=== PATIENT | male | born 1975 | race Caucasian/White ===

== ENCOUNTER 2020-10-07 18:37 | Inpatient (IN) | payer OTHER, SELFPAY ==
[2020-10-07 18:43] VITALS: BP 162/83; PULSE 131; RESP 18; TEMP 36.7; O2SAT 98; BMI 23.1
[2020-10-07 18:58] VITALS: BP 176/103; PULSE 100; RESP 16; TEMP 36.8; O2SAT 99
--- NOTE | 2020-10-07 19:19 | ED.GENADULT ---
HPI - General Adult General Chief complaint: ETOH/Substance Use Stated complaint: DIFF SWALLOWING Time Seen by Provider: 10/07/20 19:06 Source: patient Mode of arrival: ambulatory Limitations: no limitations History of Present Illness HPI narrative: patient comes to emergency room complaining of nausea and vomiting. Patient states that he started vomiting today, for the last couple of days he has been shaky, feeling weak. Patient admits that he takes alcohol daily, now drinks half pt of vodka on a daily basis, last drink was 3 hours prior to arrival. Patient has been drinking since age 15. patient states that he does not have any abdominal pain. complaint: vomiting Related Data Allergies Allergy/AdvReac Type Severity Reaction Status Date / Time Penicillins [PENICILLINS] Allergy Unknown RASH Unverified 07/21/20 15:16 Review of Systems Review of Systems: Constitutional : No Weight loss, No Fever, No Chills, No Night Sweats, No Fatigue, No Malaise ENT/Mouth : No Hearing loss, No Ear Pain, No Nasal Congestion, No Sinus Pain, No Hoarseness, No sore throat, No Rhinorrhea, No Swallowing Difficulty Eyes: No Eye Pain, No Swelling, No Redness, No Foreign Body, No Discharge, No Vision Changes Cardiovascular : No Chest Pain, No SOB, No Dyspnea on Exertion, No Orthopnea, No Edema, No Palpitations Respiratory : No Cough, No Sputum, No Wheezing, No Smoke Exposure, No Dyspnea Gastrointestinal : complaining of nausea and vomiting, No Diarrhea, No Constipation, occasional abdominal Pain but not at this time, No Hematochezia, No Melena Genitourinary : no irregular bleeding, No Dysuria, No Urinary Frequency, No Hematuria, No Urinary Incontinence, No Urgency, No Flank Pain, No Urinary Flow Changes, No Hesitancy Musculoskeletal : No joint pain, No Myalgias, No Joint Swelling Skin : No Skin Lesions, No rash Neuro : complaining of feeling weak and shaky, No Loss of Consciousness, No Dizziness, No Headache Psych : No Anxiety/Panic, No Depression, No SI/HI/AH/VH, No Social Issues, Heme/Lymph: No Bruising, No Bleeding,No Lymphadenopathy Endocrine : No Polyuria, No Polydipsia, No Temperature Intolerance PMFSH Past Medical History Medical History ETOH abuse HTN (hypertension) Social History Social History Alcohol intake: current Alcohol intake frequency: 3 or more drinks per day Alcohol type: hard liquor Smoked in Last 30 Days: No Use of substances other than those prescribed or required for medical reasons: No Advance Directives: No Advance Directives Information Provided: Yes Physical Exam Vital Signs: Vital Signs: Last Vital Signs Temp 98.3 F 10/07/20 18:58 Pulse 100 10/07/20 18:58 Resp 16 10/07/20 18:58 BP 176/103 H 10/07/20 18:58 Pulse Ox 99 10/07/20 18:58 Body Mass Index 23.1 Appearance: Alert. Oriented X3. No acute distress. anxious Eyes: Pupils equal, round and reactive to light. ENT: Pharynx normal. Neck: Normal inspection. Neck supple. No lymph nodes noted. No crepitus CVS: Normal heart rate and rhythm. Pulses normal. Normal S1 and S2 Respiratory: No respiratory distress. Breath sounds normal. No Wheezing. No rales Abdomen: Soft and nontender. No rigidity. No distention. good BS x4 Skin: Skin warm and dry. Normal skin color. Normal skin turgor. Extremities: No lower extremity edema. No lower extremity edema. No Lacerations. No Rash Neuro: Oriented X 3. No motor deficit. No sensory deficit. Moving all extermities. No slurred speech. Course Course Course Narrative: while patient was in his room, he had a seizure-like activity, patient remained awake the whole time, no postictal period, patient had severe shaking arms and legs. Patient states this has never happened to him before. I discussed the labs with the patient, patient's hemoglobin is 7.9. After reviewing the labs, patient states that he has notice occasionally black stools intermittently. patient's occult blood test was positive. Patient denies any chest pain, no shortness of breath, no dizziness. patient's EKG shows nonspecific ST segment changes in V3 through V5, troponin pending, patient asymptomatic Overall at this time, patient feels better, still somewhat shaky . I discussed the patient with our hospitalist, patient being admitted. Medical Decision Making Lab Data Result diagrams: 10/07/20 19:35 10/07/20 19:35 Labs: Lab Results 10/07/20 10/07/20 10/07/20 Range/Units 19:35 19:35 19:35 WBC 2.3 L (4.8-10.8) X10*3/uL RBC 3.22 L (4.60-5.80) X10*6/uL Hgb 7.9 L (14.0-18.0) g/dl Hct 25.4 L (42-52) % MCV 78.9 L (80-98) fL MCH 24.5 L (27.0-33.0) pg MCHC 31.1 (31.0-36.0) g/dl RDW 16.3 H (11.0-16.0) % Plt Count 83 L (160-400) X10*3/uL MPV 9.8 (9.4-12.4) fL Immature Gran % (Auto) 0.4 (0.0-0.4) % Neut % (Auto) 69.1 (45-73) % Lymph % (Auto) 8.2 L (20-40) % [place] % (Auto) 20.6 H (2-11) % Eos % (Auto) 0.4 (0-4) % Baso % (Auto) 1.3 (0-2) % Lymph # (Auto) 0.2 L (1.2-4.9) X10*3/uL [place] # (Auto) 0.5 (0.1-1.2) X10*3/uL Eos # (Auto) 0.0 (0.0-0.4) X10*3/uL Baso # (Auto) 0.0 (0.0-0.2) X10*3/uL Abs Immat Gran (auto) 0.01 (0.00-0.03) X10*3/uL Absolute Neuts (auto) 1.6 L (2.0-8.3) X10*3/uL Absolute Nucleated RBC 0.000 (0.0-0.012) X10*3/uL Nucleated RBC % (auto) 0.0 (0.0-0.2) /100WBC Smear Tech's Comments VERIFIED Sodium 136 (135-145) mmol/L Potassium 3.4 (3.3-5.1) mmol/l Chloride 96 (96-108) mmol/L Carbon Dioxide 23 (22-29) mmol/L Anion Gap 20 (12-20) BUN 10 (9-16) mg/dL Creatinine 0.78 (0.5-1.4) mg/dL Estim Creat Clear Calc 135.2 Estimated GFR > 60 Random Glucose 96 (60-115) mg/dL Calcium 9.0 (8.4-10.2) mg/dL Total Bilirubin 1.2 H (0.0-1.0) mg/dL Direct Bilirubin 0.6 H (0.0-0.5) mg/dL AST 151 H (5-37) U/L ALT 94 H (0-40) U/L Alkaline Phosphatase 66 (39-117) U/L Total Protein 7.5 (6.5-8.0) g/dL Albumin 4.8 (3.5-5.0) g/dL Lipase 28 (8-78) U/L Stool Occult Blood (NEG) Ethyl Alcohol 23 mg/dL COVID-19 (CRUZ) (Negative) COVID-19 Clin Com 10/07/20 10/07/20 Range/Units 21:02 21:02 WBC (4.8-10.8) X10*3/uL RBC (4.60-5.80) X10*6/uL Hgb (14.0-18.0) g/dl Hct (42-52) % MCV (80-98) fL MCH (27.0-33.0) pg MCHC (31.0-36.0) g/dl RDW (11.0-16.0) % Plt Count (160-400) X10*3/uL MPV (9.4-12.4) fL Immature Gran % (Auto) (0.0-0.4) % Neut % (Auto) (45-73) % Lymph % (Auto) (20-40) % [place] % (Auto) (2-11) % Eos % (Auto) (0-4) % Baso % (Auto) (0-2) % Lymph # (Auto) (1.2-4.9) X10*3/uL [place] # (Auto) (0.1-1.2) X10*3/uL Eos # (Auto) (0.0-0.4) X10*3/uL Baso # (Auto) (0.0-0.2) X10*3/uL Abs Immat Gran (auto) (0.00-0.03) X10*3/uL Absolute Neuts (auto) (2.0-8.3) X10*3/uL Absolute Nucleated RBC (0.0-0.012) X10*3/uL Nucleated RBC % (auto) (0.0-0.2) /100WBC Smear Tech's Comments Sodium (135-145) mmol/L Potassium (3.3-5.1) mmol/l Chloride (96-108) mmol/L Carbon Dioxide (22-29) mmol/L Anion Gap (12-20) BUN (9-16) mg/dL Creatinine (0.5-1.4) mg/dL Estim Creat Clear Calc Estimated GFR Random Glucose (60-115) mg/dL Calcium (8.4-10.2) mg/dL Total Bilirubin (0.0-1.0) mg/dL Direct Bilirubin (0.0-0.5) mg/dL AST (5-37) U/L ALT (0-40) U/L Alkaline Phosphatase (39-117) U/L Total Protein (6.5-8.0) g/dL Albumin (3.5-5.0) g/dL Lipase (8-78) U/L Stool Occult Blood POS (NEG) Ethyl Alcohol mg/dL COVID-19 (CRUZ) Negative (Negative) COVID-19 Clin Com See Note ECG Data Attestation: I personally reviewed and interpreted this ECG as follows: ( normal sinus rhythm, heart rate 100, ST segment depressions V3 through V6, nonspecific, no previous EKGs for comparison, QTC 464) Discharge Plan Discharge Clinical Impression: Seizure-like activity, Alcohol abuse Anemia Qualifiers: Anemia type: unspecified type Qualified Code(s): D64.9 - Anemia, unspecified GI bleed Qualifiers: GI bleed type/associated pathology: melena Qualified Code(s): K92.1 - Melena Patient Disposition: Admitted As Inpatient
[2020-10-07] MEDS: LORazepam 2 MG/ML VIAL IM (19:25)
--- NOTE | 2020-10-07 19:30 | PC.NURSE ---
RN CALLED TO STRETCHER SIDE BY PCT, PT APPEARS TO BE HAVING PARTIAL SEIZURE. VERY DIAPHORETIC, SHAKING, BUT ALWAYS AWAKE AND ALERT. MD @ BEDSIDE ORDERED 2MG IM ATIVAN. SEIZURE ACTIVITY LASTING APPROX 90 SEC-2MIN W/1 EPISODE OF N/V FOLLOWING THE EVENT. SEIZURE PRECAUTIONS HAVE BEEN PUT IN PLACE.
[2020-10-07 19:48] LABS: Basophils Percent Auto 1.3 % (0-2); Eosinophils Percent Auto 0.4 % (0-4); Hematocrit 25.4 % (42-52); Hemoglobin 7.9 g/dl (14.0-18.0); Imm Gran Abs Auto 0.01 X10*3/uL (0.00-0.03); Imm Gran Pct Auto 0.4 % (0.0-0.4); Lymphocytes Absolute Auto 0.2 X10*3/uL (1.2-4.9); Lymphocytes Percent Auto 8.2 % (20-40); MANUAL DIFF FLAG SCAN; Mean Corpuscular HGB Conc 31.1 g/dl (31.0-36.0); Mean Corpuscular Hemoglobin 24.5 pg (27.0-33.0); Mean Corpuscular Volume 78.9 fL (80-98); Mean Platelet Volume 9.8 fL (9.4-12.4); Monocytes Absolute Auto 0.5 X10*3/uL (0.1-1.2); Monocytes Percent Auto 20.6 % (2-11); Neutrophils Absolute Auto 1.6 X10*3/uL (2.0-8.3); Neutrophils Percent Auto 69.1 % (45-73); Red Blood Count 3.22 X10*6/uL (4.60-5.80); Red Cell Distribution Width 16.3 % (11.0-16.0); SCAN SMEAR FLAG 1
[2020-10-07] MEDS: ondansetron HCL 4 MG/2 ML VIAL IVPUSH (19:49)
[2020-10-07 20:02] LABS: White Blood Count 2.3 X10*3/uL (4.8-10.8)
[2020-10-07 20:03] LABS: Platelet Count 83 X10*3/uL (160-400); SLIDE REVIEW VERIFIED
[2020-10-07 20:08] LABS: Ethanol 23 mg/dL
[2020-10-07 20:13] LABS: Alanine Aminotransferase 94 U/L (0-40); Albumin Level 4.8 g/dL (3.5-5.0); Alkaline Phosphatase 66 U/L (39-117); Anion Gap 20 (12-20); Aspartate Amino Transferase 151 U/L (5-37); Bilirubin Direct 0.6 mg/dL (0.0-0.5); Bilirubin Total 1.2 mg/dL (0.0-1.0); Blood Urea Nitrogen 10 mg/dL (9-16); Carbon Dioxide 23 mmol/L (22-29); Chloride 96 mmol/L (96-108); Creatinine Clr Calc Pharmacy 135.2; Estimated Glomerular Filt Rate > 60; Glucose Random 96 mg/dL (60-115); Lipase 28 U/L (8-78); Potassium 3.4 mmol/l (3.3-5.1); Sodium 136 mmol/L (135-145); Total Protein 7.5 g/dL (6.5-8.0)
--- NOTE | 2020-10-07 20:53 | ECG_ITS ---
Test Reason : SUBSTANCE ABUSE Blood Pressure : / mmHG Vent. Rate : 100 BPM Atrial Rate : 100 BPM P-R Int : 130 ms QRS Dur : 084 ms QT Int : 360 ms P-R-T Axes : 036 -08 021 degrees QTc Int : 464 ms Normal sinus rhythm Nonspecific ST abnormality Abnormal ECG No previous ECGs available Referred By: Kenya Purdy Electronically Signed By:DELFINA VILLASEÑOR MD
[2020-10-07] MEDS: LORazepam 2 MG/ML VIAL 1 MG IVPUSH (21:17)
[2020-10-07 21:27] LABS: OBS Int Ctl Valid YES; OBS1 POS (NEG)
[2020-10-07 21:29] LABS: COVID-19 Test Negative (Negative)
[2020-10-07 23:04] LABS: Troponin-I High Sensitivity 9.2 ng/L (<3.5-35.0)
[2020-10-07 23:31] VITALS: BP 148/76; PULSE 103; RESP 18; TEMP 36.6; O2SAT 97
--- NOTE | 2020-10-07 23:34 | PM.IMHP ---
History of Present Illness Date of Service: 10/07/20 Chief Complaint: Alcohol withdrawal 45 y/o male with PMHX of Alcohol abuse, Peripheral neuropathy and GERD who presented from home due to alcohol intoxication. Per history provided by the patient, for the past 2-3 has not been feeling well, like malaise associated with poor appetite, nausea/vomiting. Patient reports that for the past 3-5 years has been drinking excessively, mainly vodka 1 quartz everyday. Last alcoholic drink was today in the am. Patient denies any chest pain, SOB, diarrhea, constipation, abdominal pain, unsteadiness or fever. On presentation to the ED patient was noted to have a BP of 160/80 mmHg, HR of 131 (which improved after 2 doses of ativan per ED. While in the ED patient was noted to have an episodes of suspected seizure where patient started moving her arms like tremulousness but without loss of consciousness. Patient does not recall the events. On blood work patient is noted to be pancytopenic, WBC of 2.3, Hgb of 7.9 and plt of 83, Guaiac postiive. Elevated LFT's noted which improved from before. Decision for admission given. Patient seen and examined at the bedside, laying down in bed in no acute distress, mildly anxious. Tremors is evident in bilateral UE. Denies any hallucinations or delusions at present. PMHX: Peripheral neuropathy, GERD PSX: None Toxic habits: Alcohol abuse, smoking or IVDA Review of Systems Constitutional: Constitutional: Reports as per [facility] Medical History ETOH abuse HTN (hypertension) Social History Alcohol intake: current Alcohol intake frequency: 3 or more drinks per day Alcohol type: hard liquor Smoked in Last 30 Days: No Use of substances other than those prescribed or required for medical reasons: No Advance Directives: No Advance Directives Information Provided: Yes Meds Allergies Allergy/AdvReac Type Severity Reaction Status Date / Time Penicillins [PENICILLINS] Allergy Unknown RASH Verified 10/07/20 22:23 Home Medications Medication Instructions Recorded Confirmed Type gabapentin 1 cap PO TID 10/07/20 10/07/20 History omeprazole [Prilosec] 40 mg PO DAILY 10/07/20 10/07/20 History Physical Exam Vital Signs and Narrative: Vital Signs: Last Vital Signs Temp 98.3 F 10/07/20 18:58 Pulse 100 10/07/20 18:58 Resp 16 10/07/20 18:58 BP 176/103 H 10/07/20 18:58 Pulse Ox 99 10/07/20 18:58 Body Mass Index 23.1 Const: General: cooperative, comfortable, no acute distress and other (mildly anxious ) Orientation/consciousness: oriented to person, oriented to place and oriented to time HENMT: Head: Yes normal to inspection Eyes: General: appearance normal, both eyes and all related structures Neck: Yes normal visual inspection Chest: Chest palpation & inspection: normal inspection of the chest Resp: Effort & Inspection: normal respiratory effort Auscultation: clear to auscultation bilaterally Cardio: Jugular venous distension: no JVD Rate: regular rate Rhythm: regular rhythm Heart sounds: S1 normal heart sound present and S2 normal heart sound present GI: Inspection: Yes normal to inspection Skin: General skin exam: no rashes or lesions noted Neuro: General: oriented to person, oriented to place and oriented to time Cognition (Neuro): normal cognition Results Labs CBC and Chem 7: 10/07/20 19:35 10/07/20 19:35 Labs: Laboratory Results - last 24 hr 10/07/20 10/07/20 10/07/20 19:35 19:35 19:35 MCV 78.9 L MCH 24.5 L MCHC 31.1 RDW 16.3 H Plt Count 83 L MPV 9.8 Immature Gran % (Auto) 0.4 Neut % (Auto) 69.1 Lymph % (Auto) 8.2 L [place] % (Auto) 20.6 H Eos % (Auto) 0.4 Baso % (Auto) 1.3 Lymph # (Auto) 0.2 L [place] # (Auto) 0.5 Eos # (Auto) 0.0 Baso # (Auto) 0.0 Abs Immat Gran (auto) 0.01 Absolute Neuts (auto) 1.6 L Absolute Nucleated RBC 0.000 Nucleated RBC % (auto) 0.0 Smear Tech's Comments VERIFIED Anion Gap 20 Estim Creat Clear Calc 135.2 Estimated GFR > 60 Random Glucose 96 Calcium 9.0 Total Bilirubin 1.2 H Direct Bilirubin 0.6 H AST 151 H ALT 94 H Alkaline Phosphatase 66 Troponin I High Sens Total Protein 7.5 Albumin 4.8 Lipase 28 Stool Occult Blood Ethyl Alcohol 23 COVID-19 (CRUZ) COVID-19 Clin Com 10/07/20 10/07/20 10/07/20 19:35 21:02 21:02 MCV MCH MCHC RDW Plt Count MPV Immature Gran % (Auto) Neut % (Auto) Lymph % (Auto) [place] % (Auto) Eos % (Auto) Baso % (Auto) Lymph # (Auto) [place] # (Auto) Eos # (Auto) Baso # (Auto) Abs Immat Gran (auto) Absolute Neuts (auto) Absolute Nucleated RBC Nucleated RBC % (auto) Smear Tech's Comments Anion Gap Estim Creat Clear Calc Estimated GFR Random Glucose Calcium Total Bilirubin Direct Bilirubin AST ALT Alkaline Phosphatase Troponin I High Sens 9.2 Total Protein Albumin Lipase Stool Occult Blood POS Ethyl Alcohol COVID-19 (CRUZ) Negative COVID-19 Clin Com See Note Assessment and Plan (1) Alcohol withdrawal: Status: Acute Start with phenobarbital per protocol monitor closely in IMC Fall precautions Start with thiamine and folate as ordered Monitor electrolytes closely Detox for evaluation in the am (2) Seizure-like activity: Status: Acute EEG in the am Neurology evaluation in the am (3) Anemia: Qualifiers: Anemia type: unspecified type Qualified Code(s): D64.9 - Anemia, unspecified Status: Acute Hgb of 7.9. Guaic positive Follow up Repeat CBC at 3 am and Iron studies GI eval in the am (4) GERD (gastroesophageal reflux disease): Status: Acute continue with PPI home dose (5) Peripheral neuropathy: Status: Acute continue with gabapentin home dose
[2020-10-08] VITALS (10 sets, daily range): BP systolic 130–171; BP diastolic 76–97; PULSE 79–96; RESP 18–20; TEMP 36.3–37.3; O2SAT 96–100
[2020-10-08] MEDS: Thiamine HCL 100 MG TABLET PO ×2 (00:44→20:55)
[2020-10-08] MEDS: Folic Acid 1 MG TABLET PO ×2 (00:44→20:55)
[2020-10-08] MEDS: PHENobarbitaL sodium 130 MG/ML VIAL 261 MG IM (00:44)
--- NOTE | 2020-10-08 02:57 | PC.NURSE ---
HOSPITALIST AWARE 0000 CBC NOT DONE, STATES OK, PT TO HAVE 0300 DRAW. IMC NURSE AWARE
[2020-10-08] MEDS: PHENobarbitaL sodium 65 MG/ML VIAL 196 MG IM ×2 (03:39→06:50)
[2020-10-08 03:50] LABS: Hematocrit 23.2 % (42-52); Hemoglobin 7.3 g/dl (14.0-18.0); Immature Retic Fraction 26.9 % (2.3-13.4); Mean Corpuscular HGB Conc 31.5 g/dl (31.0-36.0); Mean Corpuscular Volume 79.5 fL (80-98); Mean Platelet Volume 9.5 fL (9.4-12.4); Red Blood Count 2.92 X10*6/uL (4.60-5.80); Red Cell Distribution Width 16.2 % (11.0-16.0); Retic HGB Equivalent 29.4 pg (30.0-35.0); Reticulocytes Absolute 0.058 X10*6/uL (0.026-0.095)
[2020-10-08 03:54] LABS: Platelet Count 75 X10*3/uL (160-400); White Blood Count 2.1 X10*3/uL (4.8-10.8)
[2020-10-08 04:18] LABS: Iron 46 mcg/dL (45-160); Percent Iron Saturation 10 % (15-50); Total Iron Binding Capacity 467 mcg/dL (228-428); Unsaturated Iron Binding 421 ug/dL
[2020-10-08 04:38] LABS: Ferritin 39 ng/mL (20-250)
[2020-10-08 07:06] LABS: Basophils Percent Auto 1.1 % (0-2); Eosinophils Percent Auto 1.1 % (0-4); Hematocrit 23.9 % (42-52); Hemoglobin 7.5 g/dl (14.0-18.0); Imm Gran Abs Auto 0.01 X10*3/uL (0.00-0.03); Imm Gran Pct Auto 0.5 % (0.0-0.4); Lymphocytes Absolute Auto 0.2 X10*3/uL (1.2-4.9); Lymphocytes Percent Auto 8.9 % (20-40); MANUAL DIFF FLAG SCAN; Mean Corpuscular HGB Conc 31.4 g/dl (31.0-36.0); Mean Corpuscular Hemoglobin 24.7 pg (27.0-33.0); Mean Corpuscular Volume 78.6 fL (80-98); Monocytes Absolute Auto 0.5 X10*3/uL (0.1-1.2); Monocytes Percent Auto 24.7 % (2-11); Neutrophils Absolute Auto 1.2 X10*3/uL (2.0-8.3); Neutrophils Percent Auto 63.7 % (45-73); Red Blood Count 3.04 X10*6/uL (4.60-5.80); Red Cell Distribution Width 16.4 % (11.0-16.0); SCAN SMEAR FLAG 1
[2020-10-08 07:21] LABS: Platelet Count 82 X10*3/uL (160-400); White Blood Count 1.9 X10*3/uL (4.8-10.8)
[2020-10-08 07:26] LABS: Anion Gap 14 (12-20); Blood Urea Nitrogen 10 mg/dL (9-16); Calcium 8.7 mg/dL (8.4-10.2); Carbon Dioxide 27 mmol/L (22-29); Chloride 98 mmol/L (96-108); Creatinine Clr Calc Pharmacy 142.5; Estimated Glomerular Filt Rate > 60; Glucose Random 85 mg/dL (60-115); Potassium 3.3 mmol/l (3.3-5.1); Sodium 136 mmol/L (135-145)
[2020-10-08 07:55] LABS: SLIDE REVIEW VERIFIED
--- NOTE | 2020-10-08 08:49 | P.CNGI_ITS ---
History of Present Illness Data of Consult Service Date: 10/08/20 Requesting physician: Orlin Chapman Primary Care Provider: Capo Mario MD HPI Reason for consult: Nausea, vomiting, anemia, suspected GI Bleed 45 YM with known hx of ETOH abuse, GERD and peripheral neuropathy seen at [facility] ED yesterday with nausea and vomiting: patient comes to emergency room complaining of nausea and vomiting. Patient states that he started vomiting today, for the last couple of days he has been shaky, feeling weak. Patient admits that he takes alcohol daily, now drinks half pt of vodka on a daily basis, last drink was 3 hours prior to arrival. Patient has been drinking since age 15. patient states that he does not have any abdominal pain. MD complaint: vomiting Labs showed anemia and elevated LFTs. Iron studies are suggestive of iron deficiency anemia. While in the ED, pt had a seizure like activity with severe shaking of arms and legs. He admitted to having intermittent black stools and occult blood test was positive. Patient denied any chest pain, no shortness of breath, no dizziness. EKG showed nonspecific ST segment changes in V3 through V5, troponin was normal, patient asymptomatic Pt was admitted and started on phenobarbital and CIWA protocol. He denies having additional seizure episodes. Patient complains of intermittent nausea and vomiting for the past year. Has nausea when he wakes up with bilious vomiting and denies hematemesis. Notes passage of black stools off and on for the past 6 months. Has heartburn and takes Prilosec 20 mg every morning. Last alcoholic drink was yesterday morning. Pt complains of decreased appetite with weight loss from 220 lbs to 160 lbs over the past few yrs. He denies recent change in bowel habits, constipation, diarrhea, or rectal bleeding. Patient denies major cardiac or pulmonary problems, and admits to intermittent loud snoring. Denies problems with anesthesia in the past. Denies being on chronic anticoagulation. Pt denies smoking or hx of IVDA. He has been drinking since age 15 yrs - initially a few beers and day and increased to a quart of Vodka daily. he quitted for 30 days a few yrs ago and then resumed drinking. 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 Dad was an alcoholic and due to cirrhosis. Patient denies known family history of colon polyps, colon cancer or other GI m alignancies. PAST GI HISTORY BY REVIEW OF MEDICAL RECORDS: 05/2009 EGD was performed by Dr. Demarco for evaluation of GERD and showed a hiatal hernia, Slight irregularity at GE junction consistent with acid reflux and multiple gastric polyps. biopsies obtained from GE junction showed chronic inflammation and no Montoya's. Biopsies obtained from gastric polyps showed fundic gland polyps. Review of Systems Constitutional: Constitutional: Denies fever(s), Denies headache(s), Reports poor appetite and Reports weight loss Eyes: Eyes: Denies eye discharge and Reports irritation (excessive watering) ENT: Reports Normal hearing present, Denies dysphagia, Denies dizziness and Denies headache(s) Cardiovascular: Cardiovascular: Denies chest pain, Denies leg edema and Denies dyspnea on exertion Respiratory: Respiratory: Denies cough and Denies dyspnea on exertion Gastrointestinal: Gastrointestinal: Denies abdominal pain, Reports melena, Denies change in bowel habits, Denies dysphagia, Reports heartburn, Reports [place] and Reports vomiting Genitourinary: Genitourinary: Denies dysuria Musculoskeletal: Musculoskeletal: Denies back pain and Denies arthralgias Integumentary/Breasts: Skin/Breast: Denies pruritus, Denies rash and Denies jaundice Neurologic: Reports Normal hearing present, Denies Abnormal speech present, Denies dizziness, Denies headache(s) and Denies seizure-like activity Psychiatric: Psychiatric: Denies anxiety, Denies depression and Denies panic attacks Endocrine: Endocrine: Denies cold intolerance, Denies flushing and Denies heat intolerance PMFSH Past Medical History Medical History ETOH abuse HTN (hypertension) Social History Social History Household Members: Family Housing: House Do you presently have visiting nurse or other home services: No Alcohol intake: current Alcohol intake frequency: 3 or more drinks per day Alcohol type: hard liquor Smoking Status: Former smoker Smoked in Last 30 Days: No Use of substances other than those prescribed or required for medical reasons: No Currently Displaying Signs/Symptoms of Drug Intoxication Withdrawal: No Have you been hit, kicked, punched, or otherwise hurt by someone within the past year? If so, by whom?: No Do you feel safe in your current relationship?: Yes Is there a partner from a previous relationship who is making you feel unsafe now?: No Are you made to feel afraid or neglected: No Advance Directives: No Advance Directives Information Provided: Yes Do you have thoughts of harming others: None Do you have a plan to hurt others: No Plan Recently lost weight without trying: Unsure Meds Allergies Allergy/AdvReac Type Severity Reaction Status Date / Time Penicillins [PENICILLINS] Allergy Unknown RASH Verified 10/07/20 22:23 Home Medications Medication Instructions Recorded Confirmed Type gabapentin 1 cap PO TID 10/07/20 10/07/20 History omeprazole [Prilosec] 40 mg PO DAILY 10/07/20 10/07/20 History Physical Exam Vital Signs: Vital Signs: Last Vital Signs Temp 98.7 F 10/08/20 07:46 Pulse 85 10/08/20 07:46 Resp 20 10/08/20 07:46 BP 171/97 H 10/08/20 07:46 Pulse Ox 97 10/08/20 07:46 Body Mass Index 23.1 Const: General: no acute distress Nutritional Appearance: obese Orientation/consciousness: patient oriented x3 Limitations: no limitations HENMT: Head: Yes normal to inspection Ears: hearing grossly normal bilaterally Mouth: Normal oral and palatal mucosa present Eyes: Sclerae: sclerae normal Pupils: Equal, round and reactive pupils present Neck: Neck: Yes normal visual inspection Chest: Chest palpation & inspection: normal inspection of the chest Resp: Effort & Inspection: normal respiratory effort Auscultation: clear to auscultation bilaterally Cardio: Palpation: normal PMI Rate: regular rate Rhythm: regular rhythm Heart sounds: S1 normal heart sound present, S2 normal heart sound present and no murmurs GI: Palpation (GI): Soft to palpation, nontender and No hepatosplenomegaly present Auscultation: normal bowel sounds Rectal Exam - Male: Yes deferred Skin: General skin exam: no rashes or lesions noted Neuro: General: patient oriented x3, gait normal and moves all extremities Cranial nerves: Yes Equal, round and reactive pupils present and Yes Normal hearing present Speech: No Abnormal speech present Psych: Appearance: grossly normal Mental Status: mental status grossly normal Results Labs CBC & Chem 7: 10/08/20 05:42 10/08/20 05:42 Labs: Short CBC 10/07/20 10/08/20 10/08/20 Range/Units 19:35 03:39 05:42 WBC 2.3 L 2.1 L 1.9 L (4.8-10.8) X10*3/uL Hgb 7.9 L 7.3 L 7.5 L (14.0-18.0) g/dl Hct 25.4 L 23.2 L 23.9 L (42-52) % Plt Count 83 L 75 L 82 L (160-400) X10*3/uL 10/08/20 Range/Units 06:58 WBC Cancelled (4.8-10.8) X10*3/uL Hgb Cancelled (14.0-18.0) g/dl Hct Cancelled (42-52) % Plt Count Cancelled (160-400) X10*3/uL BMP 10/07/20 10/08/20 19:35 05:42 Sodium 136 136 Potassium 3.4 3.3 Chloride 96 98 Carbon Dioxide 23 27 BUN 10 10 Creatinine 0.78 0.74 Calcium 9.0 8.7 Liver Function 10/07/20 Range/Units 19:35 Total Bilirubin 1.2 H (0.0-1.0) mg/dL Direct Bilirubin 0.6 H (0.0-0.5) mg/dL AST 151 H (5-37) U/L ALT 94 H (0-40) U/L Alkaline Phosphatase 66 (39-117) U/L Albumin 4.8 (3.5-5.0) g/dL Assessment and Plan (1) GERD (gastroesophageal reflux disease): Status: Acute (2) GI bleed: Qualifiers: GI bleed type/associated pathology: melena Qualified Code(s): K92.1 - Melena Status: Acute (3) Anemia: Qualifiers: Anemia type: unspecified type Qualified Code(s): D64.9 - Anemia, unspecified Problem details: due to Iron deficiency from slow GI blood loss Status: Acute (4) Alcohol abuse: Problem details: since age 15, drinks a quart of vodka daily Status: Acute (5) Elevated LFTs: Status: Acute 45 YM with known hx of ETOH abuse, GERD and peripheral neuropathy admitted with decreased appetite, intermittent nausea, vomiting and black stools for the past several months. His symptoms are likely related to ETOH related gastritis. Other possibilities include erosive esophagitis and PUD. Labs show chronic anemia and iron studies are cw iron def anemia. Pt has decreased appetite and admits to weight loss from 220 to 160 lbs over the past several yrs - likely due to poor nutritional intake due to alcohol abuse. Elevated LFTs likely due to alcoholic hepatitis RECOMMENDATIONS: 1. Follow H & H daily and check Vitamin D and B 12 levels - order placed for tomorrow am. 2. PPI 3. EGD on 10/09/20 - scheduled at 10.00 am. Procedure and potential complications including bleeding, perforation, drug reaction and aspiration were reviewed with the patient. 4. Check hepatitis serologies - added to am labs 5. Pt was advised to quit drinking. He is interested in obtaining information about outpatient Rehab.
[2020-10-08] MEDS: Omeprazole 40 MG CAPSULE.DR PO (08:50)
[2020-10-08] MEDS: Gabapentin 300 MG CAPSULE PO ×3 (08:50→20:55)
[2020-10-08 09:03] LABS: Alanine Aminotransferase 80 U/L (0-40); Albumin Level 4.4 g/dL (3.5-5.0); Alkaline Phosphatase 57 U/L (39-117); Aspartate Amino Transferase 128 U/L (5-37); Bilirubin Direct 0.6 mg/dL (0.0-0.5); Bilirubin Total 1.3 mg/dL (0.0-1.0); Magnesium 1.7 mg/dL (1.6-2.6); Total Protein 6.9 g/dL (6.5-8.0)
[2020-10-08 09:15] LABS: Lactate Dehydrogenase 317 U/L (118-273)
--- NOTE | 2020-10-08 12:15 | P.PNIM_ITS ---
Subjective Subjective Date of Service: 10/08/20 Interval History: Patient seen and examined at bedside patient was little shaky and reported weakness Constitutional Constitutional: Reports as per HPI Physical Exam Vital Signs: Vital Signs: Last Vital Signs Temp 99.2 F 10/08/20 11:12 Pulse 91 10/08/20 11:12 Resp 20 10/08/20 11:12 BP 163/96 H 10/08/20 11:12 Pulse Ox 98 10/08/20 11:12 Body Mass Index 23.1 Const: General: cooperative, comfortable, no acute distress and other (mildly anxious ) Orientation/consciousness: oriented to person, oriented to place and oriented to time HENMT: Head: Yes normal to inspection Eyes: General: appearance normal, both eyes and all related structures Neck: Neck: Yes normal visual inspection Chest: Chest palpation & inspection: normal inspection of the chest Resp: Effort & Inspection: normal respiratory effort Auscultation: clear to auscultation bilaterally Cardio: Jugular venous distension: no JVD Rate: regular rate Rhythm: regular rhythm Heart sounds: S1 normal heart sound present and S2 normal heart sound present GI: Inspection: Yes normal to inspection Skin: General skin exam: no rashes or lesions noted Neuro: General: oriented to person, oriented to place and oriented to time Cognition (Neuro): normal cognition Objective Data Current Medications Generic Name Dose Route Start Last Admin Trade Name Brysonq PRN Reason Stop Dose Admin Folic Acid 1 mg 10/07/20 23:45 10/08/20 00:44 Folic Acid 1 Mg Tablet PO 1 mg Q24H LYDIA Administration Gabapentin 300 mg 10/08/20 09:00 10/08/20 08:50 Gabapentin 300 Mg Capsule PO 300 mg TID LYDIA Administration Medication 1 each 10/08/20 01:00 No Benzodiazepines MISCELLANE DAILY LYDIA Omeprazole 40 mg 10/08/20 09:00 10/08/20 08:50 Omeprazole 40 Mg Capsule.Dr PO 40 mg DAILY LYDIA Administration Phenobarbital 60 mg 10/08/20 21:00 Phenobarbital 30 Mg Tablet PO 10/10/20 09:01 BID LYDIA Protocol Phenobarbital 30 mg 10/10/20 21:00 Phenobarbital 30 Mg Tablet PO 10/12/20 09:01 BID LYDIA Protocol Phenobarbital 30 mg 10/13/20 09:00 Phenobarbital 30 Mg Tablet PO 10/14/20 09:01 DAILY [facility] Protocol Thiamine HCl 100 mg 10/07/20 23:45 10/08/20 00:44 Thiamine Hcl 100 Mg Tablet PO 100 mg Q24H [facility] Administration Labs CBC & Chem 7: 10/08/20 05:42 10/08/20 05:42 Assessment and Plan (1) Alcohol withdrawal: Status: Acute (2) Seizure-like activity: Status: Acute (3) Anemia: Problem details: due to Iron deficiency from slow GI blood loss Status: Acute (4) GERD (gastroesophageal reflux disease): Status: Acute (5) Peripheral neuropathy: Status: Acute Assessment and Plan: Alcohol withdrawal seizure monitor on telemetry continue phenobarbital and CIWA protocol seizure and fall precaution continue thiamine and folic acid Microcytic anemia rule out GI bleed hemoglobin 7.5 today stool for occult was positive will transfuse 1 unit of PRBC seen by GI plan for EGD tomorrow monitor H&H transfuse below 8 continue PPI peripherally neuropathy likely secondary to alcohol abuse continue gabapentin elevated LFTs likely secondary to alcohol abuse monitor LFTs DVT prophylaxis with Venodyne given anemia requiring transfusion
[2020-10-08] MEDS: Potassium Chloride ER 20 MEQ TAB.ER.PRT PO (13:20)
--- NOTE | 2020-10-08 14:12 | P.CNNE_ITS ---
History of Present Illness Data of Consult Service Date: 10/08/20 Primary Care Provider: Capo Mario MD HPI Reason for consult: Seizure-like episode. Peripheral neuropathy This is a 45-year-old man with a history of chronic alcohol abuse who has been drinking heavily a qt of vodka every day and was admitted after he had eaten look good on the morning of admission and vomited. When he came in he had abnormal liver function tests and anemia. And while in the emergency room he had a seizure-like episode where his whole body was trembling for a few seconds but he did not lose consciousness and insists that she was aware of everything that was going on at that time including the for medical staff that were in attendance. He has never had a seizure. 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 He was prescribed gabapentin for symptomatic relief but never took it. Review of Systems Constitutional: Constitutional: Denies headache(s) Eyes: Eyes: Reports no additional eye complaints ENT: Reports Normal hearing present, Denies dizziness and Denies headache(s) Cardiovascular: Cardiovascular: Reports no additional cardiovascular complaints Respiratory: Respiratory: Reports no additional respiratory complaints Gastrointestinal: Gastrointestinal: Reports no additional gastrointestinal complaints Genitourinary: Genitourinary: Reports no additional male genitourinary complaints Musculoskeletal: Musculoskeletal: Reports no additional musculoskeletal compl aints Integumentary/Breasts: Skin/Breast: Reports system reviewed and no additional complaints, except as docu Neurologic: Reports Normal hearing present, Denies Abnormal speech present, Denies dizziness, Denies headache(s) and Denies seizure-like activity Psychiatric: Psychiatric: Reports as per HPI Endocrine: Endocrine: Reports no additional endocrine complaints Hematologic/Lymphatic: Hematologic/Lymphatic: Reports no additional hem atologic/lymphatic complaints Allergic/Immunologic: Allergic/Immunologic: Reports no additional allergic/immunologic complaints [facility] Past Medical History Medical History ETOH abuse HTN (hypertension) Social History Social History Household Members: Family Housing: House Do you presently have visiting nurse or other home services: No Alcohol intake: current Alcohol intake frequency: 3 or more drinks per day Alcohol type: hard liquor Smoking Status: Former smoker Smoked in Last 30 Days: No Use of substances other than those prescribed or required for medical reasons: No Currently Displaying Signs/Symptoms of Drug Intoxication Withdrawal: No Have you been hit, kicked, punched, or otherwise hurt by someone within the past year? If so, by whom?: No Do you feel safe in your current relationship?: Yes Is there a partner from a previous relationship who is making you feel unsafe now?: No Are you made to feel afraid or neglected: No Advance Directives: No Advance Directives Information Provided: Yes Do you have thoughts of harming others: None Do you have a plan to hurt others: No Plan Recently lost weight without trying: Unsure Meds Allergies Allergy/AdvReac Type Severity Reaction Status Date / Time Penicillins [PENICILLINS] Allergy Unknown RASH Verified 10/07/20 22:23 Home Medications Medication Instructions Recorded Confirmed Type gabapentin 1 cap PO TID 10/07/20 10/07/20 History omeprazole [Prilosec] 40 mg PO DAILY 10/07/20 10/07/20 History Physical Exam Vital Signs: Vital Signs: Last Vital Signs Temp 99.2 F 10/08/20 11:12 Pulse 91 10/08/20 11:12 Resp 20 10/08/20 11:12 BP 163/96 H 10/08/20 11:12 Pulse Ox 98 10/08/20 11:12 Body Mass Index 23.1 Const: General: cooperative, comfortable, no acute distress, well developed, alert and awake Nutritional Appearance: well nourished Orientation/consciousness: oriented to person, oriented to place and oriented to time Limitations: no limitations HENMT: Head: Yes normal to inspection, Yes normocephalic and Yes atraumatic Ears: hearing grossly normal bilaterally General nose exam: Normal external nose present Face and sinus: Yes normal facial exam Mouth: Normal oral and palatal mucosa present Eyes: General: appearance normal, both eyes and all related structures Visual Peña: normal visual peña by confrontation Alignment and Position: alignment normal Periorbital: periorbital findings normal Eyelids: Yes eyelids normal Conjunctivae: conjunctivae normal Sclerae: sclerae normal Corneas: corneas normal Pupils: Equal, round and reactive pupils present and Pupil accommodation reflex normal EOM: EOMs intact bilaterally Direct Ophthalmoscopy: normal light reflex Neck: Neck: Yes normal visual inspection, Yes full ROM and Yes no meningeal signs Thyroid: Thyroid normal Carotids: normal carotid upstroke and bounding pulses Chest: Chest palpation & inspection: normal inspection of the chest Resp: Effort & Inspection: normal respiratory effort Auscultation: clear to auscultation bilaterally Cardio: Rate: regular rate Rhythm: regular rhythm Heart sounds: S1 normal heart sound present and S2 normal heart sound present Peripheral pulses: Peripheral pulses 2+ throughout GI: Inspection: Yes normal to inspection Percussion: Yes normal to percuss ion Auscultation: normal bowel sounds Rectal Exam - Male: Yes deferred Back/Spine/Pelvis: Cervical Spine: normal cervical lordosis and cervical ROM normal Thoracic/Lumbar Spine: thoracic and lumbar spine normal to inspection Skin: General skin exam: no rashes or lesions noted Neuro: General: oriented to person, oriented to place, oriented to time, gait normal, tone normal, moves all extremities, Normal light touch and pain sensat ion, no meningeal signs, no focal motor deficits, CN's II-XI intact bilaterally, normal sensation to monofilament and deep tendon reflexes 2+ bilaterally Cranial nerves: Yes Equal, round and reactive pupils present and Yes Normal hearing present Cognition (Neuro): normal cognition Speech: No Abnormal speech present Gait exam (Neuro): Normal gait present Motor exam (neuro): 5/5 motor strength present throughout, Pronator motor function not present, no tremor noted, no asterixis, Motor fasciculations not present, Normal motor muscle tone present throughout and Motor abnormalities not present Sensory Exam: Bilaterally intact graphesthesia Deep tendon reflexes (DTR's): Right triceps reflex intensity grade: 2+, Left triceps reflex intensity grade: 2+, Rt Biceps (C5, C6): 2+, Left biceps reflex intensity grade: 2+, Right brac hioradialis reflex intensity grade: 2+, Left brachioradialis reflex intensity grade: 2+, Right patellar reflex intensity grade: 2+, Left patellar reflex intensity grade: 2+, Right ankle reflex intensity grade: 2+ and Left ankle reflex intensity grade: 2+ Plantar Reflex Responses: downgoing: right, left and bilateral Coordination: eyffml-sx-tzzo test normal, siai-vr-gmml test normal, tandem gait normal and Romberg test negative Pupils: Normal pupillary reactivity/response: bilateral Extrem: General: Yes normal to inspection, Yes normal exam except as noted and Yes no pedal edema Psych: Appearance: grossly normal Mental Status: mental status grossly normal Speech and movement: Normal speech and movement present and Clear speech present Affect: normal affect Attitude: cooperative Thought process: Normal thought process present Results Labs CBC & Chem 7: 10/08/20 05:42 10/08/20 05:42 Labs: Short CBC 10/07/20 10/08/20 10/08/20 Range/Units 19:35 03:39 05:42 WBC 2.3 L 2.1 L 1.9 L (4.8-10.8) X10*3/uL Hgb 7.9 L 7.3 L 7.5 L (14.0-18.0) g/dl Hct 25.4 L 23.2 L 23.9 L (42-52) % Plt Count 83 L 75 L 82 L (160-400) X10*3/uL 10/08/20 Range/Units 06:58 WBC Cancelled (4.8-10.8) X10*3/uL Hgb Cancelled (14.0-18.0) g/dl Hct Cancelled (42-52) % Plt Count Cancelled (160-400) X10*3/uL BMP 10/07/20 10/08/20 19:35 05:42 Sodium 136 136 Potassium 3.4 3.3 Chloride 96 98 Carbon Dioxide 23 27 BUN 10 10 Creatinine 0.78 0.74 Calcium 9.0 8.7 Liver Function 10/07/20 10/08/20 Range/Units 19:35 03:39 Total Bilirubin 1.2 H 1.3 H (0.0-1.0) mg/dL Direct Bilirubin 0.6 H 0.6 H (0.0-0.5) mg/dL AST 151 H 128 H (5-37) U/L ALT 94 H 80 H (0-40) U/L Alkaline Phosphatase 66 57 (39-117) U/L Albumin 4.8 4.4 (3.5-5.0) g/dL Assessment and Plan (1) Alcohol withdrawal: Problem details: Watch for alcohol withdrawal Status: Acute Phenobarbital protocol for alcohol withdrawal (2) Seizure-like activity: Problem details: Atypical episode probably not a full-blown seizure Status: Acute EEG, which can be done as an outpatient if he is discharged before Saturday (3) Peripheral neuropathy: Problem details: Stop alcohol abuse. Status: Acute Her vitamin-B complex. Stop alcohol use. Gabapentin 300 mg p.o. t.i.d. for symptomatic relief. Outpatient nerve conduction study of the lower extremities (4) Alcohol abuse: Problem details: since age 15, drinks a quart of vodka daily Status: Acute Alcohol rehab program
--- NOTE | 2020-10-08 16:20 | MHC.CM.PN ---
PT REPORTS HE LIVES AT HOME WITH HIS AND TWO CHILDREN AND IS INDEPENDENT WITH CARE. PT HAS NO DME AND NO SERVICES. PT IS INTERESTED IN COMPLETING A HCP. CM WILL MEET WITH HIM TOMORROW TO DO SO. CURRENT DC PLAN IS HOME WITH NO SERVICES. PT WILL ARRANGE TRANSPORT
[2020-10-08] MEDS: PHENobarbitaL 30 MG TABLET 60 MG PO (20:55)
[2020-10-09] VITALS (8 sets, daily range): BP systolic 106–170; BP diastolic 60–101; PULSE 77–100; RESP 14–20; TEMP 35.8–37.3; O2SAT 97–100
[2020-10-09 06:55] LABS: Basophils Absolute Auto 0.1 X10*3/uL (0.0-0.2); Basophils Percent Auto 1.9 % (0-2); Eosinophils Absolute Auto 0.1 X10*3/uL (0.0-0.4); Eosinophils Percent Auto 3.7 % (0-4); Hematocrit 28.7 % (42-52); Imm Gran Abs Auto 0.03 X10*3/uL (0.00-0.03); Imm Gran Pct Auto 1.1 % (0.0-0.4); Lymphocytes Absolute Auto 0.2 X10*3/uL (1.2-4.9); Lymphocytes Percent Auto 8.9 % (20-40); MANUAL DIFF FLAG SCAN; Mean Corpuscular HGB Conc 31.4 g/dl (31.0-36.0); Mean Corpuscular Hemoglobin 25.1 pg (27.0-33.0); Mean Corpuscular Volume 80.2 fL (80-98); Mean Platelet Volume 10.2 fL (9.4-12.4); Monocytes Absolute Auto 0.5 X10*3/uL (0.1-1.2); Monocytes Percent Auto 17.8 % (2-11); Neutrophils Absolute Auto 1.8 X10*3/uL (2.0-8.3); Neutrophils Percent Auto 66.6 % (45-73); Platelet Count 104 X10*3/uL (160-400); Red Blood Count 3.58 X10*6/uL (4.60-5.80); Red Cell Distribution Width 16.3 % (11.0-16.0); SCAN SMEAR FLAG 1; White Blood Count 2.7 X10*3/uL (4.8-10.8)
[2020-10-09 07:01] LABS: INTERNATIONAL NORM RATIO 1.2 (0.9-1.1); Prothrombin Time 14.1 SEC (10.8-13.0)
[2020-10-09 07:04] LABS: Anion Gap 16 (12-20); Blood Urea Nitrogen 12 mg/dL (9-16); Calcium 9.4 mg/dL (8.4-10.2); Carbon Dioxide 27 mmol/L (22-29); Chloride 96 mmol/L (96-108); Creatinine Clr Calc Pharmacy 131.8; Estimated Glomerular Filt Rate > 60; Glucose Random 84 mg/dL (60-115); Potassium 3.3 mmol/l (3.3-5.1); Sodium 136 mmol/L (135-145)
[2020-10-09 07:40] LABS: SLIDE REVIEW VERIFIED
--- NOTE | 2020-10-09 09:58 | P.OP_ITS ---
Operative Note Operative Note Date of Service: 10/09/20 Narrative: Pre-op diagnosis: GI Bleeding, nausea and vomiting, weight loss Post-op diagnosis: other (GERD, Gastritis, Gastric polyps) Procedure: FLEXIBLE TRANSORAL UPPER GASTROINTESTINAL ENDOSCOPY Consent: Indications for the procedure and potential complications of bleeding, perforation, reaction to medications and missed diagnosis were discussed with the patient and informed consent was obtained. Instrument: Olympus GIF H 190 mid size upper endoscope Monitoring: Vital signs and clinical assessment, continuous EKG monitoring, Pulse oximetry, Carbon Dioxide monitoring and blood pressure monitoring were done throughout the procedure. Procedure: The patient was placed in the left lateral decubitis position and pre-procedure medications were administered and a bite block was placed. The endoscope was inserted into the mouth and advanced under direct vision to the third part of duodenum. A careful inspection was made as the upper endoscope was withdrawn including a retroflexed examination of the proximal stomach; Findings and interventions are described below. Findings: Larynx: Normal Esophagus: GE junction at 40 cms. 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 Stomach: Moderate diffuse gastric erythema with submucosal hemorrhages due to retching. Biopsies were obtained. Multiple 3-6 mm benign apperaing polyps in the fundus - biopsied. Grade 2 flap valve on retroflexed examination of the cardia. 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 STOMACH: Moderate diffuse gastric erythema with submucosal hemorrhages due to retching. Biopsies were obtained. Multiple 3-6 mm benign apperaing polyps in the fundus - biopsied. Grade 2 flap valve on retroflexed examination of the cardia. No clear source found for anemia and black stools - likely lower GI source. Plan: Await pathology results. Pt needs further evaluation with a colonoscopy - I will give colyte prep today and schedule for 10/10/20 afternoon. Above findings were reviewed with the patient and GERD and Gastritis handouts were given to the patient. Pt's , Jane, was called at [phone] and EGD results were reviewed with her at patient's request. Surgeon: Eron Le MD Anesthesia: MAC (Dr Maynard) [employer] Driver: Denilson Carrero Estimated blood loss (mL): 0 Pathology: other (A. Gastric antrum, B. Gastric polyp, C. Distal esophagus) Condition: stable Disposition: floor
--- NOTE | 2020-10-09 09:58 | MHC.SHP ---
Pre-Procedural Eval Section A The patient is an INPATIENT: Yes Changes since office visit: Yes New Medical Problems, Yes Changes in Medication and Yes Patient answered all questions; No Cold of Flu in the past 2 weeks The History & Physical has been completed within 30 days and I have reviewed it.: Yes Section B Chief Complaint: ALCOHOL WITHDRAWALS Allergies: Allergies Allergy/AdvReac Type Severity Reaction Status Date / Time Penicillins [PENICILLINS] Allergy Unknown RASH Verified 10/07/20 22:23 Plan Patient has been examined and remains a candidate for the planned procedure
--- NOTE | 2020-10-09 10:00 | HO.ANESPROP2 ---
[facility] Past Medical History Medical History (Updated 10/09/20 @ 10:04 by Ubaldo Maynard) ETOH abuse HTN (hypertension) Seizure-like activity Social History Social History Household Members: Family Housing: House Do you presently have visiting nurse or other home services: No Alcohol intake: current Alcohol intake frequency: 3 or more drinks per day Alcohol type: hard liquor Smoking Status: Former smoker Smoked in Last 30 Days: No Use of substances other than those prescribed or required for medical reasons: No Currently Displaying Signs/Symptoms of Drug Intoxication Withdrawal: No Have you been hit, kicked, punched, or otherwise hurt by someone within the past year? If so, by whom?: No Do you feel safe in your current relationship?: Yes Is there a partner from a previous relationship who is making you feel unsafe now?: No Are you made to feel afraid or neglected: No Advance Directives: No Advance Directives Information Provided: Yes Do you have thoughts of harming others: None Do you have a plan to hurt others: No Plan Recently lost weight without trying: Unsure service: No Current occupational status: employed Meds Allergies Allergy/AdvReac Type Severity Reaction Status Date / Time Penicillins [PENICILLINS] Allergy Unknown RASH Verified 10/07/20 22:23 Home Medications Medication Instructions Recorded Confirmed Type gabapentin 1 cap PO TID 10/07/20 10/07/20 History omeprazole [Prilosec] 40 mg PO DAILY 10/07/20 10/07/20 History Exam Exam Date and Time: October 09, 2020 1000 Height,Weight and Vital Signs: Height 6 ft 2 in Weight 81.647 kg Last Vital Signs Temp 99.2 F 10/09/20 07:50 Pulse 88 10/09/20 07:50 Resp 20 10/09/20 07:50 BP 154/99 H 10/09/20 07:50 Pulse Ox 98 10/09/20 07:50 Pertinent Lab Results Pertinent Lab Results: Laboratory Tests 10/07/20 10/07/20 10/07/20 19:35 19:35 19:35 WBC 2.3 L RBC 3.22 L Hgb 7.9 L Hct 25.4 L MCV 78.9 L MCH 24.5 L MCHC 31.1 RDW 16.3 H Plt Count 83 L MPV 9.8 Immature Gran % (Auto) 0.4 Neut % (Auto) 69.1 Lymph % (Auto) 8.2 L [place] % (Auto) 20.6 H Eos % (Auto) 0.4 Baso % (Auto) 1.3 Lymph # (Auto) 0.2 L [place] # (Auto) 0.5 Eos # (Auto) 0.0 Baso # (Auto) 0.0 Abs Immat Gran (auto) 0.01 Absolute Neuts (auto) 1.6 L Absolute Nucleated RBC 0.000 Nucleated RBC % (auto) 0.0 Smear Tech's Comments VERIFIED Absolute Retic Percent Retic Immature Retic Fraction Retic Hgb Equivalent PT INR Sodium 136 Potassium 3.4 Chloride 96 Carbon Dioxide 23 Anion Gap 20 BUN 10 Creatinine 0.78 Estim Creat Clear Calc 135.2 Estimated GFR > 60 Random Glucose 96 Calcium 9.0 Magnesium Iron TIBC % Saturation Unsat Iron Binding Ferritin Total Bilirubin 1.2 H Direct Bilirubin 0.6 H AST 151 H ALT 94 H Alkaline Phosphatase 66 Lactate Dehydrogenase Troponin I High Sens Total Protein 7.5 Albumin 4.8 Lipase 28 Stool Occult Blood Ethyl Alcohol 23 COVID-19 (CRUZ) COVID-Cyota Com Blood Type Antibody Screen Crossmatch 10/07/20 10/07/20 10/07/20 19:35 21:02 21:02 WBC RBC Hgb Hct MCV MCH MCHC RDW Plt Count MPV Immature Gran % (Auto) Neut % (Auto) Lymph % (Auto) [place] % (Auto) Eos % (Auto) Baso % (Auto) Lymph # (Auto) [place] # (Auto) Eos # (Auto) Baso # (Auto) Abs Immat Gran (auto) Absolute Neuts (auto) Absolute Nucleated RBC Nucleated RBC % (auto) Smear Tech's Comments Absolute Retic Percent Retic Immature Retic Fraction Retic Hgb Equivalent PT INR Sodium Potassium Chloride Carbon Dioxide Anion Gap BUN Creatinine Estim Creat Clear Calc Estimated GFR Random Glucose Calcium Magnesium Iron TIBC % Saturation Unsat Iron Binding Ferritin Total Bilirubin Direct Bilirubin AST ALT Alkaline Phosphatase Lactate Dehydrogenase Troponin I High Sens 9.2 Total Protein Albumin Lipase Stool Occult Blood POS Ethyl Alcohol COVID-19 (CRUZ) Negative COVID-Vinny See Note Blood Type Antibody Screen Crossmatch 10/08/20 10/08/20 10/08/20 03:39 03:39 05:42 WBC 2.1 L 1.9 L RBC 2.92 L 3.04 L Hgb 7.3 L 7.5 L Hct 23.2 L 23.9 L MCV 79.5 L 78.6 L MCH 25.0 L 24.7 L MCHC 31.5 31.4 RDW 16.2 H 16.4 H Plt Count 75 L 82 L MPV 9.5 10.0 Immature Gran % (Auto) 0.5 H Neut % (Auto) 63.7 Lymph % (Auto) 8.9 L [place] % (Auto) 24.7 H Eos % (Auto) 1.1 Baso % (Auto) 1.1 Lymph # (Auto) 0.2 L [place] # (Auto) 0.5 Eos # (Auto) 0.0 Baso # (Auto) 0.0 Abs Immat Gran (auto) 0.01 Absolute Neuts (auto) 1.2 L Absolute Nucleated RBC 0.000 0.000 Nucleated RBC % (auto) 0.0 0.0 Smear Tech's Comments VERIFIED Absolute Retic 0.058 Percent Retic 2.0 H Immature Retic Fraction 26.9 H Retic Hgb Equivalent 29.4 L PT INR Sodium Potassium Chloride Carbon Dioxide Anion Gap BUN Creatinine Estim Creat Clear Calc Estimated GFR Random Glucose Calcium Magnesium 1.7 Iron 46 TIBC 467 H % Saturation 10 L Unsat Iron Binding 421 Ferritin 39 Total Bilirubin 1.3 H Direct Bilirubin 0.6 H AST 128 H ALT 80 H Alkaline Phosphatase 57 Lactate Dehydrogenase Troponin I High Sens Total Protein 6.9 Albumin 4.4 Lipase Stool Occult Blood Ethyl Alcohol COVID-19 (CRUZ) COVID-19 Clin Com Blood Type Antibody Screen Crossmatch 10/08/20 10/08/20 10/08/20 05:42 06:58 08:29 WBC Cancelled RBC Cancelled Hgb Cancelled Hct Cancelled MCV Cancelled MCH Cancelled MCHC Cancelled RDW Cancelled Plt Count Cancelled MPV Cancelled Immature Gran % (Auto) Cancelled Neut % (Auto) Cancelled Lymph % (Auto) Cancelled [place] % (Auto) Cancelled Eos % (Auto) Cancelled Baso % (Auto) Cancelled Lymph # (Auto) Cancelled [place] # (Auto) Cancelled Eos # (Auto) Cancelled Baso # (Auto) Cancelled Abs Immat Gran (auto) Cancelled Absolute Neuts (auto) Cancelled Absolute Nucleated RBC Cancelled Nucleated RBC % (auto) Cancelled Smear Tech's Comments Absolute Retic Percent Retic Immature Retic Fraction Retic Hgb Equivalent PT INR Sodium 136 Potassium 3.3 Chloride 98 Carbon Dioxide 27 Anion Gap 14 BUN 10 Creatinine 0.74 Estim Creat Clear Calc 142.5 Estimated GFR > 60 Random Glucose 85 Calcium 8.7 Magnesium Iron TIBC % Saturation Unsat Iron Binding Ferritin Total Bilirubin Direct Bilirubin AST ALT Alkaline Phosphatase Lactate Dehydrogenase 317 H Troponin I High Sens Total Protein Albumin Lipase Stool Occult Blood Ethyl Alcohol COVID-19 (CRUZ) COVID-19 [employer] [employer] Com Blood Type Antibody Screen Crossmatch 10/08/20 10/09/20 10/09/20 12:54 05:46 05:46 WBC 2.7 L RBC 3.58 L Hgb 9.0 L Hct 28.7 L D MCV 80.2 MCH 25.1 L MCHC 31.4 RDW 16.3 H Plt Count 104 L D MPV 10.2 Immature Gran % (Auto) 1.1 H Neut % (Auto) 66.6 Lymph % (Auto) 8.9 L [place] % (Auto) 17.8 H Eos % (Auto) 3.7 Baso % (Auto) 1.9 Lymph # (Auto) 0.2 L [place] # (Auto) 0.5 Eos # (Auto) 0.1 Baso # (Auto) 0.1 Abs Immat Gran (auto) 0.03 Absolute Neuts (auto) 1.8 L Absolute Nucleated RBC 0.000 Nucleated RBC % (auto) 0.0 Smear Tech's Comments VERIFIED Absolute Retic Percent Retic Immature Retic Fraction Retic Hgb Equivalent PT INR Sodium 136 Potassium 3.3 Chloride 96 Carbon Dioxide 27 Anion Gap 16 BUN 12 Creatinine 0.80 Estim Creat Clear Calc 131.8 Estimated GFR > 60 Random Glucose 84 Calcium 9.4 D Magnesium Iron TIBC % Saturation Unsat Iron Binding Ferritin Total Bilirubin Direct Bilirubin AST ALT Alkaline Phosphatase Lactate Dehydrogenase Troponin I High Sens Total Protein Albumin Lipase Stool Occult Blood Ethyl Alcohol COVID-19 (CRUZ) COVID-19 [facility] [employer] Com Blood Type O Positive Antibody Screen NEGATIVE Crossmatch See Detail 10/09/20 05:46 WBC RBC Hgb Hct MCV MCH MCHC RDW Plt Count MPV Immature Gran % (Auto) Neut % (Auto) Lymph % (Auto) [place] % (Auto) Eos % (Auto) Baso % (Auto) Lymph # (Auto) [place] # (Auto) Eos # (Auto) Baso # (Auto) Abs Immat Gran (auto) Absolute Neuts (auto) Absolute Nucleated RBC Nucleated RBC % (auto) Smear Tech's Comments Absolute Retic Percent Retic Immature Retic Fraction Retic Hgb Equivalent PT 14.1 H INR 1.2 H Sodium Potassium Chloride Carbon Dioxide Anion Gap BUN Creatinine Estim Creat Clear Calc Estimated GFR Random Glucose Calcium Magnesium Iron TIBC % Saturation Unsat Iron Binding Ferritin Total Bilirubin Direct Bilirubin AST ALT Alkaline Phosphatase Lactate Dehydrogenase Troponin I High Sens Total Protein Albumin Lipase Stool Occult Blood Ethyl Alcohol COVID-19 (CRUZ) COVID-19 Clin Com Blood Type Antibody Screen Crossmatch Airway Mallampati Class: II TM Dist: >3cm Neck ROM: Full Loose/Missing/Broken Teeth: No Heart: RRR Lungs: CTA Assessment and Plan Final Anesthetic Review NPO: Yes ASA Class: III Final Preanesthetic Review: No Changes in Pt Med Stat and Consent Obtained/Reviewed Patient Risk: Intermediate Procedure Risk: Low Anesthetic Plan Anesthetic Plan: MAC: Disposition: Standard PACU
--- NOTE | 2020-10-09 10:51 | PC.NURSE ---
pt awake alert denies pain pwd nad ls clear nad 0/10 sr
--- NOTE | 2020-10-09 11:02 | PC.NURSE ---
dr rothman at bedside pt awake alert nad aware of results pwd
[2020-10-09] MEDS: Omeprazole 40 MG CAPSULE.DR PO (11:25)
[2020-10-09] MEDS: PHENobarbitaL 30 MG TABLET 60 MG PO ×2 (11:26→20:47)
[2020-10-09] MEDS: Multivitamin TABLET 1 TAB PO (11:26)
--- NOTE | 2020-10-09 12:40 | MHC.CARE ---
CARE Team met with Pt secondary to consult placed for etoh . Pt reports lifelong alcohol use with a increase recently. Pt reports working for himself and is interested in outpatient treatment. Pt and CARE Team discussed [facility]. Pt is interested in speaking with a Business Support Liaison and possible [facility] referral. CARE Team to coordinate with [facility]utter tomorrow 10/10/20
--- NOTE | 2020-10-09 13:25 | P.PNIM_ITS ---
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 STOMACH: Moderate diffuse gastric erythema with submucosal hemorrhages due to retching. Biopsies were obtained. Multiple 3-6 mm benign apperaing polyps in the fundus - biopsied. Grade 2 flap valve on retroflexed examination of the cardia. No clear source found for anemia and black stools - likely lower GI source. Pt will undergo C-scope tomorrow. He is committed to quitting EtOH. Shakiness has improved. No abd pain, nausea, or vomiting. Physical Exam Vital Signs: Vital Signs: Last Vital Signs Temp 97.1 F 10/09/20 11:44 Pulse 80 10/09/20 11:44 Resp 18 10/09/20 11:44 BP 159/89 H 10/09/20 11:44 Pulse Ox 98 10/09/20 11:44 Body Mass Index 23.1 Gen: in no acute distress HEENT: sclera anicteric, pale mucosa, moist mucus membranes Neck: supple Lungs: clear to auscultation bilaterally Heart: regular rate and rhythm, no murmurs Abd: soft, non-tender, non-distended, no HSM Ext: no edema Skin: warm/well-perfused Neuro: alert and oriented x3, no focal findings Psych: appropriate affect Objective Data Current Medications Generic Name Dose Route Start Last Admin Trade Name Freq PRN Reason Stop Dose Admin Albuterol Sulfate 2.5 mg 10/09/20 10:06 Albuterol Sulfate (0.083%) 2.5 Mg/3 Ml Vial.Neb INHALE ONCE PRN Wheezing Fentanyl 25 mcg 10/09/20 10:06 Fentanyl Citrate/Pf 100 Mcg/2 Ml Vial IVPUSH Q5M PRN Pain, Moderate (Pain Scale 4-6 Folic Acid 1 mg 10/07/20 23:45 10/08/20 20:55 Folic Acid 1 Mg Tablet PO 1 mg Q24H LYDIA Administration Gabapentin 300 mg 10/08/20 09:00 10/09/20 08:49 Gabapentin 300 Mg Capsule PO Not Given TID LYDIA Lactated Ringer's 1,000 mls @ 20 mls/hr 10/09/20 10:15 10/09/20 11:20 Lr IVCONT Not Given .Q24H LYDIA Medication 1 each 10/08/20 01:00 No Benzodiazepines MISCELLANE DAILY [facility] Multivitamins/Vitamin C 1 tab 10/09/20 09:00 10/09/20 11:26 Multivitamin Tablet PO 1 tab DAILY LYDIA Administration Omeprazole 40 mg 10/08/20 09:00 10/09/20 11:25 Omeprazole 40 Mg Capsule.Dr PO 40 mg DAILY LYDIA Administration Ondansetron HCl 4 mg 10/09/20 10:06 Ondansetron Hcl 4 Mg/2 Ml Vial IVPUSH ONCE PRN Nausea and Vomiting Phenobarbital 60 mg 10/08/20 21:00 10/09/20 11:26 Phenobarbital 30 Mg Tablet PO 10/10/20 09:01 60 mg BID LYDIA Administration Protocol Phenobarbital 30 mg 10/10/20 21:00 Phenobarbital 30 Mg Tablet PO 10/12/20 09:01 BID LYDIA Protocol Phenobarbital 30 mg 10/13/20 09:00 Phenobarbital 30 Mg Tablet PO 10/14/20 09:01 DAILY [facility] Protocol Polyethylene Glycol/Electrolytes 4,000 ml 10/09/20 15:00 Peg 3350/Na Sulf,Bicarb,Cl/Kcl 4,000 Ml Soln.Recon PO 10/09/20 15:01 ONCE@1500 ONE Thiamine HCl 100 mg 10/07/20 23:45 10/08/20 20:55 Thiamine Hcl 100 Mg Tablet PO 100 mg Q24H LYDIA Administration Labs CBC & Chem 7: 10/09/20 05:46 10/09/20 05:46 Labs: Laboratory Results - last 24 hr 10/08/20 10/09/20 10/09/20 12:54 05:46 05:46 WBC 2.7 L RBC 3.58 L Hgb 9.0 L Hct 28.7 L D MCV 80.2 MCH 25.1 L MCHC 31.4 RDW 16.3 H Plt Count 104 L D MPV 10.2 Immature Gran % (Auto) 1.1 H Neut % (Auto) 66.6 Lymph % (Auto) 8.9 L [place] % (Auto) 17.8 H Eos % (Auto) 3.7 Baso % (Auto) 1.9 Lymph # (Auto) 0.2 L [place] # (Auto) 0.5 Eos # (Auto) 0.1 Baso # (Auto) 0.1 Abs Immat Gran (auto) 0.03 Absolute Neuts (auto) 1.8 L Absolute Nucleated RBC 0.000 Nucleated RBC % (auto) 0.0 Smear Tech's Comments VERIFIED PT INR Sodium 136 Potassium 3.3 Chloride 96 Carbon Dioxide 27 Anion Gap 16 BUN 12 Creatinine 0.80 Estim Creat Clear Calc 131.8 Estimated GFR > 60 Random Glucose 84 Calcium 9.4 D Blood Type O Positive Antibody Screen NEGATIVE Crossmatch See Detail 10/09/20 05:46 WBC RBC Hgb Hct MCV MCH MCHC RDW Plt Count MPV Immature Gran % (Auto) Neut % (Auto) Lymph % (Auto) [place] % (Auto) Eos % (Auto) Baso % (Auto) Lymph # (Auto) [place] # (Auto) Eos # (Auto) Baso # (Auto) Abs Immat Gran (auto) Absolute Neuts (auto) Absolute Nucleated RBC Nucleated RBC % (auto) Smear Tech's Comments PT 14.1 H INR 1.2 H Sodium Potassium Chloride Carbon Dioxide Anion Gap BUN Creatinine Estim Creat Clear Calc Estimated GFR Random Glucose Calcium Blood Type Antibody Screen Crossmatch Assessment and Plan (1) Alcohol withdrawal: Problem details: Watch for alcohol withdrawal Status: Acute (2) Seizure-like activity: Problem details: Atypical episode probably not a full-blown seizure Status: Acute (3) Anemia: Problem details: due to Iron deficiency from slow GI blood loss Status: Acute (4) GERD (gastroesophageal reflux disease): Status: Acute (5) Peripheral neuropathy: Problem details: Stop alcohol abuse. Status: Acute Assessment and Plan: hospital d#3 45yo M admitted for EtOH withdrawal and pancytopenia with positive fecal occult blood test # GI bleed with acute blood loss anemia + iron deficiency - EGD as per GI above; C-scope tomorrow; will need outpt GI f/u - 1 unit pRBCs transfused with appropriate Hb response - start PO Fe upon discharge # pancytopenia - likely due to EtOH-related myelosuppression # EtOH withdrawal - continue phenobarbital, B vitamins - Neuro consulted, unlikely to have had a seizure - CARE team consult for sobriety resources # peripheral neuropathy - likely due to EtOH, will order outpt NCS, started on gabapentin # transaminasemia - likely mild EtOH hepatitis, recheck LFTs + INR, HBV/HCV/HIV pending # VTE ppx - SCDs
[2020-10-09] MEDS: Gabapentin 300 MG CAPSULE PO ×2 (14:09→20:47)
[2020-10-09] MEDS: PEG 3350/Na Sulf,Bicarb,Cl/KCL 4,000 ML SOLN.RECON 4000 ML PO (16:41)
[2020-10-10] VITALS (11 sets, daily range): BP systolic 90–177; BP diastolic 43–99; PULSE 67–108; RESP 14–20; TEMP 36.2–37.8; O2SAT 95–100
--- NOTE | 2020-10-10 | EEG_ITS ---
The waking background activity consists of low voltage fast frequencies seen diffusely, intermixed with low voltage posterior 10 hertz alpha frequency. Photic stimulation is without activation. Hyperventilation was omitted. No focal, lateralizing, or paroxysmal discharges seen. IMPRESSION: This waking EEG is within normal limits. MD ALMAS Fam/NETO / [id number]
[2020-10-10] MEDS: Thiamine HCL 100 MG TABLET PO ×2 (00:06→23:30)
[2020-10-10] MEDS: Folic Acid 1 MG TABLET PO ×2 (00:06→23:31)
[2020-10-10 06:01] LABS: Basophils Percent Auto 1.5 % (0-2); Eosinophils Absolute Auto 0.1 X10*3/uL (0.0-0.4); Eosinophils Percent Auto 3.3 % (0-4); Hematocrit 27.9 % (42-52); Hemoglobin 8.5 g/dl (14.0-18.0); Imm Gran Abs Auto 0.02 X10*3/uL (0.00-0.03); Imm Gran Pct Auto 0.7 % (0.0-0.4); Lymphocytes Absolute Auto 0.2 X10*3/uL (1.2-4.9); Lymphocytes Percent Auto 7.7 % (20-40); MANUAL DIFF FLAG SCAN; Mean Corpuscular HGB Conc 30.5 g/dl (31.0-36.0); Mean Corpuscular Hemoglobin 24.7 pg (27.0-33.0); Mean Corpuscular Volume 81.1 fL (80-98); Mean Platelet Volume 9.9 fL (9.4-12.4); Monocytes Absolute Auto 0.5 X10*3/uL (0.1-1.2); Monocytes Percent Auto 17.6 % (2-11); Neutrophils Absolute Auto 1.9 X10*3/uL (2.0-8.3); Neutrophils Percent Auto 69.2 % (45-73); Platelet Count 115 X10*3/uL (160-400); Red Blood Count 3.44 X10*6/uL (4.60-5.80); Red Cell Distribution Width 16.5 % (11.0-16.0); SCAN SMEAR FLAG 1; White Blood Count 2.7 X10*3/uL (4.8-10.8)
[2020-10-10 06:06] LABS: INTERNATIONAL NORM RATIO 1.2 (0.9-1.1); Prothrombin Time 14.4 SEC (10.8-13.0)
[2020-10-10 06:39] LABS: Alanine Aminotransferase 96 U/L (0-40); Albumin Level 4.3 g/dL (3.5-5.0); Alkaline Phosphatase 55 U/L (39-117); Anion Gap 16 (12-20); Aspartate Amino Transferase 167 U/L (5-37); Bilirubin Total 1.3 mg/dL (0.0-1.0); Blood Urea Nitrogen 13 mg/dL (9-16); Carbon Dioxide 26 mmol/L (22-29); Chloride 97 mmol/L (96-108); Creatinine Clr Calc Pharmacy 140.6; Estimated Glomerular Filt Rate > 60; Glucose Random 90 mg/dL (60-115); Magnesium 1.8 mg/dL (1.6-2.6); Potassium 3.3 mmol/l (3.3-5.1); SLIDE REVIEW VERIFIED; Sodium 136 mmol/L (135-145); Total Protein 6.9 g/dL (6.5-8.0)
[2020-10-10 08:06] LABS: HBsAGNum1 0.56 S/CO (0.00-0.99); Hepatitis B Surface Antigen Negative (Negative); ~Hepatitis B Surface Antibody NONREACTIVE (Nonreactive)
[2020-10-10 08:06] LABS: HIV AB/AG Nonreactive (Nonreactive); HIV Num 1 0.12 S/CO (0.00-0.99)
[2020-10-10] MEDS: Multivitamin TABLET 1 TAB PO (08:10)
[2020-10-10] MEDS: Omeprazole 40 MG CAPSULE.DR PO (08:10)
[2020-10-10] MEDS: Gabapentin 300 MG CAPSULE PO ×3 (08:10→20:42)
[2020-10-10] MEDS: PHENobarbitaL 30 MG TABLET 60 MG PO (08:10)
[2020-10-10 08:26] LABS: HBc Num1 0.04 S/CO (0.00-0.79); Hepatitis B Core Antibody Nonreactive (Nonreactive); ~HepC Num1 0.24 S/CO (0.00-0.79); ~Hepatitis C Antibody Nonreactive (Nonreactive)
[2020-10-10 09:58] LABS: Folate 14.6 ng/mL (> or = 4.0); Vitamin B12 498 pg/mL (200-900)
--- NOTE | 2020-10-10 11:00 | MHC.CARE ---
Recovery Support note: Patient is a 45 year old Turkish speaking male who presented to [facility] ED due to nausea and vomiting and was medically admitted. Patient reports he was attempting to detox himself from alcohol. Patient reports daily alcohol consumption since a young age however he is interested in entering recovery. Patient reports he wants to completely abstain from alcohol use. Discussed early recovery with patient, including supports and relapse prevention. Patient provided with information and education on IOP, AA support groups and [facility]. Discussed with patient medications that can be used for alcohol use disorder and provided patient with information on the [facility]. Patient expressed interest in meeting with a math coach. This senior mortgage underwriter introduced patient to Kenny, Nursing Tech who discussed recovery coaching, [facility] and recovery with patient. Discussed case with patient's RN, Kayleen.
--- NOTE | 2020-10-10 12:16 | MHC.CM.PN ---
Patient is OB positive and getting EGD done today, NPO. Patient will need to be seen by care team prior to discharge. Plan is discharge home no services. Patient to set up own transport. CM will continue to follow patient for discharge needs.
--- NOTE | 2020-10-10 12:37 | HO.POSTANES ---
Post Anesthesia Evaluation Post Anesthesia Evaluation Vital Signs: Vital Signs Temp Pulse Resp BP Pulse Ox 10/10/20 12:26 97.3 F 80 18 170/94 H 99 10/10/20 11:49 98.6 F 98 20 137/79 100 10/10/20 10:06 95 10/10/20 07:56 100.1 F 85 20 154/89 H 99 10/10/20 03:05 97.4 F 76 16 141/83 H 99 Anesthesia: Monitored Mental Status: Awake Pain Control: Satisfactory Nausea/Vomiting: None Hydration: Adequate Anesthesia-Related Issues: No Anes. Related Issues
--- NOTE | 2020-10-10 12:49 | P.CONAN_ITS ---
HPI - Anesthesia Eval Consult details Narrative: 45yo male patient here for colonoscopy FOR[facility], [facility] Past Medical History Medical History (Updated 10/10/20 @ 13:07 by Lourdes Marin) Alcohol withdrawal Anemia Elevated LFTs ETOH abuse GERD (gastroesophageal reflux disease) GI bleed HTN (hypertension) Peripheral neuropathy Seizure-like activity Family History Family history of problems with anesthesia: No Surgical History History of Problems with Anesthesia: No Social History Social History Household Members: Family Housing: House Do you presently have visiting nurse or other home services: No Alcohol intake: current Alcohol intake frequency: 3 or more drinks per day Alcohol type: hard liquor Smoking Status: Former smoker Smoked in Last 30 Days: No Use of substances other than those prescribed or required for medical reasons: No Currently Displaying Signs/Symptoms of Drug Intoxication Withdrawal: No Have you been hit, kicked, punched, or otherwise hurt by someone within the past year? If so, by whom?: No Do you feel safe in your current relationship?: Yes Is there a partner from a previous relationship who is making you feel unsafe now?: No Are you made to feel afraid or neglected: No Advance Directives: No Advance Directives Information Provided: Yes Do you have thoughts of harming others: None Do you have a plan to hurt others: No Plan Recently lost weight without trying: Unsure service: No Current occupational status: employed Meds Allergies Allergy/AdvReac Type Severity Reaction Status Date / Time Penicillins [PENICILLINS] Allergy Unknown RASH Verified 10/07/20 22:23 Home Medications Medication Instructions Recorded Confirmed Type gabapentin 1 cap PO TID 10/07/20 10/07/20 History omeprazole [Prilosec] 40 mg PO DAILY 10/07/20 10/07/20 History Exam Exam Date and Time: October 10, 2020 1249 Height,Weight and Vital Signs: Height 6 ft 2 in Weight 81.647 kg Last Vital Signs Temp 97.3 F 10/10/20 12:26 Pulse 80 10/10/20 12:26 Resp 18 10/10/20 12:26 BP 170/94 H 10/10/20 12:26 Pulse Ox 99 10/10/20 12:26 Pertinent Lab Results Pertinent Lab Results: Laboratory Tests 10/07/20 10/07/20 10/07/20 19:35 19:35 19:35 WBC 2.3 L RBC 3.22 L Hgb 7.9 L Hct 25.4 L MCV 78.9 L MCH 24.5 L MCHC 31.1 RDW 16.3 H Plt Count 83 L MPV 9.8 Immature Gran % (Auto) 0.4 Neut % (Auto) 69.1 Lymph % (Auto) 8.2 L Braxton % (Auto) 20.6 H Eos % (Auto) 0.4 Baso % (Auto) 1.3 Lymph # (Auto) 0.2 L Braxton # (Auto) 0.5 Eos # (Auto) 0.0 Baso # (Auto) 0.0 Abs Immat Gran (auto) 0.01 Absolute Neuts (auto) 1.6 L Absolute Nucleated RBC 0.000 Nucleated RBC % (auto) 0.0 Smear Tech's Comments VERIFIED Smear Path Review SEE NOTE Absolute Retic Percent Retic Immature Retic Fraction Retic Hgb Equivalent PT INR Sodium 136 Potassium 3.4 Chloride 96 Carbon Dioxide 23 Anion Gap 20 BUN 10 Creatinine 0.78 Estim Creat Clear Calc 135.2 Estimated GFR > 60 Random Glucose 96 Calcium 9.0 Magnesium Iron TIBC % Saturation Unsat Iron Binding Ferritin Total Bilirubin 1.2 H Direct Bilirubin 0.6 H AST 151 H ALT 94 H Alkaline Phosphatase 66 Lactate Dehydrogenase Troponin I High Sens Total Protein 7.5 Albumin 4.8 Lipase 28 Vitamin B12 Folate Stool Occult Blood Ethyl Alcohol 23 COVID-19 (CRUZ) COVID-19 Clin Com Hep Bs Antigen Hep Bs Antibody Hep B Core Total Ab Hepatitis C Ab (EIA) HIV 1&2 Ab/P24 Ag 4thGn Blood Type Antibody Screen Crossmatch 10/07/20 10/07/20 10/07/20 19:35 21:02 21:02 WBC RBC Hgb Hct MCV MCH MCHC RDW Plt Count MPV Immature Gran % (Auto) Neut % (Auto) Lymph % (Auto) Braxton % (Auto) Eos % (Auto) Baso % (Auto) Lymph # (Auto) Braxton # (Auto) Eos # (Auto) Baso # (Auto) Abs Immat Gran (auto) Absolute Neuts (auto) Absolute Nucleated RBC Nucleated RBC % (auto) Smear Tech's Comments Smear Path Review Absolute Retic Percent Retic Immature Retic Fraction Retic Hgb Equivalent PT INR Sodium Potassium Chloride Carbon Dioxide Anion Gap BUN Creatinine Estim Creat Clear Calc Estimated GFR Random Glucose Calcium Magnesium Iron TIBC % Saturation Unsat Iron Binding Ferritin Total Bilirubin Direct Bilirubin AST ALT Alkaline Phosphatase Lactate Dehydrogenase Troponin I High Sens 9.2 Total Protein Albumin Lipase Vitamin B12 Folate Stool Occult Blood POS Ethyl Alcohol COVID-19 (CRUZ) Negative COVID-19 Clin Com See Note Hep Bs Antigen Hep Bs Antibody Hep B Core Total Ab Hepatitis C Ab (EIA) HIV 1&2 Ab/P24 Ag 4thGn Blood Type Antibody Screen Crossmatch 10/08/20 10/08/20 10/08/20 03:39 03:39 05:42 WBC 2.1 L 1.9 L RBC 2.92 L 3.04 L Hgb 7.3 L 7.5 L Hct 23.2 L 23.9 L MCV 79.5 L 78.6 L MCH 25.0 L 24.7 L MCHC 31.5 31.4 RDW 16.2 H 16.4 H Plt Count 75 L 82 L MPV 9.5 10.0 Immature Gran % (Auto) 0.5 H Neut % (Auto) 63.7 Lymph % (Auto) 8.9 L Braxton % (Auto) 24.7 H Eos % (Auto) 1.1 Baso % (Auto) 1.1 Lymph # (Auto) 0.2 L Braxton # (Auto) 0.5 Eos # (Auto) 0.0 Baso # (Auto) 0.0 Abs Immat Gran (auto) 0.01 Absolute Neuts (auto) 1.2 L Absolute Nucleated RBC 0.000 0.000 Nucleated RBC % (auto) 0.0 0.0 Smear Tech's Comments VERIFIED Smear Path Review Cancelled Absolute Retic 0.058 Percent Retic 2.0 H Immature Retic Fraction 26.9 H Retic Hgb Equivalent 29.4 L PT INR Sodium Potassium Chloride Carbon Dioxide Anion Gap BUN Creatinine Estim Creat Clear Calc Estimated GFR Random Glucose Calcium Magnesium 1.7 Iron 46 TIBC 467 H % Saturation 10 L Unsat Iron Binding 421 Ferritin 39 Total Bilirubin 1.3 H Direct Bilirubin 0.6 H AST 128 H ALT 80 H Alkaline Phosphatase 57 Lactate Dehydrogenase Troponin I High Sens Total Protein 6.9 Albumin 4.4 Lipase Vitamin B12 Folate Stool Occult Blood Ethyl Alcohol COVID-19 (CRUZ) COVID-19 Clin Com Hep Bs Antigen Hep Bs Antibody Hep B Core Total Ab Hepatitis C Ab (EIA) HIV 1&2 Ab/P24 Ag 4thGn Blood Type Antibody Screen Crossmatch 10/08/20 10/08/20 10/08/20 05:42 06:58 08:29 WBC Cancelled RBC Cancelled Hgb Cancelled Hct Cancelled MCV Cancelled MCH Cancelled MCHC Cancelled RDW Cancelled Plt Count Cancelled MPV Cancelled Immature Gran % (Auto) Cancelled Neut % (Auto) Cancelled Lymph % (Auto) Cancelled Braxton % (Auto) Cancelled Eos % (Auto) Cancelled Baso % (Auto) Cancelled Lymph # (Auto) Cancelled Braxton # (Auto) Cancelled Eos # (Auto) Cancelled Baso # (Auto) Cancelled Abs Immat Gran (auto) Cancelled Absolute Neuts (auto) Cancelled Absolute Nucleated RBC Cancelled Nucleated RBC % (auto) Cancelled Smear Tech's Comments Smear Path Review Absolute Retic Percent Retic Immature Retic Fraction Retic Hgb Equivalent PT INR Sodium 136 Potassium 3.3 Chloride 98 Carbon Dioxide 27 Anion Gap 14 BUN 10 Creatinine 0.74 Estim Creat Clear Calc 142.5 Estimated GFR > 60 Random Glucose 85 Calcium 8.7 Magnesium Iron TIBC % Saturation Unsat Iron Binding Ferritin Total Bilirubin Direct Bilirubin AST ALT Alkaline Phosphatase Lactate Dehydrogenase 317 H Troponin I High Sens Total Protein Albumin Lipase Vitamin B12 Folate Stool Occult Blood Ethyl Alcohol COVID-19 (CRUZ) COVID-19 Clin Com Hep Bs Antigen Hep Bs Antibody Hep B Core Total Ab Hepatitis C Ab (EIA) HIV 1&2 Ab/P24 Ag 4thGn Blood Type Antibody Screen Crossmatch 10/08/20 10/09/20 10/09/20 12:54 05:46 05:46 WBC 2.7 L RBC 3.58 L Hgb 9.0 L Hct 28.7 L D MCV 80.2 MCH 25.1 L MCHC 31.4 RDW 16.3 H Plt Count 104 L D MPV 10.2 Immature Gran % (Auto) 1.1 H Neut % (Auto) 66.6 Lymph % (Auto) 8.9 L Braxton % (Auto) 17.8 H Eos % (Auto) 3.7 Baso % (Auto) 1.9 Lymph # (Auto) 0.2 L Braxton # (Auto) 0.5 Eos # (Auto) 0.1 Baso # (Auto) 0.1 Abs Immat Gran (auto) 0.03 Absolute Neuts (auto) 1.8 L Absolute Nucleated RBC 0.000 Nucleated RBC % (auto) 0.0 Smear Tech's Comments VERIFIED Smear Path Review Absolute Retic Percent Retic Immature Retic Fraction Retic Hgb Equivalent PT INR Sodium 136 Potassium 3.3 Chloride 96 Carbon Dioxide 27 Anion Gap 16 BUN 12 Creatinine 0.80 Estim Creat Clear Calc 131.8 Estimated GFR > 60 Random Glucose 84 Calcium 9.4 D Magnesium Iron TIBC % Saturation Unsat Iron Binding Ferritin Total Bilirubin Direct Bilirubin AST ALT Alkaline Phosphatase Lactate Dehydrogenase Troponin I High Sens Total Protein Albumin Lipase Vitamin B12 Folate Stool Occult Blood Ethyl Alcohol COVID-19 (CRUZ) COVID-19 Clin Com Hep Bs Antigen Hep Bs Antibody Hep B Core Total Ab Hepatitis C Ab (EIA) HIV 1&2 Ab/P24 Ag 4thGn Blood Type O Positive Antibody Screen NEGATIVE Crossmatch See Detail 10/09/20 10/09/20 10/09/20 05:46 05:46 05:46 WBC RBC Hgb Hct MCV MCH MCHC RDW Plt Count MPV Immature Gran % (Auto) Neut % (Auto) Lymph % (Auto) Braxton % (Auto) Eos % (Auto) Baso % (Auto) Lymph # (Auto) Braxton # (Auto) Eos # (Auto) Baso # (Auto) Abs Immat Gran (auto) Absolute Neuts (auto) Absolute Nucleated RBC Nucleated RBC % (auto) Smear Tech's Comments Smear Path Review Absolute Retic Percent Retic Immature Retic Fraction Retic Hgb Equivalent PT 14.1 H INR 1.2 H Sodium Potassium Chloride Carbon Dioxide Anion Gap BUN Creatinine Estim Creat Clear Calc Estimated GFR Random Glucose Calcium Magnesium Iron TIBC % Saturation Unsat Iron Binding Ferritin Total Bilirubin Direct Bilirubin AST ALT Alkaline Phosphatase Lactate Dehydrogenase Troponin I High Sens Total Protein Albumin Lipase Vitamin B12 498 Folate 14.6 Stool Occult Blood Ethyl Alcohol COVID-19 (CRUZ) COVID-19 Clin Com Hep Bs Antigen Negative Hep Bs Antibody NONREACTIVE Hep B Core Total Ab Nonreactive Hepatitis C Ab (EIA) Nonreactive HIV 1&2 Ab/P24 Ag 4thGn Blood Type Antibody Screen Crossmatch 10/10/20 10/10/20 10/10/20 05:28 05:28 05:28 WBC 2.7 L RBC 3.44 L Hgb 8.5 L Hct 27.9 L MCV 81.1 MCH 24.7 L MCHC 30.5 L RDW 16.5 H Plt Count 115 L MPV 9.9 Immature Gran % (Auto) 0.7 H Neut % (Auto) 69.2 Lymph % (Auto) 7.7 L Braxton % (Auto) 17.6 H Eos % (Auto) 3.3 Baso % (Auto) 1.5 Lymph # (Auto) 0.2 L Braxton # (Auto) 0.5 Eos # (Auto) 0.1 Baso # (Auto) 0.0 Abs Immat Gran (auto) 0.02 Absolute Neuts (auto) 1.9 L Absolute Nucleated RBC 0.000 Nucleated RBC % (auto) 0.0 Smear Tech's Comments VERIFIED Smear Path Review Absolute Retic Percent Retic Immature Retic Fraction Retic Hgb Equivalent PT 14.4 H INR 1.2 H Sodium 136 Potassium 3.3 Chloride 97 Carbon Dioxide 26 Anion Gap 16 BUN 13 Creatinine 0.75 Estim Creat Clear Calc 140.6 Estimated GFR > 60 Random Glucose 90 Calcium 9.0 Magnesium 1.8 Iron TIBC % Saturation Unsat Iron Binding Ferritin Total Bilirubin 1.3 H Direct Bilirubin AST 167 H ALT 96 H Alkaline Phosphatase 55 Lactate Dehydrogenase Troponin I High Sens Total Protein 6.9 Albumin 4.3 Lipase Vitamin B12 Folate Stool Occult Blood Ethyl Alcohol COVID-19 (CRUZ) COVID-19 Clin Com Hep Bs Antigen Hep Bs Antibody Hep B Core Total Ab Hepatitis C Ab (EIA) HIV 1&2 Ab/P24 Ag 4thGn Blood Type Antibody Screen Crossmatch 10/10/20 05:29 WBC RBC Hgb Hct MCV MCH MCHC RDW Plt Count MPV Immature Gran % (Auto) Neut % (Auto) Lymph % (Auto) Braxton % (Auto) Eos % (Auto) Baso % (Auto) Lymph # (Auto) Braxton # (Auto) Eos # (Auto) Baso # (Auto) Abs Immat Gran (auto) Absolute Neuts (auto) Absolute Nucleated RBC Nucleated RBC % (auto) Smear Tech's Comments Smear Path Review Absolute Retic Percent Retic Immature Retic Fraction Retic Hgb Equivalent PT INR Sodium Potassium Chloride Carbon Dioxide Anion Gap BUN Creatinine Estim Creat Clear Calc Estimated GFR Random Glucose Calcium Magnesium Iron TIBC % Saturation Unsat Iron Binding Ferritin Total Bilirubin Direct Bilirubin AST ALT Alkaline Phosphatase Lactate Dehydrogenase Troponin I High Sens Total Protein Albumin Lipase Vitamin B12 Folate Stool Occult Blood Ethyl Alcohol COVID-19 (CRUZ) COVID-19 Clin Com Hep Bs Antigen Hep Bs Antibody Hep B Core Total Ab Hepatitis C Ab (EIA) HIV 1&2 Ab/P24 Ag 4thGn Nonreactive Blood Type Antibody Screen Crossmatch Airway Mallampati Class: III TM Dist: >3cm Neck ROM: Full Heart: RRR Lungs: CTAB Assessment and Plan Assessment Anesthesia Assessment: Anesthesia Plan Discussed and Chart Reviewed Final Anesthetic Review NPO: Yes ASA Class: III Final Preanesthetic Review: No Changes in Pt Med Stat, Meds/Allgs Chart Reviewed, Consent Obtained/Reviewed and Anes Risks/Benef Reviewed Patient Risk: Intermediate Procedure Risk: Low Anesthetic Plan Anesthetic Plan: MAC: Disposition: Standard PACU
--- NOTE | 2020-10-10 13:16 | MHC.SHP ---
Pre-Procedural Eval Section A The patient is an INPATIENT: Yes Changes since office visit: Yes New Medical Problems and Yes Patient answered all questions; No Cold of Flu in the past 2 weeks The History & Physical has been completed within 30 days and I have reviewed it.: Yes Section B Chief Complaint: ALCOHOL WITHDRAWALS Allergies: Allergies Allergy/AdvReac Type Severity Reaction Status Date / Time Penicillins [PENICILLINS] Allergy Unknown RASH Verified 10/07/20 22:23 Plan Patient has been examined and remains a candidate for the planned procedure
--- NOTE | 2020-10-10 13:16 | W.PM.OPN ---
Operative Note Operative Note Date of Service: 10/10/20 Narrative: Pre-op diagnosis: iron def anemia, intermittent black stools Post-op diagnosis: other (Diverticulosis, internal hemorrhoids) Procedure: COLONOSCOPY TILL CECUM Consent: Indications for the procedure and potential complications of bleeding, perforation, reaction to medications and missed diagnosis were discussed with the patient and informed consent was obtained. Instrument: Olympus PCF H 190 L variable stiffness pediatric colonoscope Monitoring: Vital signs and clinical assessment, intermittent blood pressure monitoring, continuous EKG monitoring, Pulse oximetry and Carbon Dioxide monitoring were done throughout the procedure. Colon withdrawl time was 20 minutes. Procedure: The patient was placed in the left lateral decubitis position and pre-procedure medications were administered. After a digital rectal examination of the ano-rectum, the video colonoscope was inserted into the rectum and advanced through the colon to the cecum. The colonoscope was slowly withdrawn in a retrograde panoramic fashion and the colon mucosa was carefully examined including a retroflexed view of the rectum. Findings and interventions are described below. Procedure Difficulty: Without difficulty Findings: Terminal Ileum: Distal 10 cms was examined and appeared normal Cecum: Normal Ascending Colon: Normal Transverse Colon: Normal Descending Colon: Moderate diverticulosis Sigmoid Colon: Moderate diverticulosis Rectum: Normal Ano-rectum: Moderate internal hemorrhoids Colon preparation: Good Impression and Post Procedure Diagnosis: Colonoscopy Findings: No polyps were detected Moderate diverticulosis seen in the left colon Moderate hemorrhoids on retroflexed exam. Plan: Patient to schedule a FU appointment in the GI Clinic with Eron Le M.D. after discharge. Repeat Colonoscopy in 10 years. Above findings were reviewed with the patient and diverticulosis handout was given in the discharge area Surgeon: Eron Le MD Anesthesia: MAC Estimated blood loss (mL): 0 Pathology: none sent Condition: stable Disposition: PACU
--- NOTE | 2020-10-10 16:09 | HO.PM.IMPN ---
Subjective Subjective Date of Service: 10/10/20 Interval History: Feels well. Not tremulous. No abd pain, hematochezia, or melena. Physical Exam Vital Signs: Vital Signs: Last Vital Signs Temp 97.2 F 10/10/20 15:58 Pulse 90 10/10/20 15:58 Resp 20 10/10/20 15:58 BP 177/99 H 10/10/20 15:58 Pulse Ox 100 10/10/20 15:58 Body Mass Index 23.1 Gen: in no acute distress HEENT: sclera anicteric, pale mucosa, moist mucus membranes Neck: supple Lungs: clear to auscultation bilaterally Heart: regular rate and rhythm, no murmurs Abd: soft, non-tender, non-distended, no HSM Ext: no edema Skin: warm/well-perfused Neuro: alert and oriented x3, no focal findings Psych: appropriate affect Objective Data Current Medications Generic Name Dose Route Start Last Admin Trade Name Freq PRN Reason Stop Dose Admin Albuterol Sulfate 2.5 mg 10/09/20 10:06 Albuterol Sulfate (0.083%) 2.5 Mg/3 Ml Vial.Neb INHALE ONCE PRN Wheezing Fentanyl 25 mcg 10/09/20 10:06 Fentanyl Citrate/Pf 100 Mcg/2 Ml Vial IVPUSH Q5M PRN Pain, Moderate (Pain Scale 4-6 Folic Acid 1 mg 10/07/20 23:45 10/10/20 00:06 Folic Acid 1 Mg Tablet PO 1 mg Q24H LYDIA Administration Gabapentin 300 mg 10/08/20 09:00 10/10/20 14:52 Gabapentin 300 Mg Capsule PO 300 mg TID LYDIA Administration Lactated Ringer's 1,000 mls @ 20 mls/hr 10/09/20 10:15 10/10/20 11:51 Lr IVCONT Not Given .Q24H LYDIA Lactated Ringer's 1,000 mls @ 100 mls/hr 10/10/20 12:45 10/10/20 14:40 Lr IVCONT Not Given .Q10H LYDIA Medication 1 each 10/08/20 01:00 No Benzodiazepines MISCELLANE DAILY LYDIA Multivitamins/Vitamin C 1 tab 10/09/20 09:00 10/10/20 08:10 Multivitamin Tablet PO 1 tab DAILY LYDIA Administration Omeprazole 40 mg 10/08/20 09:00 10/10/20 08:10 Omeprazole 40 Mg Capsule.Dr PO 40 mg DAILY LYDIA Administration Ondansetron HCl 4 mg 10/09/20 10:06 Ondansetron Hcl 4 Mg/2 Ml Vial IVPUSH ONCE PRN Nausea and Vomiting Ondansetron HCl 4 mg 10/10/20 12:42 Ondansetron Hcl 4 Mg/2 Ml Vial IVPUSH ONCE PRN Nausea and Vomiting Phenobarbital 30 mg 10/10/20 21:00 Phenobarbital 30 Mg Tablet PO 10/12/20 09:01 BID LYDIA Protocol Phenobarbital 30 mg 10/13/20 09:00 Phenobarbital 30 Mg Tablet PO 10/14/20 09:01 DAILY COUNTS INCLUDE 234 BEDS AT THE [facility] Protocol Thiamine HCl 100 mg 10/07/20 23:45 10/10/20 00:06 Thiamine Hcl 100 Mg Tablet PO 100 mg Q24H LYDIA Administration Labs CBC & Chem 7: 10/10/20 05:28 10/10/20 05:28 Labs: Laboratory Results - last 24 hr 10/07/20 10/08/20 10/09/20 19:35 03:39 05:46 WBC RBC Hgb Hct MCV MCH MCHC RDW Plt Count MPV Immature Gran % (Auto) Neut % (Auto) Lymph % (Auto) Banks % (Auto) Eos % (Auto) Baso % (Auto) Lymph # (Auto) Banks # (Auto) Eos # (Auto) Baso # (Auto) Abs Immat Gran (auto) Absolute Neuts (auto) Absolute Nucleated RBC Nucleated RBC % (auto) Smear Tech's Comments Smear Path Review SEE NOTE Cancelled PT INR Sodium Potassium Chloride Carbon Dioxide Anion Gap BUN Creatinine Estim Creat Clear Calc Estimated GFR Random Glucose Calcium Magnesium Total Bilirubin AST ALT Alkaline Phosphatase Total Protein Albumin Vitamin B12 498 Folate 14.6 Hep Bs Antigen Hep Bs Antibody Hep B Core Total Ab Hepatitis C Ab (EIA) HIV 1&2 Ab/P24 Ag 4thGn 10/09/20 10/10/20 10/10/20 05:46 05:28 05:28 WBC 2.7 L RBC 3.44 L Hgb 8.5 L Hct 27.9 L MCV 81.1 MCH 24.7 L MCHC 30.5 L RDW 16.5 H Plt Count 115 L MPV 9.9 Immature Gran % (Auto) 0.7 H Neut % (Auto) 69.2 Lymph % (Auto) 7.7 L Banks % (Auto) 17.6 H Eos % (Auto) 3.3 Baso % (Auto) 1.5 Lymph # (Auto) 0.2 L Banks # (Auto) 0.5 Eos # (Auto) 0.1 Baso # (Auto) 0.0 Abs Immat Gran (auto) 0.02 Absolute Neuts (auto) 1.9 L Absolute Nucleated RBC 0.000 Nucleated RBC % (auto) 0.0 Smear Tech's Comments VERIFIED Smear Path Review PT INR Sodium 136 Potassium 3.3 Chloride 97 Carbon Dioxide 26 Anion Gap 16 BUN 13 Creatinine 0.75 Estim Creat Clear Calc 140.6 Estimated GFR > 60 Random Glucose 90 Calcium 9.0 Magnesium 1.8 Total Bilirubin 1.3 H AST 167 H ALT 96 H Alkaline Phosphatase 55 Total Protein 6.9 Albumin 4.3 Vitamin B12 Folate Hep Bs Antigen Negative Hep Bs Antibody NONREACTIVE Hep B Core Total Ab Nonreactive Hepatitis C Ab (EIA) Nonreactive HIV 1&2 Ab/P24 Ag 4thGn 10/10/20 10/10/20 05:28 05:29 WBC RBC Hgb Hct MCV MCH MCHC RDW Plt Count MPV Immature Gran % (Auto) Neut % (Auto) Lymph % (Auto) Banks % (Auto) Eos % (Auto) Baso % (Auto) Lymph # (Auto) Banks # (Auto) Eos # (Auto) Baso # (Auto) Abs Immat Gran (auto) Absolute Neuts (auto) Absolute Nucleated RBC Nucleated RBC % (auto) Smear Tech's Comments Smear Path Review PT 14.4 H INR 1.2 H Sodium Potassium Chloride Carbon Dioxide Anion Gap BUN Creatinine Estim Creat Clear Calc Estimated GFR Random Glucose Calcium Magnesium Total Bilirubin AST ALT Alkaline Phosphatase Total Protein Albumin Vitamin B12 Folate Hep Bs Antigen Hep Bs Antibody Hep B Core Total Ab Hepatitis C Ab (EIA) HIV 1&2 Ab/P24 Ag 4thGn Nonreactive Assessment and Plan (1) Alcohol withdrawal: Problem details: Watch for alcohol withdrawal Status: Acute (2) Seizure-like activity: Problem details: Atypical episode probably not a full-blown seizure on 10/07/2020 ? Related to ETOH withdrawal (per patient) Status: Acute (3) Anemia: Problem details: due to Iron deficiency from slow GI blood loss Status: Acute (4) GERD (gastroesophageal reflux disease): Status: Acute (5) Peripheral neuropathy: Problem details: Stop alcohol abuse. Status: Acute Assessment and Plan: hospital d#4 45yo M admitted for EtOH withdrawal and pancytopenia with positive fecal occult blood test # GI bleed with acute blood loss anemia + iron deficiency - EGD 10/09/20: ESOPHAGUS: Multiple 1-2 cms tongues of suspected Montoya's - biopsies were obtained. STOMACH: Moderate diffuse gastric erythema with submucosal hemorrhages due to retching. Biopsies were obtained. Multiple 3-6 mm benign apperaing polyps in the fundus - biopsied. Grade 2 flap valve on retroflexed examination of the cardia. - C scope 10/10/20: No polyps were detected Moderate diverticulosis seen in the left colon Moderate hemorrhoids on retroflexed exam. - 1 unit pRBCs transfused with appropriate Hb response - start PO Fe suppl # pancytopenia - likely due to EtOH-related myelosuppression. HBV/HCV/HIV negative. B12 normal. # EtOH withdrawal - continue phenobarbital, B vitamins - Neuro consulted, unlikely to have had a seizure but EEG pending - CARE team consult for sobriety resources # peripheral neuropathy - likely due to EtOH, will order outpt NCS, started on gabapentin # transaminasemia - likely mild EtOH hepatitis # VTE ppx - SCDs # dispo - possibly home tomorrow
[2020-10-10] MEDS: PHENobarbitaL 30 MG TABLET PO (20:43)
[2020-10-11 03:47] VITALS: BP 119/67; PULSE 75; RESP 18; TEMP 37; O2SAT 96
[2020-10-11 06:48] LABS: Basophils Percent Auto 1.4 % (0-2); Eosinophils Absolute Auto 0.1 X10*3/uL (0.0-0.4); Eosinophils Percent Auto 4.3 % (0-4); Hematocrit 26.2 % (42-52); Hemoglobin 8.2 g/dl (14.0-18.0); Imm Gran Abs Auto 0.01 X10*3/uL (0.00-0.03); Imm Gran Pct Auto 0.4 % (0.0-0.4); Lymphocytes Absolute Auto 0.3 X10*3/uL (1.2-4.9); MANUAL DIFF FLAG SCAN; Mean Corpuscular HGB Conc 31.3 g/dl (31.0-36.0); Mean Corpuscular Hemoglobin 25.2 pg (27.0-33.0); Mean Corpuscular Volume 80.6 fL (80-98); Mean Platelet Volume 9.6 fL (9.4-12.4); Monocytes Absolute Auto 0.8 X10*3/uL (0.1-1.2); Monocytes Percent Auto 29.3 % (2-11); Neutrophils Absolute Auto 1.5 X10*3/uL (2.0-8.3); Neutrophils Percent Auto 54.6 % (45-73); Platelet Count 135 X10*3/uL (160-400); Red Blood Count 3.25 X10*6/uL (4.60-5.80); Red Cell Distribution Width 16.7 % (11.0-16.0); SCAN SMEAR FLAG 1; White Blood Count 2.8 X10*3/uL (4.8-10.8)
[2020-10-11 08:00] VITALS: BP 136/82; PULSE 89; RESP 20; TEMP 36.7; O2SAT 94
--- NOTE | 2020-10-11 08:16 | HO.POSTANES ---
Post Anesthesia Evaluation Post Anesthesia Evaluation Vital Signs: Vital Signs Temp Pulse Resp BP Pulse Ox 10/11/20 08:00 98.1 F 89 20 136/82 94 10/11/20 03:47 98.6 F 75 18 119/67 96 10/10/20 23:29 98.6 F 108 H 18 130/80 100 Anesthesia: Monitored Mental Status: Awake Pain Control: Satisfactory Nausea/Vomiting: None Hydration: Adequate Anesthesia-Related Issues: No Anes. Related Issues
[2020-10-11 09:35] LABS: SLIDE REVIEW VERIFIED
[2020-10-11 10:00] VITALS: O2SAT 96
[2020-10-11] MEDS: Ferrous Sulfate 324 MG TABLET.DR PO (10:00)
[2020-10-11] MEDS: PHENobarbitaL 30 MG TABLET PO (10:00)
[2020-10-11] MEDS: Gabapentin 300 MG CAPSULE PO (10:00)
[2020-10-11] MEDS: Omeprazole 40 MG CAPSULE.DR PO (10:00)
[2020-10-11] MEDS: Multivitamin TABLET 1 TAB PO (10:00)
[2020-10-11 12:00] VITALS: BP 142/89; PULSE 93; RESP 20; TEMP 36.9; O2SAT 99
--- NOTE | 2020-10-11 14:19 | MHC.CM.PN ---
Patient is being discharged home today no services. Patient will arrange own transportation.
--- NOTE | 2020-10-11 14:23 | PM.DS ---
DS: Providers Provider Date of admission: 10/07/20 23:31 Primary care physician: Capo Mario MD Consults: 10/07/20 23:31 Consult to Gastroenterology Routine Consulting Provider: [facility] Reason for consultation: GI bleed Has provider been notified: No 10/07/20 23:41 Consult to Neurology Routine Consulting Provider: [facility] Reason for consultation: seizures Has provider been notified: No 10/09/20 08:27 Consult to Care Team Routine Comment: Reason for consultation: etoh DS: Diagnosis Discharge Diagnosis (1) Alcohol withdrawal: Status: Acute Problem details: Watch for alcohol withdrawal (2) Seizure-like activity: Status: Acute Problem details: Atypical episode probably not a full-blown seizure on 10/07/2020 ? Related to ETOH withdrawal (per patient) (3) Anemia: Status: Acute Problem details: due to Iron deficiency from slow GI blood loss (4) GERD (gastroesophageal reflux disease): Status: Acute (5) Peripheral neuropathy: Status: Acute Problem details: Stop alcohol abuse. (6) GI bleed: Status: Acute (7) Pancytopenia: Status: Acute (8) Elevated LFTs: Status: Acute (9) Alcoholic gastritis: Status: Acute DS: Medications Discharge Medications Home Medications: Home Medications Medication Instructions Recorded Confirmed gabapentin 1 cap PO TID 10/07/20 10/07/20 omeprazole 40 mg PO DAILY 10/07/20 10/07/20 Previous Rx's Medication Instructions Recorded ferrous sulfate 324 mg PO DAILY #30 tab 10/11/20 folic acid 1 mg PO Q24H #30 tab 10/11/20 thiamine mononitrate (vit B1) 100 mg PO Q24H #30 tab 10/11/20 DS: Summary Hospital Course Hospital Course: From the admission history and physical by hospitalist Orlin Coy, 10/06/20: 45 y/o male with PMHX of Alcohol abuse, Peripheral neuropathy and GERD who presented from home due to alcohol intoxication. Per history provided by the patient, for the past 2-3 has not been feeling well, like malaise associated with poor appetite, nausea/vomiting. Patient reports that for the past 3-5 years has been drinking excessively, mainly vodka 1 quartz everyday. Last alcoholic drink was today in the am. Patient denies any chest pain, SOB, diarrhea, constipation, abdominal pain, unsteadiness or fever. On presentation to the ED patient was noted to have a BP of 160/80 mmHg, HR of 131 (which improved after 2 doses of ativan per ED. While in the ED patient was noted to have an episodes of suspected seizure where patient started moving her arms like tremulousness but without loss of consciousness. Patient does not recall the events. On blood work patient is noted to be pancytopenic, WBC of 2.3, Hgb of 7.9 and plt of 83, Guaiac postiive. Elevated LFT's noted which improved from before. Decision for admission given. Patient seen and examined at the bedside, laying down in bed in no acute distress, mildly anxious. Tremors is evident in bilateral UE. Denies any hallucinations or delusions at present. Mr García was admitted to the [facility]. Fecal occult blood test was positive. He was transfused 1 unit of packed red blood cells for Hb <8. Gastroenterology was consulted. 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 STOMACH: Moderate diffuse gastric erythema with submucosal hemorrhages due to retching. Biopsies were obtained. Multiple 3-6 mm benign apperaing polyps in the fundus - biopsied. Grade 2 flap valve on retroflexed examination of the cardia. colonoscopy, 10/10/20: No polyps were detected Moderate diverticulosis seen in the left colon Moderate hemorrhoids on retroflexed exam. He did not have any evidence of jose bleeding. There was no portal hypertensive gastropathy and no evidence of esophageal varices. He was started on iron repletion. Ultimately the bleeding was attributed to alcoholic gastritis. Pancytopenia improved with abstinence from alcohol and thus was attributed to alcohol-related myelosuppression; HBV, HCV, and HIV serology were negative and vitamin B12 level was normal. He was treated for alcohol withdrawal with phenobarbital taper. Neurology was consulted regarding his seizure-like episode; EEG was normal and ultimately the episode was not thought to be a true epileptic seizure. He met with the substance abuse team and was referred to a pipe recovery specialist. Peripheral neuropathy was attributed to alcoholism and he was treated with gabapentin. Mild transaminase elevation was attributed to alcoholic hepatitis. He was discharged home with instructions to repeat labs [CBCd, PT/INR, and CMP] in 1 week; outpatient NCS was ordered. He will follow up with his primary care doctor in 1 week. He will follow up with the senior naval parachutist in 2 weeks to discuss results of the biopsies from the EGD. Time Spent with Patient Time attestation: Total time spent providing and/or coordinating discharge services: 40 Physical Exam Vital Signs: Vital Signs: Last Vital Signs Temp 98.4 F 10/11/20 12:00 Pulse 93 10/11/20 12:00 Resp 20 10/11/20 12:00 BP 142/89 H 10/11/20 12:00 Pulse Ox 99 10/11/20 12:00 Body Mass Index 23.1 Gen: in no acute distress HEENT: sclera anicteric, moist mucus membranes Neck: supple Lungs: clear to auscultation bilaterally Heart: regular rate and rhythm, no murmurs Abd: soft, non-tender, non-distended Ext: no edema Skin: warm/well-perfused Neuro: alert and oriented x3, no focal findings Psych: appropriate affect DS: Data Data Completed and Pending Pending studies at discharge: Pending at discharge 10/09/20 10:35 Surgical [PTH] Routine Labs on day of discharge: Laboratory Last Values WBC 2.8 X10*3/uL (4.8-10.8) L 10/11/20 05:40 RBC 3.25 X10*6/uL (4.60-5.80) L 10/11/20 05:40 Hgb 8.2 g/dl (14.0-18.0) L 10/11/20 05:40 Hct 26.2 % (42-52) L 10/11/20 05:40 MCV 80.6 fL (80-98) 10/11/20 05:40 MCH 25.2 pg (27.0-33.0) L 10/11/20 05:40 MCHC 31.3 g/dl (31.0-36.0) 10/11/20 05:40 RDW 16.7 % (11.0-16.0) H 10/11/20 05:40 Plt Count 135 X10*3/uL (160-400) L 10/11/20 05:40 MPV 9.6 fL (9.4-12.4) 10/11/20 05:40 Immature Gran % (Auto) 0.4 % (0.0-0.4) 10/11/20 05:40 Neut % (Auto) 54.6 % (45-73) 10/11/20 05:40 Lymph % (Auto) 10.0 % (20-40) L 10/11/20 05:40 [place] % (Auto) 29.3 % (2-11) H 10/11/20 05:40 Eos % (Auto) 4.3 % (0-4) H 10/11/20 05:40 Baso % (Auto) 1.4 % (0-2) 10/11/20 05:40 Lymph # (Auto) 0.3 X10*3/uL (1.2-4.9) L 10/11/20 05:40 [place] # (Auto) 0.8 X10*3/uL (0.1-1.2) 10/11/20 05:40 Eos # (Auto) 0.1 X10*3/uL (0.0-0.4) 10/11/20 05:40 Baso # (Auto) 0.0 X10*3/uL (0.0-0.2) 10/11/20 05:40 Abs Immat Gran (auto) 0.01 X10*3/uL (0.00-0.03) 10/11/20 05:40 Absolute Neuts (auto) 1.5 X10*3/uL (2.0-8.3) L 10/11/20 05:40 Absolute Nucleated RBC 0.000 X10*3/uL (0.0-0.012) 10/11/20 05:40 Nucleated RBC % (auto) 0.0 /100WBC (0.0-0.2) 10/11/20 05:40 Smear Tech's Comments VERIFIED 10/11/20 05:40 Smear Path Review Cancelled 10/08/20 03:39 Absolute Retic 0.058 X10*6/uL (0.026-0.095) 10/08/20 03:39 Percent Retic 2.0 % (0.5-1.8) H 10/08/20 03:39 Immature Retic Fraction 26.9 % (2.3-13.4) H 10/08/20 03:39 Retic Hgb Equivalent 29.4 pg (30.0-35.0) L 10/08/20 03:39 PT 14.4 SEC (10.8-13.0) H 10/10/20 05:28 INR 1.2 (0.9-1.1) H 10/10/20 05:28 Sodium 136 mmol/L (135-145) 10/10/20 05:28 Potassium 3.3 mmol/l (3.3-5.1) 10/10/20 05:28 Chloride 97 mmol/L (96-108) 10/10/20 05:28 Carbon Dioxide 26 mmol/L (22-29) 10/10/20 05:28 Anion Gap 16 (12-20) 10/10/20 05:28 BUN 13 mg/dL (9-16) 10/10/20 05:28 Creatinine 0.75 mg/dL (0.5-1.4) 10/10/20 05:28 Estim Creat Clear Calc 140.6 10/10/20 05:28 Estimated GFR > 60 10/10/20 05:28 Random Glucose 90 mg/dL (60-115) 10/10/20 05:28 Calcium 9.0 mg/dL (8.4-10.2) 10/10/20 05:28 Magnesium 1.8 mg/dL (1.6-2.6) 10/10/20 05:28 Iron 46 mcg/dL (45-160) 10/08/20 03:39 TIBC 467 mcg/dL (228-428) H 10/08/20 03:39 % Saturation 10 % (15-50) L 10/08/20 03:39 Unsat Iron Binding 421 ug/dL 10/08/20 03:39 Ferritin 39 ng/mL (20-250) 10/08/20 03:39 Total Bilirubin 1.3 mg/dL (0.0-1.0) H 10/10/20 05:28 Direct Bilirubin 0.6 mg/dL (0.0-0.5) H 10/08/20 03:39 AST 167 U/L (5-37) H 10/10/20 05:28 ALT 96 U/L (0-40) H 10/10/20 05:28 Alkaline Phosphatase 55 U/L (39-117) 10/10/20 05:28 Lactate Dehydrogenase 317 U/L (118-273) H 10/08/20 08:29 Troponin I High Sens 9.2 ng/L (<3.5-35.0) 10/07/20 19:35 Total Protein 6.9 g/dL (6.5-8.0) 10/10/20 05:28 Albumin 4.3 g/dL (3.5-5.0) 10/10/20 05:28 Lipase 28 U/L (8-78) 10/07/20 19:35 Vitamin B12 498 pg/mL (200-900) 10/09/20 05:46 Folate 14.6 ng/mL (> or = 4.0) 10/09/20 05:46 Stool Occult Blood POS (NEG) 10/07/20 21:02 Ethyl Alcohol 23 mg/dL 10/07/20 19:35 COVID-19 (CRUZ) Negative (Negative) 10/07/20 21:02 COVID-19 Clin Com See Note 10/07/20 21:02 Hep Bs Antigen Negative (Negative) 10/09/20 05:46 Hep Bs Antibody NONREACTIVE (Nonreactive) 10/09/20 05:46 Hep B Core Total Ab Nonreactive (Nonreactive) 10/09/20 05:46 Hepatitis C Ab (EIA) Nonreactive (Nonreactive) 10/09/20 05:46 HIV 1&2 Ab/P24 Ag 4thGn Nonreactive (Nonreactive) 10/10/20 05:29 Blood Type O Positive 10/08/20 12:54 Antibody Screen NEGATIVE 10/08/20 12:54 Crossmatch See Detail 10/08/20 12:54 EEG (10/10/20) IMPRESSION: This waking EEG is within normal limits. Discharge Plan Discharge Anticipated Discharge Date/Time: 10/11/20 14:14 Patient Disposition: Home, Self-Care Referrals: Capo Mario MD [Primary Care Provider] - Discharge Medications: New ferrous sulfate 324 mg (65 mg iron) Tablet,Delayed Release (Dr/Ec) 324 mg PO DAILY Qty: 30 RF: 0 folic acid 1 mg Tablet 1 mg PO Q24H Qty: 30 RF: 0 thiamine mononitrate (vit B1) 100 mg Tablet 100 mg PO Q24H Qty: 30 RF: 0 Continued omeprazole 40 mg Capsule,Delayed Release(Dr/Ec) 40 mg PO DAILY RF: 0 gabapentin 300 mg capsule 1 cap PO TID RF: 0 Discharge Orders: Discharge Order (Routine); Ordered 10/11/20 Ordered By: Manju Tamayo Diet: advance to usual diet Activity on Discharge: no alcohol Patient Instructions: Abuse of Alcohol (DC), Alcohol Withdrawal (DC), Alcohol Use Disorder (DC) Stand Alone Forms: Community Support Other Ambulatory Orders: Complete Blood Count Auto Diff (Routine) Timeframe: 1 Week Facility: [facility] - Location: Laboratory Ordered By: Manju Tamayo Comprehensive Met. Panel (Routine) Timeframe: 1 Week Facility: [facility] - Location: Laboratory Ordered By: Manju Tamayo NE nerve conduction velocity (Routine) Timeframe: 1 Month Facility: [facility] - Location: Neuro Diagnostics Ordered By: Manju Tamayo Prothrombin Time INR (Routine) Timeframe: 1 Week Facility: [facility] - Location: Laboratory Ordered By: Manju Tamayo Visit Report Forms: Patient Portal Discharge page Care Plan Goals: avoidance of alcohol Health Concerns: alcohol withdrawal, pancytopenia, GI bleed Plan of Treatment: avoid alcohol sober living recheck labs in 1 week: CBCd, CMP, PT/INR start iron, 324 mg of ferrous sulfate daily outpatient nerve conduction study; to schedule, call Cardiology Services at follow up with Dr Le (Gastroenterology) in 2 weeks for results of biopsies from EGD: [phone] [place] [address] [address] [place] [address]
[2020-10-12 07:58] LABS: Hepatitis A Antibody IgM 0.21 Index (0-0.79); ~Hepatitis A Antibody IgM Nonreactive (Nonreactive)
== END 2020-10-11 16:10 | disposition home or self-care (01) | DRG 241 ==
LOC: HO.ED 22:18 → HO.IMC 10-08 02:00
PROVIDERS: Internal Medicine; Internal Medicine Gastroenterology; Admitting Provider Internal Medicine; Emergency Provider Emergency Medicine; PCP Internal Medicine; Visit Provider Family Medicine
PROC: 0DB78ZX Excision of Stomach, Pylorus, Via Natural or Artificial Opening Endoscopic, Diagnostic (ICD-10-PCS; principal; 2020-10-09 10:00)
PROC: 0DJD8ZZ Inspection of Lower Intestinal Tract, Via Natural or Artificial Opening Endoscopic (ICD-10-PCS; CPT 45378; principal; 2020-10-10 13:50)
DX: K29.21 Alcoholic gastritis with bleeding (principal); D61.818 Other pancytopenia; R56.9 Unspecified convulsions; F10.239 Alcohol dependence with withdrawal, unspecified; G62.1 Alcoholic polyneuropathy; K21.9 Gastro-esophageal reflux disease without esophagitis; Z20.828 Contact with and (suspected) exposure to other viral communicable diseases; Z79.899 Other long term (current) drug therapy
CPT/HCPCS: 36415; 80048; 80053; 80076; 80320; 82272; 82607; 82728; 82746; 83540; 83615; 83690; 83735; 84484; 85025; 85027; 85045; 85060; 85610; 86704; 86706; 86709; 86803; 86850; 86900; 86901; 86920; 86923; 87340; 87389; 87635; 88305; 88342; 93005; 95816; 96365; 96372; 96375; 99223; 99285; J2060; J2250; J2405; J2560; J3010; J3411; P9016

== ENCOUNTER 2020-11-08 15:31 | Outpatient (REF) | payer OTHER, SELFPAY ==
[2020-11-08 16:35] LABS: Basophils Absolute Auto 0.1 X10*3/uL (0.0-0.2); Eosinophils Absolute Auto 0.3 X10*3/uL (0.0-0.4); Eosinophils Percent Auto 4.2 % (0-4); Hematocrit 32.9 % (42-52); Hemoglobin 10.2 g/dl (14.0-18.0); Imm Gran Abs Auto 0.03 X10*3/uL (0.00-0.03); Imm Gran Pct Auto 0.5 % (0.0-0.4); Lymphocytes Absolute Auto 0.6 X10*3/uL (1.2-4.9); Lymphocytes Percent Auto 10.3 % (20-40); Mean Corpuscular Hemoglobin 25.1 pg (27.0-33.0); Mean Corpuscular Volume 80.8 fL (80-98); Mean Platelet Volume 9.4 fL (9.4-12.4); Monocytes Absolute Auto 0.7 X10*3/uL (0.1-1.2); Monocytes Percent Auto 12.3 % (2-11); Neutrophils Absolute Auto 4.2 X10*3/uL (2.0-8.3); Neutrophils Percent Auto 71.7 % (45-73); Platelet Count 279 X10*3/uL (160-400); Red Blood Count 4.07 X10*6/uL (4.60-5.80); Red Cell Distribution Width 16.1 % (11.0-16.0); SCAN SMEAR FLAG 1; White Blood Count 5.9 X10*3/uL (4.8-10.8)
[2020-11-08 16:38] LABS: MANUAL DIFF FLAG NO
[2020-11-08 16:51] LABS: INTERNATIONAL NORM RATIO 1.2 (0.9-1.1); Prothrombin Time 13.7 SEC (10.8-13.0)
[2020-11-08 16:53] LABS: Partial Thromboplastin Time 36.4 SEC (24.1-38.0)
[2020-11-08 16:55] LABS: Iron 26 mcg/dL (45-160); Percent Iron Saturation 5 % (15-50); Total Iron Binding Capacity 480 mcg/dL (228-428); Unsaturated Iron Binding 454 ug/dL
[2020-11-08 16:58] LABS: Alanine Aminotransferase 25 U/L (0-40); Albumin Level 4.5 g/dL (3.5-5.0); Alkaline Phosphatase 78 U/L (39-117); Anion Gap 13 (12-20); Aspartate Amino Transferase 25 U/L (5-37); Bilirubin Total 0.2 mg/dL (0.0-1.0); Blood Urea Nitrogen 17 mg/dL (9-16); Calcium 9.7 mg/dL (8.4-10.2); Carbon Dioxide 27 mmol/L (22-29); Chloride 102 mmol/L (96-108); Estimated Glomerular Filt Rate > 60; Glucose Random 79 mg/dL (60-115); Potassium 4.6 mmol/l (3.3-5.1); Sodium 137 mmol/L (135-145); Total Protein 7.5 g/dL (6.5-8.0)
[2020-11-08 17:18] LABS: Vitamin B12 617 pg/mL (200-900)
== END 2020-11-08 15:32 | disposition home or self-care (01) ==
LOC: HO.LAB 15:31
PROVIDERS: Absent Provider Family Medicine; PCP Internal Medicine; Visit Provider Internal Medicine
DX: D64.9 Anemia, unspecified (principal); K29.70 Gastritis, unspecified, without bleeding; K21.9 Gastro-esophageal reflux disease without esophagitis; K92.2 Gastrointestinal hemorrhage, unspecified
CPT/HCPCS: 36415; 80053; 82607; 83540; 85025; 85610; 85730

== ENCOUNTER 2020-12-10 18:15 | Emergency (ER) | payer OTHER, SELFPAY ==
[2020-12-10 18:26] VITALS: BP 183/97; PULSE 110; RESP 18; TEMP 37.1; O2SAT 96; BMI 26.3
--- NOTE | 2020-12-10 20:07 | MHC.RECOVSUP ---
ETOH o Current location: 20 o Identified substance use concern: - Withdrawal - Seeking ATS (detox) - Support ? Intervention: o Community resources provided o Harm reduction discussion ? Plan: o Referral to [facility] o Follow up tomorrow o Patient to follow up with [facility] after discharge ? Additional information: pt came in in the hopes of doing detox here at the ED but was told that is not possible. I spoke with him and asked if he wanted to go to detox and he stated that because of his job, he won't be able to do so. He has not been in MAT before, pt also stated that he does not have a hx of mental health and is interested in vivitrol. I was able to speak to him about CCC and provided him with information on what is vivitrol and the benefits of receiving vivitrol. pt would benefit from a call back
--- NOTE | 2020-12-10 20:19 | ED_ITS ---
HPI - General Adult General Chief complaint: General Medical Stated complaint: Withdraw Time Seen by Provider: 12/10/20 20:49 Source: patient Mode of arrival: ambulatory Limitations: no limitations History of Present Illness HPI narrative: Patient presents to ED or alcohol bleed/withdrawal. Patient states after being admitted for alcohol withdrawal October for follow-up he went cold turkey and then started drinking heavily the past 10 days. Patient states feeling anxious, heart racing, and having tremors of extremities. Patient is afraid last drink was earlier in the evening and might be going to another withdrawal. Patient would like some help with his alcoholism. Patient states he had nausea and vomiting yesterday. Related Data Home Medications Medication Instructions Recorded Confirmed gabapentin 1 cap PO TID 10/07/20 10/07/20 omeprazole 40 mg PO DAILY 10/07/20 10/07/20 Previous Rx's Medication Instructions Recorded ferrous sulfate 324 mg PO DAILY #30 tab 10/11/20 folic acid 1 mg PO Q24H #30 tab 10/11/20 thiamine mononitrate (vit B1) 100 mg PO Q24H #30 tab 10/11/20 chlordiazepoxide HCl 25 mg PO Q12H #15 cap 12/11/20 Allergies Allergy/AdvReac Type Severity Reaction Status Date / Time Penicillins [PENICILLINS] Allergy Unknown RASH Verified 10/07/20 22:23 Review of Systems Review of Systems: Yes all other systems are reviewed and are negative Constitutional: Constitutional: Reports as per HPI and Reports no additional constitutional complaints Eyes: Eyes: Reports as per HPI and Reports no additional eye complaints ENT: Reports system reviewed and no additional complaints, except as documented and Reports as per HPI Cardiovascular: Cardiovascular: Reports as per HPI and Reports no additional cardiovascular complaints Respiratory: Respiratory: Reports as per HPI and Reports no additional respiratory complaints Gastrointestinal: Gastrointestinal: Reports as per HPI and Reports no additional gastrointestinal complaints Genitourinary: Genitourinary: Reports no additional male genitourinary complaints and Reports as per HPI Musculoskeletal: Musculoskeletal: Reports no additional musculoskeletal complaints and Reports as per HPI Neurologic: Reports system reviewed and no additional complaints, except as documented and Reports as per HPI Comments: Tremors. Feeling anxious. Psychiatric: Psychiatric: Reports no additional psychiatric complaints and Reports as per HPI Comments: Anxious PMF Past Medical History Medical History (Updated 12/11/20 @ 00:09 by RAMON Hightower) Alcohol withdrawal Alcoholic gastritis Anemia Elevated LFTs ETOH abuse GERD (gastroesophageal reflux disease) GI bleed HTN (hypertension) Peripheral neuropathy Social History Social History Household Members: Family Housing: House Alcohol intake: current Alcohol intake frequency: 3 or more drinks per day Alcohol type: hard liquor Smoking Status: Never smoker Use of substances other than those prescribed or required for medical reasons: No Advance Directives: No service: No Current occupational status: employed Physical Exam Vital Signs: Vital Signs: Last Vital Signs Temp 98.8 F 12/10/20 18:26 Pulse 81 12/10/20 22:00 Resp 17 12/10/20 22:00 BP 135/81 12/10/20 22:00 Pulse Ox 95 12/10/20 22:00 Body Mass Index 26.3 Const: Other: Patient seen anxious General: cooperative, healthy appearing, comfortable, no acute distress, well developed, alert and awake Orien tation/consciousness: patient oriented x3 HENMT: Head: Yes normal to inspection, Yes No palpable skull fracture present, Yes normocephalic, Yes atraumatic and No abrasion Eyes: General: appearance normal, both eyes and all related structures Neck: Neck: Yes normal visual inspection, Yes full ROM, Yes no lymphadenopathy, Yes no meningeal signs, Yes trachea midline, Yes supple and No tender Chest: Chest palpation & inspection: normal inspection of the chest and normal palpation of entire chest wall Resp: Effort & Inspection: normal respiratory effort and able to speak in complete sentences Auscultation: clear to auscultation bilaterally Cardio: Jugular venous distension: no JVD Heart sounds: S1 normal heart sound present and S2 normal heart sound present GI: Inspection: Yes normal to inspection and No abdominal wall ecchymosis Palpation (GI): Soft to palpation, not firm, nontender, no guarding and not rigid : General: No CVA tenderness and Yes no CVA tenderness Back/Spine/Pelvis: Back: no CVA tenderness and No CVA tenderness Skin: General skin exam: no rashes or lesions noted Neuro: Other: Positive for mild tremor General: patient oriented x3, gait normal, no meningeal signs and CN's II-XI intact bilaterally Cranial nerves: Yes CN's II-XII intact bilaterally Extrem: General: Yes normal to inspection and Yes full ROM Psych: Appearance: grossly normal, well kempt and not disheveled Course Course Course Narrative: Will do EKG due to tachycardia and to make sure patient is not in atrial fibrillation due to holiday alcohol withdrawal heart. Patient had basic labs and troponin. Patient given fluids, Pepcid, Zofran, Ativan. Patient admits not drinking his usual amount of alcohol. Reevaluation(s) Reevaluation #1: Patient vital signs improved after receiving Pepcid, Ativan, and fluids. Patient feels better. Patient to be discharged with Librium. Labs reviewed with Dr. Morgan and will he was made aware of patient's pancytopenia. Patient was admitted in October and evaluated for pancytopenia and the cause by hospitalist was believed to be alcohol abuse. Patient was negative for HIV and hepatitis. Dr. Morgan agrees patient can be discharged. Medical Decision Making MDM Narrative Medical decision making narrative: Alcohol withdrawal Lab Data Result diagrams: 12/10/20 20:55 12/10/20 20:55 Labs: Lab Results 12/10/20 12/10/20 12/10/20 Range/Units 20:55 20:55 20:55 WBC 2.2 L (4.8-10.8) X10*3/uL RBC 4.16 L (4.60-5.80) X10*6/uL Hgb 10.1 L (14.0-18.0) g/dl Hct 32.0 L (42-52) % MCV 76.9 L (80-98) fL MCH 24.3 L (27.0-33.0) pg MCHC 31.6 (31.0-36.0) g/dl RDW 16.8 H (11.0-16.0) % Plt Count 145 L D (160-400) X10*3/uL MPV 8.2 L (9.4-12.4) fL Immature Gran % (Auto) 0.5 H (0.0-0.4) % Neut % (Auto) 65.4 (45-73) % Lymph % (Auto) 16.6 L (20-40) % [place] % (Auto) 15.2 H (2-11) % Eos % (Auto) 1.4 (0-4) % Baso % (Auto) 0.9 (0-2) % Lymph # (Auto) 0.4 L (1.2-4.9) X10*3/uL [place] # (Auto) 0.3 (0.1-1.2) X10*3/uL Eos # (Auto) 0.0 (0.0-0.4) X10*3/uL Baso # (Auto) 0.0 (0.0-0.2) X10*3/uL Abs Immat Gran (auto) 0.01 (0.00-0.03) X10*3/uL Absolute Neuts (auto) 1.4 L (2.0-8.3) X10*3/uL Absolute Nucleated RBC 0.000 (0.0-0.012) X10*3/uL Nucleated RBC % (auto) 0.0 (0.0-0.2) /100WBC Smear Tech's Comments VERIFIED PT (10.8-13.0) SEC INR (0.9-1.1) APTT (24.1-38.0) SEC Sodium 139 (135-145) mmol/L Potassium 3.6 (3.3-5.1) mmol/L Chloride 99 (96-108) mmol/L Carbon Dioxide 26 (22-29) mmol/L Anion Gap 18 (12-20) BUN 8 L D (9-16) mg/dL Creatinine 0.82 (0.5-1.4) mg/dL Estim Creat Clear Calc 129.4 Estimated GFR > 60 Random Glucose 77 (60-115) mg/dL Calcium 9.5 (8.4-10.2) mg/dL Magnesium 1.8 (1.6-2.6) mg/dL Total Bilirubin 0.7 (0.0-1.0) mg/dL Direct Bilirubin 0.3 (0.0-0.5) mg/dL AST 44 H D (5-37) U/L ALT 28 (0-40) U/L Alkaline Phosphatase 72 (39-117) U/L Troponin I High Sens (<3.5-35.0) ng/L Total Protein 7.4 (6.5-8.0) g/dL Albumin 4.5 (3.5-5.0) g/dL Lipase 20 (8-78) U/L Ethyl Alcohol 57 mg/dL 12/10/20 12/10/20 Range/Units 20:55 20:55 WBC (4.8-10.8) X10*3/uL RBC (4.60-5.80) X10*6/uL Hgb (14.0-18.0) g/dl Hct (42-52) % MCV (80-98) fL MCH (27.0-33.0) pg MCHC (31.0-36.0) g/dl RDW (11.0-16.0) % Plt Count (160-400) X10*3/uL MPV (9.4-12.4) fL Immature Gran % (Auto) (0.0-0.4) % Neut % (Auto) (45-73) % Lymph % (Auto) (20-40) % [place] % (Auto) (2-11) % Eos % (Auto) (0-4) % Baso % (Auto) (0-2) % Lymph # (Auto) (1.2-4.9) X10*3/uL [place] # (Auto) (0.1-1.2) X10*3/uL Eos # (Auto) (0.0-0.4) X10*3/uL Baso # (Auto) (0.0-0.2) X10*3/uL Abs Immat Gran (auto) (0.00-0.03) X10*3/uL Absolute Neuts (auto) (2.0-8.3) X10*3/uL Absolute Nucleated RBC (0.0-0.012) X10*3/uL Nucleated RBC % (auto) (0.0-0.2) /100WBC Smear Tech's Comments PT 13.9 H (10.8-13.0) SEC INR 1.2 H (0.9-1.1) APTT 34.5 (24.1-38.0) SEC Sodium (135-145) mmol/L Potassium (3.3-5.1) mmol/L Chloride (96-108) mmol/L Carbon Dioxide (22-29) mmol/L Anion Gap (12-20) BUN (9-16) mg/dL Creatinine (0.5-1.4) mg/dL Estim Creat Clear Calc Estimated GFR Random Glucose (60-115) mg/dL Calcium (8.4-10.2) mg/dL Magnesium (1.6-2.6) mg/dL Total Bilirubin (0.0-1.0) mg/dL Direct Bilirubin (0.0-0.5) mg/dL AST (5-37) U/L ALT (0-40) U/L Alkaline Phosphatase (39-117) U/L Troponin I High Sens 4.5 D (<3.5-35.0) ng/L Total Protein (6.5-8.0) g/dL Albumin (3.5-5.0) g/dL Lipase (8-78) U/L Ethyl Alcohol mg/dL ECG Data Interpretation: Normal sinus rhythm. Normal EKG. Ventricular rate 71. NM interval 138. QRS 90. QTC 432. Negative STEMI Discharge Plan Discharge Clinical Impression: Alcohol withdrawal Patient Disposition: Home, Self-Care Instructions: Alcohol Withdrawal (ED) Additional Instructions: Return to the ED for any headache, dizziness, chest pain, shortness of breath, abdominal pain, nausea, vomiting, dizziness, diaphoresis, any other concerning symptoms. Please follow-up with detox referral programs given to you by manager disaster recovery Prescriptions: New chlordiazepoxide HCl 25 mg capsule 25 mg PO Q12H Qty: 15 RF: 0 No Action omeprazole 40 mg Capsule,Delayed Release(Dr/Ec) 40 mg PO DAILY RF: 0 gabapentin 300 mg capsule 1 cap PO TID RF: 0 ferrous sulfate 324 mg (65 mg iron) Tablet,Delayed Release (Dr/Ec) 324 mg PO DAILY Qty: 30 RF: 0 folic acid 1 mg Tablet 1 mg PO Q24H Qty: 30 RF: 0 thiamine mononitrate (vit B1) 100 mg Tablet 100 mg PO Q24H Qty: 30 RF: 0 Print Language: Tunisian
--- NOTE | 2020-12-10 20:27 | ECG_ITS ---
Test Reason : WITHDRAWAL Blood Pressure : / mmHG Vent. Rate : 071 BPM Atrial Rate : 071 BPM P-R Int : 138 ms QRS Dur : 090 ms QT Int : 398 ms P-R-T Axes : 016 -07 012 degrees QTc Int : 432 ms Normal sinus rhythm Normal ECG When compared with ECG of 07-OCT-2020 21:58, ST no longer depressed in Anterior leads Referred By: Reynaldo Aguirre Electronically Signed By:PIPER STOVER
[2020-12-10] MEDS: LORazepam 2 MG/ML VIAL IVPUSH (21:03)
[2020-12-10] MEDS: 0.9 % Sodium Chloride 1,000 ML 999 ML IV (21:03)
[2020-12-10] MEDS: ondansetron HCL 4 MG/2 ML VIAL IVPUSH (21:04)
[2020-12-10] MEDS: Famotidine/PF 20 MG/2 ML VIAL IVPUSH (21:04)
[2020-12-10 21:05] LABS: Basophils Percent Auto 0.9 % (0-2); Eosinophils Percent Auto 1.4 % (0-4); Hemoglobin 10.1 g/dl (14.0-18.0); Imm Gran Abs Auto 0.01 X10*3/uL (0.00-0.03); Imm Gran Pct Auto 0.5 % (0.0-0.4); Lymphocytes Absolute Auto 0.4 X10*3/uL (1.2-4.9); Lymphocytes Percent Auto 16.6 % (20-40); MANUAL DIFF FLAG SCAN; Mean Corpuscular HGB Conc 31.6 g/dl (31.0-36.0); Mean Corpuscular Hemoglobin 24.3 pg (27.0-33.0); Mean Corpuscular Volume 76.9 fL (80-98); Mean Platelet Volume 8.2 fL (9.4-12.4); Monocytes Absolute Auto 0.3 X10*3/uL (0.1-1.2); Monocytes Percent Auto 15.2 % (2-11); Neutrophils Absolute Auto 1.4 X10*3/uL (2.0-8.3); Neutrophils Percent Auto 65.4 % (45-73); Platelet Count 145 X10*3/uL (160-400); Red Blood Count 4.16 X10*6/uL (4.60-5.80); Red Cell Distribution Width 16.8 % (11.0-16.0); SCAN SMEAR FLAG 1
[2020-12-10 21:06] LABS: White Blood Count 2.2 X10*3/uL (4.8-10.8)
[2020-12-10 21:10] VITALS: BP 154/87; PULSE 77; RESP 16; O2SAT 99
--- NOTE | 2020-12-10 21:11 | PC.NURSE ---
pt has a iv 20g placed with no difficutly to pt right ac. then pt was given ivf. labs drawn and sent.
--- NOTE | 2020-12-10 21:12 | PC.NURSE ---
pt medicated to prevent withdrawls from vodka quart a day. pt is calm cooperative, slight tremors to fingers visable.
[2020-12-10 21:14] LABS: INTERNATIONAL NORM RATIO 1.2 (0.9-1.1); Prothrombin Time 13.9 SEC (10.8-13.0)
[2020-12-10 21:16] LABS: Partial Thromboplastin Time 34.5 SEC (24.1-38.0)
[2020-12-10 21:24] LABS: SLIDE REVIEW VERIFIED
[2020-12-10 21:29] LABS: Alanine Aminotransferase 28 U/L (0-40); Albumin Level 4.5 g/dL (3.5-5.0); Alkaline Phosphatase 72 U/L (39-117); Anion Gap 18 (12-20); Aspartate Amino Transferase 44 U/L (5-37); Bilirubin Direct 0.3 mg/dL (0.0-0.5); Bilirubin Total 0.7 mg/dL (0.0-1.0); Blood Urea Nitrogen 8 mg/dL (9-16); Calcium 9.5 mg/dL (8.4-10.2); Carbon Dioxide 26 mmol/L (22-29); Chloride 99 mmol/L (96-108); Creatinine Clr Calc Pharmacy 129.4; Estimated Glomerular Filt Rate > 60; Glucose Random 77 mg/dL (60-115); Lipase 20 U/L (8-78); Magnesium 1.8 mg/dL (1.6-2.6); Potassium 3.6 mmol/L (3.3-5.1); Sodium 139 mmol/L (135-145); Total Protein 7.4 g/dL (6.5-8.0)
[2020-12-10 21:35] LABS: Ethanol 57 mg/dL; Troponin-I High Sensitivity 4.5 ng/L (<3.5-35.0)
[2020-12-10 22:00] VITALS: BP 135/81; PULSE 81; RESP 17; O2SAT 95
--- NOTE | 2020-12-10 22:48 | PC.NURSE ---
pt resting comfortably no tremors aox3 skin pink warma nd dry.
[2020-12-11 01:24] VITALS: BP 119/76; PULSE 85; RESP 18; O2SAT 100
== END 2020-12-11 01:30 | disposition home or self-care (01) ==
PROVIDERS: Physician Assistant; Emergency Provider Emergency Medicine
DX: F10.239 Alcohol dependence with withdrawal, unspecified (principal); R11.2 Nausea with vomiting, unspecified; Y90.2 Blood alcohol level of 40-59 mg/100 ml; Z79.899 Other long term (current) drug therapy
CPT/HCPCS: 36415; 80053; 80076; 80320; 82248; 83690; 83735; 84484; 85025; 85610; 85730; 93005; 96361; 96374; 96375; 99284; J2060; J2405

== ENCOUNTER 2020-12-21 09:37 | Outpatient (REF) | payer OTHER, SELFPAY | END 2020-12-21 09:38 | disposition home or self-care (01) | LOC: HO.NEURO 09:37 | PROVIDERS: PCP Internal Medicine; Visit Provider Family Medicine | DX: G62.9 Polyneuropathy, unspecified (principal) | CPT/HCPCS: 95885; 95912 ==

== ENCOUNTER 2021-02-24 07:03 | Emergency (ER) | payer OTHER, SELFPAY ==
[2021-02-24 07:23] VITALS: BP 196/107; PULSE 102; RESP 18; TEMP 36.7; O2SAT 100; BMI 28.5
--- NOTE | 2021-02-24 07:34 | ED_ITS ---
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 comes in with c/o anxiety and tremors with n/v after last drink yesterday - he tried 0.5mg ativan without relief this AM complaint: alcohol withdrawal Last drink: Hours (ago) (this AM) Amount of alcohol consumed: regularly 1 pint a day Chronic alcohol use: Yes Previous visits for alcohol intoxication: Yes Recent trauma: No Associated symptoms: nausea, vomiting and tremors Treatments prior to arrival: benzodiazepines (0.5mg ativan) Related Data Home Medications Medication Instructions Recorded Confirmed gabapentin 1 cap PO TID 10/07/20 10/07/20 omeprazole 40 mg PO DAILY 10/07/20 10/07/20 Previous Rx's Medication Instructions Recorded ferrous sulfate 324 mg PO DAILY #30 tab 10/11/20 folic acid 1 mg PO Q24H #30 tab 10/11/20 thiamine mononitrate (vit B1) 100 mg PO Q24H #30 tab 10/11/20 chlordiazepoxide HCl 25 mg PO Q12H #15 cap 12/11/20 magnesium oxide 400 mg PO DAILY #30 tab 02/24/21 thiamine HCl (vitamin B1) 100 mg PO DAILY #30 tab 02/24/21 Allergies Allergy/AdvReac Type Severity Reaction Status Date / Time Penicillins [PENICILLINS] Allergy Unknown RASH Verified 10/07/20 22:23 Review of Systems Review of Systems: Constitutional : No Weight loss, No Fever, No Chills ENT/Mouth : No sore throat, No Rhinorrhea Eyes: No Swelling, No Redness Cardiovascular : No Chest Pain, No SOB, NoEdema Respiratory : No Cough, No Sputum, No Wheezing Gastrointestinal : Positive Nausea, Positive Vomiting, no Diarrhea, no abdominal Pain, No Hematochezia, No Melena Genitourinary : No Dysuria, No Urinary Frequency, No Hematuria, No Urgency Musculoskeletal : No joint pain, No Myalgias, No Joint Swelling Skin : No Skin Lesions, No rash Neuro : no Weakness, No Numbness, No Dizziness, No Headache Psych : pos Anxiety/Panic, No Depression Heme/Lymph: No Bruising, No Lymphadenopathy Endocrine : No Polyuria, No Polydipsia All other systems reviewed and are negative. [facility] Past Medical History Attestation statement: The following information was validated with the patient. Medical History Alcohol withdrawal Alcoholic gastritis Anemia Elevated LFTs ETOH abuse GERD (gastroesophageal reflux disease) GI bleed HTN (hypertension) Peripheral neuropathy Social History Social History Household Members: Family Housing: House Alcohol intake: current Alcohol intake frequency: 3 or more drinks per day [place] cohol type: hard liquor Smoking Status: Never smoker Advance Directives: Yes Advance Directives Information Provided: Yes Advance Directives on File: No service: No Current occupational status: employed Physical Exam Vital Signs: Vital Signs: Last Vital Signs Temp 98.0 F 02/24/21 07:23 Pulse 97 02/24/21 10:12 Resp 18 02/24/21 07:23 BP 145/100 H 02/24/21 10:12 Pulse Ox 100 02/24/21 07:23 Body Mass Index 28.5 Appearance: Alert. Oriented X3. No acute distress. very midly anxious Eyes: Pupils equal, round and reactive to light. ENT: Pharynx normal. Neck: Normal inspection. Neck supple. CVS: Normal heart rate and rhythm. Pulses normal. Respiratory: No respiratory distress. Breath sounds normal. Abdomen: Soft and nontender. Skin: Skin warm and dry. Normal skin color. Normal skin turgor. Extremities: No lower extremity edema. No calf ttp Neuro: Oriented X 3. No motor deficit. No sensory deficit. slight tremor Psych: + anxiety, no SI/HI Course Course Course Narrative: will dose with IM ativan feels better but will be more aggressive with withdrawal symptoms stable for DC to clinic MDM - Alcohol MDM Narrative Medical decision making narrative: 45 yo male with hx of ETOH here with anxiety, n/v withdrawal complaints he is not terrible at t his time will start with high dose PO librium and zofran then reassess - if he fails may need IV ativan, dispo per results and improvement will offer recovery coaches if he wants to speak to them Lab Data Result diagrams: 02/24/21 10:10 Discharge Plan Discharge Clinical Impression: Alcohol abuse Patient Disposition: Home, Self-Care Instructions: Abuse of Alcohol (ED) Additional Instructions: return to ED for any worsening symptoms or concerns Prescriptions: New magnesium oxide 400 mg (241.3 mg magnesium) tablet 400 mg PO DAILY Qty: 30 RF: 0 thiamine HCl (vitamin B1) 100 mg tablet 100 mg PO DAILY Qty: 30 RF: 0 No Action omeprazole 40 mg Capsule,Delayed Release(Dr/Ec) 40 mg PO DAILY RF: 0 gabapentin 300 mg capsule 1 cap PO TID RF: 0 ferrous sulfate 324 mg (65 mg iron) Tablet,Delayed Release (Dr/Ec) 324 mg PO DAILY Qty: 30 RF: 0 folic acid 1 mg Tablet 1 mg PO Q24H Qty: 30 RF: 0 thiamine mononitrate (vit B1) 100 mg Tablet 100 mg PO Q24H Qty: 30 RF: 0 chlordiazepoxide HCl 25 mg capsule 25 mg PO Q12H Qty: 15 RF: 0
[2021-02-24] MEDS: Magnesium Oxide 400 MG TABLET PO (08:07)
[2021-02-24] MEDS: chlordiazePOXIDE HCl 25 MG CAPSULE 75 MG PO (08:07)
[2021-02-24] MEDS: LORazepam 2 MG/ML VIAL IM (09:02)
--- NOTE | 2021-02-24 09:17 | MHC.RECOVSUP ---
Recovery Support note: Patient is a 45 year old Indonesian speaking male who presented to [facility] ED due to concerns of alcohol withdrawal. Patient reports he has had withdrawal seizures in the past and that he wants to prevent that. Patient reports about 1 pint of vodka daily and last drink being yesterday night. 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 This medical underwriter discussed outpatient treatment options with patient including medications for alcohol use disorder, outpatient therapy, IOP and AA. Patient accepted information on these resources. Patient was also provided with a list of detoxes and information on which ones accept his insurance. This medical underwriter also provided patient with this medical underwriter's contact information in the event that he has any questions down the road surrounding the resources provided. Patient reports he is interested in getting on medication to reduce cravings. Discussed the [facility] with patient and provided him with information and the walk in hours. Patient reports he would be interested in going today after discharge, stating that if he pushes it off he is unlikely to go. This medical underwriter spoke with Leslie HUTCHINSON at the [facility] who reports that they have openings throughout the day however they do not have a provider. This medical underwriter explained to patient that he would be able to go to the clinic for an intake and to get additional information on MAT however he would not get a prescription today. Patient acknowledged and reported he is still interested in going to the clinic. If patient is discharged, this medical underwriter will walk patient to clinic for intake. Leslie HUTCHINSON requested LFT for patient so that the [facility] will have that information if patient ends up returning for a prescription. Discussed case with patient's ED provider and RN.
[2021-02-24 10:12] VITALS: BP 145/100; PULSE 97
[2021-02-24 10:48] LABS: Alanine Aminotransferase 182 U/L (0-40); Albumin Level 4.7 g/dL (3.5-5.0); Alkaline Phosphatase 91 U/L (39-117); Anion Gap 17 (12-20); Aspartate Amino Transferase 255 U/L (5-37); Bilirubin Direct 0.5 mg/dL (0.0-0.5); Bilirubin Total 1.3 mg/dL (0.0-1.0); Blood Urea Nitrogen 13 mg/dL (9-16); Carbon Dioxide 27 mmol/L (22-29); Chloride 100 mmol/L (96-108); Creatinine Clr Calc Pharmacy 136.6; Estimated Glomerular Filt Rate > 60; Glucose Random 109 mg/dL (60-115); Potassium 4.1 mmol/L (3.3-5.1); Sodium 140 mmol/L (135-145); Total Protein 7.7 g/dL (6.5-8.0)
== END 2021-02-24 11:05 | disposition home or self-care (01) ==
PROVIDERS: Emergency Provider Emergency Medicine; PCP Internal Medicine
DX: F10.130 Alcohol abuse with withdrawal, uncomplicated (principal); Y90.9 Presence of alcohol in blood, level not specified; F41.9 Anxiety disorder, unspecified; R11.2 Nausea with vomiting, unspecified; I10 Essential (primary) hypertension; K21.9 Gastro-esophageal reflux disease without esophagitis
CPT/HCPCS: 36415; 80048; 80076; 96372; 99283; 99284; J2060

== ENCOUNTER → 2021-02-28 13:02 | Outpatient (BNVA) | payer OTHER, SELFPAY | PROVIDERS: Visit Provider Internal Medicine ==

== ENCOUNTER 2021-03-06 13:09 | Outpatient (REF) | payer OTHER, SELFPAY ==
[2021-03-06 15:01] LABS: Alanine Aminotransferase 76 U/L (0-40); Albumin Level 4.4 g/dL (3.5-5.0); Alkaline Phosphatase 84 U/L (39-117); Aspartate Amino Transferase 45 U/L (5-37); Bilirubin Direct 0.2 mg/dL (0.0-0.5); Bilirubin Total 0.4 mg/dL (0.0-1.0); Total Protein 7.3 g/dL (6.5-8.0)
[2021-03-07 04:45] LABS: ~Hepatitis B Surface Antibody NONREACTIVE (Nonreactive)
[2021-03-07 04:49] LABS: HBsAGNum1 0.16 S/CO (0.00-0.99); HIV AB/AG Nonreactive (Nonreactive); HIV Num 1 0.04 S/CO (0.00-0.99); Hepatitis B Surface Antigen Negative (Negative); ~HepC Num1 0.22 S/CO (0.00-0.79); ~Hepatitis C Antibody Nonreactive (Nonreactive)
[2021-03-08 08:02] LABS: Hepatitis A Antibody IgG Nonreactive (Nonreactive)
== END 2021-03-06 13:10 | disposition home or self-care (01) ==
LOC: HO.LAB 13:09
PROVIDERS: PCP Internal Medicine; Visit Provider Internal Medicine
DX: F10.239 Alcohol dependence with withdrawal, unspecified (principal); Z11.59 Encounter for screening for other viral diseases; Z11.4 Encounter for screening for human immunodeficiency virus [HIV]
CPT/HCPCS: 36415; 80076; 86706; 86708; 86803; 87340; 87389

== ENCOUNTER → 2021-03-07 15:00 | Outpatient (BNVA) | payer OTHER, SELFPAY | PROVIDERS: Visit Provider Internal Medicine | DX: F10.239 Alcohol dependence with withdrawal, unspecified (principal); Z51.81 Encounter for therapeutic drug level monitoring; Z79.899 Other long term (current) drug therapy | CPT/HCPCS: 80305 ==

== ENCOUNTER → 2021-03-31 10:46 | Outpatient (BNVA) | payer OTHER, SELFPAY | PROVIDERS: Visit Provider Internal Medicine | DX: Z72.89 Other problems related to lifestyle (principal) | CPT/HCPCS: 80305; 96372; J2315 ==

== ENCOUNTER 2021-05-02 10:44 | Emergency (ER) | payer OTHER, SELFPAY ==
[2021-05-02 11:12] VITALS: BP 159/100; PULSE 107; RESP 18; TEMP 36.7; O2SAT 94; BMI 29.0
[2021-05-02 13:34] LABS: MANUAL DIFF FLAG NO
[2021-05-02 13:38] LABS: Basophils Percent Auto 1.4 % (0-2); Eosinophils Percent Auto 1.4 % (0-4); Hematocrit 41.4 % (42-52); Hemoglobin 14.2 g/dl (14.0-18.0); Imm Gran Abs Auto 0.01 X10*3/uL (0.00-0.03); Imm Gran Pct Auto 0.4 % (0.0-0.4); Lymphocytes Absolute Auto 0.4 X10*3/uL (1.2-4.9); Lymphocytes Percent Auto 14.4 % (20-40); Mean Corpuscular HGB Conc 34.3 g/dl (31.0-36.0); Mean Corpuscular Hemoglobin 31.8 pg (27.0-33.0); Mean Corpuscular Volume 92.8 fL (80-98); Mean Platelet Volume 8.4 fL (9.4-12.4); Monocytes Absolute Auto 0.3 X10*3/uL (0.1-1.2); Monocytes Percent Auto 10.9 % (2-11); Neutrophils Percent Auto 71.5 % (45-73); Platelet Count 142 X10*3/uL (160-400); Red Blood Count 4.46 X10*6/uL (4.60-5.80); White Blood Count 2.9 X10*3/uL (4.8-10.8)
[2021-05-02 14:01] LABS: Ethanol 237 mg/dL
[2021-05-02 14:03] LABS: Anion Gap 16 (12-20); Blood Urea Nitrogen 9 mg/dL (9-16); Calcium 9.6 mg/dL (8.4-10.2); Carbon Dioxide 30 mmol/L (22-29); Chloride 103 mmol/L (96-108); Creatinine Clr Calc Pharmacy 131.9; Estimated Glomerular Filt Rate > 60; Glucose Random 93 mg/dL (60-115); Potassium 4.1 mmol/L (3.3-5.1); Sodium 145 mmol/L (135-145)
[2021-05-02 15:47] VITALS: BP 154/93; PULSE 94; RESP 16; O2SAT 96
--- NOTE | 2021-05-02 16:09 | ED.GENADULT ---
HPI - General Adult General Chief complaint: General Medical Stated complaint: throwing up blood Time Seen by Provider: 05/02/21 15:57 Source: patient Mode of arrival: ambulatory Limitations: no limitations History of Present Illness HPI narrative: patient presents to ED for 1 episode of vomiting specs of bright red blood around 06:00 this morning. Pain denies any trauma. Patient admits to drinking at that time. Patient states since incident he has not vomiting or vomited any blood. Patient also denies any abdominal pain. Patient does not want detox. Related Data Home Medications Medication Instructions Recorded Confirmed gabapentin 1 cap PO TID 10/07/20 04/01/21 omeprazole 40 mg PO DAILY 10/07/20 04/01/21 lorazepam 1 mg tablet 1 mg PO BEDTIME PRN 02/28/21 04/01/21 Previous Rx's Medication Instructions Recorded ferrous sulfate 324 mg PO DAILY #30 tab 10/11/20 folic acid 1 mg PO Q24H #30 tab 10/11/20 thiamine mononitrate (vit B1) 100 mg PO Q24H #30 tab 10/11/20 chlordiazepoxide HCl 25 mg PO Q12H #15 cap 12/11/20 magnesium oxide 400 mg PO DAILY #30 tab 02/24/21 thiamine HCl (vitamin B1) 100 mg PO DAILY #30 tab 02/24/21 naltrexone microspheres 380 mg 380 mg IM Q4W 30 Days #1 ea 03/10/21 intramuscular suspension,extended release naltrexone 50 mg tablet 50 mg PO DAILY 14 Days #14 tab 03/29/21 famotidine [Pepcid] 20 mg PO BID #40 tab 05/02/21 Allergies Allergy/AdvReac Type Severity Reaction Status Date / Time Penicillins [PENICILLINS] Allergy Intermediate RASH Verified 05/02/21 11:11 Review of Systems Review of Systems: Yes all other systems are reviewed and are negative Constitutional: Constitutional: Reports as per HPI and Reports no additional constitutional complaints Eyes: Eyes: Reports as per HPI and Reports no additional eye complaints ENT: Reports system reviewed and no additional complaints, except as documented and Reports as per HPI Cardiovascular: Cardiovascular: Reports as per HPI and Reports no additional cardiovascular complaints Respiratory: Respiratory: Reports as per HPI and Reports no additional respiratory complaints Gastrointestinal: Gastrointestinal: Reports as per HPI, Reports no additional gastrointestinal complaints, Reports abdominal pain (resolved) and Reports hematemesis (bright red one episode. Resolved) Genitourinary: Genitourinary: Reports no additional male genitourinary complaints and Reports as per HPI Musculoskeletal: Musculoskeletal: Reports no additional musculoskeletal complaints and Reports as per HPI Neurologic: Reports system reviewed and no additional complaints, except as documented and Reports as per HPI Psychiatric: Psychiatric: Reports no additional psychiatric complaints and Reports as per HPI [facility] Past Medical History Medical History Alcohol use disorder Alcohol withdrawal Alcoholic gastritis Anemia Elevated LFTs ETOH abuse GERD (gastroesophageal reflux disease) GI bleed HTN (hypertension) Peripheral neuropathy Social History Social History Household Members: Family Housing: House Do you presently have visiting nurse or other home services: No Alcohol intake: current Alcohol intake frequency: 3 or more drinks per day Alcohol type: hard liquor Use of substances other than those prescribed or required for medical reasons: No Advance Directives: No Advance Directives Information Provided: Yes service: No Current occupational status: employed Physical Exam Vital Signs: Vital Signs: Last Vital Signs Temp 98.1 F 05/02/21 17:54 Pulse 88 05/02/21 17:54 Resp 16 05/02/21 17:54 BP 147/88 H 05/02/21 17:54 Pulse Ox 97 05/02/21 17:54 Body Mass Index 29.0 Const: General: cooperative, healthy appearing, comfortable, no acute distress, well developed, alert, awake and Physically active Orientation/consciousness: patient oriented x3 HENMT: Other: oral cavity negative for any blood. Head: Yes normal to inspection, Yes No palpable skull fracture present, Yes normocephalic and Yes atraumatic Eyes: General: appearance normal, both eyes and all related structures Neck: Neck: Yes normal visual inspection, Yes full ROM, Yes no lymphadenopathy, Yes no meningeal signs, Yes trachea midline, Yes supple and No tender Chest: Chest palpation & inspection: normal inspection of the chest and normal palpation of entire chest wall Resp: Effort & Inspection: normal respiratory effort and able to speak in complete sentences Cardio: Jugular venous distension: no JVD Heart sounds: S1 normal heart sound present and S2 normal heart sound present GI: Inspection: Yes normal to inspection Palpation (GI): Soft to palpation, not firm, nontender, no guarding and not rigid : Other: rectal exam: negative for any jose bleeding or black stool. Stool is brown. Negative for hemorrhoids General: No CVA tenderness and Yes no CVA tenderness Back/Spine/Pelvis: Back: no CVA tenderness, No CVA tenderness and No back tenderness Skin: General skin exam: no rashes or lesions noted and elasticity normal Neuro: General: patient oriented x3, gait normal, no meningeal signs and CN's II-XI intact bilaterally Cranial nerves: Yes CN's II-XII intact bilaterally Extrem: General: Yes normal to inspection and Yes full ROM Psych: Appearance: grossly normal, well kempt and not disheveled Course Course Course Narrative: Patient presently isn't symptomatic. Labs already drawn. Will give PPI and GI cocktail. Alcohol gastritis. Not suspected for heave. Pending rectal occult stool. Reevaluation(s) Reevaluation #1: patient's stool guaiac is negative. Patient is hemodynamically stable. Patient presently is asymptomatic. Once again detox was offered, but patient refused. Patient was given Ativan to prevent severe withdrawal. Patient drinks every day and having mild tremors. Alcohol level only 237. Patient is safe to be discharged. Not suspecting any bore heave or Carolyn-Demarco tear. Not suspecting GI bleed. Time: 17:35 Medical Decision Making [facility] Narrative Medical decision making narrative: alcoholic gastritis Lab Data Result diagrams: 05/02/21 13:30 05/02/21 13:30 Labs: Lab Results 05/02/21 05/02/21 05/02/21 Range/Units 13:30 13:30 13:30 WBC 2.9 L (4.8-10.8) X10*3/uL RBC 4.46 L (4.60-5.80) X10*6/uL Hgb 14.2 D (14.0-18.0) g/dl Hct 41.4 L D (42-52) % MCV 92.8 (80-98) fL MCH 31.8 (27.0-33.0) pg MCHC 34.3 (31.0-36.0) g/dl RDW 14.0 (11.0-16.0) % Plt Count 142 L (160-400) X10*3/uL MPV 8.4 L (9.4-12.4) fL Immature Gran % (Auto) 0.4 (0.0-0.4) % Neut % (Auto) 71.5 (45-73) % Lymph % (Auto) 14.4 L (20-40) % Charlotte % (Auto) 10.9 (2-11) % Eos % (Auto) 1.4 (0-4) % Baso % (Auto) 1.4 (0-2) % Lymph # (Auto) 0.4 L (1.2-4.9) X10*3/uL Charlotte # (Auto) 0.3 (0.1-1.2) X10*3/uL Eos # (Auto) 0.0 (0.0-0.4) X10*3/uL Baso # (Auto) 0.0 (0.0-0.2) X10*3/uL Abs Immat Gran (auto) 0.01 (0.00-0.03) X10*3/uL Absolute Neuts (auto) 2.0 (2.0-8.3) X10*3/uL Absolute Nucleated RBC 0.000 (0.0-0.012) X10*3/uL Nucleated RBC % (auto) 0.0 (0.0-0.2) /100WBC Sodium 145 (135-145) mmol/L Potassium 4.1 (3.3-5.1) mmol/L Chloride 103 (96-108) mmol/L Carbon Dioxide 30 H (22-29) mmol/L Anion Gap 16 (12-20) BUN 9 (9-16) mg/dL Creatinine 0.86 (0.5-1.4) mg/dL Estim Creat Clear Calc 131.9 Estimated GFR > 60 Random Glucose 93 (60-115) mg/dL Calcium 9.6 (8.4-10.2) mg/dL Total Bilirubin 0.7 (0.0-1.0) mg/dL Direct Bilirubin 0.4 (0.0-0.5) mg/dL AST 71 H (5-37) U/L ALT 64 H (0-40) U/L Alkaline Phosphatase 85 (39-117) U/L Total Protein 7.7 (6.5-8.0) g/dL Albumin 4.7 (3.5-5.0) g/dL Lipase 22 (8-78) U/L Urine Color Urine Appearance Urine pH (5.0-8.0) Ur Specific Slaughters (1.005-1.025) Urine Protein (NEG-TRACE) MG/DL Urine Glucose (UA) (NEG) MG/DL Urine Ketones (NEG) MG/DL Urine Blood (NEG) Urine Nitrite (NEG) Ur Leukocyte Esterase (NEG) Urine RBC (0) /HPF Urine WBC (0-4) /HPF Ur Squamous Epith Cells /LPF Urine Bacteria /LPF Urine Mucus /LPF Stool Occult Blood (NEGATIVE) Ethyl Alcohol 237 mg/dL 05/02/21 05/02/21 Range/Units 16:14 16:14 WBC (4.8-10.8) X10*3/uL RBC (4.60-5.80) X10*6/uL Hgb (14.0-18.0) g/dl Hct (42-52) % MCV (80-98) fL MCH (27.0-33.0) pg MCHC (31.0-36.0) g/dl RDW (11.0-16.0) % Plt Count (160-400) X10*3/uL MPV (9.4-12.4) fL Immature Gran % (Auto) (0.0-0.4) % Neut % (Auto) (45-73) % Lymph % (Auto) (20-40) % Charlotte % (Auto) (2-11) % Eos % (Auto) (0-4) % Baso % (Auto) (0-2) % Lymph # (Auto) (1.2-4.9) X10*3/uL Charlotte # (Auto) (0.1-1.2) X10*3/uL Eos # (Auto) (0.0-0.4) X10*3/uL Baso # (Auto) (0.0-0.2) X10*3/uL Abs Immat Gran (auto) (0.00-0.03) X10*3/uL Absolute Neuts (auto) (2.0-8.3) X10*3/uL Absolute Nucleated RBC (0.0-0.012) X10*3/uL Nucleated RBC % (auto) (0.0-0.2) /100WBC Sodium (135-145) mmol/L Potassium (3.3-5.1) mmol/L Chloride (96-108) mmol/L Carbon Dioxide (22-29) mmol/L Anion Gap (12-20) BUN (9-16) mg/dL Creatinine (0.5-1.4) mg/dL Estim Creat Clear Calc Estimated GFR Random Glucose (60-115) mg/dL Calcium (8.4-10.2) mg/dL Total Bilirubin (0.0-1.0) mg/dL Direct Bilirubin (0.0-0.5) mg/dL AST (5-37) U/L ALT (0-40) U/L Alkaline Phosphatase (39-117) U/L Total Protein (6.5-8.0) g/dL Albumin (3.5-5.0) g/dL Lipase (8-78) U/L Urine Color DARK YELLOW Urine Appearance CLEAR Urine pH 6.5 (5.0-8.0) Ur Specific Slaughters 1.025 (1.005-1.025) Urine Protein TRACE (NEG-TRACE) MG/DL Urine Glucose (UA) NEG (NEG) MG/DL Urine Ketones NEG (NEG) MG/DL Urine Blood NEG (NEG) Urine Nitrite NEG (NEG) Ur Leukocyte Esterase NEG (NEG) Urine RBC 0 (0) /HPF Urine WBC 0 (0-4) /HPF Ur Squamous Epith Cells NONE /LPF Urine Bacteria NONE /LPF Urine Mucus 3+ /LPF Stool Occult Blood NEGATIVE (NEGATIVE) Ethyl Alcohol mg/dL Discharge Plan Discharge Clinical Impression: Alcoholic gastritis Patient Disposition: Home, Self-Care Instructions: Gastritis (ED) Additional Instructions: return to the ED for severe abdominal pain, nausea, vomiting, rectal bleeding, vomiting blood, coughing up blood, fever, chills, or any other concerning symptoms. Please follow-up with the PCP for detox if you change of mind. Prescriptions: New famotidine [Pepcid] 20 mg tablet 20 mg PO BID Qty: 40 RF: 0 No Action naltrexone 50 mg tablet 50 mg PO DAILY 14 Days Qty: 14 RF: 0 omeprazole 40 mg Capsule,Delayed Release(Dr/Ec) 40 mg PO DAILY RF: 0 gabapentin 300 mg capsule 1 cap PO TID RF: 0 ferrous sulfate 324 mg (65 mg iron) Tablet,Delayed Release (Dr/Ec) 324 mg PO DAILY Qty: 30 RF: 0 folic acid 1 mg Tablet 1 mg PO Q24H Qty: 30 RF: 0 thiamine mononitrate (vit B1) 100 mg Tablet 100 mg PO Q24H Qty: 30 RF: 0 chlordiazepoxide HCl 25 mg capsule 25 mg PO Q12H Qty: 15 RF: 0 magnesium oxide 400 mg (241.3 mg magnesium) tablet 400 mg PO DAILY Qty: 30 RF: 0 thiamine HCl (vitamin B1) 100 mg tablet 100 mg PO DAILY Qty: 30 RF: 0 lorazepam 1 mg tablet 1 mg PO BEDTIME PRNRF: 0 Vivitrol 380 mg suspension,extended rel recon 380 mg IM Q4W 30 Days Qty: 1 RF: 5 Referrals: Capo Mario MD [Primary Care Provider] - 2 days ( Alcoholic gastritis.) Thad Demarco [Physician] - 2 days ( Alcoholic gastritis) Interventions: ED Discharge Assessment Last Done: 05/02/21 17:55 Discharge Date/Time: 05/02/21 17:56 Print Language: Fijian
[2021-05-02 16:24] LABS: Glucose Urine UA NEG (NEG); Leukocyte Esterase Urine NEG (NEG); Nitrite Urine NEG (NEG); PH 6.5 (5.0-8.0); Specific Gravity - Urine 1.025 (1.005-1.025); Urine Blood NEG (NEG); Urine Ketones NEG (NEG); Urine Protein TRACE MG/DL (NEG-TRACE)
[2021-05-02 16:29] LABS: Alanine Aminotransferase 64 U/L (0-40); Albumin Level 4.7 g/dL (3.5-5.0); Alkaline Phosphatase 85 U/L (39-117); Aspartate Amino Transferase 71 U/L (5-37); Bilirubin Direct 0.4 mg/dL (0.0-0.5); Bilirubin Total 0.7 mg/dL (0.0-1.0); Lipase 22 U/L (8-78); Total Protein 7.7 g/dL (6.5-8.0)
[2021-05-02 16:30] LABS: OBS Int Ctl Valid YES; OBS1 NEGATIVE (NEGATIVE)
[2021-05-02 16:31] LABS: Appearance Urine CLEAR; Color Urine DARK YELLOW
[2021-05-02 16:38] LABS: Mucus Urine 3+ /LPF; RBC Urine 0 /HPF (0); WBC Urine 0 /HPF (0-4)
[2021-05-02] MEDS: PHENobarb/Hyoscy/Atropine/Scop 10 ML ELIXIR PO (17:01)
[2021-05-02] MEDS: Famotidine/PF 20 MG/2 ML VIAL IVPUSH (17:01)
[2021-05-02] MEDS: Magnesium Hydrox/Alum Hydrox 30 ML ORAL.SUSP PO (17:01)
[2021-05-02] MEDS: Lidocaine HCl Viscous 2 % 15 ML SOLUTION MUCOUS MEM (17:01)
[2021-05-02] MEDS: LORazepam 1 MG TABLET 2 MG PO (17:47)
[2021-05-02 17:54] VITALS: BP 147/88; PULSE 88; RESP 16; TEMP 36.7; O2SAT 97
== END 2021-05-02 17:56 | disposition home or self-care (01) ==
PROVIDERS: Physician Assistant; Emergency Provider Emergency Medicine; PCP Internal Medicine
DX: K29.20 Alcoholic gastritis without bleeding (principal); D64.9 Anemia, unspecified; I10 Essential (primary) hypertension; Z79.899 Other long term (current) drug therapy
CPT/HCPCS: 36415; 80048; 80076; 81001; 82077; 82272; 83690; 85025; 96374; 99284

== ENCOUNTER 2021-05-10 22:08 | Inpatient (IN) | payer OTHER, SELFPAY ==
[2021-05-10 22:18] VITALS: BP 145/107; PULSE 120; RESP 17; TEMP 36.6; O2SAT 97; BMI 28.2
[2021-05-10 22:52] LABS: Basophils Percent Auto 1.4 % (0-2); Eosinophils Absolute Auto 0.1 X10*3/uL (0.0-0.4); Eosinophils Percent Auto 1.8 % (0-4); Hematocrit 42.2 % (42-52); Hemoglobin 14.8 g/dl (14.0-18.0); Imm Gran Abs Auto 0.02 X10*3/uL (0.00-0.03); Imm Gran Pct Auto 0.7 % (0.0-0.4); Lymphocytes Absolute Auto 0.5 X10*3/uL (1.2-4.9); Lymphocytes Percent Auto 17.7 % (20-40); MANUAL DIFF FLAG SCAN; Mean Corpuscular HGB Conc 35.1 g/dl (31.0-36.0); Mean Corpuscular Hemoglobin 32.2 pg (27.0-33.0); Mean Corpuscular Volume 91.7 fL (80-98); Mean Platelet Volume 8.8 fL (9.4-12.4); Monocytes Absolute Auto 0.6 X10*3/uL (0.1-1.2); Monocytes Percent Auto 20.6 % (2-11); Neutrophils Absolute Auto 1.6 X10*3/uL (2.0-8.3); Neutrophils Percent Auto 57.8 % (45-73); Platelet Count 125 X10*3/uL (160-400); Red Cell Distribution Width 14.3 % (11.0-16.0); SCAN SMEAR FLAG 1; White Blood Count 2.8 X10*3/uL (4.8-10.8)
[2021-05-10 22:59] LABS: COVID-19 Test Negative (Negative)
[2021-05-10 23:05] LABS: Amphetamine Screen Urine Not Detected (Not Detect); Barbiturates, Urine Not Detected (Not Detect); Benzodiazepines Screen Urine Not Detected (Not Detect); Cannabinoid Screen Urine POSITIVE (Not Detect); Cocaine Screen Urine Not Detected (Not Detect); Opiate Screen Urine Not Detected (Not Detect); Phencyclidine Screen Urine Not Detected (Not Detect)
--- NOTE | 2021-05-10 23:11 | ED.PSYCH ---
HPI - Psych General Chief Complaint: Psychiatric Symptoms Stated Complaint: SI Time Seen by Provider: 05/10/21 22:33 Source: patient and EMS Mode of arrival: EMS Limitations: no limitations History of Present Illness HPI Narrative: 45 y/o male with history of alcohol abuse, history of alcohol withdrawal in the past, hx GI bleed, hx pancytopenia, hx alcoholic gastritis who presents to the ED via EMS with reports of alcohol intoxication and making suicidal statements to his this evening. He has a longstanding history of alcohol abuse and continues to use alcohol despite being on vivitrol. He and his got into a verbal argument this evening regarding his heavy alcohol use when he yelled comments about committing suicide. She was scared and called 911. Patient arrives intoxicated. MD complaint: suicidal ideation, feels depressed and alcohol abuse Onset (ago): unknown Duration: constant History of same: Yes Relieving factors: none Exacerbating factors: alcohol Context: recent alcohol abuse Associated psychiatric symptoms: depression and suicidal ideation Associated symptoms: denies other symptoms Treatments prior to arrival: none If self harm: admits thoughts of self harm Related Data Home Medications Medication Instructions Recorded Confirmed omeprazole 40 mg PO DAILY 10/07/20 05/10/21 Previous Rx's Medication Instructions Recorded famotidine [Pepcid] 20 mg PO BID #40 tab 05/02/21 Allergies Allergy/AdvReac Type Severity Reaction Status Date / Time Penicillins [PENICILLINS] Allergy Intermediate RASH Verified 05/02/21 11:11 Review of Systems Review of Systems: Yes Unobtainable due to mental condition and Unobtainable due to mental status PMFSH Past Medical History Attestation statement: The following information was validated with the patient. Medical History Alcohol use disorder Alcohol withdrawal Alcoholic gastritis Anemia Elevated LFTs ETOH abuse GERD (gastroesophageal reflux disease) GI bleed HTN (hypertension) Peripheral neuropathy Social History Social History Household Members: Family Housing: House Do you presently have visiting nurse or other home services: No Alcohol intake: current Alcohol intake frequency: 3 or more drinks per day Alcohol type: hard liquor Advance Directives: No Advance Directives Information Provided: No service: No Current occupational status: employed Physical Exam Vital Signs: Vital Signs: Last Vital Signs Temp 98 F 05/10/21 22:18 Pulse 120 H 05/10/21 22:18 Resp 17 05/10/21 22:18 BP 145/107 H 05/10/21 22:18 Pulse Ox 97 05/10/21 22:18 Body Mass Index 28.2 Appearance: Alert. Appears intoxicated. Smells of alcohol Eyes: Pupils equal, round and reactive to light. ENT: Pharynx normal. Neck: Normal inspection. Neck supple. CVS: Normal heart rate and rhythm. Pulses normal. Respiratory: No respiratory distress. Breath sounds normal. Abdomen: Soft and nontender. +BS x4 Skin: Skin warm and dry. Normal skin color. Normal skin turgor. No rashes. Extremities: No lower extremity edema. Neuro/psych: oriented, nonfocal, slightly slurred speech and smells of alcohol. not reliable historian Course Course Course Narrative: 45 y/o male presenting via EMS intoxicated after he made SI statements to his earlier this evening. He has been here several times for alcohol related complaints but not suicidal statements. No known history of attempts in the past. will get ETOH level, Utox and basic lab workup. Will need to be re-evaluated once he is sober. Reevaluation(s) Reevaluation #1: Patient's ETOH level 387. Other lab workup is at his baseline. Will have N evaluate him once he is clinically sober. Physician observation started at 12:40pm. Patient placed in physician observation because patient is awaiting N evaluation for the possible need of inpatient psych admission. At the time observation was started patient's vital signs were stable. Patient is alert and oriented. Neuro exam is non-focal. CV: RRR and lungs are clear. Will continue to monitor. [facility] - Psych Lab Data Result diagrams: 05/10/21 22:46 05/10/21 22:46 Labs: Lab Results 05/10/21 05/10/21 05/10/21 Range/Units 22:30 22:31 22:31 WBC (4.8-10.8) X10*3/uL RBC (4.60-5.80) X10*6/uL Hgb (14.0-18.0) g/dl Hct (42-52) % MCV (80-98) fL MCH (27.0-33.0) pg MCHC (31.0-36.0) g/dl RDW (11.0-16.0) % Plt Count (160-400) X10*3/uL MPV (9.4-12.4) fL Immature Gran % (Auto) (0.0-0.4) % Neut % (Auto) (45-73) % Lymph % (Auto) (20-40) % [place] % (Auto) (2-11) % Eos % (Auto) (0-4) % Baso % (Auto) (0-2) % Lymph # (Auto) (1.2-4.9) X10*3/uL [place] # (Auto) (0.1-1.2) X10*3/uL Eos # (Auto) (0.0-0.4) X10*3/uL Baso # (Auto) (0.0-0.2) X10*3/uL Abs Immat Gran (auto) (0.00-0.03) X10*3/uL Absolute Neuts (auto) (2.0-8.3) X10*3/uL Absolute Nucleated RBC (0.0-0.012) X10*3/uL Nucleated RBC % (auto) (0.0-0.2) /100WBC Smear Tech's Comments Sodium (135-145) mmol/L Potassium (3.3-5.1) mmol/L Chloride (96-108) mmol/L Carbon Dioxide (22-29) mmol/L Anion Gap (12-20) BUN (9-16) mg/dL Creatinine (0.5-1.4) mg/dL Estim Creat Clear Calc Estimated GFR Random Glucose (60-115) mg/dL Calcium (8.4-10.2) mg/dL Magnesium (1.6-2.6) mg/dL Total Bilirubin (0.0-1.0) mg/dL Direct Bilirubin (0.0-0.5) mg/dL AST (5-37) U/L ALT (0-40) U/L Alkaline Phosphatase (39-117) U/L Total Protein (6.5-8.0) g/dL Albumin (3.5-5.0) g/dL Urine Color YELLOW Urine Appearance CLEAR Urine pH 6.5 (5.0-8.0) Ur Specific [place] 1.010 (1.005-1.025) Urine Protein TRACE (NEG-TRACE) MG/DL Urine Glucose (UA) NEG (NEG) MG/DL Urine Ketones NEG (NEG) MG/DL Urine Blood NEG (NEG) Urine Nitrite NEG (NEG) Ur Leukocyte Esterase NEG (NEG) Urine RBC 0 (0) /HPF Urine WBC 0 (0-4) /HPF Ur Squamous Epith Cells NONE /LPF Urine Bacteria NONE /LPF Urine Opiates Screen Not Detected (Not Detect) Ur Barbiturates Screen Not Detected (Not Detect) Ur Phencyclidine Scrn Not Detected (Not Detect) Ur Amphetamines Screen Not Detected (Not Detect) U Benzodiazepines Scrn Not Detected (Not Detect) Urine Cocaine Screen Not Detected (Not Detect) U Marijuana (THC) Screen POSITIVE H (Not Detect) Ethyl Alcohol mg/dL COVID-19 (CRUZ) Negative (Negative) COVID-19 Clin Com See Note 05/10/21 05/10/21 05/10/21 Range/Units 22:46 22:46 22:46 WBC 2.8 L (4.8-10.8) X10*3/uL RBC 4.60 (4.60-5.80) X10*6/uL Hgb 14.8 (14.0-18.0) g/dl Hct 42.2 (42-52) % MCV 91.7 (80-98) fL MCH 32.2 (27.0-33.0) pg MCHC 35.1 (31.0-36.0) g/dl RDW 14.3 (11.0-16.0) % Plt Count 125 L (160-400) X10*3/uL MPV 8.8 L (9.4-12.4) fL Immature Gran % (Auto) 0.7 H (0.0-0.4) % Neut % (Auto) 57.8 (45-73) % Lymph % (Auto) 17.7 L (20-40) % [place] % (Auto) 20.6 H (2-11) % Eos % (Auto) 1.8 (0-4) % Baso % (Auto) 1.4 (0-2) % Lymph # (Auto) 0.5 L (1.2-4.9) X10*3/uL [place] # (Auto) 0.6 (0.1-1.2) X10*3/uL Eos # (Auto) 0.1 (0.0-0.4) X10*3/uL Baso # (Auto) 0.0 (0.0-0.2) X10*3/uL Abs Immat Gran (auto) 0.02 (0.00-0.03) X10*3/uL Absolute Neuts (auto) 1.6 L (2.0-8.3) X10*3/uL Absolute Nucleated RBC 0.000 (0.0-0.012) X10*3/uL Nucleated RBC % (auto) 0.0 (0.0-0.2) /100WBC Smear Tech's Comments VERIFIED Sodium 143 (135-145) mmol/L Potassium 3.5 (3.3-5.1) mmol/L Chloride 101 (96-108) mmol/L Carbon Dioxide 28 (22-29) mmol/L Anion Gap 18 (12-20) BUN 9 (9-16) mg/dL Creatinine 0.94 (0.5-1.4) mg/dL Estim Creat Clear Calc 122.6 Estimated GFR > 60 Random Glucose 129 H D (60-115) mg/dL Calcium 9.8 (8.4-10.2) mg/dL Magnesium 2.2 (1.6-2.6) mg/dL Total Bilirubin 1.0 (0.0-1.0) mg/dL Direct Bilirubin 0.4 (0.0-0.5) mg/dL AST 89 H (5-37) U/L ALT 85 H (0-40) U/L Alkaline Phosphatase 100 (39-117) U/L Total Protein 7.9 (6.5-8.0) g/dL Albumin 4.8 (3.5-5.0) g/dL Urine Color Urine Appearance Urine pH (5.0-8.0) Ur Specific [place] (1.005-1.025) Urine Protein (NEG-TRACE) MG/DL Urine Glucose (UA) (NEG) MG/DL Urine Ketones (NEG) MG/DL Urine Blood (NEG) Urine Nitrite (NEG) Ur Leukocyte Esterase (NEG) Urine RBC (0) /HPF Urine WBC (0-4) /HPF Ur Squamous Epith Cells /LPF Urine Bacteria /LPF Urine Opiates Screen (Not Detect) Ur Barbiturates Screen (Not Detect) Ur Phencyclidine Scrn (Not Detect) Ur Amphetamines Screen (Not Detect) U Benzodiazepines Scrn (Not Detect) Urine Cocaine Screen (Not Detect) U Marijuana (THC) Screen (Not Detect) Ethyl Alcohol 381 H* mg/dL COVID-19 (CRUZ) (Negative) COVID-19 Clin Com Discharge Plan Discharge Clinical Impression: Alcohol intoxication Qualifiers: Complication of substance-induced condition: uncomplicated Qualified Code(s): F10.920 - Alcohol use, unspecified with intoxication, uncomplicated Prescriptions: No Action omeprazole 40 mg Capsule,Delayed Release(Dr/Ec) 40 mg PO DAILY RF: 0 famotidine [Pepcid] 20 mg tablet 20 mg PO BID Qty: 40 RF: 0
[2021-05-10 23:12] LABS: SLIDE REVIEW VERIFIED
[2021-05-10 23:13] LABS: Ethanol 381 mg/dL
[2021-05-10 23:17] LABS: Alanine Aminotransferase 85 U/L (0-40); Albumin Level 4.8 g/dL (3.5-5.0); Alkaline Phosphatase 100 U/L (39-117); Anion Gap 18 (12-20); Aspartate Amino Transferase 89 U/L (5-37); Bilirubin Direct 0.4 mg/dL (0.0-0.5); Blood Urea Nitrogen 9 mg/dL (9-16); Calcium 9.8 mg/dL (8.4-10.2); Carbon Dioxide 28 mmol/L (22-29); Chloride 101 mmol/L (96-108); Creatinine Clr Calc Pharmacy 122.6; Estimated Glomerular Filt Rate > 60; Glucose Random 129 mg/dL (60-115); Magnesium 2.2 mg/dL (1.6-2.6); Potassium 3.5 mmol/L (3.3-5.1); Sodium 143 mmol/L (135-145); Total Protein 7.9 g/dL (6.5-8.0)
[2021-05-11 00:13] LABS: Glucose Urine UA NEG (NEG); Leukocyte Esterase Urine NEG (NEG); Nitrite Urine NEG (NEG); PH 6.5 (5.0-8.0); Urine Blood NEG (NEG); Urine Ketones NEG (NEG); Urine Protein TRACE MG/DL (NEG-TRACE)
[2021-05-11 00:14] LABS: Appearance Urine CLEAR; Color Urine YELLOW; UACC CULT NO
[2021-05-11 00:34] LABS: WBC Urine 0 /HPF (0-4)
[2021-05-11 00:35] LABS: RBC Urine 0 /HPF (0)
[2021-05-11 03:52] VITALS: BP 166/98; PULSE 95; RESP 18; TEMP 36.8; O2SAT 99
[2021-05-11] MEDS: chlordiazePOXIDE HCl 25 MG CAPSULE 50 MG PO (03:55)
--- NOTE | 2021-05-11 03:58 | PC.NURSE ---
Patient just woke up, BP 166/98, HR 95, Patient has Hx withdrawal seizure, provider notified/ordered Librium 50 mg/administered as ordered, Patient advised to report if if symptomatic of withdrawal, [facility] referral completed via smart-sheet, [facility] overnight clinician called spoke with [facility] confirmed receipt of referral, patient will be seen in the morning, will continue to monitor.
--- NOTE | 2021-05-11 06:19 | PC.NURSE ---
Patient slept through the night, patient was up once and back to bed, no distress observed/reported, awaiting N assessment, will continue to monitor.
--- NOTE | 2021-05-11 07:01 | PC.NURSE ---
patient appears in no distress remains at rest at present with even unlabored breaths
[2021-05-11 07:57] VITALS: BP 151/91; PULSE 109; RESP 14; TEMP 37.1; O2SAT 97
[2021-05-11] MEDS: Omeprazole 40 MG CAPSULE.DR PO (08:46)
[2021-05-11] MEDS: LORazepam 0.5 MG TABLET 1 MG PO (08:46)
[2021-05-11 12:41] VITALS: BP 163/92; PULSE 78; RESP 16; TEMP 36.9; O2SAT 95
--- NOTE | 2021-05-11 13:19 | ECG_ITS ---
Test Reason : MED CLEARANCE Blood Pressure : / mmHG Vent. Rate : 096 BPM Atrial Rate : 096 BPM P-R Int : 142 ms QRS Dur : 080 ms QT Int : 340 ms P-R-T Axes : 055 -11 025 degrees QTc Int : 429 ms Normal sinus rhythm Normal EKG When compared with ECG of 10-DEC-2020 21:26, No significant change was found Referred By: Liana Serna Electronically Signed By:PIPER STOVER
[2021-05-11] MEDS: LORazepam 1 MG TABLET 2 MG PO (14:09)
[2021-05-11 14:10] VITALS: BP 163/92; PULSE 78
[2021-05-11] MEDS: cloNIDine HCL 0.1 MG TABLET PO (14:10)
[2021-05-11] MEDS: LORazepam 1 MG TABLET PO ×2 (21:37→23:48)
[2021-05-11] MEDS: Famotidine 20 MG TABLET PO (21:38)
[2021-05-11] MEDS: Gabapentin 300 MG CAPSULE PO (21:41)
[2021-05-11 21:48] VITALS: BP 164/98; PULSE 79; RESP 18; TEMP 36.2; O2SAT 98
--- NOTE | 2021-05-11 22:29 | PC.NURSE ---
Thad is a 45 year old father of 2 admitted to [facility] [place] [facility] [place] presenting there last night under the influence of alcohol ( BAL 386) and reporting suicidality. Thad is alert, oriented to day and time. His reports varied during admission assessment but he consistently displayed poor insight into his substance use and current situation. He stated, I just got drunk last night and said something to my one time that I don't remember even saying and I ended up here. Patient reports drinking consistently since his teens with few months interspersed of sobriety. I quit for the Winter then I started up again in the Spring because I love drinking. Patient reports he has been drinking a quart of vodka daily since March of 2021 after 2 months of not drinking. He denies any depression, any triggers or any reason for drinking other than I'm just one of those guys who loves to drink Recent stressors include the possibility of 's infidelity. He also reports growing up with a father who drank heavily and a mother with manic depression but having had a perfect childhood. He denies trauma history of any kind. Appetite is normal but he reports vomiting at times unrelieved by omeprazole. He denies problems falling or staying asleep, I don't fall asleep. I pass out. Patient speech is marked by stuttering but is normal rate. He denies perceptual disturbances of any kind. He denies mood alteration, denies suicidal ideation, plan or intent to harm self or others. He denies physical complaint. CIWA at 2130 was 12 and ativan was given prn per order.
[2021-05-11 23:55] VITALS: BP 160/92; PULSE 89; RESP 18; TEMP 36.1; O2SAT 97
[2021-05-12] MEDS: LORazepam 1 MG TABLET PO ×3 (03:58→14:22)
[2021-05-12 04:00] VITALS: BP 142/90; PULSE 85; RESP 18; TEMP 36.6; O2SAT 98
[2021-05-12] MEDS: Omeprazole 40 MG CAPSULE.DR PO (06:10)
[2021-05-12 08:00] VITALS: BP 175/96; PULSE 85; RESP 18; TEMP 36.4; O2SAT 98
[2021-05-12] MEDS: cloNIDine HCL 0.1 MG TABLET PO (08:36)
[2021-05-12] MEDS: Famotidine 20 MG TABLET PO ×2 (08:37→20:30)
[2021-05-12] MEDS: Folic Acid 1 MG TABLET PO (08:37)
[2021-05-12] MEDS: Gabapentin 300 MG CAPSULE PO ×3 (08:37→20:30)
[2021-05-12] MEDS: Thiamine HCL 100 MG TABLET PO (08:37)
--- NOTE | 2021-05-12 10:02 | HO.PSYADMNOT ---
HPI Chief Complaint: Alcohol Use D/O Severe W/Withdrawal SI Sources of Information: patient interviewed, chart reviewed and crisis/core team assessment reviewed HPI Subjective Notes: Conditional Voluntary Narrative: per crisis eval, pt texted his a suicidal communication and she called EMS to bring him to the hospital, which they did. pt reports that when he was intoxicated the other night he texted something to try to get his 's attention. he denies any actual suicidality and expresses numerous times his relationships with his two boys, ages 8 and 15, and solid protective factors. he has had some concern about his 's fidelity over the past several months, with her spending a lot of time with a mutual male friend, such that others in their friend group are talking about it. she doesn't come home after work until 7 pm, her 15 yo son is angry thinking she is having an affair, and the 8 yo pines for his mother in the evenings asking where she is. she has assured him she is not having an affair and talks about their being together for the next 20 years (they have been for 18). he reports she has a h/o having had an affair about 10 years ago, so he has always kept that in the back of his mind since. he feels there has just been a lot of stress on the relationship recently, they had a fight, and his jealousy got the better of him - he wanted to make her appreciate him by creating the image in her head of his being gone. he denies chronic SI over the past year and states that when he is not drinking his mood is good, his productivity is good, and his relationships are good. he feels that if he can stop drinking he would be fine. antabuse, naltrexone, and campral discussed. pt requests to restart naltrexone PO, which he has been on in the past. he would like to engage in individual therapy for alcohol use disorder after discharge. he agrees to stay for alcohol detox. reports he is feeling well having taken some ativan. denies ERNANDEZ, sweats, tremors, n/v/d, panic/anxiety. would like to discharge early next week, after detox. Past Psychiatric History: h/o untreated depression and substance use disorder. no psych hosps, detoxes, outpt Tx, suicide attempts, or self-harm history. Medical Evaluation Reviewed: Yes [facility] Medical History Alcohol use disorder Alcohol withdrawal Alcoholic gastritis Anemia Elevated LFTs ETOH abuse GERD (gastroesophageal reflux disease) GI bleed HTN (hypertension) Peripheral neuropathy Family History: mother - bipolar disorder father - alcohol use disorder sib - opioid use disorder Social History: born and raised in [place], [place]. parents and he split time with mom/step-father and father/step-mother. perceives he had a good childhood. oldest of 4 sibs, graduate of [employer] 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 Substance History: alcohol. had one dose of vivitrol from [facility] [place] [facility]. drinking since 15 yo. drinking a quart of vodka daily [employer]. h/o AA for six weeks. Trauma History: none reported Diagnostics Vital Signs (24Hr): Vital Signs - 24 hr 05/11/21 12:41 05/11/21 14:10 05/11/21 21:48 Temperature 98.5 F 97.2 F Pulse Rate 78 78 79 Respiratory Rate 16 18 Blood Pressure 163/92 H 163/92 H 164/98 H Pulse Oximetry 95 98 05/11/21 23:55 05/12/21 04:00 05/12/21 08:00 Temperature 97 F 98 F 97.6 F Pulse Rate 89 85 85 Respiratory Rate 18 18 18 Blood Pressure 160/92 H 142/90 H 175/96 H Pulse Oximetry 97 98 98 Body Mass Index 28.2 Labs Results: 05/10/21 22:46 05/10/21 22:46 Labs: Laboratory Results - last 48 hr 05/10/21 05/10/21 05/10/21 22:30 22:31 22:31 WBC RBC Hgb Hct MCV MCH MCHC RDW Plt Count MPV Immature Gran % (Auto) Neut % (Auto) Lymph % (Auto) [place] % (Auto) Eos % (Auto) Baso % (Auto) Lymph # (Auto) [place] # (Auto) Eos # (Auto) Baso # (Auto) Abs Immat Gran (auto) Absolute Neuts (auto) Absolute Nucleated RBC Nucleated RBC % (auto) Smear Tech's Comments Sodium Potassium Chloride Carbon Dioxide Anion Gap BUN Creatinine Estim Creat Clear Calc Estimated GFR Random Glucose Calcium Magnesium Total Bilirubin Direct Bilirubin AST ALT Alkaline Phosphatase Total Protein Albumin Urine Color YELLOW Urine Appearance CLEAR Urine pH 6.5 Ur Specific [place] 1.010 Urine Protein TRACE Urine Glucose (UA) NEG Urine Ketones NEG Urine Blood NEG Urine Nitrite NEG Ur Leukocyte Esterase NEG Urine RBC 0 Urine WBC 0 Ur Squamous Epith Cells NONE Urine Bacteria NONE Urine Opiates Screen Not Detected Ur Barbiturates Screen Not Detected Ur Phencyclidine Scrn Not Detected Ur Amphetamines Screen Not Detected U Benzodiazepines Scrn Not Detected Urine Cocaine Screen Not Detected U Marijuana (THC) Screen POSITIVE H Ethyl Alcohol COVID-19 (CRUZ) Negative COVID-19 Clin Com See Note 05/10/21 05/10/21 05/10/21 22:46 22:46 22:46 WBC 2.8 L RBC 4.60 Hgb 14.8 Hct 42.2 MCV 91.7 MCH 32.2 MCHC 35.1 RDW 14.3 Plt Count 125 L MPV 8.8 L Immature Gran % (Auto) 0.7 H Neut % (Auto) 57.8 Lymph % (Auto) 17.7 L [place] % (Auto) 20.6 H Eos % (Auto) 1.8 Baso % (Auto) 1.4 Lymph # (Auto) 0.5 L [place] # (Auto) 0.6 Eos # (Auto) 0.1 Baso # (Auto) 0.0 Abs Immat Gran (auto) 0.02 Absolute Neuts (auto) 1.6 L Absolute Nucleated RBC 0.000 Nucleated RBC % (auto) 0.0 Smear Tech's Comments VERIFIED Sodium 143 Potassium 3.5 Chloride 101 Carbon Dioxide 28 Anion Gap 18 BUN 9 Creatinine 0.94 Estim Creat Clear Calc 122.6 Estimated GFR > 60 Random Glucose 129 H D Calcium 9.8 Magnesium 2.2 Total Bilirubin 1.0 Direct Bilirubin 0.4 AST 89 H ALT 85 H Alkaline Phosphatase 100 Total Protein 7.9 Albumin 4.8 Urine Color Urine Appearance Urine pH Ur Specific [place] Urine Protein Urine Glucose (UA) Urine Ketones Urine Blood Urine Nitrite Ur Leukocyte Esterase Urine RBC Urine WBC Ur Squamous Epith Cells Urine Bacteria Urine Opiates Screen Ur Barbiturates Screen Ur Phencyclidine Scrn Ur Amphetamines Screen U Benzodiazepines Scrn Urine Cocaine Screen U Marijuana (THC) Screen Ethyl Alcohol 381 H* COVID-19 (CRUZ) COVID-19 Clin Com Meds/Allergies Meds Home Medications Acetaminophen (Acetaminophen 325 Mg Tablet) 650 mg PO Q6H PRN PRN Reason: Headache/Pain Mild Scale (1-3) Al Hydroxide/Mg Hydroxide (Magnesium Hydrox/Alum Hydrox 30 Ml Oral.Susp) 30 ml PO Q6H PRN PRN Reason: Heartburn/Nausea Clonidine HCl (Clonidine Hcl 0.1 Mg Tablet) 0.1 mg PO Q6H PRN; Protocol PRN Reason: anxiety Last Admin: 05/12/21 08:36 Dose: 0.1 mg Documented by: Famotidine (Famotidine 20 Mg Tablet) 20 mg PO BID [facility] Last Admin: 05/12/21 08:37 Dose: 20 mg Documented by: Folic Acid (Folic Acid 1 Mg Tablet) 1 mg PO DAILY [facility] Stop: 05/15/21 08:59 Last Admin: 05/12/21 08:37 Dose: 1 mg Documented by: Gabapentin (Gabapentin 300 Mg Capsule) 300 mg PO TID [facility] Stop: 05/13/21 23:59 Last Admin: 05/12/21 08:37 Dose: 300 mg Documented by: Gabapentin (Gabapentin 300 Mg Capsule) 300 mg PO BID [facility] Stop: 05/15/21 23:59 Gabapentin (Gabapentin 300 Mg Capsule) 300 mg PO DAILY [facility] Stop: 05/17/21 23:59 Hydroxyzine HCl (Hydroxyzine Hcl 25 Mg Tablet) 25 mg PO BEDTIME PRN PRN Reason: Anxiety Lorazepam (Lorazepam 1 Mg Tablet) 1 mg PO Q2H PRN PRN Reason: mild-moderate alcohol w/drawal Last Admin: 05/12/21 08:36 Dose: 1 mg Documented by: Lorazepam (Lorazepam 1 Mg Tablet) 2 mg PO Q2H PRN PRN Reason: severe Alcohol Withdrawal Magnesium Hydroxide (Milk Of Magnesia 30 Ml Oral.Susp) 30 ml PO DAILY PRN PRN Reason: Constipation Multivitamins (B-Complex With Vitamin C Tablet) 1 tab PO DAILY [facility] Last Admin: 05/12/21 08:37 Dose: 1 tab Documented by: Naltrexone HCl (Naltrexone Hcl 50 Mg Tablet) 50 mg PO DAILY [facility] Nicotine Polacrilex (Nicotine Polacrilex 2 Mg Gum) 4 mg BUCCAL Q2H PRN PRN Reason: Nicotine Cravings Omeprazole (Omeprazole 40 Mg Capsule.Dr) 40 mg PO DAILY@0630 [facility] Last Admin: 05/12/21 06:10 Dose: 40 mg Documented by: Thiamine HCl (Thiamine Hcl 100 Mg Tablet) 100 mg PO DAILY [facility] Stop: 05/15/21 08:59 Last Admin: 05/12/21 08:37 Dose: 100 mg Documented by: Trazodone HCl (Trazodone Hcl 50 Mg Tablet) 50 mg PO BEDTIME PRN PRN Reason: Insomnia Allergies Allergies Allergy/AdvReac Type Severity Reaction Status Date / Time Penicillins [PENICILLINS] Allergy Intermediate RASH Verified 05/02/21 11:11 Mental Status Exam Mental Status Exam Narrative: appropriately dressed and groomed, cooperative with interview, no PMA/PMR. speech nml in amount, rate, loudness, tone, latency. stutter. thoughts linear and logical without delusions or paranoia. affect constricted, normo-intense, non-labile. mood a little groggy. denies SI/HI/AVH. Assessment & Plan Assessment & Plan (1) Alcohol use disorder: Status: Acute Assessment and Plan: ativan per CIWA score/objective observation. start naltrexone per pt request. individual Tx after discharge. (2) Adjustment disorder with mixed emotional features: Status: Acute Code(s): F43.29 - Adjustment disorder with other symptoms Assessment and Plan: interested in referral for couples therapy which supported. Reason for continued inpatient stay Substantial Risk for: harm to self
[2021-05-12 12:00] VITALS: BP 142/94; PULSE 111; RESP 18; TEMP 36.5; O2SAT 98
[2021-05-12] MEDS: Naltrexone HCl 50 MG TABLET PO (13:35)
[2021-05-12 16:00] VITALS: BP 156/103; PULSE 98; RESP 18; TEMP 36.2; O2SAT 98
[2021-05-12 20:00] VITALS: BP 168/111; PULSE 93; RESP 18; TEMP 36.3; O2SAT 98
[2021-05-12] MEDS: hydrOXYzine HCL 25 MG TABLET PO (22:01)
[2021-05-13] MEDS: Omeprazole 40 MG CAPSULE.DR PO (06:42)
[2021-05-13 08:00] VITALS: BP 159/90; PULSE 103; RESP 18; TEMP 37.2; O2SAT 95
--- NOTE | 2021-05-13 08:42 | HO.PSYCHPN ---
Subjective Subjective Date of Service: 05/13/21 Reason For Visit: Alcohol Use D/O Severe W/Withdrawal SI Subjective Notes: Conditional Voluntary Interim History: H nd P noted. Pt in ETOH WD: Elevated VS/flushed face/mild tremors/sweats. Minimizing consequences of ETOH. Noted Decrease in WBC/platelets and elevated LFTs. Monitor LFTS given recent start of Naltrexone. Mood anxious. No SI Review of Systems Review of Systems Yes Unobtainable due to mental condition and Unobtainable due to mental status Mental Status Exam Mental Status Exam Narrative: appropriately dressed and groomed, cooperative with interview, no PMA/PMR. speech nml in amount, rate, loudness, tone, latency. stutter. thoughts linear and logical without delusions or paranoia. affect constricted, normo-intense, non-labile. mood a little groggy. denies SI/HI/AVH. Diagnostics Vital Signs (24Hr): Vital Signs - 24 hr 05/12/21 12:00 05/12/21 16:00 05/12/21 20:00 Temperature 97.7 F 97.2 F 97.3 F Pulse Rate 111 H 98 93 Respiratory Rate 18 18 18 Blood Pressure 142/94 H 156/103 H 168/111 H Pulse Oximetry 98 98 98 Body Mass Index 28.2 Labs Results: 05/10/21 22:46 05/10/21 22:46 Medications Medications Current Medications Generic Name Dose Route Start Last Admin Trade Name Freq PRN Reason Stop Dose Admin Acetaminophen 650 mg 05/11/21 13:55 Acetaminophen 325 Mg Tablet PO Q6H PRN Headache/Pain Mild Scale (1-3) Al Hydroxide/Mg Hydroxide 30 ml 05/11/21 13:55 Magnesium Hydrox/Alum Hydrox 30 Ml Oral.Susp PO Q6H PRN Heartburn/Nausea Clonidine HCl 0.1 mg 05/11/21 13:19 05/12/21 08:36 Clonidine Hcl 0.1 Mg Tablet PO 0.1 mg Q6H PRN Administration anxiety Protocol Famotidine 20 mg 05/11/21 21:00 05/12/21 20:30 Famotidine 20 Mg Tablet PO 20 mg BID LYDIA Administration Folic Acid 1 mg 05/12/21 09:00 05/12/21 08:37 Folic Acid 1 Mg Tablet PO 05/15/21 08:59 1 mg DAILY LYDIA Administration Gabapentin 300 mg 05/11/21 21:15 05/12/21 20:30 Gabapentin 300 Mg Capsule PO 05/13/21 23:59 300 mg TID LYDIA Administration Gabapentin 300 mg 05/14/21 09:00 Gabapentin 300 Mg Capsule PO 05/15/21 23:59 BID LYDIA Gabapentin 300 mg 05/16/21 09:00 Gabapentin 300 Mg Capsule PO 05/17/21 23:59 DAILY LYDIA Hydroxyzine HCl 25 mg 05/11/21 21:00 05/12/21 22:01 Hydroxyzine Hcl 25 Mg Tablet PO 25 mg BEDTIME PRN Administration Anxiety Lorazepam 1 mg 05/11/21 21:20 05/12/21 14:22 Lorazepam 1 Mg Tablet PO 1 mg Q2H PRN Administration mild-moderate alcohol w/drawal Lorazepam 2 mg 05/11/21 21:21 Lorazepam 1 Mg Tablet PO Q2H PRN severe Alcohol Withdrawal Magnesium Hydroxide 30 ml 05/11/21 13:55 Milk Of Magnesia 30 Ml Oral.Susp PO DAILY PRN Constipation Multivitamins 1 tab 05/12/21 09:00 05/12/21 08:37 B-Complex With Vitamin C Tablet PO 1 tab DAILY LYDIA Administration Naltrexone HCl 50 mg 05/13/21 09:00 Naltrexone Hcl 50 Mg Tablet PO DAILY LYDIA Nicotine Polacrilex 4 mg 05/11/21 13:55 Nicotine Polacrilex 2 Mg Gum BUCCAL Q2H PRN Nicotine Cravings Omeprazole 40 mg 05/12/21 06:30 05/13/21 06:42 Omeprazole 40 Mg Capsule.Dr PO 40 mg DAILY@0630 LYDIA Administration Thiamine HCl 100 mg 05/12/21 09:00 05/12/21 08:37 Thiamine Hcl 100 Mg Tablet PO 05/15/21 08:59 100 mg DAILY LYDIA Administration Trazodone HCl 50 mg 05/11/21 21:00 Trazodone Hcl 50 Mg Tablet PO BEDTIME PRN Insomnia Allergies Allergies Allergy/AdvReac Type Severity Reaction Status Date / Time Penicillins [PENICILLINS] Allergy Intermediate RASH Verified 05/02/21 11:11 Assessment & Plan Assessment & Plan (1) Alcohol use disorder: Status: Acute Assessment and Plan: Ct plan : Michael VEGA (2) Adjustment disorder with mixed emotional features: Status: Acute Code(s): F43.29 - Adjustment disorder with other symptoms Assessment and Plan: interested in referral for couples therapy which MD supported. Greater than 50% of the session was spent on counseling and/or coordination of care Reason for contiued inpatient stay Substantial Risk for: med/psych decompensation
[2021-05-13] MEDS: Naltrexone HCl 50 MG TABLET PO (09:22)
[2021-05-13] MEDS: Thiamine HCL 100 MG TABLET PO (09:22)
[2021-05-13] MEDS: Folic Acid 1 MG TABLET PO (09:22)
[2021-05-13] MEDS: Famotidine 20 MG TABLET PO ×2 (09:22→21:46)
[2021-05-13] MEDS: Gabapentin 300 MG CAPSULE PO ×3 (09:22→21:46)
[2021-05-13 11:22] VITALS: BP 153/105; PULSE 99
[2021-05-13] MEDS: LORazepam 1 MG TABLET PO (11:22)
[2021-05-13] MEDS: cloNIDine HCL 0.1 MG TABLET PO (11:22)
[2021-05-13 12:35] VITALS: BP 113/77; PULSE 81; RESP 16; TEMP 36.9; O2SAT 99
[2021-05-13 16:00] VITALS: BP 122/73; PULSE 69; RESP 18; TEMP 36.3; O2SAT 98
[2021-05-14] MEDS: Omeprazole 40 MG CAPSULE.DR PO (06:33)
--- NOTE | 2021-05-14 07:26 | HO.PSYCHPN ---
Subjective Subjective Date of Service: 05/14/21 Reason For Visit: Alcohol Use D/O Severe W/Withdrawal SI Interim History: 05/13:H nd P noted. Pt in ETOH WD: Elevated VS/flushed face/mild tremors/sweats. Minimizing consequences of ETOH. Noted Decrease in WBC/platelets and elevated LFTs. Monitor LFTS given recent start of Naltrexone. Mood anxious. No SI 05/14: Much improved. VS better but sweats +. Less flushed. Anxious to DC bc of business. Open to OP ETOH program Review of Systems Review of Systems Yes Unobtainable due to mental condition and Unobtainable due to mental status Mental Status Exam Mental Status Exam Narrative: appropriately dressed and groomed, cooperative with interview, no PMA/PMR. speech nml in amount, rate, loudness, tone, latency. stutter. thoughts linear and logical without delusions or paranoia. affect constricted, normo-intense, non-labile. mood a little groggy. denies SI/HI/AVH. Diagnostics Vital Signs (24Hr): Vital Signs - 24 hr 05/13/21 08:00 05/13/21 11:22 05/13/21 12:35 Temperature 99 F 98.4 F Pulse Rate 103 H 99 81 Respiratory Rate 18 16 Blood Pressure 159/90 H 153/105 H 113/77 Pulse Oximetry 95 99 05/13/21 16:00 Temperature 97.3 F Pulse Rate 69 Respiratory Rate 18 Blood Pressure 122/73 Pulse Oximetry 98 Body Mass Index 28.2 Labs Results: 05/10/21 22:46 05/10/21 22:46 Medications Medications Current Medications Generic Name Dose Route Start Last Admin Trade Name Freq PRN Reason Stop Dose Admin Acetaminophen 650 mg 05/11/21 13:55 Acetaminophen 325 Mg Tablet PO Q6H PRN Headache/Pain Mild Scale (1-3) Al Hydroxide/Mg Hydroxide 30 ml 05/11/21 13:55 Magnesium Hydrox/Alum Hydrox 30 Ml Oral.Susp PO Q6H PRN Heartburn/Nausea Clonidine HCl 0.1 mg 05/11/21 13:19 05/13/21 11:22 Clonidine Hcl 0.1 Mg Tablet PO 0.1 mg Q6H PRN Administration anxiety Protocol Famotidine 20 mg 05/11/21 21:00 05/13/21 21:46 Famotidine 20 Mg Tablet PO 20 mg BID LYDIA Administration Folic Acid 1 mg 05/12/21 09:00 05/13/21 09:22 Folic Acid 1 Mg Tablet PO 05/15/21 08:59 1 mg DAILY LYDIA Administration Gabapentin 300 mg 05/14/21 09:00 Gabapentin 300 Mg Capsule PO 05/15/21 23:59 BID LYDIA Gabapentin 300 mg 05/16/21 09:00 Gabapentin 300 Mg Capsule PO 05/17/21 23:59 DAILY LYDIA Hydroxyzine HCl 25 mg 05/11/21 21:00 05/12/21 22:01 Hydroxyzine Hcl 25 Mg Tablet PO 25 mg BEDTIME PRN Administration Anxiety Lorazepam 1 mg 05/11/21 21:20 05/13/21 11:22 Lorazepam 1 Mg Tablet PO 1 mg Q2H PRN Administration mild-moderate alcohol w/drawal Lorazepam 2 mg 05/11/21 21:21 Lorazepam 1 Mg Tablet PO Q2H PRN severe Alcohol Withdrawal Magnesium Hydroxide 30 ml 05/11/21 13:55 Milk Of Magnesia 30 Ml Oral.Susp PO DAILY PRN Constipation Multivitamins 1 tab 05/12/21 09:00 05/13/21 11:22 B-Complex With Vitamin C Tablet PO 1 tab DAILY LYDIA Administration Naltrexone HCl 50 mg 05/13/21 09:00 05/13/21 09:22 Naltrexone Hcl 50 Mg Tablet PO 50 mg DAILY LYDIA Administration Nicotine Polacrilex 4 mg 05/11/21 13:55 Nicotine Polacrilex 2 Mg Gum BUCCAL Q2H PRN Nicotine Cravings Omeprazole 40 mg 05/12/21 06:30 05/14/21 06:33 Omeprazole 40 Mg Capsule. PO 40 mg DAILY@0630 LYDIA Administration Thiamine HCl 100 mg 05/12/21 09:00 05/13/21 09:22 Thiamine Hcl 100 Mg Tablet PO 05/15/21 08:59 100 mg DAILY LYDIA Administration Trazodone HCl 50 mg 05/11/21 21:00 Trazodone Hcl 50 Mg Tablet PO BEDTIME PRN Insomnia Allergies Allergies Allergy/AdvReac Type Severity Reaction Status Date / Time Penicillins [PENICILLINS] Allergy Intermediate RASH Verified 05/02/21 11:11 Assessment & Plan Assessment & Plan (1) Alcohol use disorder: Status: Acute Assessment and Plan: Ct plan : Michael VEGA (2) Adjustment disorder with mixed emotional features: Status: Acute Code(s): F43.29 - Adjustment disorder with other symptoms Assessment and Plan: interested in referral for couples therapy which supported. Open to OP program. Greater than 50% of the session was spent on counseling and/or coordination of care Reason for contiued inpatient stay Substantial Risk for: harm to self
[2021-05-14] MEDS: Naltrexone HCl 50 MG TABLET PO (09:28)
[2021-05-14] MEDS: Folic Acid 1 MG TABLET PO (09:28)
[2021-05-14] MEDS: Famotidine 20 MG TABLET PO ×2 (09:28→20:51)
[2021-05-14] MEDS: Thiamine HCL 100 MG TABLET PO (09:28)
[2021-05-14] MEDS: Gabapentin 300 MG CAPSULE PO ×2 (09:29→20:51)
[2021-05-14 09:34] VITALS: BP 149/97; PULSE 98
[2021-05-14] MEDS: cloNIDine HCL 0.1 MG TABLET PO ×2 (09:34→16:42)
[2021-05-14 16:39] VITALS: BP 136/102; PULSE 84; RESP 18; TEMP 36.6; O2SAT 99
[2021-05-14 16:42] VITALS: BP 136/102; PULSE 84
[2021-05-14 18:34] VITALS: BP 141/94; PULSE 89; RESP 18; O2SAT 98
[2021-05-14 19:40] VITALS: BP 130/87; PULSE 90; RESP 18; TEMP 36.3; O2SAT 97
--- NOTE | 2021-05-15 00:21 | PC.NURSE ---
Thad is asleep at this time. No signs of sweating or distress, no signs of withdrawal visible. Nurse did not wake patient for full assessment at this time RR-16.
[2021-05-15] MEDS: Omeprazole 40 MG CAPSULE.DR PO (05:35)
[2021-05-15 08:00] VITALS: BP 153/103; PULSE 88; RESP 16; TEMP 36.7; O2SAT 99
[2021-05-15] MEDS: Famotidine 20 MG TABLET PO ×2 (08:58→21:42)
[2021-05-15] MEDS: Naltrexone HCl 50 MG TABLET PO (08:59)
[2021-05-15] MEDS: Gabapentin 300 MG CAPSULE PO (08:59)
--- NOTE | 2021-05-15 13:14 | P.PNPSI_ITS ---
Subjective Subjective Date of Service: 05/15/21 Reason For Visit: Alcohol Use D/O Severe W/Withdrawal SI Interim History: pt has required minimal benzos since admission. none yesterday, 1 mg of ativan on saturday. he denies ERNANDEZ, sweats, tremors, n/v/d in the past 24H. he feels well and would like discharge. on interview this morning he recites a list of things in his life he is looking forward to. he is interested in IOP/PHP care fo substance use disorder as well as AA and couple t herapy. he would like to defer any primary mental health treatment as he believes the drinking drives any mood disorder. discharge tomorrow morning at 1100 planned. per staff pt reports some anxiety but denies depression, SI, or HI. visible, pleasant, appropriate on the unit. Mental Status Exam Mental Status Exam Narrative: appropriately dressed and groomed, cooperative with interview, no PMA/PMR. speech nml in amount, rate, loudness, tone, latency. stutter. thoughts linear and logical without delusions or paranoia. affect constricted, normo-intense, non-labile. mood good. denies SI/HI/AVH. Diagnostics Vital Signs (24Hr): Vital Signs - 24 hr 05/14/21 16:39 05/14/21 16:42 05/14/21 18:34 Temperature 97.9 F Pulse Rate 84 84 89 Respiratory Rate 18 18 Blood Pressure 136/102 H 136/102 H 141/94 H Pulse Oximetry 99 98 05/14/21 19:40 05/15/21 08:00 Temperature 97.3 F 98.1 F Pulse Rate 90 88 Respiratory Rate 18 16 Blood Pressure 130/87 153/103 H Pulse Oximetry 97 99 Body Mass Index 28.2 Labs Results: 05/10/21 22:46 05/10/21 22:46 Medications Medications Current Medications Generic Name Dose Route Start Last Admin Trade Name Freq PRN Reason Stop Dose Admin Acetaminophen 650 mg 05/11/21 13:55 Acetaminophen 325 Mg Tablet PO Q6H PRN Headache/Pain Mild Scale (1-3) Al Hydroxide/Mg Hydroxide 30 ml 05/11/21 13:55 Magnesium Hydrox/Alum Hydrox 30 Ml Oral.Susp PO Q6H PRN Heartburn/Nausea Clonidine HCl 0.1 mg 05/11/21 13:19 05/14/21 16:42 Clonidine Hcl 0.1 Mg Tablet PO 0.1 mg Q6H PRN Administration anxiety Protocol Famotidine 20 mg 05/11/21 21:00 05/15/21 08:58 Famotidine 20 Mg Tablet PO 20 mg BID LYDIA Administration Hydroxyzine HCl 25 mg 05/11/21 21:00 05/12/21 22:01 Hydroxyzine Hcl 25 Mg Tablet PO 25 mg BEDTIME PRN Administration Anxiety Lorazepam 1 mg 05/11/21 21:20 05/13/21 11:22 Lorazepam 1 Mg Tablet PO 1 mg Q2H PRN Administration mild-moderate alcohol w/drawal Magnesium Hydroxide 30 ml 05/11/21 13:55 Milk Of Magnesia 30 Ml Oral.Susp PO DAILY PRN Constipation Multivitamins 1 tab 05/12/21 09:00 05/15/21 08:58 B-Complex With Vitamin C Tablet PO 1 tab DAILY LYDIA Administration Naltrexone HCl 50 mg 05/13/21 09:00 05/15/21 08:59 Naltrexone Hcl 50 Mg Tablet PO 50 mg DAILY LYDIA Administration Nicotine Polacrilex 4 mg 05/11/21 13:55 Nicotine Polacrilex 2 Mg Gum BUCCAL Q2H PRN Nicotine Cravings Omeprazole 40 mg 05/12/21 06:30 05/15/21 05:35 Omeprazole 40 Mg Capsule. PO 40 mg DAILY@0630 LYDIA Administration Trazodone HCl 50 mg 05/11/21 21:00 Trazodone Hcl 50 Mg Tablet PO BEDTIME PRN Insomnia Allergies Allergies Allergy/AdvReac Type Severity Reaction Status Date / Time Penicillins [PENICILLINS] Allergy Intermediate RASH Verified 05/02/21 11:11 Assessment & Plan Assessment & Plan (1) Alcohol use disorder: Status: Acute Assessment and Plan: detox complete. DC CIWA and ativan PRNs. naltrexone restarted. check LFTs now and in one month. (2) Adjustment disorder with mixed emotional features: Status: Acute Code(s): F43.29 - Adjustment disorder with other symptoms Assessment and Plan: interested in referral for couples therapy and IOP/PHP level care. Greater than 50% of the session was spent on counseling and/or coordination of c are Reason for contiued inpatient stay Substantial Risk for: harm to self
[2021-05-15 13:28] VITALS: BP 132/88; PULSE 100; RESP 18; TEMP 36.7; O2SAT 98
[2021-05-15 16:06] VITALS: BP 136/84; PULSE 96
[2021-05-15] MEDS: cloNIDine HCL 0.1 MG TABLET PO (16:06)
[2021-05-15] MEDS: hydrOXYzine HCL 25 MG TABLET PO (21:46)
[2021-05-15] MEDS: traZODone HCL 50 MG TABLET PO (21:46)
[2021-05-16] MEDS: traZODone HCL 50 MG TABLET PO (00:15)
[2021-05-16] MEDS: Omeprazole 40 MG CAPSULE.DR PO (06:50)
[2021-05-16] MEDS: Famotidine 20 MG TABLET PO (09:10)
[2021-05-16] MEDS: Naltrexone HCl 50 MG TABLET PO (09:10)
--- NOTE | 2021-05-16 09:19 | P.DS_ITS ---
DS: Providers Provider Date of Service: 05/16/21 Date of admission: 05/11/21 13:08 Primary care physician: Capo Mario MD DS: Diagnosis Discharge Diagnosis (1) Alcohol use disorder: Status: Acute (2) Adjustment disorder with mixed emotional features: Status: Acute DS: Medications Discharge Medications Home Medications: Home Medications Medication Instructions Recorded Confirmed omeprazole 40 mg PO DAILY 10/07/20 05/10/21 Previous Rx's Medication Instructions Recorded famotidine [Pepcid] 20 mg PO BID #40 tab 05/02/21 B-complex with vitamin C 1 tab PO DAILY 30 Days #30 tab 05/15/21 naltrexone 50 mg PO DAILY 30 Days #30 tab 05/15/21 Discharge Plan Discharge Patient Disposition: Home, Self-Care Discharge Diagnosis: Alcohol Use Disorder, Severe Referrals: Gladis Velasquez (therapy) [Other] - 05/18/21 1:00 pm (Telehealth Appointment) Praveena David (psychiatry) [Other] - 06/15/21 10:40 am (Telehealth Appointment) Praveena David (psychiatry) [Other] - 07/11/21 2:00 pm (Telehealth Appointment) Capo Mario MD [Primary Care Provider] - 1 Week Discharge Medications: New naltrexone 50 mg Tablet 50 mg PO DAILY 30 Days Qty: 30 RF: 0 B-complex with vitamin C Tablet 1 tab PO DAILY 30 Days Qty: 30 RF: 0 Continued omeprazole 40 mg Capsule,Delayed Release(Dr/Ec) 40 mg PO DAILY RF: 0 famotidine [Pepcid] 20 mg tablet 20 mg PO BID Qty: 40 RF: 0 Discharge Orders: Discharge Order (Routine); Ordered 05/16/21 Ordered By: Moe Vargas Diet: regular diet Activity on Discharge: As tolerated Stand Alone Forms: Patient Portal Discharge page, Community Support Care Plan Goals: remain abstinent from alcohol, address relationship concerns with via couples therapy, develop healthy coping strategies for overwhelming emotional states. Health Concerns: possibility of high blood pressure. please follow up with your PCP and have your blood pressure checked after one month of sobriety. also, have your prescriber check your liver function tests one month after starting naltrexone. Plan of Treatment: take medications as prescribed, attend appointments as scheduled. Assessment: safe for discharge: detoxed from alcohol and no longer having suicidal thoughts. Discharge Date/Time: 05/16/21 11:00 Mental Status Exam Mental Status Exam Narrative: appropriately dressed and groomed, cooperative with interview, no PMA/PMR. speech nml in amount, rate, loudness, tone, latency. stutter. thoughts linear and logical without delusions or paranoia. affect constricted, normo-intense, non-labile. mood good. denies SI/HI/AVH. Data Data Completed and Pending Completed studies during hospitalization [Text1]: 05/10/21 05/10/21 05/10/21 22:30 22:31 22:31 WBC RBC Hgb Hct MCV MCH MCHC RDW Plt Count MPV Immature Gran % (Auto) Neut % (Auto) Lymph % (Auto) [place] % (Auto) Eos % (Auto) Baso % (Auto) Lymph # (Auto) [place] # (Auto) Eos # (Auto) Baso # (Auto) Abs Immat Gran (auto) Absolute Neuts (auto) Absolute Nucleated RBC Nucleated RBC % (auto) Smear Tech's Comments Sodium Potassium Chloride Carbon Dioxide Anion Gap BUN Creatinine Estim Creat Clear Calc Estimated GFR Random Glucose Calcium Magnesium Total Bilirubin Direct Bilirubin AST ALT Alkaline Phosphatase Total Protein Albumin Urine Color YELLOW Urine Appearance CLEAR Urine pH 6.5 Ur Specific [place] 1.010 Urine Protein TRACE Urine Glucose (UA) NEG Urine Ketones NEG Urine Blood NEG Urine Nitrite NEG Ur Leukocyte Esterase NEG Urine RBC 0 Urine WBC 0 Ur Squamous Epith Cells NONE Urine Bacteria NONE Urine Opiates Screen Not Detected Ur Barbiturates Screen Not Detected Ur Phencyclidine Scrn Not Detected Ur Amphetamines Screen Not Detected U Benzodiazepines Scrn Not Detected Urine Cocaine Screen Not Detected U Marijuana (THC) Screen POSITIVE H Ethyl Alcohol COVID-19 (CRUZ) Negative COVID-19 Clin Com See Note 05/10/21 05/10/21 05/10/21 22:46 22:46 22:46 WBC 2.8 L RBC 4.60 Hgb 14.8 Hct 42.2 MCV 91.7 MCH 32.2 MCHC 35.1 RDW 14.3 Plt Count 125 L MPV 8.8 L Immature Gran % (Auto) 0.7 H Neut % (Auto) 57.8 Lymph % (Auto) 17.7 L [place] % (Auto) 20.6 H Eos % (Auto) 1.8 Baso % (Auto) 1.4 Lymph # (Auto) 0.5 L [place] # (Auto) 0.6 Eos # (Auto) 0.1 Baso # (Auto) 0.0 Abs Immat Gran (auto) 0.02 Absolute Neuts (auto) 1.6 L Absolute Nucleated RBC 0.000 Nucleated RBC % (auto) 0.0 Smear Tech's Comments VERIFIED Sodium 143 Potassium 3.5 Chloride 101 Carbon Dioxide 28 Anion Gap 18 BUN 9 Creatinine 0.94 Estim Creat Clear Calc 122.6 Estimated GFR > 60 Random Glucose 129 H D Calcium 9.8 Magnesium 2.2 Total Bilirubin 1.0 Direct Bilirubin 0.4 AST 89 H ALT 85 H Alkaline Phosphatase 100 Total Protein 7.9 Albumin 4.8 Urine Color Urine Appearance Urine pH Ur Specific [place] Urine Protein Urine Glucose (UA) Urine Ketones Urine Blood Urine Nitrite Ur Leukocyte Esterase Urine RBC Urine WBC Ur Squamous Epith Cells Urine Bacteria Urine Opiates Screen Ur Barbiturates Screen Ur Phencyclidine Scrn Ur Amphetamines Screen U Benzodiazepines Scrn Urine Cocaine Screen U Marijuana (THC) Screen Ethyl Alcohol 381 H* COVID-19 (CRUZ) COVID-19 Clin Com DS: Summary Hospital Course Hospital Course: alis Vargas MD 05/12 Admission Note: per alexandrea bolanos, pt texted his a suicidal communication and she called EMS to bring him to the hospital, which they did. pt reports that when he was intoxicated the other night he texted something to try to get his 's attention. he denies any actual suicidality and expresses numerous times his relationships with his two boys, ages 8 and 15, and solid protective factors. he has had some concern about his 's fidelity over the past several months, with her spending a lot of time with a mutual male friend, such that others in their friend group are talking about it. she doesn't come home after work until 7 pm, her 15 yo son is angry thinking she is having an affair, and the 8 yo pines for his mother in the evenings asking where she is. she has assured him she is not having an affair and talks about their being together for the next 20 years (they have been for 18). he reports she has a h/o having had an affair about 10 years ago, so he has always kept that in the back of his mind since. he feels there has just been a lot of stress on the relationship recently, they had a fight, and his jealousy got the better of him - he wanted to make her appreciate him by creating the image in her head of his being gone. he denies chronic SI over the past year and states that when he is not drinking his mood is good, his productivity is good, and his relationships are good. he feels that if he can stop drinking he would be fine. antabuse, naltrexone, and campral discussed. pt requests to restart naltrexone PO, which he has been on in the past. he would like to engage in individual therapy for alcohol use disorder after discharge. he agrees to stay for alcohol detox. reports he is feeling well having taken some ativan. denies ERNANDEZ, sweats, tremors, n/v/d, panic/anxiety. would like to discharge early next week, after detox. Past Psychiatric History: h/o untreated depression and substance use disorder. no psych hosps, detoxes, outpt Tx, suicide attempts, or self-harm history. Per Sergey KHAN 05/13 Progress Note: H nd P noted. Pt in ETOH WD: Elevated VS/flushed face/mild tremors/sweats. Minimizing consequences of ETOH. Noted Decrease in WBC/platelets and elevated LFTs. Monitor LFTS given recent start of Naltrexone. Mood anxious. No SI per Sergey 05/14 Progress Note: Much improved. VS better but sweats +. Less flushed. Anxious to DC bc of business. Open to OP ETOH program. per Sam KHAN 05/15 Progress Note: pt has required minimal benzos since admission. none yesterday, 1 mg of ativan on saturday. he denies ERNANDEZ, sweats, tremors, n/v/d in the past 24H. he feels well and would like discharge. on interview this morning he recites a list of things in his life he is looking forward to. he is interested in IOP/PHP care fo substance use disorder as well as AA and couple therapy. he would like to defer any primary mental health treatment as he believes the drinking drives any mood disorder. discharge tomorrow morning at 1100 planned. per staff pt reports some anxiety but denies depression, SI, or HI. visible, pleasant, appropriate on the unit. 05/16: remains feeling well and without withdrawal symptoms. denies ERNANDEZ, sweats, tremors, n/v/d, panic. states his mood is good and denies SI/HI/AVH. c/o some trouble sleeping last night which he attributes to the upcoming discharge. states his is coming to pick him up today. has decided to not engage in a PHP/IOP after all but will pursue AA and individual Tx. no other complaints or requests. detox completed. naltrexone restarted. check LFTs in one month. Time Spent with Patient Time attestation: Total time spent providing and/or coordinating discharge services:
== END 2021-05-16 11:00 | disposition home or self-care (01) | DRG 755 ==
LOC: HO.ED 05-11 13:20 → HO.PADLT16 05-11 13:24
PROVIDERS: Admitting Provider Psychiatry & Neurology Psychiatry; Emergency Provider Internal Medicine; PCP Internal Medicine; Visit Provider Psychiatry & Neurology Psychiatry
DX: F43.29 Adjustment disorder with other symptoms (principal); R45.851 Suicidal ideations; F10.229 Alcohol dependence with intoxication, unspecified; F10.239 Alcohol dependence with withdrawal, unspecified; Z20.822 Contact with and (suspected) exposure to COVID-19; Z79.899 Other long term (current) drug therapy
CPT/HCPCS: 36415; 80048; 80076; 80307; 81001; 82077; 83735; 85025; 87635; 93005; 99285

== ENCOUNTER 2021-06-30 13:03 | Inpatient (IN) | payer OTHER, SELFPAY ==
--- NOTE | ~2021-06-30 | XR_ITS ---
EXAMINATION: XR CHEST CLINICAL INFORMATION: Hematemesis COMPARISON: Chest x-ray February 13, 2016 TECHNIQUE: Frontal portable view of the chest was obtained. 6:13 PM FINDINGS: No significant abnormality is noted involving the heart, lungs, mediastinum, bony thorax or soft tissues. XR/XR chest 1V IMPRESSION: Unremarkable examination.
[2021-06-30 13:06] VITALS: BP 160/105; PULSE 106; RESP 18; TEMP 37; O2SAT 96; BMI 23.1
[2021-06-30 16:22] LABS: Basophils Percent Auto 1.8 % (0-2); Eosinophils Percent Auto 1.2 % (0-4); Hematocrit 38.8 % (42-52); Hemoglobin 13.6 g/dl (14.0-18.0); Imm Gran Abs Auto 0.03 X10*3/uL (0.00-0.03); Imm Gran Pct Auto 1.8 % (0.0-0.4); Lymphocytes Absolute Auto 0.2 X10*3/uL (1.2-4.9); Lymphocytes Percent Auto 14.5 % (20-40); MANUAL DIFF FLAG SCAN; Mean Corpuscular HGB Conc 35.1 g/dl (31.0-36.0); Mean Corpuscular Hemoglobin 33.1 pg (27.0-33.0); Mean Corpuscular Volume 94.4 fL (80-98); Mean Platelet Volume 9.2 fL (9.4-12.4); Monocytes Absolute Auto 0.3 X10*3/uL (0.1-1.2); Monocytes Percent Auto 16.9 % (2-11); Neutrophils Absolute Auto 1.1 X10*3/uL (2.0-8.3); Neutrophils Percent Auto 63.8 % (45-73); Red Blood Count 4.11 X10*6/uL (4.60-5.80); Red Cell Distribution Width 13.8 % (11.0-16.0); SCAN SMEAR FLAG 1
[2021-06-30 16:31] LABS: White Blood Count 1.7 X10*3/uL (4.8-10.8)
[2021-06-30 16:32] LABS: Platelet Count 81 X10*3/uL (160-400)
[2021-06-30 16:46] LABS: Ethanol 237 mg/dL
[2021-06-30 16:47] LABS: Alanine Aminotransferase 113 U/L (0-40); Albumin Level 4.5 g/dL (3.5-5.0); Alkaline Phosphatase 100 U/L (39-117); Anion Gap 18 (12-20); Aspartate Amino Transferase 192 U/L (5-37); Blood Urea Nitrogen 9 mg/dL (9-16); Carbon Dioxide 28 mmol/L (22-29); Chloride 100 mmol/L (96-108); Creatinine Clr Calc Pharmacy 128.6; Estimated Glomerular Filt Rate > 60; Glucose Random 164 mg/dL (60-115); Potassium 3.8 mmol/L (3.3-5.1); Sodium 142 mmol/L (135-145); Total Protein 7.3 g/dL (6.5-8.0)
[2021-06-30 16:54] LABS: SLIDE REVIEW VERIFIED
--- NOTE | 2021-06-30 16:57 | ED_ITS ---
HPI - Alcohol General Chief Complaint: ETOH/Substance Use <RAMON Sutherland Last Filed: 06/30/21 20:10> Stated Complaint: Vomiting blood <RAMON Sutherland Last Filed: 06/30/21 20:10> Time Seen by Provider: 06/30/21 16:56 <RAMON Sutherland Last Filed: 06/30/21 20:10> Source: patient <RAMON Sutherland Last Filed: 06/30/21 20:10> Mode of arrival: ambulatory <RAMON Sutherland Last Filed: 06/30/21 20:10> History of Present Illness HPI narrative: 45 y/o male with history of alcohol abuse, history of alcohol withdrawal in the past, hx GI bleed, hx pancytopenia, hx alcoholic gastritis who presents to the ED c/o 1 episode of bloody streaked emesis this morning & dark stools since yesterday. Patient admits he is a heavy EtOH drinker drinking about 1.5pt daily, last drink around 6:00 a.m. Admits he is interested in detox however not going to a detox location. Denies fever, chills, CP/SOB, abdominal pain, diarrhea <RAMON Sutherland Last Filed: 06/30/21 20:10> MD complaint: alcohol withdrawal and alcohol dependence <RAMON Sutherland Last Filed: 06/30/21 20:10> Related Data Home Medications: Home Medications Medication Instructions Recorded Confirmed omeprazole 40 mg capsule,delayed 40 mg PO DAILY 10/07/20 06/30/21 release <RAMON Sutherland Last Filed: 06/30/21 20:10> Allergies/Adverse Reactions: Allergies Allergy/AdvReac Type Severity Reaction Status Date / Time Penicillins [PENICILLINS] Allergy Intermediate RASH Verified 06/30/21 13:06 <RAMON Sutherland Last Filed: 06/30/21 20:10> Review of Systems Review of Systems: Constitutional: No Fever, No Chills, No Fatigue, No Malaise ENT/Mouth: No Hearing loss, No Ear Pain, No Nasal Congestion, No sore throat Eyes: No Eye Pain, No Swelling, No Vision Changes Cardiovascular: No Chest Pain, No SOB, No Dyspnea on Exertion, No Orthopnea, No Edema, No Palpitations Respiratory: No Cough, No Dyspnea Gastrointestinal: + Nausea, + Vomiting, No Diarrhea, No Constipation, No Abdominal pain, No Hematochezia, + Melena Genitourinary: No Dysuria, No Hematuria, No Flank Pain Musculoskeletal: No joint pain, No Myalgias Skin: No Skin Lesions, No rash Neuro: No Weakness, No Dizziness, No Headache Psych: No Anxiety/Panic, No Depression, No SI/HI/AH/VH, No Social Issues <RAMON Sutherland - Last Filed: 06/30/21 20:10> Yes all other systems are reviewed and are negative <RAMON Sutherland - Last Filed: 06/30/21 20:10> [facility] Past Medical History Medical History: Medical History Alcohol use disorder Alcohol withdrawal Alcoholic gastritis Anemia Elevated LFTs ETOH abuse GERD (gastroesophageal reflux disease) GI bleed HTN (hypertension) Peripheral neuropathy <RAMON Sutherland - Last Filed: 06/30/21 20:10> Social History Social History: Social History Household Members: Spouse and Children Household Members Other:: Jerica - - 2 children ages 8 and 15 Housing: House Do you presently have visiting nurse or other home services: No Alcohol intake: never Patient Tobacco Use Status: Never used Tobacco Use of substances other than those prescribed or required for medical reasons: No Substance Use Type: Marijuana Advance Directives: No Advance Directives Information Provided: No service: No Current occupational status: employed Sexual orientation: Straight/Heterosexual <RAMON Sutherland - Last Filed: 06/30/21 20:10> Physical Exam Vital Signs: Vital Signs: Last Vital Signs Temp 99.2 F 06/30/21 19:09 Pulse 92 06/30/21 21:37 Resp 16 06/30/21 21:37 BP 146/83 H 06/30/21 21:37 Pulse Ox 96 06/30/21 21:37 Body Mass Index 23.1 <RAMON Sutherland - Last Filed: 06/30/21 20:10> Vital Signs: Last Vital Signs Temp 99.2 F 06/30/21 19:09 Pulse 92 06/30/21 21:37 Resp 16 06/30/21 21:37 BP 146/83 H 06/30/21 21:37 Pulse Ox 96 06/30/21 21:37 Body Mass Index 23.1 <Shahnaz Jacob MD - Last Filed: 06/30/21 22:06> Const: Other: Tremulous <Loree Porter PA - Last Filed: 06/30/21 20:10> General: cooperative <Loree Porter PA - Last Filed: 06/30/21 20:10> Orientation/consciousness: patient oriented x3 <Loree Porter PA - Last Filed: 06/30/21 20:10> Limitations: no limitations <Loree Porter [place] - Last Filed: 06/30/21 20:10> HENMT: Head: Yes normal to inspection <Loree Porter PA - Last Filed: 06/30/21 20:10> Ears: hearing grossly normal bilaterally <Loree Porter PA - Last Filed: 06/30/21 20:10> General nose exam: Normal external nose present <Loree Porter PA - Last Filed: 06/30/21 20:10> Face and sinus: Yes normal facial exam <Loree Porter PA - Last Filed: 06/30/21 20:10> Eyes: General: appearance normal, both eyes and all related structures <Loree Porter PA - Last Filed: 06/30/21 20:10> Pupils: Equal, round and reactive pupils present <Loree Porter PA - Last Filed: 06/30/21 20:10> EOM: EOMs intact bilaterally <Loree Porter PA - Last Filed: 06/30/21 20:10> Neck: Neck: Yes normal visual inspection <Loree Porter PA - Last Filed: 06/30/21 20:10> Resp: Effort & Inspection: normal respiratory effort <Loree Porter PA - Last Filed: 06/30/21 20:10> Auscultation: clear to auscultation bilaterally <Loree Porter PA - Last Filed: 06/30/21 20:10> Cardio: Rate: regular rate <Loree Porter PA - Last Filed: 06/30/21 20:10> Heart sounds: S1 normal heart sound present and S2 normal heart sound present <RAMON Sutherland - Last Filed: 06/30/21 20:10> GI: Inspection: Yes normal to inspection <RAMON Sutherland - Last Filed: 06/30/21 20:10> Palpation (GI): Soft to palpation, nontender, no guarding and not rigid <RAMON Sutherland - Last Filed: 06/30/21 20:10> Skin: Rashes: no rashes <RAMON Sutherland - Last Filed: 06/30/21 20:10> Wounds: no wounds <RAMON Sutherland - Last Filed: 06/30/21 20:10> Neuro: General: patient oriented x3 <RAMON Sutherland - Last Filed: 06/30/21 20:10> Cranial nerves: Yes Equal, round and reactive pupils present <RAMON Sutherland - Last Filed: 06/30/21 20:10> Motor exam (neuro): Tremors during motor activity present <RAMON Sutherland - Last Filed: 06/30/21 20:10> Extrem: General: Yes normal to inspection <RAMON Sutherland - Last Filed: 06/30/21 20:10> Course Course Course Narrative: -acute on chronic leukopenia, H&H stable at 13.6/38.8, platelets low at 81 -AST/ALT acute on chronically elevated likely from ETOH abuse, ethanol 237 -1811--lipase elevated 175 likely from ETOH abuse, occult stool is negative XR chest 1V IMPRESSION: Unremarkable examination. -1999--ED care transferred to Dr. Jacob pending Care team evaluation for detox <RAMON Sutherland - Last Filed: 06/30/21 20:10> Reevaluation(s) Reevaluation #1: Patient unable to be placed for facility detox and is currently going through progressively increasing withdrawal symptoms, started on a phenobarb protocol with medical admission. <Shahnaz Jacob MD - Last Filed: 06/30/21 22:06> MDM - Alcohol MDM Narrative Medical decision making narrative: 45 y/o male with history of alcohol abuse, history of alcohol withdrawal in the past, hx GI bleed, hx pancytopenia, hx alcoholic gastritis who presents to the ED c/o 1 episode of bloody streaked emesis this morning & dark stools since yesterday. On exam hypertensive, tachycardic, tremulous appears in mild EtOH withdrawal, abdomen is soft/nontender. Brown stool noted on rectal. Concern for alcoholic gastritis and ETOH withdrawal. Rule out GI bleed. Lower concern for Carolyn-Demarco tear or Boerhaave syndrome Plan: Labs, UA, drug screen, GI cocktail/symptomatic treatment, occult stool, reassess <RAMON Sutherland - Last Filed: 06/30/21 20:10> Medical Records Attestation: I reviewed the patient's medical records. <RAMON Sutherland - Last Filed: 06/30/21 20:10> Lab Data Attestation: I reviewed the patient's lab results. <RAMON Sutherland - Last Filed: 06/30/21 20:10> Result diagrams: : 06/30/21 16:11 06/30/21 16:11 <RAMON Sutherland - Last Filed: 06/30/21 20:10> Labs: Lab Results 06/30/21 06/30/21 06/30/21 Range/Units 16:11 16:11 16:11 WBC 1.7 L (4.8-10.8) X10*3/uL RBC 4.11 L (4.60-5.80) X10*6/uL Hgb 13.6 L (14.0-18.0) g/dl Hct 38.8 L (42-52) % MCV 94.4 (80-98) fL MCH 33.1 H (27.0-33.0) pg MCHC 35.1 (31.0-36.0) g/dl RDW 13.8 (11.0-16.0) % Plt Count 81 L D (160-400) X10*3/uL MPV 9.2 L (9.4-12.4) fL Immature Gran % (Auto) 1.8 H (0.0-0.4) % Neut % (Auto) 63.8 (45-73) % Lymph % (Auto) 14.5 L (20-40) % Glasscock % (Auto) 16.9 H (2-11) % Eos % (Auto) 1.2 (0-4) % Baso % (Auto) 1.8 (0-2) % Lymph # (Auto) 0.2 L (1.2-4.9) X10*3/uL [place]cock # (Auto) 0.3 (0.1-1.2) X10*3/uL Eos # (Auto) 0.0 (0.0-0.4) X10*3/uL Baso # (Auto) 0.0 (0.0-0.2) X10*3/uL Abs Immat Gran (auto) 0.03 (0.00-0.03) X10*3/uL Absolute Neuts (auto) 1.1 L (2.0-8.3) X10*3/uL Absolute Nucleated RBC 0.000 (0.0-0.012) X10*3/uL Nucleated RBC % (auto) 0.0 (0.0-0.2) /100WBC Smear Tech's Comments VERIFIED PT (9.9-13.0) SEC INR (0.9-1.1) APTT (24.1-38.0) SEC Sodium 142 (135-145) mmol/L Potassium 3.8 (3.3-5.1) mmol/L Chloride 100 (96-108) mmol/L Carbon Dioxide 28 (22-29) mmol/L Anion Gap 18 (12-20) BUN 9 (9-16) mg/dL Creatinine 0.82 (0.5-1.4) mg/dL Estim Creat Clear Calc 128.6 Estimated GFR > 60 Random Glucose 164 H (60-115) mg/dL Calcium 9.0 D (8.4-10.2) mg/dL Magnesium 1.9 (1.6-2.6) mg/dL Total Bilirubin 1.0 (0.0-1.0) mg/dL AST 192 H (5-37) U/L ALT 113 H (0-40) U/L Alkaline Phosphatase 100 (39-117) U/L Total Protein 7.3 (6.5-8.0) g/dL Albumin 4.5 (3.5-5.0) g/dL Lipase 175 H (8-78) U/L Urine Color Urine Appearance Urine pH (5.0-8.0) Ur Specific Luck (1.005-1.025) Urine Protein (NEG-TRACE) MG/DL Urine Glucose (UA) (NEG) MG/DL Urine Ketones (NEG) MG/DL Urine Blood (NEG) Urine Nitrite (NEG) Ur Leukocyte Esterase (NEG) Stool Occult Blood (NEGATIVE) Urine Opiates Screen (Not Detect) Urine Fentanyl Screen (Not Detect) Ur Barbiturates Screen (Not Detect) Ur Phencyclidine Scrn (Not Detect) Ur Amphetamines Screen (Not Detect) U Benzodiazepines Scrn (Not Detect) Urine Cocaine Screen (Not Detect) U Marijuana (THC) Screen (Not Detect) Ethyl Alcohol 237 mg/dL COVID-19 ([facility]) (Negative) COVID-19 Clin Com 06/30/21 06/30/21 06/30/21 Range/Units 17:48 17:48 19:24 WBC (4.8-10.8) X10*3/uL RBC (4.60-5.80) X10*6/uL Hgb (14.0-18.0) g/dl Hct (42-52) % MCV (80-98) fL MCH (27.0-33.0) pg MCHC (31.0-36.0) g/dl RDW (11.0-16.0) % Plt Count (160-400) X10*3/uL MPV (9.4-12.4) fL Immature Gran % (Auto) (0.0-0.4) % Neut % (Auto) (45-73) % Lymph % (Auto) (20-40) % Glasscock % (Auto) (2-11) % Eos % (Auto) (0-4) % Baso % (Auto) (0-2) % Lymph # (Auto) (1.2-4.9) X10*3/uL [place] # (Auto) (0.1-1.2) X10*3/uL Eos # (Auto) (0.0-0.4) X10*3/uL Baso # (Auto) (0.0-0.2) X10*3/uL Abs Immat Gran (auto) (0.00-0.03) X10*3/uL Absolute Neuts (auto) (2.0-8.3) X10*3/uL Absolute Nucleated RBC (0.0-0.012) X10*3/uL Nucleated RBC % (auto) (0.0-0.2) /100WBC Smear Tech's Comments PT 12.8 (9.9-13.0) SEC INR 1.1 (0.9-1.1) APTT 35.1 (24.1-38.0) SEC Sodium (135-145) mmol/L Potassium (3.3-5.1) mmol/L Chloride (96-108) mmol/L Carbon Dioxide (22-29) mmol/L Anion Gap (12-20) BUN (9-16) mg/dL Creatinine (0.5-1.4) mg/dL Estim Creat Clear Calc Estimated GFR Random Glucose (60-115) mg/dL Calcium (8.4-10.2) mg/dL Magnesium (1.6-2.6) mg/dL Total Bilirubin (0.0-1.0) mg/dL AST (5-37) U/L ALT (0-40) U/L Alkaline Phosphatase (39-117) U/L Total Protein (6.5-8.0) g/dL Albumin (3.5-5.0) g/dL Lipase (8-78) U/L Urine Color Urine Appearance Urine pH (5.0-8.0) Ur Specific Luck (1.005-1.025) Urine Protein (NEG-TRACE) MG/DL Urine Glucose (UA) (NEG) MG/DL Urine Ketones (NEG) MG/DL Urine Blood (NEG) Urine Nitrite (NEG) Ur Leukocyte Esterase (NEG) Stool Occult Blood NEGATIVE (NEGATIVE) Urine Opiates Screen (Not Detect) Urine Fentanyl Screen (Not Detect) Ur Barbiturates Screen (Not Detect) Ur Phencyclidine Scrn (Not Detect) Ur Amphetamines Screen (Not Detect) U Benzodiazepines Scrn (Not Detect) Urine Cocaine Screen (Not Detect) U Marijuana (THC) Screen (Not Detect) Ethyl Alcohol mg/dL COVID-19 ([facility]) Negative (Negative) COVID-19 Clin Com See Note 06/30/21 06/30/21 Range/Units 20:12 20:12 WBC (4.8-10.8) X10*3/uL RBC (4.60-5.80) X10*6/uL Hgb (14.0-18.0) g/dl Hct (42-52) % MCV (80-98) fL MCH (27.0-33.0) pg MCHC (31.0-36.0) g/dl RDW (11.0-16.0) % Plt Count (160-400) X10*3/uL MPV (9.4-12.4) fL Immature Gran % (Auto) (0.0-0.4) % Neut % (Auto) (45-73) % Lymph % (Auto) (20-40) % Glasscock % (Auto) (2-11) % Eos % (Auto) (0-4) % Baso % (Auto) (0-2) % Lymph # (Auto) (1.2-4.9) X10*3/uL [place] # (Auto) (0.1-1.2) X10*3/uL Eos # (Auto) (0.0-0.4) X10*3/uL Baso # (Auto) (0.0-0.2) X10*3/uL Abs Immat Gran (auto) (0.00-0.03) X10*3/uL Absolute Neuts (auto) (2.0-8.3) X10*3/uL Absolute Nucleated RBC (0.0-0.012) X10*3/uL Nucleated RBC % (auto) (0.0-0.2) /100WBC Smear Tech's Comments PT (9.9-13.0) SEC INR (0.9-1.1) APTT (24.1-38.0) SEC Sodium (135-145) mmol/L Potassium (3.3-5.1) mmol/L Chloride (96-108) mmol/L Carbon Dioxide (22-29) mmol/L Anion Gap (12-20) BUN (9-16) mg/dL Creatinine (0.5-1.4) mg/dL Estim Creat Clear Calc Estimated GFR Random Glucose (60-115) mg/dL Calcium (8.4-10.2) mg/dL Magnesium (1.6-2.6) mg/dL Total Bilirubin (0.0-1.0) mg/dL AST (5-37) U/L ALT (0-40) U/L Alkaline Phosphatase (39-117) U/L Total Protein (6.5-8.0) g/dL Albumin (3.5-5.0) g/dL Lipase (8-78) U/L Urine Color YELLOW Urine Appearance CLEAR Urine pH 7.0 (5.0-8.0) Ur Specific Luck 1.015 (1.005-1.025) Urine Protein NEG (NEG-TRACE) MG/DL Urine Glucose (UA) NEG (NEG) MG/DL Urine Ketones NEG (NEG) MG/DL Urine Blood NEG (NEG) Urine Nitrite NEG (NEG) Ur Leukocyte Esterase NEG (NEG) Stool Occult Blood (NEGATIVE) Urine Opiates Screen Not Detected (Not Detect) Urine Fentanyl Screen Not Detected (Not Detect) Ur Barbiturates Screen Not Detected (Not Detect) Ur Phencyclidine Scrn Not Detected (Not Detect) Ur Amphetamines Screen Not Detected (Not Detect) U Benzodiazepines Scrn Not Detected (Not Detect) Urine Cocaine Screen Not Detected (Not Detect) U Marijuana (THC) Screen Not Detected (Not Detect) Ethyl Alcohol mg/dL COVID-19 (CRUZ) (Negative) COVID-19 Clin Com <RAMON Sutherland - Last Filed: 06/30/21 20:10> Lab Results 06/30/21 06/30/21 06/30/21 Range/Units 16:11 16:11 16:11 WBC 1.7 L (4.8-10.8) X10*3/uL RBC 4.11 L (4.60-5.80) X10*6/uL Hgb 13.6 L (14.0-18.0) g/dl Hct 38.8 L (42-52) % MCV 94.4 (80-98) fL MCH 33.1 H (27.0-33.0) pg MCHC 35.1 (31.0-36.0) g/dl RDW 13.8 (11.0-16.0) % Plt Count 81 L D (160-400) X10*3/uL MPV 9.2 L (9.4-12.4) fL Immature Gran % (Auto) 1.8 H (0.0-0.4) % Neut % (Auto) 63.8 (45-73) % Lymph % (Auto) 14.5 L (20-40) % Glasscock % (Auto) 16.9 H (2-11) % Eos % (Auto) 1.2 (0-4) % Baso % (Auto) 1.8 (0-2) % Lymph # (Auto) 0.2 L (1.2-4.9) X10*3/uL [place]cock # (Auto) 0.3 (0.1-1.2) X10*3/uL Eos # (Auto) 0.0 (0.0-0.4) X10*3/uL Baso # (Auto) 0.0 (0.0-0.2) X10*3/uL Abs Immat Gran (auto) 0.03 (0.00-0.03) X10*3/uL Absolute Neuts (auto) 1.1 L (2.0-8.3) X10*3/uL Absolute Nucleated RBC 0.000 (0.0-0.012) X10*3/uL Nucleated RBC % (auto) 0.0 (0.0-0.2) /100WBC Smear Tech's Comments VERIFIED PT (9.9-13.0) SEC INR (0.9-1.1) APTT (24.1-38.0) SEC Sodium 142 (135-145) mmol/L Potassium 3.8 (3.3-5.1) mmol/L Chloride 100 (96-108) mmol/L Carbon Dioxide 28 (22-29) mmol/L Anion Gap 18 (12-20) BUN 9 (9-16) mg/dL Creatinine 0.82 (0.5-1.4) mg/dL Estim Creat Clear Calc 128.6 Estimated GFR > 60 Random Glucose 164 H (60-115) mg/dL Calcium 9.0 D (8.4-10.2) mg/dL Magnesium 1.9 (1.6-2.6) mg/dL Total Bilirubin 1.0 (0.0-1.0) mg/dL AST 192 H (5-37) U/L ALT 113 H (0-40) U/L Alkaline Phosphatase 100 (39-117) U/L Total Protein 7.3 (6.5-8.0) g/dL Albumin 4.5 (3.5-5.0) g/dL Lipase 175 H (8-78) U/L Urine Color Urine Appearance Urine pH (5.0-8.0) Ur Specific Luck (1.005-1.025) Urine Protein (NEG-TRACE) MG/DL Urine Glucose (UA) (NEG) MG/DL Urine Ketones (NEG) MG/DL Urine Blood (NEG) Urine Nitrite (NEG) Ur Leukocyte Esterase (NEG) Stool Occult Blood (NEGATIVE) Urine Opiates Screen (Not Detect) Urine Fentanyl Screen (Not Detect) Ur Barbiturates Screen (Not Detect) Ur Phencyclidine Scrn (Not Detect) Ur Amphetamines Screen (Not Detect) U Benzodiazepines Scrn (Not Detect) Urine Cocaine Screen (Not Detect) U Marijuana (THC) Screen (Not Detect) Ethyl Alcohol 237 mg/dL COVID-19 ([facility]) (Negative) COVID-19 Clin Com 06/30/21 06/30/21 06/30/21 Range/Units 17:48 17:48 19:24 WBC (4.8-10.8) X10*3/uL RBC (4.60-5.80) X10*6/uL Hgb (14.0-18.0) g/dl Hct (42-52) % MCV (80-98) fL MCH (27.0-33.0) pg MCHC (31.0-36.0) g/dl RDW (11.0-16.0) % Plt Count (160-400) X10*3/uL MPV (9.4-12.4) fL Immature Gran % (Auto) (0.0-0.4) % Neut % (Auto) (45-73) % Lymph % (Auto) (20-40) % Glasscock % (Auto) (2-11) % Eos % (Auto) (0-4) % Baso % (Auto) (0-2) % Lymph # (Auto) (1.2-4.9) X10*3/uL [place] # (Auto) (0.1-1.2) X10*3/uL Eos # (Auto) (0.0-0.4) X10*3/uL Baso # (Auto) (0.0-0.2) X10*3/uL Abs Immat Gran (auto) (0.00-0.03) X10*3/uL Absolute Neuts (auto) (2.0-8.3) X10*3/uL Absolute Nucleated RBC (0.0-0.012) X10*3/uL Nucleated RBC % (auto) (0.0-0.2) /100WBC Smear Tech's Comments PT 12.8 (9.9-13.0) SEC INR 1.1 (0.9-1.1) APTT 35.1 (24.1-38.0) SEC Sodium (135-145) mmol/L Potassium (3.3-5.1) mmol/L Chloride (96-108) mmol/L Carbon Dioxide (22-29) mmol/L Anion Gap (12-20) BUN (9-16) mg/dL Creatinine (0.5-1.4) mg/dL Estim Creat Clear Calc Estimated GFR Random Glucose (60-115) mg/dL Calcium (8.4-10.2) mg/dL Magnesium (1.6-2.6) mg/dL Total Bilirubin (0.0-1.0) mg/dL AST (5-37) U/L ALT (0-40) U/L Alkaline Phosphatase (39-117) U/L Total Protein (6.5-8.0) g/dL Albumin (3.5-5.0) g/dL Lipase (8-78) U/L Urine Color Urine Appearance Urine pH (5.0-8.0) Ur Specific Luck (1.005-1.025) Urine Protein (NEG-TRACE) MG/DL Urine Glucose (UA) (NEG) MG/DL Urine Ketones (NEG) MG/DL Urine Blood (NEG) Urine Nitrite (NEG) Ur Leukocyte Esterase (NEG) Stool Occult Blood NEGATIVE (NEGATIVE) Urine Opiates Screen (Not Detect) Urine Fentanyl Screen (Not Detect) Ur Barbiturates Screen (Not Detect) Ur Phencyclidine Scrn (Not Detect) Ur Amphetamines Screen (Not Detect) U Benzodiazepines Scrn (Not Detect) Urine Cocaine Screen (Not Detect) U Marijuana (THC) Screen (Not Detect) Ethyl Alcohol mg/dL COVID-19 ([facility]) Negative (Negative) COVID-19 Clin Com See Note 06/30/21 06/30/21 Range/Units 20:12 20:12 WBC (4.8-10.8) X10*3/uL RBC (4.60-5.80) X10*6/uL Hgb (14.0-18.0) g/dl Hct (42-52) % MCV (80-98) fL MCH (27.0-33.0) pg MCHC (31.0-36.0) g/dl RDW (11.0-16.0) % Plt Count (160-400) X10*3/uL MPV (9.4-12.4) fL Immature Gran % (Auto) (0.0-0.4) % Neut % (Auto) (45-73) % Lymph % (Auto) (20-40) % Glasscock % (Auto) (2-11) % Eos % (Auto) (0-4) % Baso % (Auto) (0-2) % Lymph # (Auto) (1.2-4.9) X10*3/uL [place] # (Auto) (0.1-1.2) X10*3/uL Eos # (Auto) (0.0-0.4) X10*3/uL Baso # (Auto) (0.0-0.2) X10*3/uL Abs Immat Gran (auto) (0.00-0.03) X10*3/uL Absolute Neuts (auto) (2.0-8.3) X10*3/uL Absolute Nucleated RBC (0.0-0.012) X10*3/uL Nucleated RBC % (auto) (0.0-0.2) /100WBC Smear Tech's Comments PT (9.9-13.0) SEC INR (0.9-1.1) APTT (24.1-38.0) SEC Sodium (135-145) mmol/L Potassium (3.3-5.1) mmol/L Chloride (96-108) mmol/L Carbon Dioxide (22-29) mmol/L Anion Gap (12-20) BUN (9-16) mg/dL Creatinine (0.5-1.4) mg/dL Estim Creat Clear Calc Estimated GFR Random Glucose (60-115) mg/dL Calcium (8.4-10.2) mg/dL Magnesium (1.6-2.6) mg/dL Total Bilirubin (0.0-1.0) mg/dL AST (5-37) U/L ALT (0-40) U/L Alkaline Phosphatase (39-117) U/L Total Protein (6.5-8.0) g/dL Albumin (3.5-5.0) g/dL Lipase (8-78) U/L Urine Color YELLOW Urine Appearance CLEAR Urine pH 7.0 (5.0-8.0) Ur Specific Luck 1.015 (1.005-1.025) Urine Protein NEG (NEG-TRACE) MG/DL Urine Glucose (UA) NEG (NEG) MG/DL Urine Ketones NEG (NEG) MG/DL Urine Blood NEG (NEG) Urine Nitrite NEG (NEG) Ur Leukocyte Esterase NEG (NEG) Stool Occult Blood (NEGATIVE) Urine Opiates Screen Not Detected (Not Detect) Urine Fentanyl Screen Not Detected (Not Detect) Ur Barbiturates Screen Not Detected (Not Detect) Ur Phencyclidine Scrn Not Detected (Not Detect) Ur Amphetamines Screen Not Detected (Not Detect) U Benzodiazepines Scrn Not Detected (Not Detect) Urine Cocaine Screen Not Detected (Not Detect) U Marijuana (THC) Screen Not Detected (Not Detect) Ethyl Alcohol mg/dL COVID-19 (CRU[facility]) (Negative) COVID-19 Clin Com <Shahnaz Jacob MD - Last Filed: 06/30/21 22:06> Discharge Plan Discharge Clinical Impression: Alcoholic gastritis, Alcohol withdrawal <RAMON Sutherland - Last Filed: 06/30/21 20:10> Patient Disposition: Admitted As Inpatient <RAMON Sutherland - Last Filed: 06/30/21 20:10> Instructions: Gastritis (ED) <RAMON Sutherland - Last Filed: 06/30/21 20:10> Additional Instructions: Your liver and pancreas enzymes are elevated likely from her alcohol abuse/intake It is important for you to follow through with detox If you developed bloody vomit, bloody or black stools return to the ED immediately The avoid abdominal pain, persistent nausea/vomiting, are unable to eat or drink please return to the ED <RAMON Sutherland - Last Filed: 06/30/21 20:10> Prescriptions: No Action omeprazole 40 mg Capsule,Delayed Release(Dr/Ec) 40 mg PO DAILY RF: 0 <RAMON Sutherland - Last Filed: 06/30/21 20:10> Referrals: Capo Mario MD [Primary Care Provider] - 2 days <RAMON Sutherland - Last Filed: 06/30/21 20:10>
[2021-06-30 17:50] LABS: Lipase 175 U/L (8-78); Magnesium 1.9 mg/dL (1.6-2.6)
[2021-06-30 17:55] LABS: OBS Int Ctl Valid YES; OBS1 NEGATIVE (NEGATIVE)
[2021-06-30 18:02] LABS: INTERNATIONAL NORM RATIO 1.1 (0.9-1.1); Prothrombin Time 12.8 SEC (9.9-13.0)
[2021-06-30 18:04] LABS: Partial Thromboplastin Time 35.1 SEC (24.1-38.0)
[2021-06-30] MEDS: LORazepam 2 MG/ML VIAL 1 MG IVPUSH ×2 (18:10→20:11)
[2021-06-30] MEDS: 0.9 % Sodium Chloride 1,000 ML 999 ML IVCONT ×2 (18:10→19:08)
[2021-06-30] MEDS: Magnesium Hydrox/Alum Hydrox 30 ML ORAL.SUSP PO (18:11)
[2021-06-30] MEDS: Lidocaine HCl Viscous 2 % 15 ML SOLUTION MUCOUS MEM (18:11)
[2021-06-30] MEDS: Famotidine/PF 20 MG/2 ML VIAL IVPUSH (18:11)
[2021-06-30 19:01] VITALS: BP 161/95; PULSE 95; RESP 15; O2SAT 98
[2021-06-30 19:09] VITALS: TEMP 37.3
--- NOTE | 2021-06-30 19:14 | PC.NURSE ---
Pt aaox4, resting on stretcher in NAD, breathing with ease on RA, VSS with HTN as documented, Loree NAVARRO is aware. Pt calm and cooperative with pt care. Seizure pads placed on side rails x 2. CIWA is 5, Loree NAVARRO is aware. Per Loree, plan is for possible additional dose of ativan and possible discharge home. Pt offers no complaints at this time. Stretcher in low locked position, rails raised, call lopez within reach.
[2021-06-30 19:44] LABS: COVID-19 Test Negative (Negative)
[2021-06-30 20:00] VITALS: BP 153/93; PULSE 98; RESP 15; O2SAT 96
[2021-06-30 20:21] LABS: Glucose Urine UA NEG (NEG); Leukocyte Esterase Urine NEG (NEG); Nitrite Urine NEG (NEG); Specific Gravity - Urine 1.015 (1.005-1.025); Urine Blood NEG (NEG); Urine Ketones NEG (NEG); Urine Protein NEG (NEG-TRACE)
[2021-06-30 20:22] LABS: Appearance Urine CLEAR; Color Urine YELLOW
--- NOTE | 2021-06-30 20:50 | PC.NURSE ---
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 Pt reports I was a little shaky on my feet just now. Original Note: Pt ambulatory to bathroom with steady gait independently
[2021-06-30 20:52] LABS: Amphetamine Screen Urine Not Detected (Not Detect); Barbiturates, Urine Not Detected (Not Detect); Benzodiazepines Screen Urine Not Detected (Not Detect); Cannabinoid Screen Urine Not Detected (Not Detect); Cocaine Screen Urine Not Detected (Not Detect); Fentanyl, urine Not Detected (Not Detect); Opiate Screen Urine Not Detected (Not Detect); Phencyclidine Screen Urine Not Detected (Not Detect)
--- NOTE | 2021-06-30 21:02 | PC.NURSE ---
Per Maureen with CARE team, pt has decided to stay overnight to be connected with services in AM. Maureen spoke with Dr Jacob to make her aware. Dr Jacob v/o to this RN librium 25mg PO. This RN placed verbal order. This RN to medicate per orders.
--- NOTE | 2021-06-30 21:03 | MHC.CARE ---
Pt is being seen by CARE TEAM due to being referred for detox. Pt reports drinking at least one pint of vodka daily since the age of 13. He reported history of withdrawal symptoms such as vomiting, shakes and vertigo. He is help seeking and motivated for treatment. He will remain in ED with purpose to connect to Recovery Team tomorrrow (01/29/21) for detox options.
[2021-06-30] MEDS: chlordiazePOXIDE HCl 25 MG CAPSULE PO (21:35)
[2021-06-30 21:37] VITALS: BP 146/83; PULSE 92; RESP 16; O2SAT 96
[2021-06-30 22:00] VITALS: BP 153/93; PULSE 83; RESP 13; TEMP 36.9; O2SAT 97
[2021-06-30] MEDS: PHENobarbitaL sodium 130 MG/ML VIAL 326 MG IM (22:28)
--- NOTE | 2021-06-30 22:53 | P.HPHOSP_ITS ---
History of Present Illness Date of Service: 06/30/21 Chief Complaint: alcohol withdrawal 45-year-old male with past medical history of alcohol abuse, of 1 episode of emesis. Patient reports that he went on a binge drink yesterday, woke up this morning feeling very weak, had 1 episode of vomiting that was bile, denies any hematemesis, denies any hemoptysis, but reports that his weakness, feeling dehydrated and the vomiting episode brought him to the ED. He denies any chest pain, no shortness of breath, no headache or change in vision, no abdominal pain, no recurrent nausea or vomiting, no diarrhea constipa tion, no urinary symptoms and no lower extremity edema. By the time I saw the patient he has jitters, shaking, feels and significant withdrawal from alcohol and therefore patient was started on phenobarb protocol and will be admitted for further management. No significant abnormal vitals Labs are significant for a WBC count of 1.7 which appears to be chronic as he has a WBC count of 2.8 from 05/10, hemoglobin of 13.6, platelet count of 81, with dropped from 11/28 in May, PT of 12.8, INR of 1.1, CMP significant for AST of 192, ALT of 113, lipase of 175, UA negative, UDS negative, alcohol level 237, COVID-19 negative As mention patient denies any abdominal pain or epigastric region pain Chest x-ray shows unremarkable Review of Systems 2 Review of Systems: Yes all other systems are reviewed and are negative [facility] Medical History Alcohol use disorder Alcohol withdrawal Alcoholic gastritis Anemia Elevated LFTs ETOH abuse GERD (gastroesophageal reflux disease) GI bleed HTN (hypertension) Peripheral neuropathy Social History Household Members: Spouse and Children Household Members Other:: Jerica - - 2 children ages 8 and 15 Housing: House Do you presently have visiting nurse or other home services: No Alcohol intake: never Patient Tobacco Use Status: Never used Tobacco Use of substances other than those prescribed or required for medical reasons: Yes Substance Use Type: Marijuana Substance Use Frequency: Occasionally Currently Displaying Signs/Symptoms of Drug Intoxication Withdrawal: No Any prior treatment program specific to substance use: No Have you been hit, kicked, punched, or otherwise hurt by someone within the past year? If so, by whom?: No Do you feel safe in your current relationship?: Yes Is there a partner from a previous relationship who is making you feel unsafe now?: No Are you made to feel afraid or neglected: No Advance Directives: No Advance Directives Information Provided: No Do you have thoughts of harming others: None Do you have a plan to hurt others: No Plan Recently lost weight without trying: Unsure Eating poorly because of decreased appetite: No Nutrition Risks: No Nutritional Risk Poor oral hygiene: No service: No Current occupational status: employed Sexual orientation: Straight/Heterosexual Meds Allergies Allergy/AdvReac Type Severity Reaction Status Date / Time Penicillins [PENICILLINS] Allergy Intermediate RASH Verified 06/30/21 13:06 Active Medications: Current Medications Generic Name Dose Route Start Last Admin Trade Name Freq PRN Reason Stop Dose Admin Medication 1 each 07/01/21 09:00 No Benzodiazepines MISCELLANE DAILY [facility] Pharmacy Consult 1 each 06/30/21 19:01 Consult Rx Perform Med Rec MISCELLANE ONCE PRN Consult order Phenobarbital 60 mg 07/01/21 09:00 Phenobarbital 30 Mg Tablet PO 07/02/21 21:01 BID [facility] Phenobarbital 30 mg 07/03/21 09:00 Phenobarbital 30 Mg Tablet PO 07/04/21 21:01 BID [facility] Phenobarbital 15 mg 07/05/21 09:00 Phenobarbital 15 Mg Tablet PO 07/06/21 09:01 DAILY [facility] Phenobarbital Sodium 245 mg 07/01/21 02:00 Phenobarbital Sodium 130 Mg/Ml Vial IM 07/01/21 05:01 [id number] [facility] Home Medications Medication Instructions Recorded Confirmed Last Taken Type omeprazole 40 mg capsule,delayed 40 mg PO DAILY 10/07/20 06/30/21 10/07/20 History release Physical Exam Vital Signs and Narrative: Vital Signs: Last Vital Signs Temp 98.4 F 06/30/21 22:00 Pulse 83 06/30/21 22:00 Resp 13 06/30/21 22:00 BP 153/93 H 06/30/21 22:00 Pulse Ox 97 06/30/21 22:00 Body Mass Index 23.1 Const: General: cooperative Orientation/consciousness: patient oriented x3 Eyes: General: appearance normal, both eyes and all related structures Resp: Effort & Inspection: normal respiratory effort and able to speak in complete sentences Auscultation: clear to auscultation bilaterally Cardio: Rate: regular rate Rhythm: regular rhythm GI: Palpation (GI): Soft to palpation Auscultation: normal bowel sounds Skin: General skin exam: no rashes or lesions noted Neuro: Other: Asterixis present General: patient oriented x3 Cognition (Neuro): normal cognition Extrem: General: Yes normal to inspection and Yes no pedal edema Results Labs CBC and Chem 7: 06/30/21 16:11 06/30/21 16:11 Labs: Laboratory Results - last 24 hr 06/30/21 06/30/21 06/30/21 16:11 16:11 16:11 MCV 94.4 MCH 33.1 H MCHC 35.1 RDW 13.8 Plt Count 81 L D MPV 9.2 L Immature Gran % (Auto) 1.8 H Neut % (Auto) 63.8 Lymph % (Auto) 14.5 L [place] % (Auto) 16.9 H Eos % (Auto) 1.2 Baso % (Auto) 1.8 Lymph # (Auto) 0.2 L [place] # (Auto) 0.3 Eos # (Auto) 0.0 Baso # (Auto) 0.0 Abs Immat Gran (auto) 0.03 Absolute Neuts (auto) 1.1 L Absolute Nucleated RBC 0.000 Nucleated RBC % (auto) 0.0 Smear Tech's Comments VERIFIED PT INR APTT Anion Gap 18 Estim Creat Clear Calc 128.6 Estimated GFR > 60 Random Glucose 164 H Calcium 9.0 D Magnesium 1.9 Total Bilirubin 1.0 AST 192 H ALT 113 H Alkaline Phosphatase 100 Total Protein 7.3 Albumin 4.5 Lipase 175 H Urine Color Urine Appearance Urine pH Ur Specific [place] Urine Protein Urine Glucose (UA) Urine Ketones Urine Blood Urine Nitrite Ur Leukocyte Esterase Stool Occult Blood Urine Opiates Screen Urine Fentanyl Screen Ur Barbiturates Screen Ur Phencyclidine Scrn Ur Amphetamines Screen U Benzodiazepines Scrn Urine Cocaine Screen U Marijuana (THC) Screen Ethyl Alcohol 237 COVID-19 (CRUZ) COVID-19 Clin Com 06/30/21 06/30/21 06/30/21 17:48 17:48 19:24 MCV MCH MCHC RDW Plt Count MPV Immature Gran % (Auto) Neut % (Auto) Lymph % (Auto) [place] % (Auto) Eos % (Auto) Baso % (Auto) Lymph # (Auto) [place] # (Auto) Eos # (Auto) Baso # (Auto) Abs Immat Gran (auto) Absolute Neuts (auto) Absolute Nucleated RBC Nucleated RBC % (auto) Smear Tech's Comments PT 12.8 INR 1.1 APTT 35.1 Anion Gap Estim Creat Clear Calc Estimated GFR Random Glucose Calcium Magnesium Total Bilirubin AST ALT Alkaline Phosphatase Total Protein Albumin Lipase Urine Color Urine Appearance Urine pH Ur Specific [place] Urine Protein Urine Glucose (UA) Urine Ketones Urine Blood Urine Nitrite Ur Leukocyte Esterase Stool Occult Blood NEGATIVE Urine Opiates Screen Urine Fentanyl Screen Ur Barbiturates Screen Ur Phencyclidine Scrn Ur Amphetamines Screen U Benzodiazepines Scrn Urine Cocaine Screen U Marijuana (THC) Screen Ethyl Alcohol COVID-19 (CRUZ) Negative COVID-19 [facility] See Note 06/30/21 06/30/21 20:12 20:12 MCV MCH MCHC RDW Plt Count MPV Immature Gran % (Auto) Neut % (Auto) Lymph % (Auto) [place] % (Auto) Eos % (Auto) Baso % (Auto) Lymph # (Auto) [place] # (Auto) Eos # (Auto) Baso # (Auto) Abs Immat Gran (auto) Absolute Neuts (auto) Absolute Nucleated RBC Nucleated RBC % (auto) Smear Tech's Comments PT INR APTT Anion Gap Estim Creat Clear Calc Estimated GFR Random Glucose Calcium Magnesium Total Bilirubin AST ALT Alkaline Phosphatase Total Protein Albumin Lipase Urine Color YELLOW Urine Appearance CLEAR Urine pH 7.0 Ur Specific [place] 1.015 Urine Protein NEG Urine Glucose (UA) NEG Urine Ketones NEG Urine Blood NEG Urine Nitrite NEG Ur Leukocyte Esterase NEG Stool Occult Blood Urine Opiates Screen Not Detected Urine Fentanyl Screen Not Detected Ur Barbiturates Screen Not Detected Ur Phencyclidine Scrn Not Detected Ur Amphetamines Screen Not Detected U Benzodiazepines Scrn Not Detected Urine Cocaine Screen Not Detected U Marijuana (THC) Screen Not Detected Ethyl Alcohol COVID-19 (CRUZ) COVID-Snapsheet Com Imaging Radiologist's Impressions: Impressions Chest X-Ray 06/30/21 18:09 IMPRESSION: Unremarkable examination. Assessment and Plan (1) Alcohol abuse with withdrawal: Status: Acute (2) Leukopenia: Status: Acute (3) Alcoholic gastritis: Status: Acute (4) Thrombocytopenia: Status: Acute (5) Vomiting: Status: Acute 45-year-old male with past medical history of alcohol abuse presents to the hospital with complaints of weakness, vomiting, admitted for alcohol withdrawal # alcohol abuse with alcohol withdrawal - patient has asterixis at this point, very jittery and shaking - will start him on phenobarb protocol - folic and thiamine supplement # leukopenia/thrombocytopenia - possibly secondary to alcohol abuse - H&H normal to low normal - will most likely need repeat of CBC prior to discharge and follow-up outpatient for improvement of his WBC line as well as platelet count - normal PT INR # vomiting - likely secondary to alcoholic gastritis - continue Prilosec - monitor for any recurrent vomiting DVT prophylaxis: Lovenox Quality Stroke Does the patient have a stroke diagnosis?: No VTE Prior VTE?: No VTE Risk Level:: Medical - moderate - high VTE Device Contraindication: Treatment Not Indicated VTE Drug Contraindication: N/A - Med Ordered
[2021-07-01 00:28] VITALS: BP 145/84; PULSE 82; RESP 23; O2SAT 94
--- NOTE | 2021-07-01 00:33 | PC.NURSE ---
Pt has repeatedly been reminded to use call lopez when he requires staff assistance including getting up to bathroom. Despite being educated and re-educated several times on progressing withdrawal sx, including unsteady gait, pt found outside of room in hallway with unsteady stance. This RN to pt's side, provided re-education and assisted pt to bathroom per pt's request. Pt returned to bed without incidence. Pt placed on bedside school bus monitor, VS assessed and CIWA assessed. Dr Worthy made aware of pt's increasing CIWA. This RN asks Dr Worthy if she would like tele orders as pt does not currently have these orders. Per Deacon, pt to be ordered for tele as well as additional phenobarb dose to assist in minimizing ETOH withdrawal sx. Pt continues to have red fall alert bracelet on, red fall prevention socks, and red star posted outside of room. This RN attempted report x 1, awaiting return call from receiving RN.
[2021-07-01 01:06] VITALS: BP 155/86; PULSE 76; RESP 16; TEMP 36.6; O2SAT 95
[2021-07-01] MEDS: Enoxaparin Sodium 40 MG/0.4 ML SYRINGE SUBCUT (02:02)
[2021-07-01] MEDS: PHENobarbitaL sodium 130 MG/ML VIAL 245 MG IM ×2 (02:03→05:39)
[2021-07-01] MEDS: Omeprazole 40 MG CAPSULE.DR PO (05:39)
[2021-07-01 07:14] LABS: Basophils Percent Auto 1.2 % (0-2); Eosinophils Percent Auto 1.8 % (0-4); Hemoglobin 12.1 g/dl (14.0-18.0); Imm Gran Abs Auto 0.01 X10*3/uL (0.00-0.03); Imm Gran Pct Auto 0.6 % (0.0-0.4); Lymphocytes Absolute Auto 0.3 X10*3/uL (1.2-4.9); MANUAL DIFF FLAG SCAN; Mean Corpuscular HGB Conc 34.6 g/dl (31.0-36.0); Mean Corpuscular Hemoglobin 32.9 pg (27.0-33.0); Mean Corpuscular Volume 95.1 fL (80-98); Mean Platelet Volume 9.5 fL (9.4-12.4); Monocytes Absolute Auto 0.4 X10*3/uL (0.1-1.2); Monocytes Percent Auto 25.7 % (2-11); Neutrophils Absolute Auto 0.9 X10*3/uL (2.0-8.3); Neutrophils Percent Auto 53.7 % (45-73); Red Blood Count 3.68 X10*6/uL (4.60-5.80); Red Cell Distribution Width 13.8 % (11.0-16.0); SCAN SMEAR FLAG 1
[2021-07-01 07:17] LABS: White Blood Count 1.7 X10*3/uL (4.8-10.8)
[2021-07-01 07:18] LABS: Platelet Count 65 X10*3/uL (160-400)
[2021-07-01 07:27] LABS: Anion Gap 14 (12-20); Blood Urea Nitrogen 7 mg/dL (9-16); Calcium 8.6 mg/dL (8.4-10.2); Carbon Dioxide 30 mmol/L (22-29); Chloride 99 mmol/L (96-108); Creatinine Clr Calc Pharmacy 135.2; Estimated Glomerular Filt Rate > 60; Glucose Random 103 mg/dL (60-115); Potassium 3.5 mmol/L (3.3-5.1); Sodium 139 mmol/L (135-145)
[2021-07-01 07:35] VITALS: BP 155/95; PULSE 71; RESP 18; TEMP 37.1; O2SAT 94
[2021-07-01 07:44] LABS: SLIDE REVIEW VERIFIED
[2021-07-01] MEDS: PHENobarbitaL 30 MG TABLET 60 MG PO ×2 (09:09→20:48)
[2021-07-01] MEDS: 0.9 % Sodium Chloride Flush 3 ML SYRINGE IVFLUSH ×2 (09:09→16:55)
[2021-07-01] MEDS: Folic Acid 1 MG TABLET PO (09:10)
[2021-07-01] MEDS: Thiamine HCL 100 MG TABLET PO (09:10)
--- NOTE | 2021-07-01 10:05 | HO.PM.IMPN ---
Subjective Subjective Date of Service: 07/01/21 Interval History: Seen in f/u for alcohol withdrawal, feels better, bit sweaty, minimal tremors Review of Systems Gen: no fever Resp: no sob, no cough CV: no chest, no KAUR, no leg edema GI: No n/v, no abd pain Neuro: No confusion, no hallucination Physical Exam Vital Signs: Vital Signs: Last Vital Signs Temp 98.7 F 07/01/21 07:35 Pulse 71 07/01/21 07:35 Resp 18 07/01/21 07:35 BP 155/95 H 07/01/21 07:35 Pulse Ox 94 07/01/21 07:35 Body Mass Index 23.1 General: AO X 3, no acute distress Resp: CTA bilateral CVS: S1,S2,RRR GI: +BS, NT, no distention Skin: No rash Neuro: motor grossly intact Psych: appropriate affect Objective Data Current Medications Generic Name Dose Route Start Last Admin Trade Name Freq PRN Reason Stop Dose Admin Acetaminophen 650 mg 07/01/21 00:05 Acetaminophen 325 Mg Tablet PO Q6H PRN Pain, Mild (Pain Scale 1-3) Docusate Sodium 100 mg 07/01/21 00:05 Docusate Sodium 100 Mg Capsule PO DAILY PRN Constipation Enoxaparin Sodium 40 mg 07/01/21 01:00 07/01/21 02:02 Enoxaparin Sodium 40 Mg/0.4 Ml Syringe SUBCUT 40 mg Q24H [facility] Administration Folic Acid 1 mg 07/01/21 09:00 07/01/21 09:10 Folic Acid 1 Mg Tablet PO 1 mg DAILY [facility] Administration Medication 1 each 07/01/21 09:00 No Benzodiazepines MISCELLANE DAILY [facility] Omeprazole 40 mg 07/01/21 06:30 07/01/21 05:39 Omeprazole 40 Mg Capsule.Dr PO 40 mg DAILY@0630 LYDIA Administration Ondansetron HCl 4 mg 07/01/21 00:05 Ondansetron Hcl 4 Mg/2 Ml Vial IVPUSH Q8H PRN Nausea and Vomiting Pharmacy Consult 1 each 06/30/21 19:01 Consult Rx Perform Med Rec MISCELLANE ONCE PRN Consult order Phenobarbital 60 mg 07/01/21 09:00 07/01/21 09:09 Phenobarbital 30 Mg Tablet PO 07/02/21 21:01 60 mg BID [facility] Administration Phenobarbital 30 mg 07/03/21 09:00 Phenobarbital 30 Mg Tablet PO 07/04/21 21:01 BID [facility] Phenobarbital 15 mg 07/05/21 09:00 Phenobarbital 15 Mg Tablet PO 07/06/21 09:01 DAILY [facility] Sodium Chloride 3 ml 07/01/21 00:05 07/01/21 09:09 0.9 % Sodium Chloride Flush 3 Ml Syringe IVFLUSH 3 ml QSHIFT [facility] Administration Thiamine HCl 100 mg 07/01/21 09:00 07/01/21 09:10 Thiamine Hcl 100 Mg Tablet PO 100 mg DAILY [facility] Administration Labs CBC & Chem 7: 07/01/21 06:10 07/01/21 06:10 Assessment and Plan (1) Thrombocytopenia: Status: Acute (2) Leukopenia: Status: Acute (3) Alcohol abuse with withdrawal: Status: Acute Assessment and Plan: 45-year-old male with past medical history of alcohol abuse presents to the hospital with complaints of weakness, vomiting, admitted for alcohol withdrawal # alcohol abuse with alcohol withdrawal--improving - Continue phenobarb protocol - folic and thiamine supplement -CARE team consult # leukopenia/thrombocytopenia--chronic - likely secondary to alcohol abuse - H&H normal to low normal -Monitor # vomiting - likely secondary to alcoholic gastritis - continue Prilosec - monitor for any recurrent vomiting DVT prophylaxis:? Lovenox (stop if plat continues to trend down) Quality Stroke Does the patient have a stroke diagnosis?: No VTE Prior VTE?: No VTE Risk Level:: Medical - moderate - high VTE Device Contraindication: Treatment Not Indicated VTE Drug Contraindication: N/A - Med Ordered
--- NOTE | 2021-07-01 10:17 | MHC.RECOVSUP ---
Recovery Support note: Patient is a 45 year old Nigerien speaking male who presented to [facility] ED due to concern for alcohol withdrawal symptoms and a desire to detox. Patient was medically admitted for management of his withdrawal symptoms. This speech writer met with patient in to discuss his alcohol use. Patient is known to this speech writer from previous consultations. Patient reports he has not reduced his alcohol consumption since his discharge from the hospital in mid-May. Patient reports he had intended on attending an IOP however he did not. Patient reports he went to a few AA meetings and found them somewhat helpful. Patient reports he found naltrexone somewhat helpful however has not been consistent in taking it. This speech writer discussed IOP with patient and provided patient with information on this support. Patient reports he plans to attend an IOP in the near future. Discussed early recovery and ways to add structure to his day. Patient was receptive of this information. Discussed [facility] and recovery coaching and provided patient with information on this resource. Discussed natlrexone and Vivitrol and provided patient with information on the [facility]. Encouraged patient to reach out to family or friends for support and to contact this speech writer if he has any questions regarding the resources provided. Discussed case with patient's RN.
[2021-07-01 15:08] VITALS: BP 163/97; PULSE 62; RESP 20; TEMP 37.1; O2SAT 98
--- NOTE | 2021-07-01 15:46 | MHC.CM.PN ---
CM MET WITH PT WHO REPORTS HE LIVES AT HOME WITH AND KIDS. 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 PT HAS NO SERVICES AND NO DME. PT REPORTS RECENTLY CHANGING HIS PCP AND DOES NOT KNOW WHO HIS NEW ONE IS. PT COMPLETED A HCP TODAY NAMING HIS , PEPE, HIS AGENT. CURRENT DC PLAN IS HOME WITH CARE TEAM RESOURCES PT TO ARRANGE TRANSPORT
[2021-07-01 23:48] VITALS: BP 164/94; PULSE 78; RESP 18; TEMP 37; O2SAT 97
[2021-07-02] MEDS: 0.9 % Sodium Chloride Flush 3 ML SYRINGE IVFLUSH (00:50)
[2021-07-02] MEDS: Omeprazole 40 MG CAPSULE.DR PO (06:34)
[2021-07-02 07:27] VITALS: BP 143/95; PULSE 87; RESP 18; TEMP 37.1; O2SAT 97
--- NOTE | 2021-07-02 07:45 | P.DS_ITS ---
DS: Providers Provider Date of Service: 07/02/21 Date of admission: 06/30/21 22:49 Primary care physician: Capo Mario MD DS: Diagnosis Discharge Diagnosis (1) Thrombocytopenia: (2) Leukopenia: (3) Alcohol abuse with withdrawal: DS: Summary Hospital Course Hospital Course: Chief Complaint: alcohol withdrawal 45-year-old male with past medical history of alcohol abuse, of 1 episode of emesis.? Patient reports that he went on a binge drink yesterday, woke up this morning feeling very weak, had 1 episode of vomiting that was bile, denies any hematemesis, denies any hemoptysis, but reports that his weakness, feeling dehydrated and the vomiting episode brought him to the ED. He denies any chest pain, no shortness of breath, no headache or change in vision, no abdominal pain, no recurrent nausea or vomiting, no diarrhea constipation, no urinary symptoms and no lower extremity edema.? By the time I saw the patient he has jitters, shaking, feels and significant withdrawal from alcohol and therefore patient was started on phenobarb protocol and will be admitted for further management. No significant abnormal vitals Labs are significant for a WBC count of 1.7 which appears to be chronic as he has a WBC count of 2.8 from 05/10, hemoglobin of 13.6, platelet count of 81, with dropped from 11/28 in May, PT of 12.8, INR of 1.1, CMP significant for AST of 192, ALT of 113, lipase of 175, UA negative, UDS negative, alcohol level 237, COVID-19 negative As mention patient denies any abdominal pain or epigastric region pain Hospital course: # alcohol abuse with alcohol withdrawal--Treated with Phenobarbital with good effect, and presently without Psychomotor agitation and no tremors and no seiz ure. Was evaluated by the CARE team and given resources to help stay sobber. # leukopenia/thrombocytopenia--This is chronic and related to alcoholims and this is communicated with him to stop else it will get worse # vomiting--This has resolved and he should continuee Protonix upon discharge. Time Spent with Patient Time attestation: Total time spent providing and/or coordinating discharge services: Discharge coordination time: Greater than 30 minutes Quality: Stroke Does the patient have a stroke diagnosis?: No Physical Exam Vital Signs: Vital Signs: Last Vital Signs Temp 98.7 F 07/02/21 07:27 Pulse 87 07/02/21 07:27 Resp 18 07/02/21 07:27 BP 143/95 H 07/02/21 07:27 Pulse Ox 97 07/02/21 07:27 Body Mass Index 23.1 Constitutional Awake and Alert, No apparent distress Neck Supple, No lymphadenopathy Cardiovascular RRR, No M/R/G, S1 S2, No S3 S4, No pedal edema Respiratory Lungs clear, No respiratory distress Gastrointestinal Non tender, Non-distended Skin No rash Neurological Alert & oriented x3 Psychological Appropriate affect DS: Data Data Completed and Pending Completed studies during hospitalization [Text1]: Procedures Detoxification Services for Substance Abuse Treatment (05/11/21) Excision of Lower Esophagus, Via Natural or Artificial Opening Endoscopic, Diagnostic (10/07/20) Excision of Stomach, Pylorus, Via Natural or Artificial Opening Endoscopic, Diagnostic (10/07/20) Transfusion of Nonautologous Red Blood Cells into Peripheral Vein, Percutaneous Approach (10/07/20) Labs on day of discharge: Laboratory Results - last 24 hr 07/01/21 06:10 [employer] Tech's Comments VERIFIED Discharge Plan Discharge Anticipated Discharge Date/Time: 07/02/21 07:41 Patient Disposition: Home, Self-Care Discharge Diagnosis: Alcohol withdrawal, alcoholic gastritis Referrals: Capo Mario MD [Primary Care Provider] - 2 days Discharge Medications: Continued omeprazole 40 mg Capsule,Delayed Release(Dr/Ec) 40 mg PO DAILY Qty: 30 RF: 0 Discharge Orders: Discharge Order (Routine); Ordered 07/02/21 Ordered By: Boris Mendoza Diet: advance to usual diet Activity on Discharge: As tolerated Stand Alone Forms: Patient Portal Discharge page Activity Restrictions/Additional Instructions: Your liver and pancreas enzymes are elevated likely from her alcohol abuse/intake It is important for you to follow through with detox If you developed bloody vomit, bloody or black stools return to the ED immediately The avoid abdominal pain, persistent nausea/vomiting, are unable to eat or drink please return to the ED Care Plan Goals: Prevent rehospitalization Health Concerns: Chronic alcohol dependency and alcoholism Plan of Treatment: Seek resources given to you and elías rodríguez, follow up withh your Doctor in a week, call for appointment Assessment: see above Patient Instructions: Gastritis (ED) Discharge Date/Time: 07/02/21 10:14
[2021-07-02] MEDS: Folic Acid 1 MG TABLET PO (08:36)
[2021-07-02] MEDS: Thiamine HCL 100 MG TABLET PO (08:36)
[2021-07-02] MEDS: PHENobarbitaL 30 MG TABLET 60 MG PO (08:36)
--- NOTE | 2021-07-02 08:53 | MHC.CM.PN ---
PT CLEARED TO DC HOME TODAY WITH INFORMATION PROVIDED BY RECOVERY KERFER MACHINE OPERATOR. PT WILL SELF ARRANGE TRANSPORT
== END 2021-07-02 10:14 | disposition home or self-care (01) | DRG 241 ==
LOC: HO.ED 22:06 → HO.EDOVER 23:57 → HO.IMC 07-01 00:06
PROVIDERS: Physician Assistant; Admitting Provider Internal Medicine; Emergency Provider Student in an Organized Health Care Education/Training Program; PCP Internal Medicine; Visit Provider Internal Medicine
DX: K29.20 Alcoholic gastritis without bleeding (principal); D69.6 Thrombocytopenia, unspecified; D72.819 Decreased white blood cell count, unspecified; F10.239 Alcohol dependence with withdrawal, unspecified; Z20.822 Contact with and (suspected) exposure to COVID-19; Z88.0 Allergy status to penicillin; Z79.899 Other long term (current) drug therapy
CPT/HCPCS: 36415; 71045; 80048; 80053; 80307; 81003; 82077; 82272; 83690; 83735; 85025; 85610; 85730; 87635; 96361; 96372; 96374; 96375; 99285; J1650; J2060; J2560

== ENCOUNTER 2021-11-29 08:40 | Outpatient (REF) | payer OTHER, SELFPAY ==
[2021-11-29 09:53] LABS: Hematocrit 38.4 % (42.0-52.0); Hemoglobin 12.8 g/dl (14.0-18.0); Mean Corpuscular HGB Conc 33.3 g/dl (31.0-36.0); Mean Corpuscular Hemoglobin 28.3 pg (27.0-33.0); Mean Platelet Volume 9.2 fL (9.4-12.4); Platelet Count 238 X10*3/uL (160-400); Red Blood Count 4.52 X10*6/uL (4.60-5.80); Red Cell Distribution Width 12.2 % (11.0-16.0); White Blood Count 3.6 X10*3/uL (4.8-10.8)
[2021-11-29 10:02] LABS: Estimated Average Glucose 120 mg/dL; Hemoglobin A1c % 5.8 %
[2021-11-29 10:04] LABS: Alanine Aminotransferase 30 U/L (0-40); Albumin Level 4.1 g/dL (3.5-5.0); Alkaline Phosphatase 99 U/L (39-117); Anion Gap 11 (12-20); Aspartate Amino Transferase 25 U/L (5-37); Bilirubin Total 0.3 mg/dL (0.0-1.0); Blood Urea Nitrogen 17 mg/dL (9-16); Calcium 9.8 mg/dL (8.4-10.2); Carbon Dioxide 28 mmol/L (22-29); Chloride 103 mmol/L (96-108); Estimated Glomerular Filt Rate > 60; Glucose Fasting 126 mg/dL (60-99); Iron 55 mcg/dL (45-160); Percent Iron Saturation 12 % (15-50); Potassium 4.4 mmol/L (3.3-5.1); Sodium 138 mmol/L (135-145); Total Iron Binding Capacity 442 mcg/dL (228-428); Total Protein 6.9 g/dL (6.5-8.0); Unsaturated Iron Binding 387 ug/dL
[2021-11-29 10:28] LABS: TSH reflex Free T4 2.07 uIU/mL (0.32-4.0)
[2021-11-29 10:44] LABS: Folate 19.7 ng/mL (> or = 4.0); Vitamin B12 520 pg/mL (200-900)
== END 2021-11-29 08:41 | disposition home or self-care (01) ==
LOC: HO.LAB 08:40
PROVIDERS: PCP Physician Assistant; Visit Provider Physician Assistant
DX: G62.1 Alcoholic polyneuropathy (principal); D50.9 Iron deficiency anemia, unspecified; Z13.1 Encounter for screening for diabetes mellitus; Z13.29 Encounter for screening for other suspected endocrine disorder
CPT/HCPCS: 36415; 80053; 82607; 82746; 83036; 83540; 84443; 85027

== ENCOUNTER 2022-06-24 19:36 | Inpatient (IN) | payer OTHER, SELFPAY ==
[2022-06-24 20:00] VITALS: BP 185/103; PULSE 111; RESP 18; TEMP 36.4; O2SAT 97; BMI 31.6
[2022-06-24 20:28] LABS: MANUAL DIFF FLAG NO
[2022-06-24 20:30] LABS: Basophils Percent Auto 0.4 % (0-2); Hemoglobin 13.9 g/dl (14.0-18.0); Imm Gran Abs Auto 0.02 X10*3/uL (0.00-0.03); Imm Gran Pct Auto 0.4 % (0.0-0.4); Lymphocytes Absolute Auto 0.3 X10*3/uL (1.2-4.9); Lymphocytes Percent Auto 5.9 % (20-40); Mean Corpuscular HGB Conc 33.9 g/dl (31.0-36.0); Mean Corpuscular Volume 85.6 fL (80.0-98.0); Mean Platelet Volume 8.7 fL (9.4-12.4); Monocytes Absolute Auto 0.4 X10*3/uL (0.1-1.2); Monocytes Percent Auto 8.4 % (2-11); Neutrophils Absolute Auto 3.9 x10*3/uL (2.0-8.3); Neutrophils Percent Auto 84.9 % (45-73); Platelet Count 131 X10*3/uL (160-400); Red Blood Count 4.79 X10*6/uL (4.60-5.80); Red Cell Distribution Width 17.3 % (11.0-16.0); White Blood Count 4.6 X10*3/uL (4.8-10.8)
[2022-06-24 20:45] LABS: COVID-19 Test Negative (Negative); IDNOW Serial# 16C4AD1C
[2022-06-24 20:47] LABS: Ethanol < 10 mg/dL
[2022-06-24 20:52] LABS: Alanine Aminotransferase 76 U/L (0-40); Alkaline Phosphatase 116 U/L (39-117); Anion Gap 21 (12-20); Aspartate Amino Transferase 92 U/L (5-37); Bilirubin Direct 0.4 mg/dL (0.0-0.5); Bilirubin Total 1.1 mg/dL (0.0-1.0); Blood Urea Nitrogen 11 mg/dL (9-16); Calcium 9.7 mg/dL (8.4-10.2); Carbon Dioxide 27 mmol/L (22-29); Chloride 99 mmol/L (96-108); Creatinine Clr Calc Pharmacy 128.4; Estimated Glomerular Filt Rate > 60; Glucose Random 157 mg/dL (60-115); Potassium 3.7 mmol/L (3.3-5.1); Sodium 143 mmol/L (135-145); Total Protein 8.3 g/dL (6.5-8.0)
--- NOTE | 2022-06-24 20:54 | ED.ALCOHOL ---
HPI - Alcohol General Chief Complaint: ETOH/Substance Use Stated Complaint: Alcohol withdrawal Time Seen by Provider: 06/24/22 20:39 Source: patient and family (Spouse) Mode of arrival: ambulatory Limitations: no limitations History of Present Illness HPI narrative: 46-year-old male with history of alcohol abuse, patient is recovering from drinking alcohol for the past 10 months patient stated that his been bingeing drinking for the past 2 weeks, started this morning after he drank vodka started to have vomiting, patient could not keep anything down after, was not able to continue drinking, patient had a history of seizure from withdrawal of alcohol. Patient otherwise declined any abdominal pain, no diarrhea, no sick contacts, no bad food, no recent use of antibiotic. Related Data Previous Rx's Medication Instructions Recorded pyridoxine (vitamin B6) 250 mg 250 mg PO DAILY 30 days #30 tabs 11/30/21 tablet omeprazole 20 mg capsule,delayed 20 mg PO DAILY #90 caps 01/13/22 release gabapentin 300 mg capsule 300 mg PO BID 30 days #60 caps 05/02/22 clonidine HCl 0.1 mg tablet 0.1 mg PO BID PRN alcohol 05/03/22 withdrawal 14 days #28 tabs hydroxyzine HCl 25 mg tablet 25 mg PO BEDTIME #14 tabs 05/03/22 ondansetron 8 mg disintegrating 8 mg PO Q12H PRN nausea and 05/03/22 tablet vomiting 7 days #14 tabs Allergies Allergy/AdvReac Type Severity Reaction Status Date / Time Penicillins [PENICILLINS] Allergy Intermediate RASH Verified 11/30/21 13:47 Review of Systems Review of Systems: All other systems are reviewed and are negative Constitutional: Reports as per HPI and Reports no additional constitutional complaints Eyes: Reports as per HPI and Reports no additional eye complaints Reports system reviewed and no additional complaints, except as documented Cardiovascular: Reports as per HPI and Reports no additional cardiovascular complaints Respiratory: Reports as per HPI and Reports no additional respiratory complaints Gastrointestinal: Reports as per HPI and Reports no additional gastrointestinal complaints Genitourinary: Reports no additional female genitourinary complaints Musculoskeletal: Reports no additional musculoskeletal complaints Skin/Breast: Reports system reviewed and no additional complaints, except as docu Psychiatric: Reports no additional psychiatric complaints Endocrine: Reports no additional endocrine complaints Hematologic/Lymphatic: Reports no additional hematologic/lymphatic complaints Allergic/Immunologic: Reports no additional allergic/immunologic complaints Reports system reviewed and no additional complaints, except as documented and Reports Abnormal speech present [facility] Past Medical History Medical History Alcohol abuse with withdrawal Alcohol use disorder Alcohol withdrawal Alcoholic gastritis Anemia Elevated LFTs ETOH abuse GERD (gastroesophageal reflux disease) GI bleed HTN (hypertension) Leukopenia Peripheral neuropathy Thrombocytopenia Family History Family History Mother Mental health disorder Father Liver cirrhosis Social History Social History Household Members: Spouse and Children Household Members Other:: Jerica - - 2 children ages 8 and 15 Housing: House Do you presently have visiting nurse or other home services: No Alcohol intake: current Alcohol intake frequency: 3 or more drinks per day Alcohol type: hard liquor Patient Tobacco Use Status: Never used Tobacco Tobacco use type: Cigarette e-Cigarette/Vaping Use: Never Used Use of substances other than those prescribed or required for medical reasons: No Advance Directives: Yes Advance Directives on File: Yes Advance Directives Date on File: 07/04/21 service: No Current occupational status: 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 Blood pressure elevated. Heart rate elevated. Respiration rate normal. Temperature normal. Oxygen saturation normal. Appearance: Anxious, Alert. Oriented X3. No acute distress. Head: Normal external exam. Normocephalic. Atraumatic. No [place] signs noted. No raccoon eyes noted Eyes: PERRLA. EOMI. Conjunctiva and sclera normal. Eyelids normal. ENT: TM's Normal. Pharynx normal. Uvula midline. Moist mucous membranes. No trismus noted. No drooling noted. No muffled voice noted. Neck: Normal inspection. Neck supple. FROM. No adenopathy. Thyroid Normal. No meningeal signs. No neck mass noted. CVS: Normal heart rate and rhythm. Heart sound normal. No murmurs noted. Pulses normal throughout. Respiratory: No respiratory distress. Painless inspiration. Breath sounds normal. No wheezes/rales/rhonchi noted. Chest nontender. No accessory muscle usage noted or decreased air movement noted. Abdomen: Soft and nontender. Bowel sounds normal in all 4 quadrants. No distention noted. No organomegaly noted. No visible injury noted. Back: No CVA tenderness. Full range of motion noted. Skin: Skin warm and dry. Normal skin color. Normal skin turgor. No rashes/lesions/lacerations noted. Extremities: No lower extremity edema. Extremities exhibit normal range of motion. Extremities nontender. Neuro: Oriented X 3. Cranial nerve exam: II-XII are grossly intact No motor deficit. No sensory deficit. Reflexes normal. CIWA score of 16. Course Course Course Narrative: Assessment and plan. 46-year-old male with alcohol problem, been changing for the past 2 weeks, unable to continue drinking because of vomiting, no depression, no SI, no HI, no hallucinations. patient had a history of withdrawal seizure, last drink was this morning, patient with high CIWA score of 16, will admit the patient for further withdrawal treatment. [facility] - Alcohol Medical Records Attestation: I reviewed the patient's medical records. Lab Data Attestation: I reviewed the patient's lab results. Result diagrams: 06/24/22 20:22 06/24/22 20:22 Labs: Lab Results 06/24/22 06/24/22 06/24/22 Range/Units 20:22 20:22 20:22 WBC 4.6 L (4.8-10.8) X10*3/uL RBC 4.79 (4.60-5.80) X10*6/uL Hgb 13.9 L (14.0-18.0) g/dl Hct 41.0 L (42.0-52.0) % MCV 85.6 (80.0-98.0) fL MCH 29.0 (27.0-33.0) pg MCHC 33.9 (31.0-36.0) g/dl RDW 17.3 H (11.0-16.0) % Plt Count 131 L D (160-400) X10*3/uL MPV 8.7 L (9.4-12.4) fL Immature Gran % (Auto) 0.4 (0.0-0.4) % Neut % (Auto) 84.9 H (45-73) % Lymph % (Auto) 5.9 L (20-40) % [place] % (Auto) 8.4 (2-11) % Eos % (Auto) 0.0 (0-4) % Baso % (Auto) 0.4 (0-2) % Lymph # (Auto) 0.3 L (1.2-4.9) X10*3/uL [place] # (Auto) 0.4 (0.1-1.2) X10*3/uL Eos # (Auto) 0.0 (0.0-0.4) X10*3/uL Baso # (Auto) 0.0 (0.0-0.2) X10*3/uL Abs Immat Gran (auto) 0.02 (0.00-0.03) X10*3/uL Absolute Neuts (auto) 3.9 (2.0-8.3) x10*3/uL Absolute Nucleated RBC 0.000 (0.0-0.012) X10*3/uL Nucleated RBC % (auto) 0.0 (0.0-0.2) /100WBC Sodium 143 (135-145) mmol/L Potassium 3.7 (3.3-5.1) mmol/L Chloride 99 (96-108) mmol/L Carbon Dioxide 27 (22-29) mmol/L Anion Gap 21 H (12-20) BUN 11 (9-16) mg/dL Creatinine 0.91 (0.5-1.4) mg/dL Estim Creat Clear Calc 128.4 Estimated GFR > 60 Random Glucose 157 H D (60-115) mg/dL Calcium 9.7 (8.4-10.2) mg/dL Magnesium 1.7 (1.6-2.6) mg/dL Total Bilirubin 1.1 H (0.0-1.0) mg/dL Direct Bilirubin 0.4 (0.0-0.5) mg/dL AST 92 H (5-37) U/L ALT 76 H (0-40) U/L Alkaline Phosphatase 116 (39-117) U/L Total Protein 8.3 H D (6.5-8.0) g/dL Albumin 5.0 D (3.5-5.0) g/dL Ethyl Alcohol mg/dL COVID-19 (CRUZ) Negative (Negative) COVID-19 Clin Com See Note 06/24/22 Range/Units 20:22 WBC (4.8-10.8) X10*3/uL RBC (4.60-5.80) X10*6/uL Hgb (14.0-18.0) g/dl Hct (42.0-52.0) % MCV (80.0-98.0) fL MCH (27.0-33.0) pg MCHC (31.0-36.0) g/dl RDW (11.0-16.0) % Plt Count (160-400) X10*3/uL MPV (9.4-12.4) fL Immature Gran % (Auto) (0.0-0.4) % Neut % (Auto) (45-73) % Lymph % (Auto) (20-40) % [place] % (Auto) (2-11) % Eos % (Auto) (0-4) % Baso % (Auto) (0-2) % Lymph # (Auto) (1.2-4.9) X10*3/uL [place] # (Auto) (0.1-1.2) X10*3/uL Eos # (Auto) (0.0-0.4) X10*3/uL Baso # (Auto) (0.0-0.2) X10*3/uL Abs Immat Gran (auto) (0.00-0.03) X10*3/uL Absolute Neuts (auto) (2.0-8.3) x10*3/uL Absolute Nucleated RBC (0.0-0.012) X10*3/uL Nucleated RBC % (auto) (0.0-0.2) /100WBC Sodium (135-145) mmol/L Potassium (3.3-5.1) mmol/L Chloride (96-108) mmol/L Carbon Dioxide (22-29) mmol/L Anion Gap (12-20) BUN (9-16) mg/dL Creatinine (0.5-1.4) mg/dL Estim Creat Clear Calc Estimated GFR Random Glucose (60-115) mg/dL Calcium (8.4-10.2) mg/dL Magnesium (1.6-2.6) mg/dL Total Bilirubin (0.0-1.0) mg/dL Direct Bilirubin (0.0-0.5) mg/dL AST (5-37) U/L ALT (0-40) U/L Alkaline Phosphatase (39-117) U/L Total Protein (6.5-8.0) g/dL Albumin (3.5-5.0) g/dL Ethyl Alcohol < 10 mg/dL COVID-19 (CRUZ) (Negative) COVID-19 Clin Com Discharge Plan Discharge Clinical Impression: Alcohol withdrawal Patient Disposition: Admitted As Inpatient
--- NOTE | 2022-06-24 21:03 | HE.PHANOTE ---
RE: Phenobarb protocol Spoke to Dr. Correia on the phone about using the IM/PO phenobarb vs PO only protocol; stated he was ok with IM/PO as well as valium order due to pt's seizure history.
[2022-06-24 21:13] LABS: Magnesium 1.7 mg/dL (1.6-2.6)
[2022-06-24] MEDS: PHENobarbitaL sodium 130 MG/ML IM ONCE 383 MG IM (21:36)
[2022-06-24] MEDS: 0.9 % Sodium Chloride 1,000 ML 999 ML IV (21:36)
[2022-06-24] MEDS: ondansetron HCL 4 MG/2 ML VIAL IVPUSH (21:36)
[2022-06-24 23:34] VITALS: PULSE 98
--- NOTE | 2022-06-24 23:41 | PC.NURSE ---
CHARGE NURSE GABI TEXT IN RECRUITING TEAM LEAD 2X FOR DIAZEPAM. DIAZEPAM NOT LOADED IN ED [facility]
[2022-06-25] VITALS (7 sets, daily range): BP systolic 148–173; BP diastolic 90–104; PULSE 66–96; RESP 11–20; TEMP 36.5–37.2; O2SAT 95–98
[2022-06-25] MEDS: PHENobarbitaL sodium 130 MG/ML VIAL IM Q3Hx2 287 MG IM ×2 (00:38→04:40)
[2022-06-25] MEDS: diazePAM 10 MG/2 ML CARTRIDGE 5 MG IVPUSH (00:38)
[2022-06-25] MEDS: Dextrose 5 % and 0.45 % NaCl 1,000 ML 100 ML IVCONT ×3 (01:00→18:43)
[2022-06-25] MEDS: Enoxaparin Sodium 40 MG/0.4 ML SYRINGE SUBCUT ×2 (01:03→22:56)
[2022-06-25] MEDS: Melatonin 3 MG TABLET 6 MG PO (01:04)
--- NOTE | 2022-06-25 01:18 | PC.NURSE ---
inpt provider evaluating pt
--- NOTE | 2022-06-25 01:40 | PM.IMHP ---
History of Present Illness Date of Service: 06/24/22 Chief Complaint: Nausea/ vomiting 46-year-old male with a past medical history of alcohol abuse, alcohol withdrawal seizures, obesity, GERD, anemia, peripheral neuropathy, history of elevated liver enzymes; presented to the hospital today with a chief complaint of nausea/ vomiting. Patient reports that he has been drinking alcohol, had heavy drinking yesterday, this morning after he woke up he had nausea/ vomiting followed by abdominal discomfort. Patient mentioned that he had been drinking alcohol, had heavy drinking yesterday, this morning he woke up and developed nausea/vomiting /abdominal discomfort. Abdominal pain is diffuse in nature. Denies any diarrhea. Denies any blood in the vomitus. Mentions he had multiple episodes of projectile vomiting whenever he tries to eat something. Denies any chest pain or palpitations. Mentions that he was also very tremulous. Reports prior history of alcohol withdrawal seizures. Denies any fever chills cough or sputum production. Review of all other systems is negative except mentioned above ER course: Per ER team patient was noted to be tremulous on presentation; concerning for alcohol withdrawal, started on phenobarb protocol. Admitted to the hospital for further management. [facility] Medical History Alcohol abuse with withdrawal Alcohol use disorder Alcohol withdrawal Alcoholic gastritis Anemia Elevated LFTs ETOH abuse GERD (gastroesophageal reflux disease) GI bleed HTN (hypertension) Leukopenia Peripheral neuropathy Thrombocytopenia Family History Mother Mental health disorder Father Liver cirrhosis Social History Household Members: Spouse and Children Household Members Other:: Jerica - - 2 children ages 8 and 15 Housing: House Do you presently have visiting nurse or other home services: No Alcohol intake: current Alcohol intake frequency: 3 or more drinks per day Alcohol type: hard liquor Patient Tobacco Use Status: Never used Tobacco Tobacco use type: Cigarette e-Cigarette/Vaping Use: Never Used Use of substances other than those prescribed or required for medical reasons: No Advance Directives: Yes Advance Directives on File: Yes Advance Directives Date on File: 07/04/21 service: No Current occupational status: 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 Sexual orientation: Straight/Heterosexual Meds Allergies Allergy/AdvReac Type Severity Reaction Status Date / Time Penicillins [PENICILLINS] Allergy Intermediate RASH Verified 11/30/21 13:47 Active Medications: Current Medications Acetaminophen (Acetaminophen 325 Mg Tablet) 650 mg PO Q6H PRN PRN Reason: Pain, Mild (Pain Scale 1-3) Enoxaparin Sodium (Enoxaparin Sodium 40 Mg/0.4 Ml Syringe) 40 mg SUBCUT Q24H [facility] Last Admin: 06/25/22 01:03 Dose: 40 mg Famotidine (Famotidine 20 Mg Tablet) 20 mg PO BID [facility] Folic Acid (Folic Acid 1 Mg Tablet) 1 mg PO DAILY [facility] Stop: 06/28/22 08:59 Dextrose/Sodium Chloride (D51/2ns) 1,000 mls @ 100 mls/hr IVCONT .Q10H [facility] Last Admin: 06/25/22 01:00 Dose: 100 mls/hr Melatonin (Melatonin 3 Mg Tablet) 6 mg PO BEDTIME PRN PRN Reason: Insomnia Last Admin: 06/25/22 01:04 Dose: 6 mg Multivitamins/Vitamin C (Multivitamin Tablet) 1 tab PO DAILY [facility] Stop: 06/28/22 08:59 Pharmacy Consult (Consult Rx Etoh Phenob Po Only) 1 each MISCELLANE ONCE PRN; Protocol PRN Reason: Consult order Phenobarbital (Phenobarbital 30 Mg Tablet) 60 mg PO BID [facility]; Protocol Stop: 06/26/22 21:01 Phenobarbital (Phenobarbital 30 Mg Tablet) 30 mg PO BID [facility]; Protocol Stop: 06/28/22 21:01 Phenobarbital (Phenobarbital 30 Mg Tablet) 30 mg PO DAILY [facility]; Protocol Stop: 06/30/22 09:01 Phenobarbital Sodium (Phenobarbital Sodium 130 Mg/Ml Vial Im Q3hx2) 287 mg IM Q3H LYDIA; Protocol Stop: 06/25/22 03:31 Last Admin: 06/25/22 00:38 Dose: 287 mg Senna (Sennosides 8.6 Mg Tablet) 17.2 mg PO BEDTIME PRN PRN Reason: Constipation Sodium Chloride (0.9 % Sodium Chloride Flush 3 Ml Syringe) 3 ml IVFLUSH QSHIFT [facility] Last Admin: 06/25/22 01:19 Dose: Not Given Thiamine HCl (Thiamine Hcl 100 Mg Tablet) 100 mg PO DAILY [facility] Stop: 06/28/22 08:59 Physical Exam Vital Signs and Narrative: Vital Signs: Last Vital Signs Temp 98.2 F 06/25/22 00:00 Pulse 96 06/25/22 00:00 Resp 16 06/25/22 00:00 BP 160/101 H 06/25/22 00:00 Pulse Ox 95 06/25/22 00:00 O2 Del Method 06/25/22 00:00 BMI result Body Mass Index 31.6 Gen: Appears be in no acute distress HEENT: NCAT, Moist mucosa. Pulmonary: Vesicular breath sounds, fair air entry CVS: Normal S1-S2 Abdomen: BS+, Soft, Nontender Extremities: Warm well perfused Neuro: Alert and awake. Results Labs CBC and Chem 7: 06/24/22 20:22 06/24/22 20:22 Labs: Laboratory Results - last 24 hr 06/24/22 06/24/22 06/24/22 20:22 20:22 20:22 MCV 85.6 MCH 29.0 MCHC 33.9 RDW 17.3 H Plt Count 131 L D MPV 8.7 L Immature Gran % (Auto) 0.4 Neut % (Auto) 84.9 H Lymph % (Auto) 5.9 L [place] % (Auto) 8.4 Eos % (Auto) 0.0 Baso % (Auto) 0.4 Lymph # (Auto) 0.3 L [place] # (Auto) 0.4 Eos # (Auto) 0.0 Baso # (Auto) 0.0 Abs Immat Gran (auto) 0.02 Absolute Neuts (auto) 3.9 Absolute Nucleated RBC 0.000 Nucleated RBC % (auto) 0.0 Anion Gap 21 H Estim Creat Clear Calc 128.4 Estimated GFR > 60 Random Glucose 157 H D Calcium 9.7 Magnesium 1.7 Total Bilirubin 1.1 H Direct Bilirubin 0.4 AST 92 H ALT 76 H Alkaline Phosphatase 116 Total Protein 8.3 H D Albumin 5.0 D Ethyl Alcohol COVID-19 (CRUZ) Negative COVID-19 Clin Com See Note 06/24/22 20:22 MCV MCH MCHC RDW Plt Count MPV Immature Gran % (Auto) Neut % (Auto) Lymph % (Auto) [place] % (Auto) Eos % (Auto) Baso % (Auto) Lymph # (Auto) [place] # (Auto) Eos # (Auto) Baso # (Auto) Abs Immat Gran (auto) Absolute Neuts (auto) Absolute Nucleated RBC Nucleated RBC % (auto) Anion Gap Estim Creat Clear Calc Estimated GFR Random Glucose Calcium Magnesium Total Bilirubin Direct Bilirubin AST ALT Alkaline Phosphatase Total Protein Albumin Ethyl Alcohol < 10 COVID-19 (CRUZ) COVID-19 Clin Com Assessment and Plan (1) Alcohol withdrawal: Status: Acute Plan 46-year-old male with a past medical history of alcohol abuse, alcohol withdrawal seizures, obesity, GERD, anemia, peripheral neuropathy, history of elevated liver enzymes; presented to the hospital today with a chief complaint of nausea/ vomiting. Patient reports that he has been drinking alcohol, had heavy drinking yesterday, this morning after he woke up he had nausea/ vomiting followed by abdominal discomfort. Nausea/vomiting/abdominal discomfort: Likely alcoholic gastritis. Pepcid. Supportive care. Alcohol withdrawal: Patient is started on phenobarb protocol. Seizure precautions. Thiamine folate and multivitamins. 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 mild transaminitis: Patient has prior history of elevated liver enzymes. Trend liver enzymes. Likely in setting of alcohol use. History of peripheral neuropathy: Continue home gabapentin DVT prophylaxis: Lovenox Code status: Full co Quality Stroke Does the patient have a stroke diagnosis?: No VTE Prior VTE?: No VTE Risk Level:: Medical - moderate - high VTE Device Contraindication: Treatment Not Indicated VTE Drug Contraindication: N/A - Med Ordered
--- NOTE | 2022-06-25 02:07 | PC.NURSE ---
MED REC COMPLETED WITH PT
--- NOTE | 2022-06-25 02:57 | PC.NURSE ---
pt asleep resp effort unlabored reg no use of accessory muscles present, bed locked in lowest position, call light within reach
--- NOTE | 2022-06-25 04:15 | PC.NURSE ---
pt asleep, resting comfortably, in no acute distress, remains NSR 70s on tele monitor, bed locked in lowest position call light within reach, will continue to monitor pt
--- NOTE | 2022-06-25 05:55 | PC.NURSE ---
phlebotomy here now for AM lab draw
[2022-06-25 06:11] LABS: MANUAL DIFF FLAG NO
[2022-06-25 06:14] LABS: Eosinophils Absolute Auto 0.1 X10*3/uL (0.0-0.4); Eosinophils Percent Auto 2.3 % (0-4); Hematocrit 36.5 % (42.0-52.0); Hemoglobin 12.2 g/dl (14.0-18.0); Imm Gran Abs Auto 0.01 X10*3/uL (0.00-0.03); Imm Gran Pct Auto 0.3 % (0.0-0.4); Lymphocytes Absolute Auto 0.5 X10*3/uL (1.2-4.9); Lymphocytes Percent Auto 17.3 % (20-40); Mean Corpuscular HGB Conc 33.4 g/dl (31.0-36.0); Mean Corpuscular Hemoglobin 28.9 pg (27.0-33.0); Mean Corpuscular Volume 86.5 fL (80.0-98.0); Mean Platelet Volume 8.8 fL (9.4-12.4); Monocytes Absolute Auto 0.6 X10*3/uL (0.1-1.2); Monocytes Percent Auto 19.2 % (2-11); Neutrophils Absolute Auto 1.8 x10*3/uL (2.0-8.3); Neutrophils Percent Auto 59.9 % (45-73); Platelet Count 106 X10*3/uL (160-400); Red Blood Count 4.22 X10*6/uL (4.60-5.80); Red Cell Distribution Width 17.1 % (11.0-16.0); White Blood Count 3.1 X10*3/uL (4.8-10.8)
[2022-06-25 06:27] LABS: Anion Gap 13 (12-20); Blood Urea Nitrogen 11 mg/dL (9-16); Calcium 8.7 mg/dL (8.4-10.2); Carbon Dioxide 32 mmol/L (22-29); Chloride 97 mmol/L (96-108); Creatinine Clr Calc Pharmacy 137.5; Estimated Glomerular Filt Rate > 60; Glucose Random 113 mg/dL (60-115); Potassium 3.4 mmol/L (3.3-5.1); Sodium 139 mmol/L (135-145)
--- NOTE | 2022-06-25 07:31 | PHA.MEDREC ---
Pharmacy Consult ? Medication Reconciliation Nurse has completed the medication reconciliation, pharmacist reviewed.
[2022-06-25 08:06] LABS: Appearance Urine Clear; Color Urine Dark Yellow; Glucose Urine UA Negative (Negative); Leukocyte Esterase Urine Negative (Negative); Nitrite Urine Negative (Negative); PH 6.5 (5.0-8.0); Specific Gravity - Urine 1.025 (1.005-1.025); Urine Blood Negative (Negative); Urine Ketones Trace mg/dL (Negative); Urine Protein 30 (1+) mg/dL (Neg-Trace)
[2022-06-25 08:09] LABS: Bacteria Urine None Seen (None Seen); Hyaline Casts Urine 0-2 /LPF (0-2); RBC Urine 0-2 /HPF (0-2); Squamous Epithelial Cell Urine 0-2 /HPF (0-2); WBC Urine 0-5 /HPF (0-5)
[2022-06-25 08:11] LABS: Amphetamine Screen Urine Not Detected (Not Detect); Barbiturates, Urine POSITIVE (Not Detect); Benzodiazepines Screen Urine POSITIVE (Not Detect); Cannabinoid Screen Urine Not Detected (Not Detect); Cocaine Screen Urine Not Detected (Not Detect); Fentanyl, urine POSITIVE (Not Detect); Opiate Screen Urine Not Detected (Not Detect); Phencyclidine Screen Urine Not Detected (Not Detect)
[2022-06-25] MEDS: Multivitamin TABLET 1 TAB PO (08:37)
[2022-06-25] MEDS: Famotidine 20 MG TABLET PO ×2 (08:37→20:33)
[2022-06-25] MEDS: Thiamine HCL 100 MG TABLET PO (08:38)
[2022-06-25] MEDS: Folic Acid 1 MG TABLET PO (08:38)
[2022-06-25] MEDS: PHENobarbitaL 30 MG TABLET 60 MG PO ×2 (08:38→20:33)
[2022-06-25] MEDS: 0.9 % Sodium Chloride Flush 3 ML SYRINGE IVFLUSH ×2 (08:38→16:24)
[2022-06-25 08:44] LABS: Alanine Aminotransferase 57 U/L (0-40); Albumin Level 4.2 g/dL (3.5-5.0); Alkaline Phosphatase 92 U/L (39-117); Aspartate Amino Transferase 67 U/L (5-37); Bilirubin Direct 0.4 mg/dL (0.0-0.5); Bilirubin Total 1.1 mg/dL (0.0-1.0); Total Protein 6.7 g/dL (6.5-8.0)
--- NOTE | 2022-06-25 10:06 | MHC.CM.PN ---
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
--- NOTE | 2022-06-25 11:26 | P.PNIM_ITS ---
Subjective Subjective Date of Service: 06/25/22 Interval History: alcohol withdrawal , nausea/vomiting Review of Systems Nausea vomiting seems to be improving, still has tremor and anxious. Physical Exam Vital Signs: Vital Signs: Last Vital Signs Temp 98.4 F 06/25/22 07:20 Pulse 66 06/25/22 07:20 Resp 18 06/25/22 07:20 BP 153/91 H 06/25/22 07:20 Pulse Ox 98 06/25/22 07:20 O2 Del Method 06/25/22 07:20 BMI result Body Mass Index 31.6 Appearance: Alert.? Oriented X3.? cvs: [id number], [id number] , no murmur res: clear to auscultation ,no rhonchii or wheezing abd: no rebound or guarding ,nt, bs present. ext pulses present , no cyanosis ,Gait well balanced well coordinated. neuro: axo3 , nonfocal. Objective Data Active Medications Acetaminophen (Acetaminophen 325 Mg Tablet) 650 mg PO Q6H PRN PRN Reason: Pain, Mild (Pain Scale 1-3) Enoxaparin Sodium (Enoxaparin Sodium 40 Mg/0.4 Ml Syringe) 40 mg SUBCUT Q24H [facility] Last Admin: 06/25/22 01:03 Dose: 40 mg Documented By: CEASAR Famotidine (Famotidine 20 Mg Tablet) 20 mg PO BID [facility] Last Admin: 06/25/22 08:37 Dose: 20 mg Documented By: MORIAH Folic Acid (Folic Acid 1 Mg Tablet) 1 mg PO DAILY [facility] Stop: 06/28/22 08:59 Last Admin: 06/25/22 08:38 Dose: 1 mg Documented By: MORIAH Dextrose/Sodium Chloride (D51/2ns) 1,000 mls @ 100 mls/hr IVCONT .Q10H [facility] Last Admin: 06/25/22 01:00 Dose: 100 mls/hr Documented By: CEASAR Melatonin (Melatonin 3 Mg Tablet) 6 mg PO BEDTIME PRN PRN Reason: Insomnia Last Admin: 06/25/22 01:04 Dose: 6 mg Documented By: CEASAR Multivitamins/Vitamin C (Multivitamin Tablet) 1 tab PO DAILY [facility] Stop: 06/28/22 08:59 Last Admin: 06/25/22 08:37 Dose: 1 tab Documented By: MORIAH Pharmacy Consult (Consult Rx Etoh Phenob Po Only) 1 each MISCELLANE ONCE PRN; Protocol PRN Reason: Consult order Phenobarbital (Phenobarbital 30 Mg Tablet) 60 mg PO BID [facility]; Protocol Stop: 06/26/22 21:01 Last Admin: 06/25/22 08:38 Dose: 60 mg Documented By: MORIAH Phenobarbital (Phenobarbital 30 Mg Tablet) 30 mg PO BID [facility]; Protocol Stop: 06/28/22 21:01 Phenobarbital (Phenobarbital 30 Mg Tablet) 30 mg PO DAILY [facility]; Protocol Stop: 06/30/22 09:01 Senna (Sennosides 8.6 Mg Tablet) 17.2 mg PO BEDTIME PRN PRN Reason: Constipation Sodium Chloride (0.9 % Sodium Chloride Flush 3 Ml Syringe) 3 ml IVFLUSH QSHIFT [facility] Last Admin: 06/25/22 08:38 Dose: 3 ml Documented By: MORIAH Thiamine HCl (Thiamine Hcl 100 Mg Tablet) 100 mg PO DAILY [facility] Stop: 06/28/22 08:59 Last Admin: 06/25/22 08:38 Dose: 100 mg Documented By: MORIAH Labs CBC & Chem 7: 06/25/22 06:00 06/25/22 06:00 Labs: Laboratory Results - last 24 hr 06/24/22 06/24/22 06/24/22 20:22 20:22 20:22 MCV 85.6 MCH 29.0 MCHC 33.9 RDW 17.3 H Plt Count 131 L D MPV 8.7 L Immature Gran % (Auto) 0.4 Neut % (Auto) 84.9 H Lymph % (Auto) 5.9 L Cole % (Auto) 8.4 Eos % (Auto) 0.0 Baso % (Auto) 0.4 Lymph # (Auto) 0.3 L [place] # (Auto) 0.4 Eos # (Auto) 0.0 Baso # (Auto) 0.0 Abs Immat Gran (auto) 0.02 Absolute Neuts (auto) 3.9 Absolute Nucleated RBC 0.000 Nucleated RBC % (auto) 0.0 Anion Gap 21 H Estim Creat Clear Calc 128.4 Estimated GFR > 60 Random Glucose 157 H D Calcium 9.7 Magnesium 1.7 Total Bilirubin 1.1 H Direct Bilirubin 0.4 AST 92 H ALT 76 H Alkaline Phosphatase 116 Total Protein 8.3 H D Albumin 5.0 D Urine Color Urine Appearance Urine pH Ur Specific [place] Urine Protein Urine Glucose (UA) Urine Ketones Urine Blood Urine Nitrite Ur Leukocyte Esterase Urine RBC Urine WBC Ur Squamous Epith Cells Urine Bacteria Hyaline Casts Urine Opiates Screen Urine Fentanyl Screen Ur Barbiturates Screen Ur Phencyclidine Scrn Ur Amphetamines Screen U Benzodiazepines Scrn Urine Cocaine Screen U Marijuana (THC) Screen Ethyl Alcohol COVID-19 (CRUZ) Negative COVID-19 Clin Com See Note 06/24/22 06/25/22 06/25/22 20:22 06:00 06:00 MCV 86.5 MCH 28.9 MCHC 33.4 RDW 17.1 H Plt Count 106 L MPV 8.8 L Immature Gran % (Auto) 0.3 Neut % (Auto) 59.9 Lymph % (Auto) 17.3 L [place] % (Auto) 19.2 H Eos % (Auto) 2.3 Baso % (Auto) 1.0 Lymph # (Auto) 0.5 L [place] # (Auto) 0.6 Eos # (Auto) 0.1 Baso # (Auto) 0.0 Abs Immat Gran (auto) 0.01 Absolute Neuts (auto) 1.8 L Absolute Nucleated RBC 0.000 Nucleated RBC % (auto) 0.0 Anion Gap 13 Estim Creat Clear Calc 137.5 Estimated GFR > 60 Random Glucose 113 Calcium 8.7 D Magnesium Total Bilirubin 1.1 H Direct Bilirubin 0.4 AST 67 H ALT 57 H Alkaline Phosphatase 92 D Total Protein 6.7 Albumin 4.2 Urine Color Urine Appearance Urine pH Ur Specific [place] Urine Protein Urine Glucose (UA) Urine Ketones Urine Blood Urine Nitrite Ur Leukocyte Esterase Urine RBC Urine WBC Ur Squamous Epith Cells Urine Bacteria Hyaline Casts Urine Opiates Screen Urine Fentanyl Screen Ur Barbiturates Screen Ur Phencyclidine Scrn Ur Amphetamines Screen U Benzodiazepines Scrn Urine Cocaine Screen U Marijuana (THC) Screen Ethyl Alcohol < 10 COVID-19 (CRUZ) COVID-19 Clin Com 06/25/22 06/25/22 07:48 07:48 MCV MCH MCHC RDW Plt Count MPV Immature Gran % (Auto) Neut % (Auto) Lymph % (Auto) [place] % (Auto) Eos % (Auto) Baso % (Auto) Lymph # (Auto) [place] # (Auto) Eos # (Auto) Baso # (Auto) Abs Immat Gran (auto) Absolute Neuts (auto) Absolute Nucleated RBC Nucleated RBC % (auto) Anion Gap Estim Creat Clear Calc Estimated GFR Random Glucose Calcium Magnesium Total Bilirubin Direct Bilirubin AST ALT Alkaline Phosphatase Total Protein Albumin Urine Color Dark Yellow Urine Appearance Clear Urine pH 6.5 Ur Specific [place] 1.025 Urine Protein 30 (1+) H Urine Glucose (UA) Negative Urine Ketones Trace Urine Blood Negative Urine Nitrite Negative Ur Leukocyte Esterase Negative Urine RBC 0-2 Urine WBC 0-5 Ur Squamous Epith Cells 0-2 Urine Bacteria None Seen Hyaline Casts 0-2 Urine Opiates Screen Not Detected Urine Fentanyl Screen POSITIVE H Ur Barbiturates Screen POSITIVE H Ur Phencyclidine Scrn Not Detected Ur Amphetamines Screen Not Detected U Benzodiazepines Scrn POSITIVE H Urine Cocaine Screen Not Detected U Marijuana (THC) Screen Not Detected Ethyl Alcohol COVID-19 (CRUZ) COVID-19 Clin Com Assessment and Plan (1) Alcohol withdrawal: Status: Acute Plan 46-year-old male with a past medical history of? alcohol abuse, alcohol withdrawal seizures, obesity, GERD, anemia, peripheral neuropathy, history of elevated liver enzymes; presented to the hospital today with a chief complaint of nausea/ vomiting.? Patient reports that he has been drinking alcohol, had heavy drinking yesterday, this morning after he woke up he had nausea/ vomiting followed by abdominal discomfort. ? 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 Pepcid.? Supportive care.? Alcohol withdrawal:? Patient is started on phenobarb protocol.? Seizure precautions.? Thiamine folate and multivitamins.? curb worker follow-up in the morning.? ?mild transaminitis:? Patient has prior history of elevated liver enzymes.? Trend liver enzymes.? Likely in setting of alcohol use. History of? peripheral neuropathy:? Continue home gabapentin ? DVT prophylaxis: ? Lovenox inpatient need: alcohol withdrawal, gastritis Quality Stroke Does the patient have a stroke diagnosis?: No VTE Prior VTE?: No VTE Risk Level:: Medical - moderate - high VTE Device Contraindication: Treatment Not Indicated VTE Drug Contraindication: N/A - Med Ordered
--- NOTE | 2022-06-25 13:43 | PC.NURSE ---
PT MOVED TO OVERFLOW REPORT GIVEN
--- NOTE | 2022-06-25 16:30 | PC.NURSE ---
THIS WAREHOUSE CHECKER ASSUMED CARE OF THIS PT AT 1500. PT IN BED RESTING QUIETLY AT THE TIME OF ASSUMING CARE. FLUIDS PAUSED BY PREVIOUS NURSE D/T IV NOT FLUSHING. IV PATENT, FLUIDS RESUMED BY THIS RN. CIWA ASSESSMENT DONE NO SYMPTOMS PRESENT. PT DENIES PAIN, NO COMPLAINTS.
--- NOTE | 2022-06-25 20:34 | PC.NURSE ---
report obtained from cecilia- patient a&ox3, ambulated independently with steady gait to bathroom, ivf running per order, cardiac monitor technician intact, pt medicated per order, denies pain/discomfort, ciwa o, call lopez within reach, will continue to monitor
--- NOTE | 2022-06-25 21:03 | PC.NURSE ---
report given, pt to be transported to floor shortly
[2022-06-26] MEDS: Dextrose 5 % and 0.45 % NaCl 1,000 ML 100 ML IVCONT (03:22)
[2022-06-26 03:53] VITALS: BP 142/79; PULSE 60; RESP 17; TEMP 36.8; O2SAT 97
[2022-06-26 07:29] VITALS: BP 137/93; PULSE 80; RESP 20; TEMP 36.6; O2SAT 98
[2022-06-26] MEDS: Folic Acid 1 MG TABLET PO (09:29)
[2022-06-26] MEDS: Famotidine 20 MG TABLET PO (09:29)
[2022-06-26] MEDS: PHENobarbitaL 30 MG TABLET 60 MG PO (09:29)
[2022-06-26] MEDS: 0.9 % Sodium Chloride Flush 3 ML SYRINGE IVFLUSH (09:29)
[2022-06-26] MEDS: Multivitamin TABLET 1 TAB PO (09:29)
[2022-06-26] MEDS: Thiamine HCL 100 MG TABLET PO (09:29)
--- NOTE | 2022-06-26 11:21 | P.DS_ITS ---
DS: Providers Provider Date of Service: 06/26/22 Date of admission: 06/24/22 22:05 Primary care physician: Jamey Borrego PA-C Consults: 06/26/22 07:50 Consult to Care Team Routine Comment: Reason for consultation: alcohol abuse DS: Diagnosis Discharge Diagnosis (1) Alcohol withdrawal: Status: Acute DS: Summary Hospital Course Hospital Course: 46-year-old male with a past medical history of? alcohol abuse, alcohol withdrawal seizures, obesity, GERD, anemia, peripheral neuropathy, history of elevated liver enzymes; presented to the hospital today with a chief complaint of nausea/ vomiting.? Patient reports that he has been drinking alcohol, had heavy drinking yesterday, this morning after he woke up he had nausea/ vomiting followed by abdominal discomfort. ? Patient mentioned that he had been drinking alcohol, had heavy drinking yesterday, this morning he woke up and developed nausea/vomiting /abdominal discomfort.? Abdominal pain is diffuse in nature.? Denies any diarrhea.? Denies any blood in the vomitus.? Mentions he had multiple episodes of projectile vomiting whenever he tries to eat something.? Denies any chest pain or palpitations.? Mentions that he was also very tremulous.? Reports prior history of alcohol withdrawal seizures.? Denies any fever chills cough or sputum production. hospital course: alcohol withdrawal: Started patient on hydration, phenobarb protocol and currently patient seems to be improved-going home. Mild elevated liver function tests possibly related to alcohol use- improving,repeat liver function test outpatient with PCP in 1 week.Patient was strongly advised to abstain from alcohol. plan: Abstain from alcohol, monitor LFTs. If any new symptoms please call to nearest emergency room for further evaluation. Time Spent with Patient Time attestation: Total time spent providing and/or coordinating discharge services: Discharge coordination time: Greater than 30 minutes Quality: Safe Use of Opioids Does Pt have an Active Cancer Diagnosis on the Problem List?: No Quality: Stroke Does the patient have a stroke diagnosis?: No Physical Exam Vital Signs: Vital Signs: Last Vital Signs Temp 98 F 06/26/22 07:29 Pulse 80 06/26/22 07:29 Resp 20 06/26/22 07:29 BP 137/93 H 06/26/22 07:29 Pulse Ox 98 06/26/22 07:29 O2 Del Method 06/26/22 07:29 BMI result Body Mass Index 31.6 ? Appearance: Alert.? Oriented X3.? cvs: [id number], [id number] , no murmur res: clear to auscultation ,no rhonchii or wheezing abd: no rebound or guarding ,nt, bs present. ext pulses present , no cyanosis ,Gait well balanced well coordinated. neuro: axo3 , nonfocal. DS: Data Data Completed and Pending Completed studies during hospitalization [Text1]: Procedures Detoxification Services for Substance Abuse Treatment (06/30/21) Excision of Lower Esophagus, Via Natural or Artificial Opening Endoscopic, Diagnostic (10/07/20) Excision of Stomach, Pylorus, Via Natural or Artificial Opening Endoscopic, Diagnostic (10/07/20) Transfusion of Nonautologous Red Blood Cells into Peripheral Vein, Percutaneous Approach (10/07/20) Labs on day of discharge: 06/24/22 06/24/22 06/24/22 ? 20:22 20:22 20:22 MCV ?85.6 ? ? MCH ?29.0 ? ? MCHC ?33.9 ? ? RDW ?17.3 H ? ? Plt Count ?131 L D ? ? MPV ?8.7 L ? ? Immature Gran % (Auto) ?0.4 ? ? Neut % (Auto) ?84.9 H ? ? Lymph % (Auto) ?5.9 L ? ? [place] % (Auto) ?8.4 ? ? Eos % (Auto) ?0.0 ? ? Baso % (Auto) ?0.4 ? ? Lymph # (Auto) ?0.3 L ? ? [place] # (Auto) ?0.4 ? ? Eos # (Auto) ?0.0 ? ? Baso # (Auto) ?0.0 ? ? Abs Immat Gran (auto) ?0.02 ? ? Absolute Neuts (auto) ?3.9 ? ? Absolute Nucleated RBC ?0.000 ? ? Nucleated RBC % (auto) ?0.0 ? ? Anion Gap ? ?21 H ? Estim Creat Clear Calc ? ?128.4 ? Estimated GFR ? ?> 60 ? Random Glucose ? ?157 H D ? Calcium ? ?9.7 ? Magnesium ? ?1.7 ? Total Bilirubin ? ?1.1 H ? Direct Bilirubin ? ?0.4 ? AST ? ?92 H ? ALT ? ?76 H ? Alkaline Phosphatase ? ?116 ? Total Protein ? ?8.3 H D ? Albumin ? ?5.0? D ? Urine Color ? ? ? Urine Appearance ? ? ? Urine pH ? ? ? Ur Specific [place] ? ? ? Urine Protein ? ? ? Urine Glucose (UA) ? ? ? Urine Ketones ? ? ? Urine Blood ? ? ? Urine Nitrite ? ? ? Ur Leukocyte Esterase ? ? ? D Urine RBC ? ? ? Urine WBC ? ? ? Ur Squamous Epith Cells ? ? ? Urine Bacteria ? ? ? Hyaline Casts ? ? ? Urine Opiates Screen ? ? ? Urine Fentanyl Screen ? ? ? Ur Barbiturates Screen ? ? ? Ur Phencyclidine Scrn ? ? ? Ur Amphetamines Screen ? ? ? U Benzodiazepines Scrn ? ? ? Urine Cocaine Screen ? ? ? U Marijuana (THC) Screen ? ? ? Ethyl Alcohol ? ? ? COVID-19 ([facility]Z) ? ? ?Negative COVID-19 Clin Com ? ? ?See Note ? 06/24/22 06/25/22 06/25/22 ? 20:22 06:00 06:00 MCV ? ?86.5 ? MCH ? ?28.9 ? MCHC ? ?33.4 ? RDW ? ?17.1 H ? Plt Count ? ?106 L ? MPV ? ?8.8 L ? Immature Gran % (Auto) ? ?0.3 ? Neut % (Auto) ? ?59.9 ? Lymph % (Auto) ? ?17.3 L ? [place] % (Auto) ? ?19.2 H ? Eos % (Auto) ? ?2.3 ? Baso % (Auto) ? ?1.0 ? Lymph # (Auto) ? ?0.5 L ? [place] # (Auto) ? ?0.6 ? Eos # (Auto) ? ?0.1 ? Baso # (Auto) ? ?0.0 ? Abs Immat Gran (auto) ? ?0.01B ? Absolute Neuts (auto) ? ?1.8 L ? Absolute Nucleated RBC ? ?0.000 ? Nucleated RBC % (auto) ? ?0.0 ? Anion Gap ? ? ?13 Estim Creat Clear Calc ? ?B ?137.5 Estimated GFR ? ? ?> 60 Random Glucose ? ? ?113 Calcium ? ? ?8.7? D Magnesium ? ? ? Total Bilirubin ? ? ?1.1 H Direct Bilirubin ? ? ?0.4 AST ? ? ?67 H ALT ? ? ?57 H Alkaline Phosphatase ? ? ?92? D Total Protein ? ? ?6.7 Albumin ? ? ?4.2 Urine Color ? ? ? Urine Appearance ? ? ? Urine pH ? ? ? Ur Specific [place] ? ? ? Urine Protein ? ? ? Urine Glucose (UA) ? ? ? Urine Ketones ? ? ? Urine Blood ? ? ? Urine Nitrite ? ? ? Ur Leukocyte Esterase ? ? ? Urine RBC ? ? ? Urine WBC ? ? ? Ur Squamous Epith Cells ? ? ? Urine Bacteria ? ? ? Hyaline Casts ? ? ? Urine Opiates Screen ? ? ? Urine Fentanyl Screen ? ? ? Ur Barbiturates Screen ? ? ? Ur Phencyclidine Scrn ? ? ? Ur Amphetamines Screen ? ? ? U Benzodiazepines Scrn ? ? ? Urine Cocaine Screen ? ? ? U Marijuana (THC) Screen ? ? ? Ethyl Alcohol ?< 10 ?B ? COVID-19 (CRUZ) ? ? ? COVID-19 Clin Com ? 06/25/22 06/25/22 ? 07:48B 07:48 MCV ? ? MCH ? ? MCHC ? ? RDW ? ? Plt Count ?B ? MPV ? ? Immature Gran % (Auto) ? ? Neut % (Auto) ? ? Lymph % (Auto) ?B ? [place] % (Auto) ? ? Eos % (Auto) ? ? Baso % (Auto) ? ? Lymph # (Auto) ?B ? [place] # (Auto) ? ? Eos # (Auto) ? ? Baso # (Auto) ? ? Abs Immat Gran (auto) ? ? Absolute Neuts (auto) ? ? Absolute Nucleated RBC ? ? Nucleated RBC % (auto) ? ? Anion Gap ? ? Estim Creat Clear Calc ? ? Estimated GFR ? ? Random Glucose ? ? Calcium ? ? Magnesium ? ? Total Bilirubin ? ? Direct Bilirubin ? ? AST ? ? ALT ? ? Alkaline Phosphatase ? ? Total Protein ? ? Albumin ? ? Urine Color ?Dark Yellow ? Urine Appearance ?Clear ? Urine pH ?6.5 ? Ur Specific [place] ?1.025 ? Urine Protein ?30 (1+) H ? Urine Glucose (UA) ?Negative ? Urine Ketones ?Trace ? Urine Blood ?Negative ? Urine Nitrite ?Negative ? Ur Leukocyte Esterase ?Negative ? Urine RBC ?0-2 ? Urine WBC ?0-5 ? Ur Squamous Epith Cells ?0-2 ? Urine Bacteria ?None Seen ? Hyaline Casts ?0-2 ? Urine Opiates Screen ? ?Not Detected Urine Fentanyl Screen ? ?POSITIVE H Ur Barbiturates Screen ? ?POSITIVE H Ur Phencyclidine Scrn ? ?Not Detected Ur Amphetamines Screen ? ?Not Detected U Benzodiazepines Scrn ? ?POSITIVE H Urine Cocaine Screen ? ?Not Detected U Marijuana (THC) Screen ? ?Not Detected Ethyl Alcohol ? ? COVID-19 (CRUZ) ? ? COVID-19 Clin Com ? ? Additional Comments Additional comments: XR/XR chest 1V IMPRESSION: Unremarkable examination. Discharge Plan Discharge Patient Disposition: Home, Self-Care Discharge Diagnosis: Alcohol withdrawal Referrals: Jamey Borrego PA-C [Primary Care Provider] - 1 Week Discharge Medications: New thiamine mononitrate (vit B1) 100 mg Tablet 100 mg PO DAILY Qty: 30 0RF Continued omeprazole 20 mg capsule,delayed release(DR/EC) 20 mg PO DAILY Qty: 90 2RF gabapentin 300 mg capsule 300 mg PO BID 30 Days Qty: 60 3RF clonidine HCl 0.1 mg tablet 0.1 mg PO BID PRN (Reason: alcohol withdrawal) 14 Days Qty: 28 0RF Boostrix Tdap 2.5-8-5 Lf-mcg-Lf/0.5mL syringe 0.5 ml IM ONCE Qty: 0.5 0RF Discharge Orders: Discharge Order (Routine); Ordered 06/26/22 Ordered By: Zachariah Edwards Diet: Advance to usual diet Activity on Discharge: As tolerated Stand Alone Forms: Patient Portal Discharge page Care Plan Goals: alcohol withdrawal: Started patient on hydration, phenobarb protocol and currently patient seems to be improved-going home. Mild elevated liver function tests possibly related to alcohol use- imp roving,repeat liver function test outpatient with PCP in 1 week.Patient was strongly advised to abstain from alcohol. Health Concerns: As above. If any new symptoms Please go to the nearest emergency room for further evaluation.. Plan of Treatment: As above abstain from alcohol. Assessment: Patient seems to be improved. Advised to abstain from alcohol. Further management outpatient with PCP. Discharge Date/Time: 06/26/22 12:20
[2022-06-26 11:25] VITALS: BP 139/100; PULSE 86; RESP 20; TEMP 36.9; O2SAT 98
--- NOTE | 2022-06-26 11:49 | MHC.RECOVRN ---
Met with pt in 453 to discuss alcohol use. Pt sitting in bed, awake, alert, easily engages in conversation. Pt reports having been in recovery x 11 months with a recurrence a couple weeks ago. Pt reports intake has increased and is currently at one pint of vodka daily. Pt does not identify trigger for recurrence, states One day I just stopped at the liquor store. 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 Pt reports work and AA were instrumental in maintaining recovery. Pt plans to attend a meeting after dc today. Pt has received naltrexone and Vivitrol in the past, states The shot made me crazy, I don't want that again. Pt would like to speak with PCP regarding naltrexone PO. Pt also completed IOP with [facility] and found it quite helpful. Pt declines referrals at this time, denies questions and concerns. Provided with t/w card if needed. Plan for pt to return to work, attend AA, and speak with PCP regarding LARISSA.
--- NOTE | 2022-06-26 12:01 | MHC.CM.PN ---
pt dcd home no skilled servceis ordered by
== END 2022-06-26 12:20 | disposition home or self-care (01) | DRG 241 ==
LOC: HO.ED 21:12 → HO.EDOVER 22:16 → HO.IMC 06-25 20:08
PROVIDERS: Admitting Provider Hospitalist; Emergency Provider Emergency Medicine; PCP Physician Assistant; Visit Provider Internal Medicine
DX: K29.20 Alcoholic gastritis without bleeding (principal); E66.9 Obesity, unspecified; K21.9 Gastro-esophageal reflux disease without esophagitis; F10.239 Alcohol dependence with withdrawal, unspecified; G62.9 Polyneuropathy, unspecified; Z68.31 Body mass index [BMI] 31.0-31.9, adult; Z20.822 Contact with and (suspected) exposure to COVID-19; Y90.0 Blood alcohol level of less than 20 mg/100 ml; Z88.0 Allergy status to penicillin; Z79.899 Other long term (current) drug therapy
CPT/HCPCS: 36415; 80048; 80053; 80076; 80307; 81001; 81003; 82077; 82248; 83735; 85025; 87635; 96361; 96372; 96374; 96375; 99285; J1650; J2405; J2560; J3360

== ENCOUNTER 2022-11-12 00:02 | Emergency (ER) | payer OTHER, SELFPAY ==
--- NOTE | ~2022-11-12 | XR_ITS ---
EXAMINATION: XR FOOT, RIGHT CLINICAL INFORMATION: Right fourth nail injury. COMPARISON: None TECHNIQUE: AP, lateral, and oblique views of the right foot. FINDINGS: Diffuse soft tissue swelling. No unexpected radiopaque foreign bodies. No acute fractures or malalignment. There are no discrete erosive changes or cortical disruption to suspect osteomyelitis. 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 Small spur in the plantar surface of the calcaneus. XR/XR foot RT 2V IMPRESSION: 1. No acute fractures or malalignment. 2. No discrete erosive changes or cortical disruption to suspect osteomyelitis. However, early osteomyelitis can be radiographically occult, and if indicated correlation with an MR could be obtained. 3. No unexpected radiopaque foreign bodies.
[2022-11-12 00:04] VITALS: BP 148/73; PULSE 100; RESP 18; TEMP 36.4; O2SAT 97; BMI 30.8
--- NOTE | 2022-11-12 00:38 | PC.NURSE ---
this rn assumed care of pt @ 0020. pt ambulatory. pt reports to this rn and dr hunt was clipping toe nail and nail ripped off. at bedside for assessment at this time. pt resting comfortably on stretcher
--- NOTE | 2022-11-12 00:39 | ED.GENADULT ---
HPI - General Adult General Chief complaint: Wound/Laceration Stated complaint: toenail ripped off Time Seen by Provider: 11/12/22 00:30 Source: patient Mode of arrival: ambulatory Limitations: no limitations History of Present Illness HPI narrative: 47-year-old terrence non-diabetic came in for concern of right 4th toe infection, patient had loose right 4th nail toe that fell off early today and patient was concern of infection of the underlying tissue. No discharge, no swelling, no fever, no chills. Related Data Previous Rx's Medication Instructions Recorded gabapentin 300 mg capsule 300 mg PO BID 30 days #60 caps 05/02/22 thiamine mononitrate (vit B1) 100 100 mg PO DAILY #30 tabs 06/26/22 mg tablet clonidine HCl 0.1 mg tablet 0.1 mg PO BID PRN alcohol 10/18/22 withdrawal 14 days #28 tabs naltrexone 50 mg tablet 50 mg PO DAILY #30 tabs 10/18/22 omeprazole 20 mg capsule,delayed 20 mg PO DAILY #90 caps 10/22/22 release mupirocin 2 % topical ointment 1 appl topical TID #22 grams 11/12/22 (Centany) Allergies Allergy/AdvReac Type Severity Reaction Status Date / Time Penicillins [PENICILLINS] Allergy Intermediate RASH Verified 11/12/22 00:07 Review of Systems Review of Systems: All other systems are reviewed and are negative Constitutional: Reports as per HPI and Reports no additional constitutional complaints Eyes: Reports as per HPI and Reports no additional eye complaints Reports system reviewed and no additional complaints, except as documented Cardiovascular: Reports as per HPI and Reports no additional cardiovascular complaints Respiratory: Reports as per HPI and Reports no additional respiratory complaints Gastrointestinal: Reports as per HPI and Reports no additional gastrointestinal complaints Genitourinary: Reports no additional female genitourinary complaints Musculoskeletal: Reports no additional musculoskeletal complaints Skin/Breast: Reports system reviewed and no additional complaints, except as docu Psychiatric: Reports no additional psychiatric complaints Endocrine: Reports no additional endocrine complaints Hematologic/Lymphatic: Reports no additional hematologic/lymphatic complaints Allergic/Immunologic: Reports no additional allergic/immunologic complaints Reports system reviewed and no additional complaints, except as documented and Reports Abnormal speech present PMFSH Past Medical History Medical History Alcohol abuse with withdrawal Alcohol use disorder Alcohol withdrawal Alcoholic gastritis Anemia Elevated LFTs ETOH abuse GERD (gastroesophageal reflux disease) GI bleed HTN (hypertension) Leukopenia Peripheral neuropathy Thrombocytopenia Family History Family History Mother Mental health disorder Father Liver cirrhosis Social History Social History Household Members: Spouse and Children Household Members Other:: Jerica - - 2 children ages 8 and 15 Housing: House Do you presently have visiting nurse or other home services: No Alcohol intake: current Alcohol intake frequency: 3 or more drinks per day Alcohol type: hard liquor 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 Blood pressure normal. Heart rate normal. Respiration rate normal. Temperature normal. Oxygen saturation normal. Appearance: Alert. Oriented X3. No acute distress. Head: Normal external exam. Normocephalic. Atraumatic. No [place] signs noted. No raccoon eyes noted Eyes: PERRLA. EOMI. Conjunctiva and sclera normal. Eyelids normal. ENT: TM's Normal. Pharynx normal. Uvula midline. Moist mucous membranes. No trismus noted. No drooling noted. No muffled voice noted. Neck: Normal inspection. Neck supple. FROM. No adenopathy. Thyroid Normal. No meningeal signs. No neck mass noted. CVS: Normal heart rate and rhythm. Heart sound normal. No murmurs noted. Pulses normal throughout. Respiratory: No respiratory distress. Painless inspiration. Breath sounds normal. No wheezes/rales/rhonchi noted. Chest nontender. No accessory muscle usage noted or decreased air movement noted. Abdomen: Soft and nontender. Bowel sounds normal in all 4 quadrants. No distention noted. No organomegaly noted. No visible injury noted. Back: No CVA tenderness. Full range of motion noted. Skin: Skin warm and dry. Normal skin color. Normal skin turgor. No rashes/lesions/lacerations noted. Extremities: Missing right 4th toenail and underlying nail bed is dry and clean and intact. Neuro: Oriented X 3. Cranial nerve exam: II-XII are grossly intact No motor deficit. No sensory deficit. Reflexes normal. Course Course Course Narrative: Will start patient on antibiotic ointment to apply to the force toe and monitor for infection. Medical Decision Making Differential Diagnosis Differential Diagnoses: The differential diagnosis associated with the presentation includes (Osteomyelitis, paronychia, cellulitis.) Independent Interpretation I performed an independent interpretation of an: Plain X-Ray (Left foot: No acute infection.) Discharge Plan Discharge Clinical Impression: Nail avulsion of toe Patient Disposition: Home, Self-Care Instructions: Nail Avulsion (ED) Prescriptions: New mupirocin [Centany] 2 % ointment 1 appl topical TID Qty: 22 0RF Rx Instructions: Applied to the right force toe bed nail. No Action gabapentin 300 mg capsule 300 mg PO BID 30 Days Qty: 60 3RF clonidine HCl 0.1 mg tablet 0.1 mg PO BID PRN (Reason: alcohol withdrawal) 14 Days Qty: 28 0RF naltrexone 50 mg tablet 50 mg PO DAILY Qty: 30 1RF omeprazole 20 mg capsule,delayed release(DR/EC) 20 mg PO DAILY Qty: 90 2RF thiamine mononitrate (vit B1) 100 mg Tablet 100 mg PO DAILY Qty: 30 0RF Boostrix Tdap 2.5-8-5 Lf-mcg-Lf/0.5mL syringe 0.5 ml IM ONCE Qty: 0.5 0RF Referrals: Jamey Borrego PA-C [Primary Care Provider] -
[2022-11-12] MEDS: Bacitracin Oint 14 GM TUBE 1 APPL TOPICAL (01:14)
--- NOTE | 2022-11-12 01:23 | PC.NURSE ---
4th toe r foot wrapped. bacitracin utilized on toe. pt able to move toe and foot well. tolerated dressing well. pt ambulatory at time of discharge. pt provided with discharge packet. pt verbalized understanding of discharge plan pt reports0/10 pain at this time
== END 2022-11-12 01:25 | disposition home or self-care (01) ==
PROVIDERS: Emergency Provider Emergency Medicine; PCP Physician Assistant
DX: Z48.00 Encounter for change or removal of nonsurgical wound dressing (principal); S91.204D Unspecified open wound of right lesser toe(s) with damage to nail, subsequent encounter; X58.XXXD Exposure to other specified factors, subsequent encounter
CPT/HCPCS: 73620; 99283; 99284

== ENCOUNTER 2023-02-24 05:32 | Inpatient (IN) | payer OTHER, SELFPAY ==
[2023-02-24] VITALS (13 sets, daily range): BP systolic 132–181; BP diastolic 83–110; PULSE 78–116; RESP 17–19; TEMP 36.4–37.4; O2SAT 92–100; BMI 28.2
--- NOTE | ~2023-02-24 | CT_ITS ---
EXAMINATION: CT ABDOMEN AND PELVIS WITH CONTRAST CLINICAL INFORMATION: COMPARISON: Abdominal ultrasound dated 06/23/2019. TECHNIQUE: Multidetector volumetric images were obtained from the superior aspect of the liver through the pubic symphysis following administration 85 mL of Omnipaque 350 intravenous contrast. Sagittal and coronal reformatted images were obtained on the technologist's workstation. Oral contrast: No This CT examination was performed using dose optimization techniques as appropriate, variously including the following: *Automated exposure control *Adjustment of mA and/or kV according to patient size (this includes techniques or standardized protocols for targeted exams where dose is matched to indication/reason for exam; i.e. extremities or head) *Use of iterative reconstruction technique DLP: 664 mGy-cm FINDINGS: LUNG BASES: The visualized lung bases are unremarkable. LIVER, GALLBLADDER, AND BILIARY TREE: Diffuse decreased hepatic attenuation. A homogeneously enhancing focus measuring up to 1.3 cm is seen laterally in the right lobe with surrounding low attenuation (image 23, series 3; image 58, series 7). PANCREAS: Mild pancreatic fullness is seen without necrosis or pancreatic ductal dilatation. Mild to moderate peripancreatic drainage changes in fluid is seen. Dependent fluid is seen along the anterior renal fascia extending to the paracolic gutters bilaterally, left greater than right. SPLEEN: Unremarkable. ADRENAL GLANDS: Unremarkable. KIDNEYS AND URETERS: Nonobstructing intrarenal calculi are seen bilaterally. A medical office representative calculus on the left measures 0.3 cm (image 36, series 3). A medical office representative calculus in the right measures 0.3 cm as well (image 43, series 3). No hydroureteronephrosis. BLADDER: Unremarkable. GASTROINTESTINAL TRACT: The stomach, small bowel and appendix are unremarkable. The colon shows mild diverticulosis in the sigmoid colon. The rectum is unremarkable. ABDOMINAL WALL: No significant hernia is appreciated. LYMPH NODES: No lymphadenopathy. VASCULAR: Unremarkable. PELVIC VISCERA: Mild dependent free fluid. OSSEOUS STRUCTURES: L5-S1 moderate degenerative disc disease and minimal grade 1 retrolisthesis and mild bilateral neural foraminal narrowing. No acute/suspicious abnormality. CT/CT abdomen pelvis w IV con IMPRESSION: 1. Acute pancreatitis without evidence for necrosis or pancreatic dilatation. 2. Hepatic steatosis. A homogeneously enhancing focus in the right lobe is nonspecific, but demonstrates benign features and could represent a flash filling hemangioma or other benign entity. This correlates with previous ultrasound findings. This could be further characterized with nonemergent outpatient contrast-enhanced abdominal MRI. 3. Nonobstructing intrarenal calculi bilaterally. 4. Mild sigmoid diverticulosis without evidence for acute diverticulitis.
[2023-02-24 05:51] LABS: PLT CLUMP 1; Red Cell Distribution Width 14.9 % (11.0-16.0); SCAN SMEAR FLAG 1
[2023-02-24 05:53] LABS: Basophils Percent Auto 0.3 % (0-2); Eosinophils Percent Auto 0.3 % (0-4); Hemoglobin 14.1 g/dl (14.0-18.0); Imm Gran Abs Auto 0.02 X10*3/uL (0.00-0.03); Imm Gran Pct Auto 0.3 % (0.0-0.4); Lymphocytes Absolute Auto 0.3 X10*3/uL (1.2-4.9); Mean Corpuscular HGB Conc 35.3 g/dl (31.0-36.0); Mean Corpuscular Hemoglobin 32.7 pg (27.0-33.0); Mean Corpuscular Volume 92.8 fL (80.0-98.0); Mean Platelet Volume 8.3 fL (9.4-12.4); Monocytes Absolute Auto 0.8 X10*3/uL (0.1-1.2); Monocytes Percent Auto 12.5 % (2-11); Neutrophils Absolute Auto 5.4 x10*3/uL (2.0-8.3); Neutrophils Percent Auto 81.6 % (45-73); Red Blood Count 4.31 X10*6/uL (4.60-5.80)
[2023-02-24 05:54] LABS: MANUAL DIFF FLAG NO; Platelet Count 160 X10*3/uL (160-400); White Blood Count 6.5 X10*3/uL (4.8-10.8)
[2023-02-24 06:18] LABS: Alanine Aminotransferase 121 U/L (0-40); Albumin Level 4.6 g/dL (3.5-5.0); Alkaline Phosphatase 76 U/L (39-117); Anion Gap 20 (12-20); Aspartate Amino Transferase 175 U/L (5-37); Bilirubin Direct 0.7 mg/dL (0.0-0.5); Bilirubin Total 2.1 mg/dL (0.0-1.0); Blood Urea Nitrogen 8 mg/dL (9-16); Calcium 9.7 mg/dL (8.4-10.2); Carbon Dioxide 26 mmol/L (22-29); Chloride 97 mmol/L (96-108); Creatinine Clr Calc Pharmacy 126.7; Estimated Glomerular Filt Rate > 60; Glucose Random 152 mg/dL (60-115); Lipase 2497 U/L (8-78); Potassium 3.1 mmol/L (3.3-5.1); Sodium 140 mmol/L (135-145); Total Protein 7.3 g/dL (6.5-8.0)
[2023-02-24] MEDS: Ondansetron ODT 4 MG TAB.RAPDIS SUBLINGUAL (06:33)
[2023-02-24] MEDS: iohexoL 350 MG/ML 100 ML INFUS..BTL IV (07:18)
[2023-02-24] MEDS: ondansetron HCL 4 MG/2 ML VIAL IVPUSH (07:39)
[2023-02-24] MEDS: 0.9 % Sodium Chloride 1,000 ML 999 ML IV (07:39)
[2023-02-24] MEDS: Morphine Sulfate 2 MG/ML CARTRIDGE IVPUSH (07:41)
--- NOTE | 2023-02-24 08:05 | ED.ABDPAIN ---
HPI - Abdominal Pain General Chief Complaint: Abdominal Pain Stated Complaint: stomach/abd pain Time Seen by Provider: 02/24/23 06:48 Source: patient Mode of arrival: ambulatory Limitations: no limitations History of Present Illness HPI narrative: 47-year-old male with past medical history of GERD, HTN, and alcohol use disorder presents to the emergency department with complaints of severe abdominal pain starting on with associated nausea, vomiting, and diarrhea. He reports he has tried several [id number] medications including Pepto-Bismol and Tums with no relief of his symptoms. He reports generalized abdominal pain, 05/13. He reports he is a daily drinker with his last alcoholic beverage at 8:00 p.m. last night. He reports he drinks 5-6 vodka drinks per day and that he has been trying to wean his drinking down. He declines detox services at this time and states that he has been going to AA meetings, however; he reports he has not gone in some time. He denies any chest pain, shortness of breath, hematemesis, melena, hematochezia, paresthesias, weakness, headache, or vision changes. He also denies tremors, hallucinations, confusion. Pertinent positives and negatives discussed in HPI. MD elicited complaint: abdominal pain Pertinent past history: other (Alcohol use disorder) Pain Consistency: constant Location: diffuse Severity: severe Pain scale (0-10): 7 Quality: aching and sharp Radiation: none Migration to: no migration Related Data Home Medications Medication Instructions Recorded Confirmed cyanocobalamin (vitamin B-12) 6,000 mcg PO BID 02/24/23 02/24/23 3,000 mcg capsule multivitamin 1 tab PO DAILY 02/24/23 02/24/23 omeprazole 20 mg capsule,delayed 20 mg PO DAILY 02/24/23 02/24/23 release Allergies Allergy/AdvReac Type Severity Reaction Status Date / Time Penicillins [PENICILLINS] Allergy Intermediate RASH Verified 11/12/22 00:07 [facility] Past Medical History Attestation statement: The following information was validated with the patient. Medical History (Updated 02/24/23 @ 10:50 by Saul Mckeon DO) Alcohol abuse with withdrawal Alcohol use disorder Alcohol withdrawal Alcoholic gastritis Anemia Elevated LFTs ETOH abuse GERD (gastroesophageal reflux disease) GI bleed HTN (hypertension) Leukopenia Peripheral neuropathy Thrombocytopenia Family History Family History Mother Mental health disorder Father Liver cirrhosis Social History Social History Household Members: Spouse and Children Household Members Other:: Jerica - - 2 children ages 8 and 15 Housing: House Do you presently have visiting nurse or other home services: No Alcohol intake: current Alcohol intake frequency: 3 or more drinks per day Alcohol type: hard liquor Patient Tobacco Use Status: Never used Tobacco Tobacco use type: Cigarette Smoked in Last 30 Days: No e-Cigarette/Vaping Use: Never Used Use of substances other than those prescribed or required for medical reasons: No Any prior treatment program specific to substance use: No Advance Directives: Yes Advance Directives on File: Yes Advance Directives Date on File: 07/04/21 Nutrition Risks: Acute nausea or vomiting x1 week service: No Current occupational status: 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 GENERAL APPEARANCE: A&0 x 4, generally well appearing, no acute distress HENMT: Normal to inspection, atraumatic, face symmetrical. Normal external ears, nose, and oropharynx clear. EYE: PERRLA, EOM intact, structures appear normal NECK: Supple without lymphadenopathy. No stiffness or restricted ROM. CHEST: Normal to inspection HEART: Normal rate and regular rhythm, normal S1/S2, no M/R/G LUNGS: LS CTA, moving air well. Able to speak in complete sentences. No crackles, wheezes, or rhonchi auscultated ABDOMEN: Soft, nondistended. Generalized tenderness with palpation Normal bowel sounds noted BACK: No CVAT, no obvious deformity EXTREMITIES: Moving all extremities without difficulty. No cyanosis, clubbing, or edema. Normal capillary refill. NEUROLOGICAL: Alert and oriented, moving all 4 extremities with equal strength. CN not formally tested but appearing grossly intact. Observed to ambulate with normal gait. Cognition normal SKIN: Warm and dry without any lesions, rash, or visible sores PSYCH: Cooperative, normal affect, normal thought process Medical Decision Making Medical Decision Making MDM Narrative: 0645: Old records reviewed for previous imaging, lab studies, ECGs, or notes. Patient was assessed the emergency department. No acute distress or toxicity noted although he does appear uncomfortable. Patient is A&O x4, LS CTA, WESLEY x4 with good strength. Based on HPI and PE plan for CT abdomen pelvis with IV contrast to assess for acute intra-abdominal processes as cause of patient's pain, 1 L IV fluid bolus, Zofran for treatment of nausea, and 2 mg IVP morphine for pain control. Blood work completed prior to patient assessment. Hematology unremarkable showing no leukocytosis or thrombocytopenia. Slight anemia noted with stable hemoglobin. LFT showing elevated total and direct bilirubin, AST, ALT and elevated lipase greater than 2400. 0805: On reassessment patient continuing with 10/10 pain. IV Dilaudid ordered and an additional 1 L IV fluid bolus ordered for management of acute pancreatitis. CT abdomen pelvis completed. I have independently interpreted this CT showing acute pancreatitis, hepatic steatosis, nonobstructing intrarenal calculi bilaterally, and mild sigmoid diverticulosis without diverticulitis. I discussed the diagnostic results with the patient and need for potential admission for IV hydration and pain management to treat acute pancreatitis. Patient is in agreement with plan. 0845: CIWA scale ordered as patient has an alcohol use disorder to assess for acute DTs. At this time pt denies nausea, vomiting, hallucinations, or confusion related to alcohol withdrawal. No tremors noted during assessment. 0945: Despite receiving pain medication, patient continues to have elevated blood pressures of 170-190s/100-110s. 2 mg IVP metoprolol ordered. 1005: On reassessment blood pressure 170 over 100. On reassessment patient continue with 10/10 pain. Additional IV Dilaudid ordered for management of discomfort. Dr. Mckeon, hospitalist, in to assess patient. Plan for admission for treatment of acute pancreatitis. Lab Data 02/24/23 05:48 04/23/23 05:48 Labs: Lab Results 02/24/23 02/24/23 02/24/23 Range/Units 05:48 05:48 08:59 WBC 6.5 (4.8-10.8) X10*3/uL RBC 4.31 L (4.60-5.80) X10*6/uL Hgb 14.1 (14.0-18.0) g/dl Hct 40.0 L (42.0-52.0) % MCV 92.8 (80.0-98.0) fL MCH 32.7 (27.0-33.0) pg MCHC 35.3 (31.0-36.0) g/dl RDW 14.9 (11.0-16.0) % Plt Count 160 D (160-400) X10*3/uL MPV 8.3 L (9.4-12.4) fL Immature Gran % (Auto) 0.3 (0.0-0.4) % Neut % (Auto) 81.6 H (45-73) % Lymph % (Auto) 5.0 L (20-40) % [place] % (Auto) 12.5 H (2-11) % Eos % (Auto) 0.3 (0-4) % Baso % (Auto) 0.3 (0-2) % Lymph # (Auto) 0.3 L (1.2-4.9) X10*3/uL [place] # (Auto) 0.8 (0.1-1.2) X10*3/uL Eos # (Auto) 0.0 (0.0-0.4) X10*3/uL Baso # (Auto) 0.0 (0.0-0.2) X10*3/uL Abs Immat Gran (auto) 0.02 (0.00-0.03) X10*3/uL Absolute Neuts (auto) 5.4 (2.0-8.3) x10*3/uL Absolute Nucleated RBC 0.000 (0.0-0.012) X10*3/uL Nucleated RBC % (auto) 0.0 (0.0-0.2) /100WBC Sodium 140 (135-145) mmol/L Potassium 3.1 L (3.3-5.1) mmol/L Chloride 97 (96-108) mmol/L Carbon Dioxide 26 (22-29) mmol/L Anion Gap 20 (12-20) BUN 8 L (9-16) mg/dL Creatinine 0.89 (0.5-1.4) mg/dL Estim Creat Clear Calc 126.7 Estimated GFR > 60 Random Glucose 152 H (60-115) mg/dL Calcium 9.7 D (8.4-10.2) mg/dL Total Bilirubin 2.1 H (0.0-1.0) mg/dL Direct Bilirubin 0.7 H (0.0-0.5) mg/dL AST 175 H (5-37) U/L ALT 121 H (0-40) U/L Alkaline Phosphatase 76 (39-117) U/L Total Protein 7.3 (6.5-8.0) g/dL Albumin 4.6 (3.5-5.0) g/dL Lipase 2497 H (8-78) U/L Urine Color Yellow Urine Appearance Clear Urine pH 7.0 (5.0-9.0) Ur Specific [place] >= 1.030 H (1.005-1.025) Urine Protein 30 (1+) H (Neg-Trace) mg/dL Urine Glucose (UA) Negative (Negative) mg/dL Urine Ketones 40 (Negative) mg/dL Urine Blood Negative (Negative) Urine Nitrite Negative (Negative) Ur Leukocyte Esterase Negative (Negative) Urine RBC 0-2 (0-2) /HPF Urine WBC 0-5 (0-5) /HPF Ur Squamous Epith Cells 0-2 (0-2) /HPF Urine Bacteria None Seen (None Seen) Hyaline Casts 0-2 (0-2) /LPF Medications Administered Generic Name Dose Route Start Last Admin Trade Name Freq PRN Reason Stop Dose Admin Enoxaparin Sodium 40 mg 02/24/23 11:00 02/24/23 11:44 Enoxaparin Sodium 40 Mg/0.4 Ml Syringe SUBCUT 40 mg Q24H LYDIA Administration Lactated Ringer's 1,000 mls @ 150 mls/hr 02/24/23 10:45 02/24/23 11:41 Lr IVCONT 150 mls/hr .[id number] LYDIA Administration Discontinued Medications Generic Name Dose Route Start Last Admin Trade Name Freq PRN Reason Stop Dose Admin Hydromorphone HCl 0.5 mg 02/24/23 08:10 02/24/23 08:40 Hydromorphone Hcl 0.5 Mg/0.5 Ml Syringe IVPUSH 02/24/23 08:11 0.5 mg ONCE ONE Administration Protocol Hydromorphone HCl 1 mg 02/24/23 10:01 02/24/23 10:08 Hydromorphone Hcl 1 Mg/Ml Syringe IVPUSH 02/24/23 10:02 1 mg ONCE ONE Administration Protocol Sodium Chloride 1,000 mls @ 999 mls/hr 02/24/23 07:00 02/24/23 08:41 Ns IV 02/24/23 08:00 Infused .Q1H1M LYDIA Infusion Lactated Ringer's 1,000 mls @ 999 mls/hr 02/24/23 08:15 02/24/23 09:49 Lr IV 02/24/23 09:15 Infused .Q1H1M LYDIA Infusion Iohexol 100 ml 02/24/23 07:18 02/24/23 07:18 Iohexol 350 Mg/Ml 100 Ml Infus..Btl IV 02/24/23 07:19 85 ml ONCE ONE Administration Metoprolol Tartrate 2 mg 02/24/23 09:42 02/24/23 10:03 Metoprolol Tartrate 5 Mg/5 Ml Vial IVPUSH 02/24/23 09:43 2 mg ONCE ONE Administration Morphine Sulfate 2 mg 02/24/23 07:02 02/24/23 07:41 Morphine Sulfate 2 Mg/Ml Cartridge IVPUSH 02/24/23 07:03 2 mg ONCE ONE Administration Protocol Ondansetron HCl 4 mg 02/24/23 06:25 02/24/23 06:33 Ondansetron Odt 4 Mg Tab.Rapdis SUBLINGUAL 02/24/23 06:26 4 mg ONCE ONE Administration Ondansetron HCl 4 mg 02/24/23 07:02 02/24/23 07:39 Ondansetron Hcl 4 Mg/2 Ml Vial IVPUSH 02/24/23 07:03 4 mg ONCE ONE Administration Phenobarbital Sodium 330 mg 02/24/23 11:00 02/24/23 11:42 Phenobarbital Sodium 130 Mg/Ml Im Once IM 04/23/23 11:01 330 mg ONCE ONE Administration Discharge Plan Discharge Clinical Impression: Acute pancreatitis, Alcoholic fatty liver, Diverticulosis, Abdominal pain Patient Disposition: Admitted As Inpatient
[2023-02-24] MEDS: Lactated Ringers 1,000 ML 999 ML IV (08:40)
[2023-02-24] MEDS: HYDROmorphone HCl 0.5 MG/0.5 ML SYRINGE IVPUSH (08:40)
[2023-02-24 09:05] LABS: Appearance Urine Clear; Color Urine Yellow; Glucose Urine UA Negative (Negative); Leukocyte Esterase Urine Negative (Negative); Nitrite Urine Negative (Negative); Specific Gravity - Urine >= 1.030 (1.005-1.025); UMIC TRIGGER UACC YES; Urine Blood Negative (Negative); Urine Ketones 40 mg/dL (Negative); Urine Protein 30 (1+) mg/dL (Neg-Trace)
[2023-02-24 09:07] LABS: Bacteria Urine None Seen (None Seen); Hyaline Casts Urine 0-2 /LPF (0-2); RBC Urine 0-2 /HPF (0-2); Squamous Epithelial Cell Urine 0-2 /HPF (0-2); WBC Urine 0-5 /HPF (0-5)
--- NOTE | 2023-02-24 09:09 | PC.NURSE ---
Preliminary med rec completed.
[2023-02-24] MEDS: Metoprolol Tartrate 5 MG/5 ML VIAL 2 MG IVPUSH (10:03)
[2023-02-24] MEDS: HYDROmorphone HCl 1 MG/ML SYRINGE IVPUSH ×5 (10:08→20:29)
--- NOTE | 2023-02-24 10:46 | PM.IMHP ---
History of Present Illness Date of Service: 02/24/23 Chief Complaint: Abd pain 47-year-old male with past medical history of GERD, HTN, and alcohol use disorder presents to the emergency department with complaints of severe abdominal pain starting on with associated nausea, vomiting, and diarrhea.? He reports he has tried several [id number]-[id number] medications including Pepto-Bismol and Tums with no relief of his symptoms.? He reports generalized abdominal pain, 05/13.? He reports he is a daily drinker with his last alcoholic beverage at 8:00 p.m. last night.? He reports he drinks 5-6 vodka drinks per day and that he has been trying to wean his drinking down.? He denies any chest pain, shortness of breath, hematemesis, melena, hematochezia, paresthesias, weakness, headache, or vision changes.? He also denies tremors, hallucinations, confusion.? CT scan in the ER demonstrates acute pancreatitis without evidence for necrosis or pancreatic dilation. Patient will be admitted for treatment of same Review of Systems Review of Systems: Denies chest pain Denies shortness of breath Denies nausea vomiting diarrhea Denies fever chills Admits to diffuse upper abdominal pain worse with deep breath and movement PMFSH Medical History (Updated 02/24/23 @ 10:50 by Saul Mckeon DO) Alcohol abuse with withdrawal Alcohol use disorder Alcohol withdrawal Alcoholic gastritis Anemia Elevated LFTs ETOH abuse GERD (gastroesophageal reflux disease) GI bleed HTN (hypertension) Leukopenia Peripheral neuropathy Thrombocytopenia Family History Mother Mental health disorder Father Liver cirrhosis Social History Household Members: Spouse and Children Household Members Other:: Jerica - - 2 children ages 8 and 15 Housing: House Do you presently have visiting nurse or other home services: No Alcohol intake: current Alcohol intake frequency: 3 or more drinks per day Alcohol type: hard liquor Patient Tobacco Use Status: Never used Tobacco Tobacco use type: Cigarette Smoked in Last 30 Days: No e-Cigarette/Vaping Use: Never Used Use of substances other than those prescribed or required for medical reasons: No Any prior treatment program specific to substance use: No Advance Directives: Yes Advance Directives on File: Yes Advance Directives Date on File: 07/04/21 service: No Current occupational status: 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 Sexual orientation: Straight/Heterosexual Meds Allergies Allergy/AdvReac Type Severity Reaction Status Date / Time Penicillins [PENICILLINS] Allergy Intermediate RASH Verified 11/12/22 00:07 Active Medications: Current Medications Acetaminophen (Acetaminophen 325 Mg Tablet) 650 mg PO Q6H PRN PRN Reason: Pain, Mild (Pain Scale 1-3) Enoxaparin Sodium (Enoxaparin Sodium 40 Mg/0.4 Ml Syringe) 40 mg SUBCUT Q24H [facility] Hydromorphone HCl (Hydromorphone Hcl 1 Mg/Ml Syringe) 1 mg IVPUSH Q4H PRN; Protocol PRN Reason: Pain, Severe (Pain Scale 7-10) Lactated Ringer's (Lr) 1,000 mls @ 150 mls/hr IVCONT .Q6H40M [facility] Ondansetron HCl (Ondansetron Hcl 4 Mg/2 Ml Vial) 4 mg IVPUSH Q8H PRN PRN Reason: Nausea and Vomiting Pantoprazole Sodium (Pantoprazole Sodium 40 Mg/10 Ml Vial) 40 mg IVPUSH BID@0630,1630 [facility] Pharmacy Consult (Consult Rx Etoh Phenob Im/Po) 1 each MISCELLANE ONCE PRN; Protocol PRN Reason: Consult order Sodium Chloride (0.9 % Sodium Chloride Flush 3 Ml Syringe) 3 ml IVFLUSH QSHIFT [facility] Home Medications Medication Instructions Recorded Confirmed Last Taken Type omeprazole 20 mg capsule,delayed 20 mg PO DAILY 02/24/23 02/24/23 1 Day Ago History release ~02/23/23 Physical Exam Vital Signs and Narrative: Vital Signs: Last Vital Signs Temp 99.4 F 02/24/23 09:13 Pulse 92 02/24/23 10:00 Resp 18 02/24/23 10:00 BP 174/107 H 02/24/23 10:00 Pulse Ox 95 02/24/23 10:00 O2 Del Method Room Air 02/24/23 10:00 BMI result Body Mass Index 28.2 Const: Other: Awake alert uncomfortable appearing in bed Resp: Other: Clear to auscultation bilaterally no rales rhonchi or wheezes Cardio: Other: No S4; positive S1-S2; no S3 murmurs rubs or gallops GI: Other: Tender to minimal palpation across epigastrium bowel sounds quiet Neuro: Other: Cranial nerves 2-12 grossly intact as tested. Motor is 5/5 all extremities. Sensation is intact. Cognition appropriate Extrem: Other: No edema bilaterally Results Labs 02/24/23 05:48 02/24/23 05:48 Labs: Laboratory Results - last 24 hr 02/24/23 02/24/23 02/24/23 05:48 05:48 08:59 MCV 92.8 MCH 32.7 MCHC 35.3 RDW 14.9 Plt Count 160 D MPV 8.3 L Immature Gran % (Auto) 0.3 Neut % (Auto) 81.6 H Lymph % (Auto) 5.0 L [place] % (Auto) 12.5 H Eos % (Auto) 0.3 Baso % (Auto) 0.3 Lymph # (Auto) 0.3 L [place] # (Auto) 0.8 Eos # (Auto) 0.0 Baso # (Auto) 0.0 Abs Immat Gran (auto) 0.02 Absolute Neuts (auto) 5.4 Absolute Nucleated RBC 0.000 Nucleated RBC % (auto) 0.0 Anion Gap 20 Estim Creat Clear Calc 126.7 Estimated GFR > 60 Random Glucose 152 H Calcium 9.7 D Total Bilirubin 2.1 H Direct Bilirubin 0.7 H AST 175 H ALT 121 H Alkaline Phosphatase 76 Total Protein 7.3 Albumin 4.6 Lipase 2497 H Urine Color Yellow Urine Appearance Clear Urine pH 7.0 Ur Specific [place] >= 1.030 H Urine Protein 30 (1+) H Urine Glucose (UA) Negative Urine Ketones 40 Urine Blood Negative Urine Nitrite Negative Ur Leukocyte Esterase Negative Urine RBC 0-2 Urine WBC 0-5 Ur Squamous Epith Cells 0-2 Urine Bacteria None Seen Hyaline Casts 0-2 Imaging Radiologist's Impressions: Impressions Abdomen/Pelvis CT 02/24/23 07:16 IMPRESSION: 1. Acute pancreatitis without evidence for necrosis or pancreatic dilatation. 2. Hepatic steatosis. A homogeneously enhancing focus in the right lobe is nonspecific, but demonstrates benign features and could represent a flash filling hemangioma or other benign entity. This correlates with previous ultrasound findings. This could be further characterized with nonemergent outpatient contrast-enhanced abdominal MRI. 3. Nonobstructing intrarenal calculi bilaterally. 4. Mild sigmoid diverticulosis without evidence for acute diverticulitis. Assessment and Plan (1) Acute pancreatitis: Status: Acute (2) Alcohol use disorder: Status: Acute (3) GERD (gastroesophageal reflux disease): Status: Acute Plan 47-year-old male with history of alcohol abuse presents with approximately 24 hours of severe midepigastric pain. States he has been sober 10 months up until early January 21 started drinking again. States he drinks at least 10 oz of vodka a night. Last drink 02/23 2200 1. Acute pancreatitis -NPO -IV pantoprazole q.12 hours -lactated Ringer's at 150/hour -Dilaudid for pain 2. Alcohol use disorder -initiate phenobarb protocol -CIWA scale 3. GERD -IV pantoprazole -switch to oral PPI when appropriate Full code Lovenox Patient will require at least 2 midnights inpatient stay to treat pancreatitis with NPO status and IV fluids and pain medicine. This cannot be achieved and a lesser acute setting Time Spent With Patient Time: Total time managing care of this patient today ____ minutes. Quality Stroke Does the patient have a stroke diagnosis?: No VTE Prior VTE?: No VTE Risk Level:: Medical - moderate - high VTE Device Contraindication: Treatment Not Indicated VTE Drug Contraindication: N/A - Med Ordered
--- NOTE | 2023-02-24 11:20 | PC.NURSE ---
Attempted to give RN to RN report, nurse not available.
--- NOTE | 2023-02-24 11:40 | PHA.MEDREC ---
Addendum entered by Judit Schaffer RPh 02/24/23 12:01: [facility] REVIEWED MED REC Original Note: Pharmacy Consult ? Medication Reconciliation Pharmacy has completed the medication reconciliation. Patient tells me that they take vitamin b12 3000mcg 2 tablets twice daily.
[2023-02-24] MEDS: Lactated Ringers 1,000 ML 150 ML IVCONT ×2 (11:41→19:33)
[2023-02-24] MEDS: PHENobarbitaL sodium 130 MG/ML IM ONCE 330 MG IM (11:42)
[2023-02-24] MEDS: Enoxaparin Sodium 40 MG/0.4 ML SYRINGE SUBCUT (11:44)
--- NOTE | 2023-02-24 11:54 | PC.NURSE ---
assumed care of pt at 1100. pt a&ox4, hypertensive, other vss, CIWA = 6, pt continues to report 10/10 pain, provider notified. medicated per JAN, LR running at 150ml/hr. transport notified to bring pt to room assignment.
--- NOTE | 2023-02-24 12:14 | PC.NURSE ---
RN to RN report given to S3 RN.
[2023-02-24] MEDS: Potassium Chloride/H20 10 MEQ/100 ML PIGGYBACK 100 MEQ IV ×4 (13:28→16:56)
[2023-02-24] MEDS: PHENobarbitaL sodium 130 MG/ML VIAL IM Q3Hx2 247 MG IM ×2 (14:13→17:28)
--- NOTE | 2023-02-24 15:47 | PC.NURSE ---
Patient arrived to room 352 from ED @ 1230. BP 181/109. HR 103. Reports 10/10 pain to upper abdomen. Medicated with prn dilaudid with no effect. 1x 1mg dilaudid ordered by Dr. Mckeon. Dilaudid and phenobarbital given per protocol at 1415. Will reasses BP and pain per protocol. K 3.1. IV K 10meq ordered.
[2023-02-24] MEDS: Pantoprazole Sodium 40 MG/10 ML VIAL IVPUSH (15:48)
--- NOTE | 2023-02-24 16:45 | PC.NURSE ---
Patient vomited 200 ml of liquid,denies need for nausea med
--- NOTE | 2023-02-24 17:11 | PC.NURSE ---
Sat 92 % on RA but when patient fall asleep sat went down to 88-89,Dr. Mckeon notified.
--- NOTE | 2023-02-24 19:46 | PC.NURSE ---
BP 170/109 pulse 110 ,patient c/o #10 abdominal pain,Dr. Pedro notified,awaiting new orders
[2023-02-25] MEDS: HYDROmorphone HCl 1 MG/ML SYRINGE IVPUSH ×5 (00:26→21:11)
[2023-02-25 02:47] VITALS: BP 148/96; PULSE 100; RESP 16; TEMP 36.3; O2SAT 97
[2023-02-25] MEDS: Pantoprazole Sodium 40 MG/10 ML VIAL IVPUSH ×2 (05:31→15:52)
[2023-02-25] MEDS: Lactated Ringers 1,000 ML 150 ML IVCONT (05:31)
[2023-02-25 06:38] LABS: MANUAL DIFF FLAG NO
[2023-02-25 06:50] LABS: Basophils Percent Auto 0.1 % (0-2); Hematocrit 41.1 % (42.0-52.0); Hemoglobin 14.1 g/dl (14.0-18.0); Imm Gran Abs Auto 0.03 X10*3/uL (0.00-0.03); Imm Gran Pct Auto 0.4 % (0.0-0.4); Lymphocytes Absolute Auto 0.2 X10*3/uL (1.2-4.9); Lymphocytes Percent Auto 2.6 % (20-40); Mean Corpuscular HGB Conc 34.3 g/dl (31.0-36.0); Mean Corpuscular Hemoglobin 32.4 pg (27.0-33.0); Mean Corpuscular Volume 94.5 fL (80.0-98.0); Mean Platelet Volume 9.5 fL (9.4-12.4); Monocytes Percent Auto 12.7 % (2-11); Neutrophils Absolute Auto 6.5 x10*3/uL (2.0-8.3); Neutrophils Percent Auto 84.2 % (45-73); Platelet Count 113 X10*3/uL (160-400); Red Blood Count 4.35 X10*6/uL (4.60-5.80); Red Cell Distribution Width 15.3 % (11.0-16.0); White Blood Count 7.7 X10*3/uL (4.8-10.8)
[2023-02-25 07:17] LABS: Alanine Aminotransferase 75 U/L (0-40); Albumin Level 3.8 g/dL (3.5-5.0); Alkaline Phosphatase 59 U/L (39-117); Anion Gap 12 (12-20); Aspartate Amino Transferase 88 U/L (5-37); Bilirubin Total 2.7 mg/dL (0.0-1.0); Blood Urea Nitrogen 8 mg/dL (9-16); Calcium 8.5 mg/dL (8.4-10.2); Carbon Dioxide 32 mmol/L (22-29); Chloride 97 mmol/L (96-108); Creatinine Clr Calc Pharmacy 156.6; Estimated Glomerular Filt Rate > 60; Glucose Fasting 105 mg/dL (60-99); Potassium 3.4 mmol/L (3.3-5.1); Sodium 138 mmol/L (135-145); Total Protein 6.1 g/dL (6.5-8.0)
[2023-02-25 07:25] VITALS: BP 129/84; PULSE 144; RESP 20; TEMP 36.7; O2SAT 91
[2023-02-25] MEDS: PHENobarbitaL 30 MG TABLET 60 MG PO ×2 (07:43→21:12)
[2023-02-25 08:20] LABS: Magnesium 1.2 mg/dL (1.6-2.6)
[2023-02-25] MEDS: Magnesium Sulfate/H2O 2 GM/50 ML PIGGYBACK IV ×2 (08:30→14:12)
[2023-02-25] MEDS: Enoxaparin Sodium 40 MG/0.4 ML SYRINGE SUBCUT (10:18)
--- NOTE | 2023-02-25 11:08 | MHC.CM.PN ---
pt lives with and children is independent ,covid david x2 has own ride home plan home no servceis
--- NOTE | 2023-02-25 11:29 | MHC.CLN ---
NUTRITION CONSULT FOR POOR PO. PATIENT WITH ALCOHOLIC PANCREATITIS. DIET ADVANCED TO CLEAR LIQUIDS. RD TO FOLLOW UP FOR DIET ADVANCEMENT AND INTAKE.
[2023-02-25] MEDS: KCl 20 mEq in 5 % Dex/Lact Rin 20 MEQ/1,000 ML IV.SOLN 150 MEQ IVCONT ×2 (11:43→21:12)
--- NOTE | 2023-02-25 13:46 | P.PNIM_ITS ---
Subjective Subjective Date of Service: 02/25/23 Interval History: Complaining of lower abdominal discomfort worse with moving, less epigastric discomfort taking ice chips with no worsening symptoms denies fever chills, no shaking no tremors, no acute issues overnight. No further bout of nausea vomiting or diarrhea. Review of Systems Review of Systems: Yes all other systems are reviewed and are negative Physical Exam Vital Signs: Vital Signs: Last Vital Signs Temp 98.0 F 02/25/23 07:25 Pulse 144 H 02/25/23 07:25 Resp 20 02/25/23 07:25 BP 129/84 02/25/23 07:25 Pulse Ox 91 L 02/25/23 07:25 O2 Del Method Nasal Cannula 02/25/23 07:25 O2 Flow Rate 1 02/25/23 07:25 BMI result Body Mass Index 28.2 Const: Other: General awake alert, in no acute distress. Neck is supple no JVD. CVS regular rate rhythm, Respiratory lungs clear to auscultation, no respiratory distress, no wheeze, no rhonchi. Gastrointestinal abdomen soft, bilateral lower abdominal discomfort with deep palpation, no guarding, no rigidity bowel sounds audible Extremities no edema. Neuro nonfocal, no tremors Skin no rash Psych appropriate affect Objective Data Active Medications Acetaminophen (Acetaminophen 325 Mg Tablet) 650 mg PO Q6H PRN PRN Reason: Pain, Mild (Pain Scale 1-3) Enoxaparin Sodium (Enoxaparin Sodium 40 Mg/0.4 Ml Syringe) 40 mg SUBCUT Q24H [facility] Last Admin: 02/25/23 10:18 Dose: 40 mg Documented By: TORO Hydromorphone HCl (Hydromorphone Hcl 1 Mg/Ml Syringe) 1 mg IVPUSH Q3H PRN; Protocol PRN Reason: Pain, Severe (Pain Scale 7-10) Last Admin: 02/25/23 11:54 Dose: 1 mg Documented By: TORO Potassium Cl/Dextrose/Lact Ringer's (Kcl 20 Meq In 5 % Dex/Lact Rin) 20 meq in 1,000 mls @ 150 mls/hr IVCONT .Q6H40M [facility] Last Admin: 02/25/23 11:43 Dose: 150 mls/hr Documented By: TORO Ondansetron HCl (Ondansetron Hcl 4 Mg/2 Ml Vial) 4 mg IVPUSH Q8H PRN PRN Reason: Nausea and Vomiting Pantoprazole Sodium (Pantoprazole Sodium 40 Mg/10 Ml Vial) 40 mg IVPUSH BID@0630,1630 [facility] Last Admin: 02/25/23 05:31 Dose: 40 mg Documented By: TE Pharmacy Consult (Consult Rx Etoh Phenob Im/Po) 1 each MISCELLANE ONCE PRN; Protocol PRN Reason: Consult order Phenobarbital (Phenobarbital 30 Mg Tablet) 60 mg PO BID [facility] Stop: 02/26/23 21:01 Last Admin: 02/25/23 07:43 Dose: 60 mg Documented By: TORO Phenobarbital (Phenobarbital 30 Mg Tablet) 30 mg PO BID [facility] Stop: 02/28/23 21:01 Phenobarbital (Phenobarbital 30 Mg Tablet) 30 mg PO DAILY [facility] Stop: 03/02/23 09:01 Sodium Chloride (0.9 % Sodium Chloride Flush 3 Ml Syringe) 3 ml IVFLUSH QSHIFT [facility] Last Admin: 02/25/23 12:51 Dose: Not Given Documented By: TORO Non-Admin Reason: IV Running Labs 02/25/23 05:43 02/25/23 05:43 Labs: Laboratory Results - last 24 hr 02/25/23 02/25/23 05:43 05:43 MCV 94.5 MCH 32.4 MCHC 34.3 RDW 15.3 Plt Count 113 L D MPV 9.5 Immature Gran % (Auto) 0.4 Neut % (Auto) 84.2 H Lymph % (Auto) 2.6 L [place] % (Auto) 12.7 H Eos % (Auto) 0.0 Baso % (Auto) 0.1 Lymph # (Auto) 0.2 L [place] # (Auto) 1.0 Eos # (Auto) 0.0 Baso # (Auto) 0.0 Abs Immat Gran (auto) 0.03 Absolute Neuts (auto) 6.5 Absolute Nucleated RBC 0.000 Nucleated RBC % (auto) 0.0 Anion Gap 12 Estim Creat Clear Calc 156.6 Estimated GFR > 60 Fasting Glucose 105 H Calcium 8.5 D Magnesium 1.2 L* Total Bilirubin 2.7 H AST 88 H ALT 75 H Alkaline Phosphatase 59 Total Protein 6.1 L Albumin 3.8 Assessment and Plan (1) GERD (gastroesophageal reflux disease): Status: Acute (2) Acute pancreatitis: Status: Acute (3) Alcohol withdrawal: Status: Acute Plan 47-year-old male with history of alcohol abuse presents with approximately 24 hours of severe midepigastric pain.? States he has been sober 10 months up until early January 21 started drinking again.? States he drinks at least 10 oz of vodka a night.? Last drink 02/23? 2199 1. Acute alcoholic pancreatitis -continue IV fluids/IV pantoprazole q.12 hours -Dilaudid for pain, LFTs trending down start clear liquid diet follow BMP, CBC, lipase,lfts 2. Alcohol use disorder - phenobarb protocol, obtain care team consult, strongly recommend to abstain fr om alcohol 3. GERD -IV pantoprazole -switch to oral PPI when appropriate 4. Hypo magnesemia will replace IV magnesium and follow labs Full code Lovenox Patient will require continued inpatient stay to treat pancreatitis with IV fluids and pain medicine.? This cannot be achieved and a lesser acute settings. Time Spent With Patient Time: Total time managing care of this patient today ____ minutes. Quality Stroke Does the patient have a stroke diagnosis?: No VTE Prior VTE?: No VTE Risk Level:: Medical - moderate - high VTE Device Contraindication: Treatment Not Indicated VTE Drug Contraindication: N/A - Med Ordered
[2023-02-25 15:23] VITALS: BP 127/84; PULSE 118; RESP 18; TEMP 36.7; O2SAT 93
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
--- NOTE | 2023-02-25 15:35 | PC.NURSE ---
AP HR 118, MD notified.
[2023-02-25 19:11] VITALS: BP 141/92; PULSE 117; RESP 17; TEMP 36.9; O2SAT 93
[2023-02-26] MEDS: HYDROmorphone HCl 1 MG/ML SYRINGE IVPUSH ×5 (01:55→22:41)
[2023-02-26 03:51] VITALS: BP 124/77; PULSE 105; RESP 17; TEMP 36.6; O2SAT 94
[2023-02-26] MEDS: KCl 20 mEq in 5 % Dex/Lact Rin 20 MEQ/1,000 ML IV.SOLN 150 MEQ IVCONT ×2 (03:58→11:17)
[2023-02-26] MEDS: Pantoprazole Sodium 40 MG/10 ML VIAL IVPUSH (05:51)
[2023-02-26 05:52] LABS: MANUAL DIFF FLAG NO
[2023-02-26 06:14] LABS: Basophils Percent Auto 0.2 % (0-2); Eosinophils Percent Auto 0.2 % (0-4); Hematocrit 35.4 % (42.0-52.0); Hemoglobin 11.8 g/dl (14.0-18.0); Imm Gran Abs Auto 0.07 X10*3/uL (0.00-0.03); Imm Gran Pct Auto 1.3 % (0.0-0.4); Lymphocytes Absolute Auto 0.3 X10*3/uL (1.2-4.9); Lymphocytes Percent Auto 5.9 % (20-40); Mean Corpuscular HGB Conc 33.3 g/dl (31.0-36.0); Mean Corpuscular Hemoglobin 32.2 pg (27.0-33.0); Mean Corpuscular Volume 96.5 fL (80.0-98.0); Monocytes Absolute Auto 0.8 X10*3/uL (0.1-1.2); Monocytes Percent Auto 14.3 % (2-11); Neutrophils Absolute Auto 4.3 x10*3/uL (2.0-8.3); Neutrophils Percent Auto 78.1 % (45-73); Platelet Count 102 X10*3/uL (160-400); Red Blood Count 3.67 X10*6/uL (4.60-5.80); Red Cell Distribution Width 15.2 % (11.0-16.0); White Blood Count 5.5 X10*3/uL (4.8-10.8)
[2023-02-26 06:18] LABS: Alanine Aminotransferase 47 U/L (0-40); Albumin Level 3.2 g/dL (3.5-5.0); Alkaline Phosphatase 52 U/L (39-117); Anion Gap 10 (12-20); Aspartate Amino Transferase 48 U/L (5-37); Bilirubin Total 2.3 mg/dL (0.0-1.0); Blood Urea Nitrogen 12 mg/dL (9-16); Carbon Dioxide 33 mmol/L (22-29); Chloride 96 mmol/L (96-108); Creatinine Clr Calc Pharmacy 156.6; Estimated Glomerular Filt Rate > 60; Glucose Fasting 121 mg/dL (60-99); Glucose Random 121 mg/dL (60-115); Lipase 164 U/L (8-78); Magnesium 2.1 mg/dL (1.6-2.6); Potassium 3.4 mmol/L (3.3-5.1); Sodium 136 mmol/L (135-145); Total Protein 5.1 g/dL (6.5-8.0)
[2023-02-26] MEDS: PHENobarbitaL 30 MG TABLET 60 MG PO ×2 (07:14→21:23)
[2023-02-26 08:00] VITALS: BP 169/101; PULSE 105; RESP 24; TEMP 36.6; O2SAT 96
[2023-02-26 08:36] VITALS: BP 154/82
[2023-02-26] MEDS: Enoxaparin Sodium 40 MG/0.4 ML SYRINGE SUBCUT (10:26)
--- NOTE | 2023-02-26 12:41 | P.PNIM_ITS ---
Subjective Subjective Date of Service: 02/26/23 Interval History: Feeling better less abdominal discomfort, tolerating clear liquid diet no nausea no vomiting, no diarrhea denies shakiness no other acute issues overnight. Review of Systems Review of Systems: Yes all other systems are reviewed and are negative Physical Exam Vital Signs: Vital Signs: Last Vital Signs Temp 97.9 F 02/26/23 08:00 Pulse 105 H 02/26/23 08:00 Resp 24 H 02/26/23 08:00 BP 154/82 H 02/26/23 08:36 Pulse Ox 96 02/26/23 08:00 O2 Del Method Nasal Cannula 02/26/23 08:00 O2 Flow Rate 0.5 02/26/23 08:00 BMI result Body Mass Index 28.2 Const: Other: General awake alert, in no acute distress.? Neck is supple no JVD. CVS? regular rate rhythm, Respiratory lungs clear to auscultation, no respiratory distress, no wheeze, no rhonchi. Gastrointestinal abdomen soft,mild bilateral lower abdominal discomfort with deep palpation, no guarding, no rigidity bowel sounds audible Extremities no edema. Neuro nonfocal, no tremors Skin no rash Psych appropriate affect Objective Data Active Medications Acetaminophen (Acetaminophen 325 Mg Tablet) 650 mg PO Q6H PRN PRN Reason: Pain, Mild (Pain Scale 1-3) Enoxaparin Sodium (Enoxaparin Sodium 40 Mg/0.4 Ml Syringe) 40 mg SUBCUT Q24H [facility] Last Admin: 02/26/23 10:26 Dose: 40 mg Documented By: TORO Hydromorphone HCl (Hydromorphone Hcl 1 Mg/Ml Syringe) 1 mg IVPUSH Q3H PRN; Protocol PRN Reason: Pain, Severe (Pain Scale 7-10) Last Admin: 02/26/23 06:13 Dose: 1 mg Documented By: COBY Potassium Cl/Dextrose/Lact Ringer's (Kcl 20 Meq In 5 % Dex/Lact Rin) 20 meq in 1,000 mls @ 100 mls/hr IVCONT .Q10H [facility] Last Admin: 02/26/23 11:17 Dose: 150 mls/hr Documented By: TORO Omeprazole (Omeprazole 20 Mg Capsule.Dr) 20 mg PO DAILY@0630 [facility] Ondansetron HCl (Ondansetron Hcl 4 Mg/2 Ml Vial) 4 mg IVPUSH Q8H PRN PRN Reason: Nausea and Vomiting Pharmacy Consult (Consult Rx Etoh Phenob Im/Po) 1 each MISCELLANE ONCE PRN; Protocol PRN Reason: Consult order Phenobarbital (Phenobarbital 30 Mg Tablet) 60 mg PO BID [facility] Stop: 02/26/23 21:01 Last Admin: 02/26/23 07:14 Dose: 60 mg Documented By: TORO Phenobarbital (Phenobarbital 30 Mg Tablet) 30 mg PO BID [facility] Stop: 02/28/23 21:01 Phenobarbital (Phenobarbital 30 Mg Tablet) 30 mg PO DAILY [facility] Stop: 03/02/23 09:01 Sodium Chloride (0.9 % Sodium Chloride Flush 3 Ml Syringe) 3 ml IVFLUSH QSHIFT [facility] Last Admin: 02/26/23 07:17 Dose: Not Given Documented By: TORO Non-Admin Reason: IV Running Labs 02/26/23 05:19 02/26/23 05:19 Labs: Laboratory Results - last 24 hr 02/26/23 02/26/23 02/26/23 05:19 05:19 05:19 MCV 96.5 Cancelled MCH 32.2 Cancelled MCHC 33.3 Cancelled RDW 15.2 Cancelled Plt Count 102 L Cancelled MPV 10.0 Cancelled Immature Gran % (Auto) 1.3 H Neut % (Auto) 78.1 H Lymph % (Auto) 5.9 L [place] % (Auto) 14.3 H Eos % (Auto) 0.2 Baso % (Auto) 0.2 Lymph # (Auto) 0.3 L [place] # (Auto) 0.8 Eos # (Auto) 0.0 Baso # (Auto) 0.0 Abs Immat Gran (auto) 0.07 H Absolute Neuts (auto) 4.3 Absolute Nucleated RBC 0.000 Cancelled Nucleated RBC % (auto) 0.0 Cancelled Anion Gap 10 L Estim Creat Clear Calc 156.6 Estimated GFR > 60 Random Glucose 121 H Fasting Glucose 121 H Calcium 8.0 L Magnesium 2.1 Total Bilirubin 2.3 H Direct Bilirubin 1.0 H AST 48 H ALT 47 H Alkaline Phosphatase 52 Total Protein 5.1 L Albumin 3.2 L Lipase 164 H Assessment and Plan (1) GERD (gastroesophageal reflux disease): Status: Acute (2) Acute pancreatitis: Status: Acute (3) Alcohol withdrawal: Status: Acute Plan 47-year-old male with history of alcohol abuse presents with approximately 24 hours of severe midepigastric pain.? States he has been sober 10 months up until early January 21 started drinking again.? States he drinks at least 10 oz of vodka a night.? Last drink 02/23? 2200 1. Acute alcoholic pancreatitis -continue IV fluids/ decrease dose of Dilaudid for pain, LFTs and lipase trending down is stable CBC and BMP Change diet to regular recommend high-protein diet , follow labs strongly recommend to abstain from alcohol 2. Alcohol use disorder - phenobarb protocol, care team consult, strongly recommend to abstain from alcohol 3. GERD -dc IV pantoprazole,switch to oral PPI 4. Hypomagnesemia repleted and normalized Full code Lovenox Patient will require continued inpatient stay to treat pancreatitis with IV fluids and pain medicine.? This cannot be achieved and a lesser acute settings. Time Spent With Patient Time: Total time managing care of this patient today ____ minutes. Quality Stroke Does the patient have a stroke diagnosis?: No VTE Prior VTE?: No VTE Risk Level:: Medical - moderate - high VTE Device Contraindication: Treatment Not Indicated VTE Drug Contraindication: N/A - Med Ordered
[2023-02-26 15:44] VITALS: BP 152/96; PULSE 110; RESP 16; TEMP 36.4; O2SAT 92
[2023-02-26 19:27] VITALS: BP 164/98; PULSE 99; RESP 15; TEMP 36.7; O2SAT 96
[2023-02-26] MEDS: KCl 20 mEq in 5 % Dex/Lact Rin 20 MEQ/1,000 ML IV.SOLN 100 MEQ IVCONT (21:24)
[2023-02-27] MEDS: HYDROmorphone HCl 1 MG/ML SYRINGE IVPUSH ×2 (03:19→07:27)
[2023-02-27 03:23] VITALS: BP 166/102; PULSE 96; RESP 16; TEMP 36.1; O2SAT 94
[2023-02-27] MEDS: Omeprazole 20 MG CAPSULE.DR PO (05:50)
[2023-02-27 06:36] LABS: MANUAL DIFF FLAG NO
[2023-02-27 07:01] LABS: Basophils Percent Auto 0.6 % (0-2); Eosinophils Absolute Auto 0.1 X10*3/uL (0.0-0.4); Eosinophils Percent Auto 1.5 % (0-4); Hemoglobin 11.5 g/dl (14.0-18.0); Imm Gran Abs Auto 0.04 X10*3/uL (0.00-0.03); Imm Gran Pct Auto 0.8 % (0.0-0.4); Lymphocytes Absolute Auto 0.3 X10*3/uL (1.2-4.9); Lymphocytes Percent Auto 6.4 % (20-40); Mean Corpuscular HGB Conc 33.8 g/dl (31.0-36.0); Mean Corpuscular Hemoglobin 32.9 pg (27.0-33.0); Mean Corpuscular Volume 97.1 fL (80.0-98.0); Mean Platelet Volume 9.7 fL (9.4-12.4); Monocytes Absolute Auto 0.7 X10*3/uL (0.1-1.2); Monocytes Percent Auto 14.6 % (2-11); Neutrophils Absolute Auto 3.6 x10*3/uL (2.0-8.3); Neutrophils Percent Auto 76.1 % (45-73); Platelet Count 125 X10*3/uL (160-400); Red Cell Distribution Width 14.6 % (11.0-16.0); White Blood Count 4.7 X10*3/uL (4.8-10.8)
[2023-02-27 07:02] LABS: Hematocrit 34.3 % (42.0-52.0); Hemoglobin 11.7 g/dl (14.0-18.0); Mean Corpuscular HGB Conc 34.1 g/dl (31.0-36.0); Mean Corpuscular Hemoglobin 32.9 pg (27.0-33.0); Mean Corpuscular Volume 96.3 fL (80.0-98.0); Mean Platelet Volume 9.8 fL (9.4-12.4); Platelet Count 119 X10*3/uL (160-400); Red Blood Count 3.56 X10*6/uL (4.60-5.80); Red Cell Distribution Width 14.4 % (11.0-16.0); White Blood Count 5.2 X10*3/uL (4.8-10.8)
[2023-02-27 07:17] LABS: Alanine Aminotransferase 39 U/L (0-40); Albumin Level 3.3 g/dL (3.5-5.0); Alkaline Phosphatase 57 U/L (39-117); Anion Gap 11 (12-20); Aspartate Amino Transferase 37 U/L (5-37); Blood Urea Nitrogen 9 mg/dL (9-16); Calcium 8.2 mg/dL (8.4-10.2); Carbon Dioxide 32 mmol/L (22-29); Chloride 97 mmol/L (96-108); Creatinine Clr Calc Pharmacy 170.8; Estimated Glomerular Filt Rate > 60; Glucose Fasting 123 mg/dL (60-99); Glucose Random 123 mg/dL (60-115); Potassium 3.4 mmol/L (3.3-5.1); Sodium 137 mmol/L (135-145); Total Protein 5.5 g/dL (6.5-8.0)
[2023-02-27] MEDS: KCl 20 mEq in 5 % Dex/Lact Rin 20 MEQ/1,000 ML IV.SOLN 100 MEQ IVCONT (07:28)
[2023-02-27 07:46] VITALS: BP 160/98; PULSE 94; RESP 18; TEMP 37.2; O2SAT 96
[2023-02-27] MEDS: PHENobarbitaL 30 MG TABLET PO (08:44)
--- NOTE | 2023-02-27 11:10 | MHC.CM.PN ---
pt dcd no services needed
--- NOTE | 2023-02-27 17:13 | P.DS_ITS ---
DS: Providers Provider Date of Service: 02/27/23 Date of admission: 02/24/23 10:08 Primary care physician: Jamey Borrego PA-C Consults: 02/25/23 13:53 Consult to Care Team Routine Comment: Reason for consultation: etoh DS: Diagnosis Discharge Diagnosis (1) GERD (gastroesophageal reflux disease): Status: Acute (2) Acute pancreatitis: Status: Acute (3) Alcohol withdrawal: Status: Acute DS: Summary Hospital Course Hospital Course: History of presenting illness: Date of Service: 02/24/23 Chief Complaint: Abd pain 47-year-old male with past medical history of GERD, HTN, and alcohol use disorder presents to the emergency department with complaints of severe abdominal pain starting on with associated nausea, vomiting, and diarrhea.? He reports he has tried several cemi-lua-exrxodc medications including Pepto-Bismol and Tums with no relief of his symptoms.? He reports generalized abdominal pain, 05/13.? He reports he is a daily drinker with his last alcoholic beverage at 8:00 p.m. last night.? He reports he drinks 5-6 vodka drinks per day and that he has been trying to wean his drinking down.? He denies any chest pain, shortness of breath, hematemesis, melena, hematochezia, paresthesias, weakness, headache, or vision changes.? He also denies tremors, hallucinations, confusion.? CT scan in the ER demonstrates acute pancreatitis without evidence for necrosis or pancreatic dilation. Hospital course? 47-year-old male with history of alcohol abuse presents with approximately 24 hours of severe midepigastric pain.? States he has been sober 10 months up until early January 21 started drinking again.? States he drinks at least 10 oz of vodka a night.? Last drink 02/23? 0 1. Acute alcoholic pancreatitis, admitted to medical floor treated with IV fluids, IV Dilaudid patient was kept NPO, abdominal pain, LFTs and lipase improved significantly, diet was gradually advanced, patient is tolerating diet well with no recurrent abdominal pain no nausea vomiting therefore being discharged home with strong recommendation to abstain from alcohol. 2. Alcohol use disorder treated with phenobarb protocol , Seen by care team outpatient referrals given, strongly recommend to abstain from alcohol. 3. GERD initially treated with IV Protonix, being discharged on oral PPI 4. Hypomagnesemia repleted and normalized Time Spent with Patient Time attestation: Total time managing care of this patient today ____ minutes. Discharge coordination time: Greater than 30 minutes Quality: Safe Use of Opioids Does Pt have an Active Cancer Diagnosis on the Problem List?: No Quality: Stroke Does the patient have a stroke diagnosis?: No Physical Exam Vital Signs: Vital Signs: Last Vital Signs Temp 98.9 F 02/27/23 07:46 Pulse 94 02/27/23 07:46 Resp 18 02/27/23 07:46 BP 160/98 H 02/27/23 07:46 Pulse Ox 96 02/27/23 07:46 O2 Del Method Room Air 02/27/23 07:46 O2 Flow Rate 0.5 02/26/23 08:00 BMI result Body Mass Index 28.2 Const: Other: General awake alert, in no acute distress.? Neck supple, no JVD. CVS? regular rate rhythm, Respiratory lungs clear to auscultation, no respiratory distress, no wheeze, no rhonchi. Gastrointestinal abdomen soft, nontender, no guarding, no rigidity, bowel sounds audible Extremities no edema. Neuro nonfocal, no tremors Skin no rash Psych appropriate affect DS: Data Data Completed and Pending Completed studies during hospitalization [Text1]: Procedures Detoxification Services for Substance Abuse Treatment (06/24/22) Excision of Lower Esophagus, Via Natural or Artificial Opening Endoscopic, Diagnostic (10/07/20) Excision of Stomach, Pylorus, Via Natural or Artificial Opening Endoscopic, Diagnostic (10/07/20) Transfusion of Nonautologous Red Blood Cells into Peripheral Vein, Percutaneous Approach (10/07/20) Labs on day of discharge: Laboratory Results - last 24 hr 02/27/23 02/27/23 02/27/23 06:02 06:02 06:02 WBC 5.2 4.7 L RBC 3.56 L 3.50 L Hgb 11.7 L 11.5 L Hct 34.3 L 34.0 L MCV 96.3 97.1 MCH 32.9 32.9 MCHC 34.1 33.8 RDW 14.4 14.6 Plt Count 119 L 125 L MPV 9.8 9.7 Immature Gran % (Auto) 0.8 H Neut % (Auto) 76.1 H Lymph % (Auto) 6.4 L [place] % (Auto) 14.6 H Eos % (Auto) 1.5 Baso % (Auto) 0.6 Lymph # (Auto) 0.3 L [place] # (Auto) 0.7 Eos # (Auto) 0.1 Baso # (Auto) 0.0 Abs Immat Gran (auto) 0.04 H Absolute Neuts (auto) 3.6 Absolute Nucleated RBC 0.000 0.000 Nucleated RBC % (auto) 0.0 0.0 Sodium 137 Potassium 3.4 Chloride 97 Carbon Dioxide 32 H Anion Gap 11 L BUN 9 Creatinine 0.66 Estim Creat Clear Calc 170.8 Estimated GFR > 60 Random Glucose 123 H Fasting Glucose 123 H Calcium 8.2 L Total Bilirubin 2.0 H AST 37 ALT 39 Alkaline Phosphatase 57 Total Protein 5.5 L Albumin 3.3 L Discharge Plan Discharge Anticipated Discharge Date/Time: 02/27/23 10:55 Patient Disposition: Home, Self-Care Discharge Diagnosis: Acute alcoholic pancreatitis Alcohol use Disorder Referrals: Jamey Borrego PA-C [Primary Care Provider] - 1 Week Discharge Medications: Continued omeprazole 20 mg capsule,delayed release(DR/EC) 20 mg PO DAILY multivitamin Tablet 1 tab PO DAILY cyanocobalamin (vitamin B-12) 3,000 mcg Capsule 6,000 mcg PO BID Discharge Orders: Discharge Order (Routine); Ordered 02/27/23 Ordered By: Tre Dillon Diet: Advance to usual diet Activity on Discharge: As tolerated Stand Alone Forms: Patient Portal Discharge page Care Plan Goals: Acute pancreatitis due to alcohol strongly recommend to abstain from alcohol , recommend low-fat diet Health Concerns: Alcohol use Plan of Treatment: Outpatient follow-up with primary care physician call for appointment Assessment: As above Discharge Date/Time: 02/27/23 11:13
--- NOTE | 2023-02-28 07:23 | P.CDIM_ITS ---
PROVIDER RESPONSE TEXT: To clarify, the appropriate diagnosis supported by the clinical indicators: Hypokalemia: hypokalemia QUERY TEXT: PHYSICIAN'S DOCUMENTATION REQUEST Date of Query: 02/26/2023 07:23 AM EDT Patient Name: Thad García Admit Date: 02/24/2023 Dear Tre Dillon, A review of the medical record indicates additional documentation may be needed. Please review below and update the documentation accordingly. Clinical Indicators: Potassium level 3.1 on 02/24/23 per ED Treated with KCL 20 Meq in 5% Dextrose/Lact Ringers 1000 mls @ 150 mls/hr IV cont Based on the above, could you clarify the appropriate diagnosis, if significant, that supports the ab ove abnormalities and additional evaluation, monitoring, and/or treatment rendered: Hypokalemia Other, please specify Unable to determine ) Other (explain) Clinically unable to determine (explain) Thank you, Patrica Talbert RN Use of terms such as suspected, likely, concern for, or probable (associated with a specific diagnosi s that is being evaluated, monitored, or treated as if it exists) are acceptable and can be coded in the inpatient se tting, when documented at the time of discharge. Please use your independent medical judgment in providing your response. THIS QUERY IS PART OF THE PERMANENT MEDICAL RECORD
== END 2023-02-27 11:13 | disposition home or self-care (01) | DRG 282 ==
LOC: HO.ED 08:58 → HO.EDOVER 10:15 → HO.S3 10:57
PROVIDERS: Admitting Provider Hospitalist; Emergency Provider Emergency Medicine Emergency Medical Services; PCP Physician Assistant; Visit Provider Hospitalist
DX: K85.20 Alcohol induced acute pancreatitis without necrosis or infection (principal); K70.0 Alcoholic fatty liver; E83.42 Hypomagnesemia; K21.9 Gastro-esophageal reflux disease without esophagitis; E87.6 Hypokalemia; K57.30 Diverticulosis of large intestine without perforation or abscess without bleeding; F10.139 Alcohol abuse with withdrawal, unspecified; Z88.0 Allergy status to penicillin; Z79.899 Other long term (current) drug therapy
CPT/HCPCS: 36415; 74177; 80048; 80053; 80076; 81001; 83690; 83735; 85025; 85027; 99285; J1170; J1650; J2270; J2405; J2560; J3475; Q9967

== ENCOUNTER 2023-04-03 11:44 | Emergency (ER) | payer OTHER, SELFPAY ==
[2023-04-03 11:46] VITALS: BP 168/102; PULSE 120; RESP 20; TEMP 36.8; O2SAT 98; BMI 28.5
--- NOTE | 2023-04-03 11:49 | ED_ITS ---
HPI - General Adult General Chief complaint: Abdominal Pain Stated complaint: Vomiting Time Seen by Provider: 04/03/23 15:29 Source: patient Mode of arrival: ambulatory Limitations: no limitations History of Present Illness HPI narrative: Patient is a 47 year old assigned male at with a history of pancytopenia and alcohol abuse presenting to the emergency department today with nausea and vomiting after binge drinking. Patient states that he was sober a month and last night he went binge drinking. Patient denies any dizziness, lightheadedness, abdominal pain, fever, chills, blurry vision, double vision, loss of vision, chest pain, difficulty breathing, shortness of breath, back pain, night sweats, pain with urination, increased urinary frequency, increased urinary urgency, blood in his urine or stool, syncope or a near syncopal episode, recent trauma or falls, bowel incontinence, bladder incontinence, bowel retention, bladder retention, or any other complaints at this time. Onset (ago): hour(s) Severity: mild Relieving factors: none Exacerbating factors: none Associated symptoms: nausea/vomiting Treatments prior to arrival: none Related Data Home Medications Medication Instructions Recorded Confirmed cyanocobalamin (vitamin B-12) 6,000 mcg PO BID 02/24/23 02/24/23 3,000 mcg capsule multivitamin 1 tab PO DAILY 02/24/23 02/24/23 omeprazole 20 mg capsule,delayed 20 mg PO DAILY 02/24/23 02/24/23 release Allergies Allergy/AdvReac Type Severity Reaction Status Date / Time Penicillins [PENICILLINS] Allergy Intermediate RASH Verified 11/12/22 00:07 Review of Systems Constitutional: Constitutional: Reports no additional constitutional co mplaints, Denies chills, Denies fever(s) and Denies night sweats Eyes: Eyes: Reports no additional eye complaints, Denies blurry vision, Denies change in vision, Denies diplopia, Denies eye discharge, Denies loss of vision and Denies eye pain ENT: Denies dizziness Cardiovascular: Cardiovascular: Reports no additional cardiovascular complaints, Denies chest pain, Denies lightheadedness, Denies Loss of Consciousness and Denies dyspnea Respiratory: Respiratory: Reports no additional respiratory complaints and Denies dyspnea Gastrointestinal: Gastrointestinal: Reports no additional gastrointestinal complaints, Denies abdominal pain, Denies melena, Denies hematochezia, Denies change in bowel habits, Denies change in stool character, Reports nausea and Reports vomiting Genitourinary: Genitourinary: Reports no additional male genitourinary complaints, Denies hematuria, Denies oliguria, Denies difficulty urinating, Denies dysuria, Denies urinary frequency, Denies urinary hesitancy, Denies urin clay incontinence and Denies urinary urgency Musculoskeletal: Musculoskeletal: Reports no additional musculoskeletal complaints, Denies numbness and Denies tingling Neurologic: Denies dizziness, Denies loss of vision, Denies numbness and Denies tingling Psychiatric: Psychiatric: Reports no additional psychiatric complaints Endocrine: Endocrine: Reports no additional endocrine complaints Hematologic/Lymphatic: Hematologic/Lymphatic: Reports no additional hematologic/lymphatic complaints Allergic/Immunologic: Allergic/Immunologic: Reports no additional allergic/immunologic complaints PMFSH Past Medical History Attestation statement: The following information was validated with the patient. Source: old records reviewed and nursing notes reviewed Medical History Alcohol abuse with withdrawal Alcohol use disorder Alcohol withdrawal Alcoholic gastritis Anemia Elevated LFTs ETOH abuse GERD (gastroesophageal reflux disease) GI bleed HTN (hypertension) Leukopenia Peripheral neuropathy Thrombocytopenia Family History Family History Mother Mental health disorder Father Liver cirrhosis Social History Social History Household Members: Spouse Household Members Other:: Jerica - - 2 children ages 8 and 15 Housing: House Do you presently have visiting nurse or other home services: No Alcohol intake: current Alcohol intake frequency: 3 or more drinks per day Alcohol type: hard liquor 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 Sexual orientation: Straight/Heterosexual Physical Exam ED Vital Signs: Vital Signs - 24 hr 04/03/23 11:46 Temperature 98.3 F Pulse Rate 120 H Respiratory Rate 20 Blood Pressure 168/102 H Pulse Oximetry 98 Oxygen Delivery Method Room Air BMI result Body Mass Index 28.5 Const General: cooperative, no acute distress, alert and awake Nutritional Appearance: well nourished Orientation/consciousness: patient oriented x3 Limitations: no limitations HENMT Head: Yes normal to inspection and Yes atraumatic Ears: hearing grossly normal bilaterally and external ears normal General nose exam: Normal external nose present, no nasal discharge noted and no epistaxis Face and sinus: Yes normal facial exam, No abrasion and No laceration Mouth: Normal oral and palatal mucosa present, no drooling and no muffled voice Eyes General: appearance normal, both eyes and all related structures Periorbital: periorbital findings normal Eyelids: Yes eyelids normal Conjunctivae: conjunctivae normal Pupils: Equal, round and reactive pupils present EOM: EOMs intact bilaterally Neck Neck: Yes normal visual inspection, Yes full ROM and Yes no lymphadenopathy Chest Chest palpation & inspection: normal inspection of the chest Resp Effort & Inspection: normal respiratory effort and able to speak in complete sentences Cardio Rate: tachycardic Rhythm: regular rhythm GI Inspection: Yes normal to inspection Palpation (GI): Soft to palpation, not firm, nontender, no guarding and not rigid Neuro General: patient oriented x3 and moves all extremities Cranial nerves: Yes Equal, round and reactive pupils present Cognition (Neuro): normal cognition Motor exam (neuro): 5/5 motor strength present throughout Sensory Exam: Normal double simultaneous stimulation for sensation Coordination: [id number] test normal Extrem General: Yes normal to inspection, Yes full ROM and Yes capillary refill normal Psych Appearance: grossly normal Mental Status: mental status grossly normal Affect: normal affect Attitude: cooperative Thought process: Normal thought process present Thought content: Normal thought content present Insight: Good insight present (Psych) Course Course Course Narrative: This is an RME: Additional HPI, ROS, PE not included below will be deferred to primary provider. This is a [id number]-pyh-male, hx of etoh abuse, presenting to the ER for abd pain and nausea after drinking etoh. He reports that he has been binge drinking, starting last night into this morning, last drank 2 hours ago. Hx of etoh wit hdrawal in the past. Patient tachycardic 120s. Plan: Labs ordered. Medical Decision Making Medical Decision Making [facility] Narrative: Patient is a 47 year old assigned male at with a history of pancytopenia and alcohol abuse presenting to the emergency department today with nausea and vomiting after alcohol use. Patient's physical exam showed mild tachycardia but was otherwise unremarkable. Patient's blood work was unremarkable. I explained my physical exam findings as well as all test results to the patient. I answered all questions asked by the patient. Patient received IV fluids and zofran which he stated helped his symptoms significantly. I stressed the importance of the patient taking his medication as prescribed. I stressed the importance of the patient following up with his primary care provider. I stressed the importance of the patient returning to the emergency department immediately if his symptoms were to worsen or if he were to develop any dizziness, shortness of breath, difficulty breathing, chest pain, blurry vision, loss of vision, nausea, vomiting, abdominal pain, fever, chills, back pain, or any other complaints. Patient verbalized agreement and understanding with this treatment plan and discharge. Differential Diagnosis Differential Diagnoses: The differential diagnosis associated with the presen tation includes alcohol abuse, nausea, vomiting Admission/Observation Consideration of admission/observation: Escalation of care including admission/observation considered Patient would have been admitted to the hospital had his work up had any findings where hospital admission was appropriate. Lab Data MDM Lab Attestation statement: I reviewed the patient's lab results. 04/03/23 12:03 04/03/23 12:03 Labs: Lab Results 04/03/23 04/03/23 Range/Units 12:03 12:03 WBC 2.6 L (4.8-10.8) X10*3/uL RBC 4.33 L D (4.60-5.80) X10*6/uL Hgb 14.2 D (14.0-18.0) g/dl Hct 40.5 L (42.0-52.0) % MCV 93.5 (80.0-98.0) fL MCH 32.8 (27.0-33.0) pg MCHC 35.1 (31.0-36.0) g/dl RDW 14.2 (11.0-16.0) % Plt Count 108 L (160-400) X10*3/uL MPV 8.9 L (9.4-12.4) fL Immature Gran % (Auto) 0.8 H (0.0-0.4) % Neut % (Auto) 60.2 (45-73) % Lymph % (Auto) 21.1 (20-40) % [place] % (Auto) 14.9 H (2-11) % Eos % (Auto) 1.5 (0-4) % Baso % (Auto) 1.5 (0-2) % Lymph # (Auto) 0.6 L (1.2-4.9) X10*3/uL [place] # (Auto) 0.4 (0.1-1.2) X10*3/uL Eos # (Auto) 0.0 (0.0-0.4) X10*3/uL Baso # (Auto) 0.0 (0.0-0.2) X10*3/uL Abs Immat Gran (auto) 0.02 (0.00-0.03) X10*3/uL Absolute Neuts (auto) 1.6 L (2.0-8.3) x10*3/uL Absolute Nucleated RBC 0.000 (0.0-0.012) X10*3/uL Nucleated RBC % (auto) 0.0 (0.0-0.2) /100WBC Sodium 144 (135-145) mmol/L Potassium 3.6 (3.3-5.1) mmol/L Chloride 103 (96-108) mmol/L Carbon Dioxide 25 (22-29) mmol/L Anion Gap 20 (12-20) BUN 11 (9-16) mg/dL Creatinine 0.83 (0.5-1.4) mg/dL Estim Creat Clear Calc 128.9 Estimated GFR > 60 Random Glucose 108 (60-115) mg/dL Calcium 9.3 D (8.4-10.2) mg/dL Magnesium 1.6 (1.6-2.6) mg/dL Total Bilirubin 1.5 H (0.0-1.0) mg/dL Direct Bilirubin 0.6 H (0.0-0.5) mg/dL AST 61 H (5-37) U/L ALT 30 (0-40) U/L Alkaline Phosphatase 91 (39-117) U/L Total Protein 7.8 (6.5-8.0) g/dL Albumin 4.5 (3.5-5.0) g/dL Lipase 46 (8-78) U/L Ethyl Alcohol 273 mg/dL Social Determinants Patient?s care significantly limited by Social Determinants of Health including: Alcoholism and drug addiction in family Discharge Plan Discharge Clinical Impression: Alcohol abuse, Nausea Patient Disposition: Home, Self-Care Prescriptions: No Action omeprazole 20 mg capsule,delayed release(DR/EC) 20 mg PO DAILY multivitamin Tablet 1 tab PO DAILY cyanocobalamin (vitamin B-12) 3,000 mcg Capsule 6,000 mcg PO BID
[2023-04-03 12:16] LABS: MANUAL DIFF FLAG NO
[2023-04-03 12:19] LABS: Basophils Percent Auto 1.5 % (0-2); Eosinophils Percent Auto 1.5 % (0-4); Hematocrit 40.5 % (42.0-52.0); Hemoglobin 14.2 g/dl (14.0-18.0); Imm Gran Abs Auto 0.02 X10*3/uL (0.00-0.03); Imm Gran Pct Auto 0.8 % (0.0-0.4); Lymphocytes Absolute Auto 0.6 X10*3/uL (1.2-4.9); Lymphocytes Percent Auto 21.1 % (20-40); Mean Corpuscular HGB Conc 35.1 g/dl (31.0-36.0); Mean Corpuscular Hemoglobin 32.8 pg (27.0-33.0); Mean Corpuscular Volume 93.5 fL (80.0-98.0); Mean Platelet Volume 8.9 fL (9.4-12.4); Monocytes Absolute Auto 0.4 X10*3/uL (0.1-1.2); Monocytes Percent Auto 14.9 % (2-11); Neutrophils Absolute Auto 1.6 x10*3/uL (2.0-8.3); Neutrophils Percent Auto 60.2 % (45-73); Platelet Count 108 X10*3/uL (160-400); Red Blood Count 4.33 X10*6/uL (4.60-5.80); Red Cell Distribution Width 14.2 % (11.0-16.0); White Blood Count 2.6 X10*3/uL (4.8-10.8)
[2023-04-03 12:34] LABS: Alanine Aminotransferase 30 U/L (0-40); Albumin Level 4.5 g/dL (3.5-5.0); Alkaline Phosphatase 91 U/L (39-117); Anion Gap 20 (12-20); Aspartate Amino Transferase 61 U/L (5-37); Bilirubin Direct 0.6 mg/dL (0.0-0.5); Bilirubin Total 1.5 mg/dL (0.0-1.0); Blood Urea Nitrogen 11 mg/dL (9-16); Calcium 9.3 mg/dL (8.4-10.2); Carbon Dioxide 25 mmol/L (22-29); Chloride 103 mmol/L (96-108); Creatinine Clr Calc Pharmacy 128.9; Estimated Glomerular Filt Rate > 60; Ethanol 273 mg/dL; Glucose Random 108 mg/dL (60-115); Lipase 46 U/L (8-78); Magnesium 1.6 mg/dL (1.6-2.6); Potassium 3.6 mmol/L (3.3-5.1); Sodium 144 mmol/L (135-145); Total Protein 7.8 g/dL (6.5-8.0)
[2023-04-03] MEDS: 0.9 % Sodium Chloride 1,000 ML 999 ML IV (15:37)
[2023-04-03] MEDS: ondansetron HCL 4 MG/2 ML VIAL IVPUSH (15:38)
[2023-04-03 15:56] LABS: Amphetamine Screen Urine Not Detected (Not Detect); Barbiturates, Urine POSITIVE (Not Detect); Benzodiazepines Screen Urine Not Detected (Not Detect); Cannabinoid Screen Urine POSITIVE (Not Detect); Cocaine Screen Urine Not Detected (Not Detect); Fentanyl, urine Not Detected (Not Detect); Opiate Screen Urine Not Detected (Not Detect); Phencyclidine Screen Urine Not Detected (Not Detect)
[2023-04-03 16:23] VITALS: BP 164/100; PULSE 86; RESP 16; TEMP 37.1; O2SAT 98
== END 2023-04-03 16:55 | disposition home or self-care (01) ==
PROVIDERS: Physician Assistant Medical; Emergency Provider Emergency Medicine; PCP Physician Assistant
DX: F10.10 Alcohol abuse, uncomplicated (principal); Y90.8 Blood alcohol level of 240 mg/100 ml or more; R11.0 Nausea; Z79.899 Other long term (current) drug therapy
CPT/HCPCS: 36415; 80048; 80076; 80307; 83690; 83735; 85025; 96361; 96374; 99284; J2405

== ENCOUNTER 2023-08-11 10:58 | Inpatient (IN) | payer OTHER, SELFPAY ==
[2023-08-11] VITALS (7 sets, daily range): BP systolic 119–173; BP diastolic 65–107; PULSE 56–108; RESP 16–22; TEMP 35.7–36.9; O2SAT 95–98; BMI 28.5
--- NOTE | 2023-08-11 11:32 | PC.NURSE ---
Patient report he drinks heavily everyday- about 20 nips per day. States has been trying to cut back and drank 16 nips yesterday with last drink around 9pm. States then went to bed, woke up around 2am with dry heaves and drank a large amount of ice water and vitmain water. Reports around 9am this morning started throwing up clear liquid. Reports abdominal pain, denies headache or sob. nsr on monitor
--- NOTE | 2023-08-11 11:35 | PC.NURSE ---
patient reports not interested in detox
--- NOTE | 2023-08-11 11:41 | ED_ITS ---
HPI - Alcohol General Chief Complaint: ETOH/Substance Use Stated Complaint: Alcohol withdrawals Time Seen by Provider: 08/11/23 11:30 Source: patient and old records reviewed Mode of arrival: ambulatory Limitations: no limitations History of Present Illness HPI narrative: 48 yo male with PMH of ETOH withdrawal but no seizures, GERD, elevated LFTs who reports he relapsed again after sobriety April to July he drinks about 10+ nips of vodka a day last drink at 9pm. He vomited throughout the night and now has n/v and shaking. He cannot keep anything down. He states he feels anxious, shaky, nauseated, no hallucinations. MD complaint: alcohol withdrawal Last drink: Hours (ago) (9pm yesterday ) Chronic alcohol use: Yes Previous visits for alcohol intoxication: Yes Recent trauma: No Associated symptoms: nausea, vomiting and tremors Treatments prior to arrival: none Related Data Home Medications Medication Instructions Recorded Confirmed multivitamin 1 tab PO DAILY 02/24/23 08/11/23 omeprazole 20 mg capsule,delayed 20 mg PO DAILY@0630 02/24/23 08/11/23 release gabapentin 300 mg capsule 300 mg PO BID PRN neuropathy 08/11/23 08/11/23 Previous Rx's Medication Instructions Recorded folic acid 1 mg tablet 1 mg PO DAILY #30 tabs 08/12/23 thiamine HCl (vitamin B1) 100 mg 100 mg PO DAILY #30 tabs 08/12/23 tablet Allergies Allergy/AdvReac Type Severity Reaction Status Date / Time Penicillins [PENICILLINS] Allergy Intermediate RASH Verified 11/12/22 00:07 Review of Systems 2 Review of Systems: Constitutional : No Weight loss, No Fever, No Chills ENT/Mouth : No sore throat, No Rhinorrhea Eyes: No Swelling, No Redness Cardiovascular : No Chest Pain, No SOB, NoEdema Respiratory : No Cough, No Sputum, No Wheezing Gastrointestinal : Positive Nausea, Positive Vomiting, no Diarrhea, no abdominal Pain, No Hematochezia, No Melena Genitourinary : No Dysuria, No Urinary Frequency, No Hematuria, No Urgency Musculoskeletal : No joint pain, No Myalgias, No Joint Swelling Skin : No Skin Lesions, No rash Neuro : No Weakness, No Numbness, No Dizziness, No Headache Psych : pos Anxiety/Panic, No Depression Heme/Lymph: No Bruising, No Lymphadenopathy Endocrine : No Polyuria, No Polydipsia All other systems reviewed and are negative. [facility] Past Medical History Attestation statement: The following information was validated with the patient. Source: old records reviewed Medical History Thrombocytopenia Leukopenia Alcohol abuse with withdrawal Alcohol use disorder Alcoholic gastritis Elevated LFTs Peripheral neuropathy GERD (gastroesophageal reflux disease) Alcohol withdrawal GI bleed Anemia ETOH abuse HTN (hypertension) Family History Family History Mother Mental health disorder Father Liver cirrhosis Social History Social History Household Members: Spouse Household Members Other:: Jerica - - 2 children ages 8 and 15 Housing: House Do you presently have visiting nurse or other home services: No Alcohol intake: current Alcohol intake frequency: 3 or more drinks per day Alcohol type: hard liquor Patient Tobacco Use Status: Never used Tobacco Tobacco use type: Cigarette e-Cigarette/Vaping Use: Never Used Advance Directives Date on File: 07/04/21 service: No Current occupational status: 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 Oriented X3. anxious dry heaving mild acute distress. Eyes: Pupils equal, round and reactive to light. ENT: Pharynx dry MM Neck: Normal inspection. Neck supple. CVS: tachycardic heart rate and rhythm. Pulses normal. Respiratory: No respiratory distress. Breath sounds normal. Abdomen: Soft and non-tender. Skin: Skin warm and dry. Normal skin color. Normal skin turgor. Extremities: No lower extremity edema. No calf ttp Neuro: Oriented X 3. No motor deficit. No sensory deficit. Tremors noted Course Course Course Narrative: still shaky after IV ativan and phenobarb may need additional IV phenobarb will admit Medical Decision Making Medical Decision Making MDM Narrative: 48 yo male with PMH of ETOH withdrawal but no seizures, GERD, elevated LFTs here with c/o ETOH withdrawal who has n/v and doesn't feel well at this time with tremors and anxiety. He is very shaky and dry heaving with tachcyardia and HTN at this time will get IVF, magnesium, thiamine and ativan on board while we wait for phenobarb protocol. Labs and lytes ordered. Possibl admission. Differential Diagnosis Differential Diagnoses: The differential diagnosis associated with the presentation includes ETOH withdrawal, lyte abnormality Admission/Observation Consideration of admission/observation: Escalation of care including admission/observation considered admit for phenobarb protocol and tremors Consult Healthcare Provider Management of the patient was discussed with: Hospitalist (agrees to admit) Lab Data MDM Lab Attestation statement: I reviewed the patient's lab results. 08/11/23 11:43 08/12/23 05:06 Labs: Lab Results 08/11/23 Range/Units 11:43 WBC 4.4 L (4.8-10.8) X10*3/uL RBC 4.57 L (4.60-5.80) X10*6/uL Hgb 14.4 (14.0-18.0) g/dl Hct 41.2 L (42.0-52.0) % MCV 90.2 (80.0-98.0) fL MCH 31.5 (27.0-33.0) pg MCHC 35.0 (31.0-36.0) g/dl RDW 13.0 (11.0-16.0) % Plt Count 143 L D (160-400) X10*3/uL MPV 8.9 L (9.4-12.4) fL Immature Gran % (Auto) 0.2 (0.0-0.4) % Neut % (Auto) 84.5 H (45-73) % Lymph % (Auto) 7.3 L (20-40) % [place] % (Auto) 7.3 (2-11) % Eos % (Auto) 0.0 (0-4) % Baso % (Auto) 0.7 (0-2) % Lymph # (Auto) 0.3 L (1.2-4.9) X10*3/uL [place] # (Auto) 0.3 (0.1-1.2) X10*3/uL Eos # (Auto) 0.0 (0.0-0.4) X10*3/uL Baso # (Auto) 0.0 (0.0-0.2) X10*3/uL Abs Immat Gran (auto) 0.01 (0.00-0.03) X10*3/uL Absolute Neuts (auto) 3.7 (2.0-8.3) x10*3/uL Absolute Nucleated RBC 0.000 (0.0-0.012) X10*3/uL Nucleated RBC % (auto) 0.0 (0.0-0.2) /100WBC Sodium 141 (135-145) mmol/L Potassium 4.3 (3.3-5.1) mmol/L Chloride 99 (96-108) mmol/L Carbon Dioxide 23 (22-29) mmol/L Anion Gap 23 H (12-20) BUN 13 (9-16) mg/dL Creatinine 0.93 (0.5-1.4) mg/dL Estim Creat Clear Calc 117.1 Estimated GFR > 60 Random Glucose 155 H (60-115) mg/dL Calcium 10.9 H D (8.4-10.2) mg/dL Magnesium 1.6 (1.6-2.6) mg/dL Total Bilirubin 1.7 H (0.0-1.0) mg/dL Direct Bilirubin 0.5 (0.0-0.5) mg/dL AST 95 H (5-37) U/L ALT 53 H (0-40) U/L Alkaline Phosphatase 81 (39-117) U/L Total Protein 8.8 H (6.5-8.0) g/dL Albumin 4.9 (3.5-5.0) g/dL Lipase 12 (8-78) U/L Ethyl Alcohol < 10 mg/dL Independent Interpretation I performed an independent interpretation of an: EKG Interpretation: Rate: 73 Rhythm: NSR [place]: left Normal P waves. Normal KRISTI. Normal QRS complex. ST T wave : normal no FUENTES, inverted T waves III AVF qTC: normal prior studies: no acute ischemia The study has been interpreted contemporaneously by me. . External Record Review External record reviewed: Inpatient record Medications Administered Discontinued Medications Generic Name Dose Route Start Last Admin Trade Name Freq PRN Reason Stop Dose Admin Folic Acid 1 mg 08/11/23 15:00 08/12/23 09:20 Folic Acid 1 Mg Tablet PO 1 mg DAILY LYDIA Administration Thiamine HCl 200 mg/ Sodium 102 mls @ 204 mls/hr 08/11/23 11:15 08/11/23 12:51 Chloride IV 08/11/23 11:44 Infused ONCE ONE Infusion Magnesium Sulfate 2 gm in 50 mls @ 25 mls/hr 08/11/23 11:15 08/11/23 14:30 Magnesium Sulfate/H2o IV 08/11/23 13:14 Infused ONCE ONE Infusion Sodium Chloride 1,000 mls @ 999 mls/hr 08/11/23 11:30 08/11/23 12:51 Ns IV 08/11/23 12:30 Infused .Q1H1M LYDIA Infusion Lactated Ringer's 1,000 mls @ 100 mls/hr 08/11/23 15:00 08/12/23 10:19 Lr IVCONT 100 mls/hr .Q10H LYDIA Administration Thiamine HCl 100 mg/ Sodium 101 mls @ 202 mls/hr 08/12/23 09:00 08/12/23 09:54 Chloride IV Infused DAILY LYDIA Infusion Lidocaine 1 patch 08/12/23 09:00 08/12/23 09:21 Lidocaine 4 % Patch Adh..Patch TRANSDERMA Not Given DAILY LYDIA Protocol Lorazepam 2 mg 08/11/23 11:15 08/11/23 11:56 Lorazepam 2 Mg/Ml Vial IVPUSH 08/11/23 11:16 2 mg ONCE ONE Administration Ondansetron HCl 4 mg 08/11/23 11:15 08/11/23 11:55 Ondansetron Hcl 4 Mg/2 Ml Vial IVPUSH 08/11/23 11:16 4 mg ONCE ONE Administration Pantoprazole Sodium 40 mg 08/12/23 09:00 08/12/23 09:20 Pantoprazole Sodium 40 Mg/10 Ml Vial IVPUSH 40 mg DAILY LYDIA Administration Phenobarbital 60 mg 08/12/23 09:00 08/12/23 09:20 Phenobarbital 30 Mg Tablet PO 08/13/23 21:01 60 mg BID LYDIA Administration Protocol Phenobarbital Sodium 384 mg 08/11/23 12:00 08/11/23 12:01 Phenobarbital Sodium 130 Mg/Ml Im Once IM 08/11/23 12:01 384 mg ONCE ONE Administration Protocol Phenobarbital Sodium 288 mg 08/11/23 15:00 08/11/23 17:53 Phenobarbital Sodium 130 Mg/Ml Vial Im Q3hx2 IM 08/11/23 18:01 288 mg Q3H LYDIA Administration Protocol Sodium Chloride 3 ml 08/11/23 16:00 08/12/23 09:19 0.9 % Sodium Chloride Flush 3 Ml Syringe IVFLUSH Not Given QSHIFT LYDIA Zolpidem Tartrate 5 mg 08/11/23 22:48 08/11/23 23:02 Zolpidem Tartrate 5 Mg Tablet PO 08/11/23 22:49 5 mg ONCE ONE Administration Critical Care Time Critical Care Time Critical Care Time: Yes Total Critical Care Time: 45 Attestation: IV ativan, IVF, phenobarb protocol to treat ETOH withdrawal, admission I attest to this time spent taking care of the patient Discharge Plan Discharge Clinical Impression: Alcohol withdrawal syndrome Patient Disposition: Admitted As Inpatient Interventions: Admission Worksheet (ED) Last Done: 08/11/23 15:44 Discharge Date/Time: 08/11/23 15:48
--- NOTE | 2023-08-11 12:52 | PC.NURSE ---
Patient reports feeling much better, reports decreased anxiety and tremors. Denies any further nausea and vomiting.
--- NOTE | 2023-08-11 13:56 | PC.NURSE ---
Resting comfortably in bed, respirations even and unlabored
--- NOTE | 2023-08-11 15:15 | PM.IMHP ---
History of Present Illness Date of Service: 08/11/23 Attending physician on admission: Zachariah Edwards Chief Complaint: alcohol withdrawal 48 y/o M ETOH withdrawal but no seizures, GERD, elevated LFTs who was sober before , reports he relapsed again after sobriety April to July he drinks ab [email or web address] out 10+ nips of vodka a day last drink at 9pm,he said he started back because was feeling bored. He vomited throughout the night and now has n/v,has some epigastric soarness and shaking. He cannot keep anything down. He states he feels anxious, shaky, nauseated, no hallucinations. Denies any new complaint of chest pain or shortness of breath or fever or chills . Denies any cough Denies any weakness or numbness. Lab imaging EKG reviewed: CBC seems similar to before. BMP seems fine except slightly elevated calcium 10.9. Mildly elevated LFTs Lipase normal. In ED: Patient received antiemetic, phenobarb-admission was asked for persistent nausea vomiting and alcohol withdrawal. Patient already started on phenobarb protocol. Review of Systems Review of Systems: as above. [facility] Medical History Thrombocytopenia Leukopenia Alcohol abuse with withdrawal Alcohol use disorder Alcoholic gastritis Elevated LFTs Peripheral neuropathy GERD (gastroesophageal reflux disease) Alcohol withdrawal GI bleed Anemia ETOH abuse HTN (hypertension) Family History Mother Mental health disorder Father Liver cirrhosis Social History Household Members: Spouse Household Members Other:: Jerica - - 2 children ages 8 and 15 Housing: House Do you presently have visiting nurse or other home services: No Alcohol intake: current Alcohol intake frequency: 3 or more drinks per day Alcohol type: hard liquor 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 Sexual orientation: Straight/Heterosexual Meds Allergies Allergy/AdvReac Type Severity Reaction Status Date / Time Penicillins [PENICILLINS] Allergy Intermediate RASH Verified 11/12/22 00:07 Active Medications: Current Medications Enoxaparin Sodium (Enoxaparin Sodium 40 Mg/0.4 Ml Syringe) 40 mg SUBCUT Q24H [facility] Folic Acid (Folic Acid 1 Mg Tablet) 1 mg PO DAILY [facility] Last Admin: 08/11/23 15:03 Dose: 1 mg Lactated Ringer's (Lr) 1,000 mls @ 100 mls/hr IVCONT .Q10H [facility] Last Admin: 08/11/23 15:04 Dose: 100 mls/hr Thiamine HCl 100 mg/ Sodium (Chloride) 101 mls @ 202 mls/hr IV DAILY [facility] Lidocaine (Lidocaine 4 % Patch Adh..Patch) 1 patch TRANSDERMA DAILY [facility]; Protocol Ondansetron HCl (Ondansetron Hcl 4 Mg/2 Ml Vial) 4 mg IVPUSH Q4H PRN PRN Reason: nausea Pantoprazole Sodium (Pantoprazole Sodium 40 Mg/10 Ml Vial) 40 mg IVPUSH DAILY [facility] Pharmacy Consult (Consult Rx Etoh Phenob Im/Po) 1 each MISCELLANE ONCE PRN; Protocol PRN Reason: Consult order Phenobarbital (Phenobarbital 30 Mg Tablet) 60 mg PO BID [facility]; Protocol Stop: 08/13/23 21:01 Phenobarbital (Phenobarbital 30 Mg Tablet) 30 mg PO BID [facility]; Protocol Stop: 08/15/23 21:01 Phenobarbital (Phenobarbital 30 Mg Tablet) 30 mg PO DAILY [facility]; Protocol Stop: 08/17/23 09:01 Phenobarbital Sodium (Phenobarbital Sodium 130 Mg/Ml Vial Im Q3hx2) 288 mg IM Q3H [facility]; Protocol Stop: 08/11/23 18:01 Last Admin: 08/11/23 15:03 Dose: 288 mg Sodium Chloride (0.9 % Sodium Chloride Flush 3 Ml Syringe) 3 ml IVFLUSH QSHIFT [facility] Last Admin: 08/11/23 15:04 Dose: Not Given Home Medications Medication Instructions Recorded Confirmed Last Taken Type cyanocobalamin (vitamin B-12) 6,000 mcg PO BID 02/24/23 02/24/23 02/23/23 History 3,000 mcg capsule multivitamin 1 tab PO DAILY 02/24/23 02/24/23 02/23/23 History omeprazole 20 mg capsule,delayed 20 mg PO DAILY 02/24/23 02/24/23 1 Day Ago History release ~02/23/23 Physical Exam Vital Signs and Narrative: Vital Signs: Last Vital Signs Temp 98.4 F 08/11/23 11:36 Pulse 100 08/11/23 14:46 Resp 18 08/11/23 14:46 BP 166/98 H 08/11/23 15:03 Pulse Ox 97 08/11/23 14:46 O2 Del Method Room Air 08/11/23 14:46 BMI result Body Mass Index 28.5 Appearance: Alert.? Oriented X3.? As tremor, anxious and slightly restless. Eyes: Pupils equal, round and reactive to light.? Sclera nonicteric.? ENT: Pharynx normal.? Moist mucous membranes. cvs: rrr, [id number] , no murmur res: clear to auscultation ,no rhonchii or wheezing abd: no rebound or guarding , epigastric soreness, bs present. ext pulses present , no cyanosis. neuro: axo3 , nonfocal. Results Labs 08/11/23 11:43 08/11/23 11:43 Labs: Laboratory Results - last 24 hr 08/11/23 11:43 MCV 90.2 MCH 31.5 MCHC 35.0 RDW 13.0 Plt Count 143 L D MPV 8.9 L Immature Gran % (Auto) 0.2 Neut % (Auto) 84.5 H Lymph % (Auto) 7.3 L [place] % (Auto) 7.3 Eos % (Auto) 0.0 Baso % (Auto) 0.7 Lymph # (Auto) 0.3 L [place] # (Auto) 0.3 Eos # (Auto) 0.0 Baso # (Auto) 0.0 Abs Immat Gran (auto) 0.01 Absolute Neuts (auto) 3.7 Absolute Nucleated RBC 0.000 Nucleated RBC % (auto) 0.0 Anion Gap 23 H Estim Creat Clear Calc 117.1 Estimated GFR > 60 Random Glucose 155 H Calcium 10.9 H D Total Bilirubin 1.7 H Direct Bilirubin 0.5 AST 95 H ALT 53 H Alkaline Phosphatase 81 Total Protein 8.8 H Albumin 4.9 Lipase 12 Ethyl Alcohol < 10 Assessment and Plan (1) Alcohol withdrawal: Status: Acute Plan 48-year-old male comes with alcohol withdrawal, persistent nausea vomiting and epigastric discomfort. 1. alcoholic withdrawal Monitor CIWA, started on phenobarb protocol. Electrolytes seems fine, added magnesium level. 2. Persistent nausea vomiting/epigastric discomfort: Possible related to alcohol gastritis/gerd. started IV fluids/IV pantoprazole ,zofran start clear liquid diet 3. Mild hypercalcemia: Possibly related to dehydration Continue IV fluid, monitor BMP. 4. Elevated LFTs: Slightly elevated than before-likely related to alcohol use. Monitor LFTs. Full code [place] Patient will require 2 midnight stay-for alcohol withdrawal on phenobarb protocol, also has persistent nausea vomiting need IV hydration and antiemetics as well as PPIs.. Above management discussed with the patient in detail and he understand and in agreement with the above plan, time spent 70 minute, patient full code. Time Spent With Patient Time: Total time managing care of this patient today ____ minutes. Quality Stroke Does the patient have a stroke diagnosis?: No VTE Prior VTE?: No VTE Risk Level:: Medical - moderate - high VTE Device Contraindication: N/A - Device Ordered VTE Drug Contraindication: N/A - Med Ordered
--- NOTE | 2023-08-11 15:43 | PC.NURSE ---
Report given to accepting unit, transport notified
--- NOTE | 2023-08-11 15:58 | PHA.MEDREC ---
Pharmacy Consult ? Medication Reconciliation Pharmacy has completed the medication reconciliation.
[2023-08-12 04:00] VITALS: BP 130/89; PULSE 84; RESP 16; TEMP 36.3; O2SAT 96
[2023-08-12 07:40] VITALS: BP 153/96; PULSE 75; RESP 18; TEMP 36.2; O2SAT 94
--- NOTE | 2023-08-12 10:51 | PM.DS ---
DS: Providers Provider Date of Service: 08/12/23 Date of admission: 08/11/23 14:46 Date of discharge: 08/12/23 Primary care physician: Jamey Borrego PA-C Consults: 08/11/23 14:51 Addiction Medicine Routine Consulting Provider: Addiction Covering Reason for consultation: alcohol use Has provider been notified: No Attending physician on discharge: Misael Edwards Discharging clinician: Misael Edwards DS: Diagnosis Discharge Diagnosis (1) Alcohol withdrawal: Status: Acute DS: Summary Hospital Course Hospital Course: 48 y/o M ETOH withdrawal but no seizures, GERD, elevated LFTs who was sober before , reports he relapsed again after sobriety April to July he drinks ab [email or web address] 10+ nips of vodka a day last drink at 9pm,he said he started back because was feeling bored. He vomited throughout the night and now has n/v,has some epigastric soarness and shaking. He cannot keep anything down. He states he feels anxious, shaky, nauseated, no hallucinations. Denies any new complaint of chest pain or shortness of breath or fever or chills . Denies any cough Denies any weakness or numbness. Lab imaging EKG reviewed: CBC seems similar to before. BMP seems fine except slightly elevated calcium 10.9. Mildly elevated LFTs Lipase normal. In ED: Patient received antiemetic, phenobarb-admission was asked for persistent nausea vomiting and alcohol withdrawal. Patient already started on phenobarb protocol. Hospital course: 48-year-old male comes with alcohol withdrawal, persistent nausea vomiting and epigastric discomfort-started on Monitoring CIWA, started on phenobarb protocol-improved . ch elevated lft's -possible related to alcohol use , Patient was strongly advised abstain from alcohol. he also Persistent nausea vomiting/epigastric discomfort:Possible related to alcohol gastritis/gerd- mproved with antiemtics and ppi. Mild hypercalcemia: Possibly related to dehydration,improve with hydration and improved po intake. moniter bmp( renal function/electrolytes ) and Liver function test outpatient. Above management discussed with the patient in detail length he understand and in agreement with the above plan, time spent 50 minutes and 50% time spent on counseling. Time Spent with Patient Time attestation: Total time managing care of this patient today ____ minutes. Discharge coordination time: Greater than 30 minutes Quality: Safe Use of Opioids Does Pt have an Active Cancer Diagnosis on the Problem List?: No Quality: Stroke Does the patient have a stroke diagnosis?: No Physical Exam Vital Signs: Vital Signs: Last Vital Signs Temp 97.1 F 08/12/23 07:40 Pulse 75 08/12/23 07:40 Resp 18 08/12/23 07:40 BP 153/96 H 08/12/23 07:40 Pulse Ox 94 08/12/23 07:40 O2 Del Method Room Air 08/12/23 07:40 BMI result Body Mass Index 28.5 Appearance: Alert.? Oriented X3.? cvs: [id number], [id number] , no murmur res: clear to auscultation ,no rhonchii or wheezing abd: no rebound or guarding , nt, bs present. ext pulses present , no cyanosis. neuro: axo3 , nonfocal. DS: Data Data Completed and Pending Completed studies during hospitalization [Text1]: Procedures Detoxification Services for Substance Abuse Treatment (02/24/23) Excision of Lower Esophagus, Via Natural or Artificial Opening Endoscopic, Diagnostic (10/07/20) Excision of Stomach, Pylorus, Via Natural or Artificial Opening Endoscopic, Diagnostic (10/07/20) Transfusion of Nonautologous Red Blood Cells into Peripheral Vein, Percutaneous Approach (10/07/20) Labs on day of discharge: Laboratory Results - last 24 hr 08/11/23 08/12/23 11:43 05:06 WBC 4.4 L RBC 4.57 L Hgb 14.4 Hct 41.2 L MCV 90.2 MCH 31.5 MCHC 35.0 RDW 13.0 Plt Count 143 L D MPV 8.9 L Immature Gran % (Auto) 0.2 Neut % (Auto) 84.5 H Lymph % (Auto) 7.3 L [place] % (Auto) 7.3 Eos % (Auto) 0.0 Baso % (Auto) 0.7 Lymph # (Auto) 0.3 L [place] # (Auto) 0.3 Eos # (Auto) 0.0 Baso # (Auto) 0.0 Abs Immat Gran (auto) 0.01 Absolute Neuts (auto) 3.7 Absolute Nucleated RBC 0.000 Nucleated RBC % (auto) 0.0 Hold Purple Top SEE NOTE Sodium 141 139 Potassium 4.3 3.3 D Chloride 99 100 Carbon Dioxide 23 27 Anion Gap 23 H 15 BUN 13 10 Creatinine 0.93 0.80 Estim Creat Clear Calc 117.1 136.2 Estimated GFR > 60 > 60 Random Glucose 155 H 94 Calcium 10.9 H D 9.5 D Magnesium 1.6 Total Bilirubin 1.7 H Direct Bilirubin 0.5 AST 95 H ALT 53 H Alkaline Phosphatase 81 Total Protein 8.8 H Albumin 4.9 Lipase 12 Ethyl Alcohol < 10 Discharge Plan Discharge Anticipated Discharge Date/Time: 08/12/23 10:31 Patient Disposition: Home, Self-Care Discharge Diagnosis: Alcohol withdrawal, GERD Referrals: Jamey Borrego PA-C [Primary Care Provider] - 1 Week Discharge Medications: New folic acid 1 mg Tablet 1 mg PO DAILY Qty: 30 0RF thiamine HCl (vitamin B1) 100 mg tablet 100 mg PO DAILY Qty: 30 0RF Continued omeprazole 20 mg capsule,delayed release(DR/EC) 20 mg PO DAILY@0630 multivitamin Tablet 1 tab PO DAILY gabapentin 300 mg capsule 300 mg PO BID PRN (Reason: neuropathy) Discharge Orders: Discharge Order (Routine); Ordered 08/12/23 Ordered By: Misael Edwards Diet: Advance to usual diet Activity on Discharge: As tolerated Stand Alone Forms: Patient Portal Discharge page Care Plan Goals: 48-year-old male comes with alcohol withdrawal, persistent nausea vomiting and epigastric discomfort-started on Monitoring CIWA, started on phenobarb protocol-improved . ch elevated lft's -possible related to alcohol use , Patient was strongly advised abstain from alcohol. he also Persistent nausea vomiting/epigastric discomfort:Possible related to alcohol gastritis/gerd- mproved with antiemtics and ppi. Mild hypercalcemia: Possibly related to dehydration,improve with hydration and improved po intake. moniter bmp( renal function/electrolytes ) and Liver function test outpatient. Health Concerns: As above. Plan of Treatment: As above. Assessment: As above. Patient Instructions: Acute Nausea and Vomiting (DC), Alcohol Withdrawal (DC)
--- NOTE | 2023-08-12 12:06 | MHC.RECOVRN ---
This procedure writer met with patient after receiving addiction consult. Pt admitted for ETOH withdrawal. Pt states no hx of seizures. Pt reports recovery time April-July2023, pt reports out of boredom started drinking, escalated to drinking daily 15-20 nips in the evening. Pt reports in the past found AA helpful, naltrexone/JYOTI INJ helpful. Pt reports goal of abstinence. Harm reduction, recovery resources reviewed, resource folder left at bedside. Reviewed walk in hours at the [facility] for LARISSA, encouraged patient to call Addiction/Recovery team with any questions/concerns.
--- NOTE | 2023-08-12 14:05 | MHC.CM.PN ---
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
== END 2023-08-12 14:36 | disposition home or self-care (01) | DRG 897 ==
LOC: HO.ED 11:33 → HO.EDOVER 14:51 → HO.S3 15:32
PROVIDERS: Admitting Provider Internal Medicine; Emergency Provider Emergency Medicine; PCP Physician Assistant; Visit Provider Internal Medicine
DX: F10.239 Alcohol dependence with withdrawal, unspecified (principal); K21.9 Gastro-esophageal reflux disease without esophagitis; E86.0 Dehydration; E83.52 Hypercalcemia; Z79.899 Other long term (current) drug therapy
CPT/HCPCS: 36415; 80048; 80053; 80307; 82248; 83690; 83735; 85025; 93005; 99221; 99285; J2060; J2405; J2560; J3411; J3475

== ENCOUNTER → 2023-08-11 14:46 | Outpatient (BNV) | payer OTHER, SELFPAY | PROVIDERS: Admitting Provider Internal Medicine; Emergency Provider Emergency Medicine; PCP Physician Assistant; Visit Provider Internal Medicine | DX: F10.239 Alcohol dependence with withdrawal, unspecified (principal) | CPT/HCPCS: 99222; 99239 ==

== ENCOUNTER 2024-06-06 16:57 | Emergency (ER) | payer OTHER, SELFPAY ==
[2024-06-06 17:00] VITALS: BP 149/95; PULSE 97; RESP 18; TEMP 36.7; O2SAT 94; BMI 26.8
--- NOTE | 2024-06-06 17:00 | ED_ITS ---
HPI - General Adult General Chief complaint: ETOH/Substance Use Stated complaint: alcohol withdrawal vomiting Time Seen by Provider: 06/06/24 20:05 Source: patient and RN notes reviewed Mode of arrival: ambulatory Limitations: no limitations History of Present Illness ED Provider: Alesia Skaggs PA-C HPI narrative: This is a 48-year-old male, with a history of alcohol abuse, who presents emergency department with complaints of alcohol abuse. Patient states that he has periods of time where he is able to abstain from alcohol. However states that over the last 10 days he has been drinking about a qt or more of vodka daily. Patient states that he has been unable to eat as he only has been vomiting. He states that he has no headaches, dizziness, blurred vision, chest pain, shortness of breath, abdominal pain, diarrhea constipation. No bloody or black stool. No bloody vomitus. He previously went to detox in the past. He is interested in detox today. He states that he has no SI or HI. He has no AH/AV. Denies history of alcohol seizures in the past. MD complaint: Alcohol abuse Related Data Home Medications ?Medication ?Instructions ?Recorded ?Confirmed multivitamin 1 tab PO DAILY 02/24/23 08/11/23 omeprazole 20 mg capsule,delayed 20 mg PO DAILY@0630 02/24/23 08/11/23 release gabapentin 300 mg capsule 300 mg PO BID PRN neuropathy 08/11/23 08/11/23 Previous Rx's ?Medication ?Instructions ?Recorded folic acid 1 mg tablet 1 mg PO DAILY #30 tabs 08/12/23 thiamine HCl (vitamin B1) 100 mg 100 mg PO DAILY #30 tabs 08/12/23 tablet Allergies Allergy/AdvReac Type Severity Reaction Status Date / Time Penicillins [PENICILLINS] Allergy Intermediate RASH Verified 06/06/24 17:01 Review of Systems 2 Review of Systems: Yes all other systems are reviewed and are negative Constitutional: Constitutional: Reports as per [facility] Past Medical History Medical History Thrombocytopenia Leukopenia Alcohol abuse with withdrawal Alcohol use disorder Alcoholic gastritis Elevated LFTs Peripheral neuropathy GERD (gastroesophageal reflux disease) Alcohol withdrawal GI bleed Anemia ETOH abuse HTN (hypertension) Family History Family History Mother Mental health disorder Father Liver cirrhosis Social History Social History Household Members: Spouse Household Members Other:: Jerica - - 2 children ages 8 and 15 Housing: House Do you presently have visiting nurse or other home services: No Alcohol intake: current Alcohol intake frequency: other Alcohol type: hard liquor Comment: deemed high fall risk upon admission do to ETOH withdrawl. 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 Sexual orientation: Straight/Heterosexual Physical Exam ED Vital Signs: Vital Signs - 24 hr 06/06/24 17:00 06/06/24 22:00 06/06/24 23:21 Temperature 98.0 F 98.3 F 97.9 F Pulse Rate 97 83 102 H Respiratory Rate 18 20 17 Blood Pressure 149/95 H 142/87 H 157/100 H Pulse Oximetry 94 96 97 Oxygen Delivery Method Room Air Room Air Room Air BMI result Body Mass Index 26.8 Const General: cooperative, comfortable and no acute distress Orientation/consciousness: patient oriented x3 Limitations: no limitations [facility] Head: Yes normal to inspection, Yes normocephalic and Yes atraumatic Ears: hearing grossly normal bilaterally General nose exam: Normal external nose present Face and sinus: Yes normal facial exam Mouth: Normal oral and palatal mucosa present, oropharynx normal and moist mucous membranes Throat: Yes posterior oropharynx normal Eyes General: appearance normal, both eyes and all related structures Eyelids: Yes eyelids normal Conjunctivae: conjunctivae normal Sclerae: sclerae normal Pupils: Equal, round and reactive pupils present EOM: EOMs intact bilaterally Neck Neck: Yes normal visual inspection, Yes full ROM and Yes no lymphadenopathy Lymphatic: no lymphadenopathy noted Chest Chest palpation & inspection: normal inspection of the chest Resp Effort & Inspection: normal respiratory effort and able to speak in complete sentences Auscultation: clear to auscultation bilaterally, no crackles, no rales, no rhonchi and no wheezes Cardio Rate: regular rate Rhythm: regular rhythm Heart sounds: S1 normal heart sound present and S2 normal heart sound present GI Other: Abdomen is soft, nontender, nondistended Inspection: Yes normal to inspection Skin General skin exam: no rashes or lesions noted Trauma: no lacerations or abrasions Wounds: no wounds Neuro General: patient oriented x3 and moves all extremities Cranial nerves: Yes Equal, round and reactive pupils present Extrem General: Yes normal to inspection Right upper extremity: normal to inspection Left upper extremity: normal to inspection Right lower extremity: normal to inspection Left lower extremity: normal to inspection Psych Appearance: grossly normal Mental Status: mental status grossly normal Speech and movement: Normal speech and movement present Affect: Anxious affect present Attitude: cooperative Thought process: Normal thought process present Thought content: Normal thought content present Insight: Fair insight present (Psych) Judgement: Fair judgement present (Psych) Course Course Course Narrative: RME performed by Allegra Joyce PA-C. Patient is a 48 year old assigned male at presenting to the emergency department with alcohol withdrawal, nausea, and vomiting. Detailed physical exam and review of systems are deferred to the catering coordinator. EKG, labs, and swabs ordered. Patient placed back in the waiting room pending room availability and results. Reevaluation(s) Reevaluation #1: Patient feeling much better after initiating phenobarb protocol. Patient reporting that he is feeling so much better after eating and drinking fluids in the department in his anxious for discharge home. I discussed with patient that we should continue to monitor him as he should be seen by the addiction Medicine team as he wishes to seek detox. He states that he has too many things to attend to home, and would like to be discharged. I expressed to him that this is ill advised, and we need to repeat troponin, as well as to closely monitor. Given that he is clinically sober, he is able to make these medical decisions for himself, he is eligible to sign against medical advice. He understands the risks of leaving without completing his full workup today. Patient given paperwork. Medications Administered Discontinued Medications Generic Name Dose Route Start Last Admin Trade Name Freq PRN Reason Stop Dose Admin Phenobarbital Sodium 329 mg 06/06/24 22:00 06/06/24 21:29 Phenobarbital Sodium 130 Mg/Ml Im Once IM 06/06/24 22:01 329 mg ONCE ONE Administration Protocol Medical Decision Making Medical Decision Making [facility] Narrative: This is a 48-year-old male who presents emergency department with complaints of increasing anxiety, and alcohol abuse for the last 10 days. On arrival, blood pressure 149/95. He is anxious appearing, tearful, upset regarding alcohol use. He is remorseful about recent relapse. He expresses interested in detox. He has no history of alcohol withdrawal seizures. Labs were obtained prior to my assessment, he has leukopenia at 2.7 and low platelets at 111, normocytic anemia noted with an H&H of 13.9/38.1, chemistry revealing elevated total bili, and elevated liver transaminases with an AST and ALT of 70 and 41 respectively. First troponin less than 2.7. Ethyl alcohol 287. Will initiate phenobarb protocol. He is able to tolerate oral fluid in the department, will avoid IV at this time. CIWA scale ordered. Differential Diagnosis Differential Diagnoses: The differential diagnosis associated with the presentation includes Alcohol abuse, alcohol withdrawal, delirium tremens-unlikely, anxiety Admission/Observation Consideration of admission/observation: Escalation of care including admission/observation considered Lab Data [facility] Lab Attestation statement: I reviewed the patient's lab results. eukopenia at 2.7 and low platelets at 111, normocytic anemia noted with an H&H of 13.9/38.1, chemistry revealing elevated total bili, and elevated liver transaminases with an AST and ALT of 70 and 41 respectively. First troponin less than 2.7. Ethyl alcohol 287. 06/06/24 17:23 06/06/24 17:23 Labs: Lab Results 06/06/24 Range/Units 17:23 WBC 2.7 L (4.8-10.8) X10*3/uL RBC 4.34 L (4.60-5.80) X10*6/uL Hgb 13.9 L (14.0-18.0) g/dl Hct 38.1 L (42.0-52.0) % MCV 87.8 (80.0-98.0) fL MCH 32.0 (27.0-33.0) pg MCHC 36.5 H (31.0-36.0) g/dl RDW 14.3 (11.0-16.0) % Plt Count 111 L (160-400) X10*3/uL MPV 8.8 L (9.4-12.4) fL Immature Gran % (Auto) 1.1 H (0.0-0.4) % Neut % (Auto) 60.4 (45-73) % Lymph % (Auto) 21.6 (20-40) % [place] % (Auto) 14.7 H (2-11) % Eos % (Auto) 1.1 (0-4) % Baso % (Auto) 1.1 (0-2) % Lymph # (Auto) 0.6 L (1.2-4.9) X10*3/uL [place] # (Auto) 0.4 (0.1-1.2) X10*3/uL Eos # (Auto) 0.0 (0.0-0.4) X10*3/uL Baso # (Auto) 0.0 (0.0-0.2) X10*3/uL Abs Immat Gran (auto) 0.03 (0.00-0.03) X10*3/uL Absolute Neuts (auto) 1.7 L (2.0-8.3) x10*3/uL Absolute Nucleated RBC 0.000 (0.0-0.012) X10*3/uL Nucleated RBC % (auto) 0.0 (0.0-0.2) /100WBC Sodium 142 (135-145) mmol/L Potassium 3.3 (3.3-5.1) mmol/L Chloride 102 (96-108) mmol/L Carbon Dioxide 22 (22-29) mmol/L Anion Gap 21 H (12-20) BUN 15 (9-16) mg/dL Creatinine 0.83 (0.5-1.4) mg/dL Estim Creat Clear Calc 123.7 Estimated GFR > 60 Random Glucose 110 (60-115) mg/dL Calcium 9.3 (8.4-10.2) mg/dL Magnesium 1.8 (1.6-2.6) mg/dL Total Bilirubin 1.2 H (0.0-1.0) mg/dL AST 70 H (5-37) U/L ALT 41 H (0-40) U/L Alkaline Phosphatase 72 (39-117) U/L Troponin I High Sens < 2.7 (<3.5-35.0) ng/L Total Protein 7.9 (6.5-8.0) g/dL Albumin 4.6 (3.5-5.0) g/dL Ethyl Alcohol 287 mg/dL Radiology Impression Discussion of test interpretation with radiology: I have reviewed the radiologist's reading. External Record Review External record reviewed: Inpatient record, Office record, Outpatient record, Prior outpatient labs, Prior outpatient radiology, Primary care record and Outside ED record Discharge Plan Discharge Clinical Impression: Alcohol abuse Patient Disposition: Home, Self-Care Instructions: At-Risk Alcohol Use (ED), Alcohol Withdrawal (ED), Alcohol Use Disorder (ED) Additional Instructions: You were seen in the emergency department due to alcohol abuse. We gave you medicines to help with anxiety associated with alcohol use disorder. You refused staying overnight, talking to addiction Medicine, and completing her workup today. This is against medical advice. There are risks associated with leaving the emergency room against medical advice including but not limited to series injury and/or . Strongly urge you to follow-up with your primary care physician. Refer to your resources that you stated you already have. If any new or worsening symptoms occur including but not limited to severe headache, chest pain, please return for re-evaluation. Prescriptions: No Action omeprazole 20 mg capsule,delayed release(DR/EC) 20 mg PO DAILY@0630 multivitamin Tablet 1 tab PO DAILY gabapentin 300 mg capsule 300 mg PO BID PRN (Reason: neuropathy) folic acid 1 mg Tablet 1 mg PO DAILY Qty: 30 0RF thiamine HCl (vitamin B1) 100 mg tablet 100 mg PO DAILY Qty: 30 0RF Interventions: ED Discharge Assessment Last Done: 06/06/24 23:21 Discharge Date/Time: 06/06/24 23:20 Print Language: Lebanese
--- NOTE | 2024-06-06 17:01 | ECG_ITS ---
Test Reason : alcohol withdrawal Blood Pressure : / mmHG Vent. Rate : 095 BPM Atrial Rate : 095 BPM P-R Int : 142 ms QRS Dur : 074 ms QT Int : 328 ms P-R-T Axes : 057 000 001 degrees QTc Int : 412 ms Normal sinus rhythm T wave abnormality, consider anterior ischemia Abnormal ECG When compared with ECG of 11-AUG-2023 11:28, T wave inversion now evident in Anterior leads Referred By: Allegra Joyce Electronically Signed By:Raul Fraga
[2024-06-06 17:29] LABS: Basophils Percent Auto 1.1 % (0-2); Eosinophils Percent Auto 1.1 % (0-4); Hematocrit 38.1 % (42.0-52.0); Hemoglobin 13.9 g/dl (14.0-18.0); Imm Gran Abs Auto 0.03 X10*3/uL (0.00-0.03); Imm Gran Pct Auto 1.1 % (0.0-0.4); Lymphocytes Absolute Auto 0.6 X10*3/uL (1.2-4.9); Lymphocytes Percent Auto 21.6 % (20-40); MANUAL DIFF FLAG NO; Mean Corpuscular HGB Conc 36.5 g/dl (31.0-36.0); Mean Corpuscular Volume 87.8 fL (80.0-98.0); Mean Platelet Volume 8.8 fL (9.4-12.4); Monocytes Absolute Auto 0.4 X10*3/uL (0.1-1.2); Monocytes Percent Auto 14.7 % (2-11); Neutrophils Absolute Auto 1.7 x10*3/uL (2.0-8.3); Neutrophils Percent Auto 60.4 % (45-73); Platelet Count 111 X10*3/uL (160-400); Red Blood Count 4.34 X10*6/uL (4.60-5.80); Red Cell Distribution Width 14.3 % (11.0-16.0); White Blood Count 2.7 X10*3/uL (4.8-10.8)
[2024-06-06 17:46] LABS: Alanine Aminotransferase 41 U/L (0-40); Albumin Level 4.6 g/dL (3.5-5.0); Alkaline Phosphatase 72 U/L (39-117); Anion Gap 21 (12-20); Aspartate Amino Transferase 70 U/L (5-37); Bilirubin Total 1.2 mg/dL (0.0-1.0); Blood Urea Nitrogen 15 mg/dL (9-16); Calcium 9.3 mg/dL (8.4-10.2); Carbon Dioxide 22 mmol/L (22-29); Chloride 102 mmol/L (96-108); Creatinine Clr Calc Pharmacy 123.7; Estimated Glomerular Filt Rate > 60; Ethanol 287 mg/dL; Glucose Random 110 mg/dL (60-115); Magnesium 1.8 mg/dL (1.6-2.6); Potassium 3.3 mmol/L (3.3-5.1); Sodium 142 mmol/L (135-145); Total Protein 7.9 g/dL (6.5-8.0)
--- NOTE | 2024-06-06 19:13 | PC.NURSE ---
report received from Sven HUTCHINSON, assume care of pt at this time
[2024-06-06 20:38] LABS: Troponin-I High Sensitivity < 2.7 ng/L (<3.5-35.0)
--- NOTE | 2024-06-06 21:25 | PC.NURSE ---
per pt's ok, spoke with aunt Milagros Little and update given
[2024-06-06] MEDS: PHENobarbitaL sodium 130 MG/ML IM ONCE 329 MG IM (21:29)
--- NOTE | 2024-06-06 21:36 | PC.NURSE ---
per Alesia Monroe ok, pt given camilla abby to drink, informed pt to sip slowly, as not to start vomiting again
[2024-06-06 22:00] VITALS: BP 142/87; PULSE 83; RESP 20; TEMP 36.8; O2SAT 96
--- NOTE | 2024-06-06 23:02 | PC.NURSE ---
pt states, he is feeling better, and thinks he can go home. States he is here volunitary and he wants to leave. Pt had walked in the uriarte, stating he needed to stretch his legs. Asked the patient to stay, until Alesia NAVARRO, could speak with him, pt agreed
[2024-06-06 23:21] VITALS: BP 157/100; PULSE 102; RESP 17; TEMP 36.6; O2SAT 97
== END 2024-06-06 23:20 | disposition home or self-care (01) ==
PROVIDERS: Physician Assistant Medical; Emergency Provider Emergency Medicine; PCP Physician Assistant
DX: F10.10 Alcohol abuse, uncomplicated (principal); Y90.8 Blood alcohol level of 240 mg/100 ml or more; F41.9 Anxiety disorder, unspecified; R11.2 Nausea with vomiting, unspecified
CPT/HCPCS: 36415; 80053; 80307; 83735; 84484; 85025; 93005; 96372; 99285; J2560

== ENCOUNTER → 2024-06-06 17:01 | Outpatient (BNV) | payer OTHER, SELFPAY | PROVIDERS: Emergency Provider Emergency Medicine; PCP Physician Assistant; Visit Provider Internal Medicine Cardiovascular Disease | DX: R94.31 Abnormal electrocardiogram [ECG] [EKG] (principal) | CPT/HCPCS: 93010 ==

== ENCOUNTER 2024-06-07 07:53 | Inpatient (IN) | payer OTHER, SELFPAY ==
--- NOTE | ~2024-06-07 | CT_ITS ---
EXAMINATION: CT ABDOMEN AND PELVIS WITHOUT CONTRAST CLINICAL INFORMATION: Cough and vomiting with abdominal pain COMPARISON: CT abdomen pelvis 02/24/2023 TECHNIQUE: Multidetector volumetric imaging was performed from the superior aspect of the liver through the pubic symphysis. Sagittal and coronal reformatted images were obtained on the technologist's workstation. This CT examination was performed using dose optimization techniques as appropriate, variously including the following: *Automated exposure control *Adjustment of mA and/or kV according to patient size (this includes techniques or standardized protocols for targeted exams where dose is matched to indication/reason for exam; i.e. extremities or head) *Use of iterative reconstruction technique DLP: 616 mGy-cm FINDINGS: LUNG BASES: The visualized lung bases are unremarkable. LIVER, GALLBLADDER, AND BILIARY TREE: The liver is normal in size, shape, and diffusely hypo-attenuated No focal hepatic lesion or biliary ductal dilatation is present. The gallbladder is unremarkable with no evidence of radiopaque gallstones, gallbladder wall thickening, or obvious pericholecystic inflammatory changes. PANCREAS: Unremarkable. SPLEEN: Unremarkable. ADRENAL GLANDS: Unremarkable. KIDNEYS AND URETERS: The kidneys are normal in size, shape, and attenuation. No hydronephrosis, hydroureter, or calculi seen. No perinephric stranding. BLADDER: Unremarkable. GASTROINTESTINAL TRACT: There is diffuse diverticuli, stool and gas seen throughout the colon without diverticulitis, obstruction. The small bowel loops are normal caliber. The stomach is mildly distended with recently ingested food/liquid. Appendix is normal caliber.. ABDOMINAL WALL: No significant hernia is appreciated. LYMPH NODES: Normal. VASCULAR: Unremarkable. PELVIC VISCERA: Unremarkable. OSSEOUS STRUCTURES: No aggressive lytic or sclerotic process seen. Is mild degenerative disc changes L5/S1 disc level. CT/CT abdomen pelvis wo IV con IMPRESSION: No acute intra-abdominal process seen. Diffuse hepatic steatosis without focal lesion. Fleischner guidelines were followed.
[2024-06-07 07:55] VITALS: BP 160/110; PULSE 114; RESP 18; TEMP 36.7; O2SAT 95; BMI 27.1
--- NOTE | 2024-06-07 08:21 | ECG_ITS ---
Test Reason : ALCOHOL WITHDRAWAL Blood Pressure : / mmHG Vent. Rate : 095 BPM Atrial Rate : 095 BPM P-R Int : 142 ms QRS Dur : 082 ms QT Int : 346 ms P-R-T Axes : 038 -14 025 degrees QTc Int : 434 ms Normal sinus rhythm ST & T wave abnormality, consider anterolateral ischemia Abnormal ECG When compared with ECG of 06-JUN-2024 17:08, No significant change was found Referred By: Juan José Correia Electronically Signed By:DELFINA VILLASEÑOR MD
--- NOTE | 2024-06-07 08:23 | ED.GENADULT ---
HPI - General Adult General Chief complaint: General Medical Stated complaint: alcohol withdrawals Time Seen by Provider: 06/07/24 08:09 Source: patient and family Mode of arrival: ambulatory Limitations: no limitations History of Present Illness ED Provider: DR. Correia HPI narrative: 48-year-old male with history of alcohol abuse for many years patient is daily drinker of heavy liquor since yesterday patient is unable to keep oral intake with persistent vomiting, last drink was in the afternoon yesterday and patient vomited after. came to the ED yesterday felt better after was given phenobarb. return for persistent vomiting and the symptoms, CIWA score was calculated 16-18. Related Data Home Medications ?Medication ?Instructions ?Recorded ?Confirmed multivitamin 1 tab PO DAILY 02/24/23 06/07/24 omeprazole 20 mg capsule,delayed 20 mg PO DAILY@0630 02/24/23 06/07/24 release Allergies Allergy/AdvReac Type Severity Reaction Status Date / Time Penicillins [PENICILLINS] Allergy Intermediate RASH Verified 06/07/24 08:00 Review of Systems Review of Systems: all other systems are reviewed and are negative Constitutional: Reports as per HPI and Reports no additional constitutional complaints Eyes: Reports as per HPI and Reports no additional eye complaints Reports system reviewed and no additional complaints, except as documented Cardiovascular: Reports as per HPI and Reports no additional cardiovascular complaints Respiratory: Reports as per HPI and Reports no additional respiratory complaints Gastrointestinal: Reports as per HPI and Reports no additional gastrointestinal complaints Genitourinary: Reports no additional female genitourinary complaints Musculoskeletal: Reports no additional musculoskeletal complaints Skin/Breast: Reports system reviewed and no additional complaints, except as docu Psychiatric: Reports no additional psychiatric complaints Endocrine: Reports no additional endocrine complaints Hematologic/Lymphatic: Reports no additional hematologic/lymphatic complaints Allergic/Immunologic: Reports no additional allergic/immunologic complaints Reports system reviewed and no additional complaints, except as documented and Reports Abnormal speech present [facility] Past Medical History Medical History Thrombocytopenia Leukopenia Alcohol abuse with withdrawal Alcohol use disorder Alcoholic gastritis Elevated LFTs Peripheral neuropathy GERD (gastroesophageal reflux disease) Alcohol withdrawal GI bleed Anemia ETOH abuse HTN (hypertension) Family History Family History Mother Mental health disorder Father Liver cirrhosis Social History Social History Household Members: Spouse Household Members Other:: Jerica - - 2 children ages 8 and 15 Housing: House Do you presently have visiting nurse or other home services: No Alcohol intake: current Alcohol intake frequency: other Alcohol type: hard liquor Comment: deemed high fall risk upon admission do to ETOH withdrawl. 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 Blood pressure elevated. Heart rate elevated. Respiratory rate normal. Temperature normal. Oxygen saturation normal. Appearance: anxious,Alert. Oriented X3. No acute distress. Head: Normal external exam. Normocephalic. Atraumatic. No [place] signs noted. No raccoon eyes noted, positive tongue fasciculations. Eyes: PERRLA. EOMI. Conjunctiva and sclera normal. Eyelids normal. ENT: TM's Normal. Pharynx normal. Uvula midline. Moist mucous membranes. No trismus noted. No drooling noted. No muffled voice noted. Neck: Normal inspection. Neck supple. FROM. No adenopathy. Thyroid Normal. No meningeal signs. No neck mass noted. CVS: Normal heart rate and rhythm. Heart sound normal. No murmurs noted. Pulses normal throughout. Respiratory: No respiratory distress. Painless inspiration. Breath sounds normal. No wheezes/rales/rhonchi noted. Chest nontender. No accessory muscle usage noted or decreased air movement noted. Abdomen: Soft and nontender. Bowel sounds normal in all 4 quadrants. No distention noted. No organomegaly noted. No visible injury noted. Back: No CVA tenderness. Full range of motion noted. Skin: Skin warm and dry. Normal skin color. Normal skin turgor. No rashes/lesions/lacerations noted. Extremities: diffuse fine tremors to bilateral extremities. Neuro: Oriented X 3. Cranial nerve exam: II-XII are grossly intact No motor deficit. No sensory deficit. Reflexes normal. Course Reevaluation(s) Reevaluation #1: admit for alcohol withdrawal symptoms. continue with phenobarb protocol, vomiting control, iv hydration, K+ replacement. Medications Administered Generic Name Dose Route Start Last Admin Trade Name Carmen PRN Reason Stop Dose Admin Enoxaparin Sodium 40 mg 06/07/24 11:00 06/07/24 12:26 Enoxaparin Sodium 40 Mg/0.4 Ml Syringe SUBCUT 40 mg Q24H LYDIA Administration Lactated Ringer's 1,000 mls @ 125 mls/hr 06/07/24 11:00 06/07/24 20:35 Lr IVCONT 125 mls/hr .Q8H LYDIA Administration Omeprazole 40 mg 06/07/24 11:00 06/07/24 12:27 Omeprazole 40 Mg Capsule.Dr PO 40 mg DAILY@0630 LYDIA Administration Phenobarbital 60 mg 06/07/24 21:00 06/07/24 20:34 Phenobarbital 30 Mg Tablet PO 06/09/24 09:01 60 mg BID LYDIA Administration Protocol Sodium Chloride 3 ml 06/07/24 16:00 06/07/24 20:36 0.9 % Sodium Chloride Flush 3 Ml Syringe IVFLUSH 3 ml QSHIFT LYDIA Administration Discontinued Medications Generic Name Dose Route Start Last Admin Trade Name Carmen PRN Reason Stop Dose Admin Al Hydroxide/Mg Hydroxide 30 ml 06/07/24 08:21 06/07/24 08:42 Magnesium Hydrox/Alum Hydrox 30 Ml Oral.Susp PO 06/07/24 08:22 30 ml ONCE ONE Administration Famotidine 20 mg 06/07/24 08:21 06/07/24 08:42 Famotidine/Pf 20 Mg/2 Ml Vial IVPUSH 06/07/24 08:22 20 mg ONCE ONE Administration Sodium Chloride 1,000 mls @ 999 mls/hr 06/07/24 08:20 06/07/24 10:49 Ns IV 06/07/24 09:20 Infused .Q1H1M ONE Infusion Potassium Chloride 10 meq in 100 mls @ 100 mls/hr 06/07/24 09:17 06/07/24 10:48 Potassium Chloride/H20 IV 06/07/24 10:16 Infused ONCE ONE Infusion Lorazepam 2 mg 06/07/24 08:21 06/07/24 08:42 Lorazepam 2 Mg/Ml Vial IVPUSH 06/07/24 08:22 2 mg ONCE ONE Administration Ondansetron HCl 4 mg 06/07/24 08:21 06/07/24 08:42 Ondansetron Hcl 4 Mg/2 Ml Vial IVPUSH 06/07/24 08:22 4 mg ONCE ONE Administration Phenobarbital Sodium 330 mg 06/07/24 09:00 06/07/24 09:07 Phenobarbital Sodium 130 Mg/Ml Im Once IM 06/07/24 09:01 330 mg ONCE ONE Administration Protocol Phenobarbital Sodium 246 mg 06/07/24 12:00 06/07/24 15:31 Phenobarbital Sodium 130 Mg/Ml Vial Im Q3hx2 IM 06/07/24 15:01 246 mg Q3H LYDIA Administration Protocol Medical Decision Making Differential Diagnosis Differential Diagnoses: The differential diagnosis associated with the presentation includes (severe anemia, electrolytes derangement, dehydation, DTs, alcohol withdrwal.) Admission/Observation Consideration of admission/observation: Escalation of care including admission/observation considered Consult Healthcare Provider Management of the patient was discussed with: Hospitalist (Dr. hughes) Lab Data MDM Lab Attestation statement: I reviewed the patient's lab results. 06/07/24 08:37 06/07/24 08:37 Labs: Lab Results 06/07/24 Range/Units 08:37 WBC 2.8 L (4.8-10.8) X10*3/uL RBC 4.30 L (4.60-5.80) X10*6/uL Hgb 13.8 L (14.0-18.0) g/dl Hct 38.1 L (42.0-52.0) % MCV 88.6 (80.0-98.0) fL MCH 32.1 (27.0-33.0) pg MCHC 36.2 H (31.0-36.0) g/dl RDW 14.5 (11.0-16.0) % Plt Count 90 L (160-400) X10*3/uL MPV 9.4 (9.4-12.4) fL Immature Gran % (Auto) 0.7 H (0.0-0.4) % Neut % (Auto) 71.4 (45-73) % Lymph % (Auto) 9.7 L (20-40) % [place] % (Auto) 16.8 H (2-11) % Eos % (Auto) 0.7 (0-4) % Baso % (Auto) 0.7 (0-2) % Lymph # (Auto) 0.3 L (1.2-4.9) X10*3/uL [place] # (Auto) 0.5 (0.1-1.2) X10*3/uL Eos # (Auto) 0.0 (0.0-0.4) X10*3/uL Baso # (Auto) 0.0 (0.0-0.2) X10*3/uL Abs Immat Gran (auto) 0.02 (0.00-0.03) X10*3/uL Absolute Neuts (auto) 2.0 (2.0-8.3) x10*3/uL Absolute Nucleated RBC 0.000 (0.0-0.012) X10*3/uL Nucleated RBC % (auto) 0.0 (0.0-0.2) /100WBC Sodium 139 (135-145) mmol/L Potassium 3.1 L (3.3-5.1) mmol/L Chloride 97 (96-108) mmol/L Carbon Dioxide 25 (22-29) mmol/L Anion Gap 20 (12-20) BUN 15 (9-16) mg/dL Creatinine 0.86 (0.5-1.4) mg/dL Estim Creat Clear Calc 119.4 Estimated GFR > 60 Random Glucose 120 H (60-115) mg/dL Calcium 9.1 (8.4-10.2) mg/dL Total Bilirubin 1.6 H (0.0-1.0) mg/dL Direct Bilirubin 0.6 H (0.0-0.5) mg/dL AST 65 H (5-37) U/L ALT 37 (0-40) U/L Alkaline Phosphatase 68 (39-117) U/L Troponin I High Sens 3.3 (<3.5-35.0) ng/L Total Protein 7.6 (6.5-8.0) g/dL Albumin 4.5 (3.5-5.0) g/dL Lipase 31 (8-78) U/L Ethyl Alcohol < 10 mg/dL Influenza Type A (PCR) NEGATIVE (Negative) Influenza Type B (PCR) NEGATIVE (Negative) RSV RNA Qual (PCR) NEGATIVE (Negative) SARS-CoV-2 RNA (RT-PCR) NEGATIVE (Negative) Discharge Plan Discharge Clinical Impression: Acute hypokalemia, Intractable vomiting Alcohol withdrawal Qualifiers: Complication of substance-induced condition: uncomplicated Qualified Code(s): F10.930 - Alcohol use, unspecified with withdrawal, uncomplicated Patient Disposition: Admitted As Inpatient Interventions: Admission Worksheet (ED) Last Done: 06/07/24 16:41 Discharge Date/Time: 06/07/24 17:12
[2024-06-07] MEDS: Famotidine/PF 20 MG/2 ML VIAL IVPUSH (08:42)
[2024-06-07] MEDS: Magnesium Hydrox/Alum Hydrox 30 ML ORAL.SUSP PO (08:42)
[2024-06-07] MEDS: 0.9 % Sodium Chloride 1,000 ML 999 ML IV (08:42)
[2024-06-07] MEDS: ondansetron HCL 4 MG/2 ML VIAL IVPUSH (08:42)
[2024-06-07] MEDS: LORazepam 2 MG/ML VIAL IVPUSH (08:42)
[2024-06-07 08:52] LABS: MANUAL DIFF FLAG NO
[2024-06-07 08:59] LABS: Basophils Percent Auto 0.7 % (0-2); Eosinophils Percent Auto 0.7 % (0-4); Hematocrit 38.1 % (42.0-52.0); Hemoglobin 13.8 g/dl (14.0-18.0); Imm Gran Abs Auto 0.02 X10*3/uL (0.00-0.03); Imm Gran Pct Auto 0.7 % (0.0-0.4); Lymphocytes Absolute Auto 0.3 X10*3/uL (1.2-4.9); Lymphocytes Percent Auto 9.7 % (20-40); Mean Corpuscular HGB Conc 36.2 g/dl (31.0-36.0); Mean Corpuscular Hemoglobin 32.1 pg (27.0-33.0); Mean Corpuscular Volume 88.6 fL (80.0-98.0); Mean Platelet Volume 9.4 fL (9.4-12.4); Monocytes Absolute Auto 0.5 X10*3/uL (0.1-1.2); Monocytes Percent Auto 16.8 % (2-11); Neutrophils Percent Auto 71.4 % (45-73); Red Cell Distribution Width 14.5 % (11.0-16.0); White Blood Count 2.8 X10*3/uL (4.8-10.8)
[2024-06-07 09:02] LABS: Platelet Count 90 X10*3/uL (160-400)
[2024-06-07 09:06] LABS: Ethanol < 10 mg/dL
[2024-06-07] MEDS: PHENobarbitaL sodium 130 MG/ML IM ONCE 330 MG IM (09:07)
[2024-06-07 09:08] LABS: Alanine Aminotransferase 37 U/L (0-40); Albumin Level 4.5 g/dL (3.5-5.0); Alkaline Phosphatase 68 U/L (39-117); Anion Gap 20 (12-20); Aspartate Amino Transferase 65 U/L (5-37); Bilirubin Direct 0.6 mg/dL (0.0-0.5); Bilirubin Total 1.6 mg/dL (0.0-1.0); Blood Urea Nitrogen 15 mg/dL (9-16); Calcium 9.1 mg/dL (8.4-10.2); Carbon Dioxide 25 mmol/L (22-29); Chloride 97 mmol/L (96-108); Creatinine Clr Calc Pharmacy 119.4; Estimated Glomerular Filt Rate > 60; Glucose Random 120 mg/dL (60-115); Lipase 31 U/L (8-78); Potassium 3.1 mmol/L (3.3-5.1); Sodium 139 mmol/L (135-145); Total Protein 7.6 g/dL (6.5-8.0)
[2024-06-07 09:15] LABS: Troponin-I High Sensitivity 3.3 ng/L (<3.5-35.0)
[2024-06-07] MEDS: Potassium Chloride/H20 10 MEQ/100 ML PIGGYBACK 100 MEQ IV (09:31)
[2024-06-07 09:34] VITALS: BP 144/85; PULSE 92; RESP 18; TEMP 37; O2SAT 94
[2024-06-07 09:50] LABS: Influenza A PCR NEGATIVE (Negative); Influenza B PCR NEGATIVE (Negative); Resp Syncy Virus RNA Qual PCR NEGATIVE (Negative); SARS COV2 PCR INHOUSE NEGATIVE (Negative)
--- NOTE | 2024-06-07 11:27 | PHA.MEDREC ---
Addendum entered by Jareth Lazaro 06/07/24 17:48: patient confirmed medications Addendum entered by Richard Ayala RPh 06/07/24 12:06: MED REC CHECKED BY [facility] Original Note: Pharmacy Consult ? Medication Reconciliation Pharmacy has completed the medication reconciliation. Patient was sleeping when attempting to speak with him to confirm his medications. Called his Jerica and she said he has only been taking omeprazole and a multivitamin. She said he has not been taking his other medications for a few months now. Other medications in claims are clonidine, trazodone, hydroxyzine, and folic acid. Can confirm with patient when he wakes up.
[2024-06-07] MEDS: Lactated Ringers 1,000 ML 125 ML IVCONT ×2 (11:47→20:35)
[2024-06-07 12:25] VITALS: BP 140/91; PULSE 93; RESP 20; TEMP 36.9; O2SAT 94
[2024-06-07] MEDS: Enoxaparin Sodium 40 MG/0.4 ML SYRINGE SUBCUT (12:26)
[2024-06-07] MEDS: Omeprazole 40 MG CAPSULE.DR PO (12:27)
[2024-06-07] MEDS: PHENobarbitaL sodium 130 MG/ML VIAL IM Q3Hx2 246 MG IM ×2 (12:27→15:31)
--- NOTE | 2024-06-07 14:06 | P.HPHOSP_ITS ---
History of Present Illness Date of Service: 06/07/24 Chief Complaint: alcohol withdrawl 48-year-old male with longstanding history of alcohol abuse presents in early alcohol withdrawal. States he has been drinking a L of vodka a day and as of yesterday could not hold anything down. He states he tried but continued to vomit. Presents to emergency room with early withdrawal. Patient has had several admissions for same Review of Systems 2 Review of Systems: Denies chest pain Denies shortness of breath Denies nausea vomiting diarrhea Denies fever chills PMF Medical History Thrombocytopenia Leukopenia Alcohol abuse with withdrawal Alcohol use disorder Alcoholic gastritis Elevated LFTs Peripheral neuropathy GERD (gastroesophageal reflux disease) Alcohol withdrawal GI bleed Anemia ETOH abuse HTN (hypertension) Family History Mother Mental health disorder Father Liver cirrhosis Social History Household Members: Spouse Household Members Other:: Jerica - - 2 children ages 8 and 15 Housing: House Do you presently have visiting nurse or other home services: No Alcohol intake: current Alcohol intake frequency: other Alcohol type: hard liquor Comment: deemed high fall risk upon admission do to ETOH withdrawl. 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 Sexual orientation: Straight/Heterosexual Meds Allergies Allergy/AdvReac Type Severity Reaction Status Date / Time Penicillins [PENICILLINS] Allergy Intermediate RASH Verified 06/07/24 08:00 Active Medications: Current Medications Acetaminophen (Acetaminophen 325 Mg Tablet) 650 mg PO Q6H PRN PRN Reason: Pain, Mild (Pain Scale 1-3), fever or headache Calcium Carbonate (Calcium Carbonate 750 Mg Tab.Chew) 750 mg PO Q4H PRN PRN Reason: Heartburn Enoxaparin Sodium (Enoxaparin Sodium 40 Mg/0.4 Ml Syringe) 40 mg SUBCUT Q24H LYDIA Last Admin: 06/07/24 12:26 Dose: 40 mg Lactated Ringer's (Lr) 1,000 mls @ 125 mls/hr IVCONT .Q8H [facility] Last Admin: 06/07/24 11:47 Dose: 125 mls/hr Magnesium Hydroxide (Milk Of Magnesia 30 Ml Oral.Susp) 30 ml PO DAILY PRN PRN Reason: Constipation Melatonin (Melatonin 3 Mg Tablet) 6 mg PO BEDTIME PRN PRN Reason: Insomnia Omeprazole (Omeprazole 40 Mg Capsule.Dr) 40 mg PO DAILY@0630 [facility] Last Admin: 06/07/24 12:27 Dose: 40 mg Pharmacy Consult (Consult Rx Etoh Phenob Im/Po) 1 each MISCELLANE ONCE PRN; Protocol PRN Reason: Consult order Phenobarbital (Phenobarbital 30 Mg Tablet) 60 mg PO BID [facility]; Protocol Stop: 06/09/24 09:01 Phenobarbital (Phenobarbital 30 Mg Tablet) 30 mg PO BID [facility]; Protocol Stop: 06/11/24 09:01 Phenobarbital (Phenobarbital 30 Mg Tablet) 30 mg PO DAILY [facility]; Protocol Stop: 06/13/24 09:01 Phenobarbital Sodium (Phenobarbital Sodium 130 Mg/Ml Vial Im Q3hx2) 246 mg IM Q3H [facility]; Protocol Stop: 06/07/24 15:01 Last Admin: 06/07/24 12:27 Dose: 246 mg Sodium Chloride (0.9 % Sodium Chloride Flush 3 Ml Syringe) 3 ml IVFLUSH QSHIFT [facility] Home Medications ?Medication ?Instructions ?Recorded ?Confirmed ?Last Taken ?Type multivitamin 1 tab PO DAILY 02/24/23 06/07/24 02/23/23 History omeprazole 20 mg capsule,delayed 20 mg PO DAILY@0630 02/24/23 06/07/24 08/11/23 History release Physical Exam 2 Vital Signs and Narrative: Vital Signs: Last Vital Signs Temp 98.5 F 06/07/24 12:25 Pulse 93 06/07/24 12:25 Resp 20 06/07/24 12:25 BP 140/91 H 06/07/24 12:25 Pulse Ox 94 06/07/24 12:25 O2 Del Method Room Air 06/07/24 12:25 BMI result Body Mass Index 27.1 Const: Other: Somnolent and but arousable (phenobarb) Resp: Other: Clear to auscultation bilaterally no rales rhonchi or wheezes Cardio: Other: No S4; positive S1-S2; no S3 murmurs rubs or gallops GI: Other: Soft nontender nondistended normoactive bowel sounds Extrem: Other: No edema bilaterally Results Labs 06/07/24 08:37 06/07/24 08:37 Labs: Laboratory Results - last 24 hr 06/07/24 08:37 MCV 88.6 MCH 32.1 MCHC 36.2 H RDW 14.5 Plt Count 90 L MPV 9.4 Immature Gran % (Auto) 0.7 H Neut % (Auto) 71.4 Lymph % (Auto) 9.7 L [place] % (Auto) 16.8 H Eos % (Auto) 0.7 Baso % (Auto) 0.7 Lymph # (Auto) 0.3 L [place] # (Auto) 0.5 Eos # (Auto) 0.0 Baso # (Auto) 0.0 Abs Immat Gran (auto) 0.02 Absolute Neuts (auto) 2.0 Absolute Nucleated RBC 0.000 Nucleated RBC % (auto) 0.0 Anion Gap 20 Estim Creat Clear Calc 119.4 Estimated GFR > 60 Random Glucose 120 H Calcium 9.1 Total Bilirubin 1.6 H Direct Bilirubin 0.6 H AST 65 H ALT 37 Alkaline Phosphatase 68 Troponin I High Sens 3.3 Total Protein 7.6 Albumin 4.5 Lipase 31 Ethyl Alcohol < 10 Influenza Type A (PCR) NEGATIVE Influenza Type B (PCR) NEGATIVE RSV RNA Qual (PCR) NEGATIVE SARS-CoV-2 RNA (RT-PCR) NEGATIVE Imaging Radiologist's Impressions: Impressions Abdomen/Pelvis CT 06/07/24 09:10 IMPRESSION: No acute intra-abdominal process seen. Diffuse hepatic steatosis without focal lesion. Fleischner guidelines were followed. Assessment and Plan (1) Alcohol withdrawal: Qualifiers: Complication of substance-induced condition: uncomplicated Qualified Code(s): F10.930 - Alcohol use, unspecified with withdrawal, uncomplicated Status: Acute (2) GERD (gastroesophageal reflux disease): Qualifiers: Esophagitis presence: without esophagitis Qualified Code(s): K21.9 - Gastro-esophageal reflux disease without esophagitis Status: Acute Plan 48-year-old male with longstanding history of alcohol abuse with multiple admissions for withdrawal presents after 24 hours abdominal pain nausea and vomiting. He states he was unable to keep anything down and feels that led he is going into withdrawal. Initial CIWA 13 1. Alcohol withdrawal -continue phenobarb protocol -additional doses and/or Ativan as clinically indicated -seizure precautions 2. GERD -omeprazole in a.m. Full code Lovenox Patient will require at least 2 midnights of inpatient stay to facilitate phenobarb protocol in the backdrop of acute alcohol withdrawal. High risk for outpatient failure. This can not be achieved a lesser acute setting Quality Stroke Does the patient have a stroke diagnosis?: No VTE Prior VTE?: No VTE Risk Level:: Medical - moderate - high VTE Device Contraindication: Treatment Not Indicated VTE Drug Contraindication: N/A - Med Ordered
[2024-06-07 15:35] VITALS: BP 143/85; PULSE 94; RESP 14; TEMP 36.6; O2SAT 95
[2024-06-07 17:21] VITALS: BMI 27.8
[2024-06-07 18:25] LABS: Appearance Urine Clear; Color Urine DK YELLOW; Glucose Urine UA 100 mg/dL (Negative); Leukocyte Esterase Urine Negative (Negative); Nitrite Urine Positive (Negative); PH 6.5 (5.0-9.0); Specific Gravity - Urine >= 1.030 (1.005-1.025); UMIC TRIGGER UACC YES; Urine Blood Negative (Negative); Urine Ketones 15 mg/dL (Negative); Urine Protein 30 (1+) mg/dL (Neg-Trace)
[2024-06-07 18:36] LABS: Bacteria Urine None Seen (None Seen); Hyaline Casts Urine 0-2 /LPF (0-2); RBC Urine 0-2 /HPF (0-2); Squamous Epithelial Cell Urine 0-2 /HPF (0-2); UACC Culture Trigger YES; WBC Urine 0-5 /HPF (0-5)
[2024-06-07 19:35] VITALS: BP 129/85; PULSE 87; RESP 20; TEMP 37; O2SAT 97
[2024-06-07] MEDS: PHENobarbitaL 30 MG TABLET 60 MG PO (20:34)
[2024-06-07] MEDS: 0.9 % Sodium Chloride Flush 3 ML SYRINGE IVFLUSH (20:36)
--- NOTE | 2024-06-08 02:10 | PM.EVENT ---
Event Note Date of Service: 06/08/24 Event Note: Patient wanting to leave AMA. Deemed to have mental capacity and understands the risks of leaving against medical advice. Will return to the ER in case of new or worsening complaints. Time Spent With Patient Time: Total time managing care of this patient today ____ minutes.
[2024-06-08 03:38] VITALS: BP 133/76; PULSE 61; RESP 18; TEMP 36.4; O2SAT 97
[2024-06-08] MEDS: Lactated Ringers 1,000 ML 125 ML IVCONT (05:49)
[2024-06-08] MEDS: Omeprazole 40 MG CAPSULE.DR PO (06:10)
--- NOTE | 2024-06-08 07:07 | PC.NURSE ---
Patient requested to leave AGAINST MEDICAL ADVICE, seen by motor power connector Kayla Zimmerman, patient educated on the risks of leaving AGAINST MEDICAL ADVICE but insisted. Signed AGAINST MEDICAL ADVICE form with JASPER Hudson,witnessed, all his belonging returned , GASPER removed and pressure dressing applied to site. Patient A&O x4, denies pain, denies any safety issues.
--- NOTE | 2024-06-08 07:12 | P.DS_ITS ---
DS: Providers Provider Date of Service: 06/08/24 Date of admission: 06/07/24 10:53 Date of discharge: 06/08/24 Primary care physician: Jamey Borrego PA-C Consults: 06/07/24 17:28 Addiction Medicine Routine Consulting Provider: Addiction Covering Reason for consultation: ETOH DS: Diagnosis Discharge Diagnosis (1) Alcohol withdrawal: Status: Acute (2) GERD (gastroesophageal reflux disease): Status: Acute DS: Summary Hospital Course Hospital Course: 48-year-old male with longstanding history of alcohol abuse presents in early alcohol withdrawal. States he has been drinking a L of vodka a day and as of yesterday could not hold anything down. He states he tried but continued to vomit. Presents to emergency room with early withdrawal. Patient has had several admissions for same Hospital Course Patient admitted to general medical floor overnight. Proximally 0230 patient called night float requesting AMA. Seen by night float and deemed appropriate and able to make decisions. Understands risk patient signed out AMA. Time Attestation Discharge Coordination Time (in mins): 35 Quality: Safe Use of Opioids Does Pt have an Active Cancer Diagnosis on the Problem List?: No Quality: Stroke Does the patient have a stroke diagnosis?: No Physical Exam Vital Signs: Vital Signs: Last Vital Signs Temp 97.6 F 06/08/24 03:38 Pulse 61 06/08/24 03:38 Resp 18 06/08/24 03:38 BP 133/76 06/08/24 03:38 Pulse Ox 97 06/08/24 03:38 O2 Del Method Room Air 06/08/24 03:38 BMI result Body Mass Index 27.8 DS: Data Data Completed and Pending Completed studies during hospitalization [Text1]: Procedures Detoxification Services for Substance Abuse Treatment (08/11/23) Excision of Lower Esophagus, Via Natural or Artificial Opening Endoscopic, Diagnostic (10/07/20) Excision of Stomach, Pylorus, Via Natural or Artificial Opening Endoscopic, Diagnostic (10/07/20) Transfusion of Nonautologous Red Blood Cells into Peripheral Vein, Percutaneous Approach (10/07/20) Labs on day of discharge: Laboratory Results - last 24 hr 06/07/24 06/07/24 08:37 Unknown WBC 2.8 L RBC 4.30 L Hgb 13.8 L Hct 38.1 L MCV 88.6 MCH 32.1 MCHC 36.2 H RDW 14.5 Plt Count 90 L MPV 9.4 Immature Gran % (Auto) 0.7 H Neut % (Auto) 71.4 Lymph % (Auto) 9.7 L [place] % (Auto) 16.8 H Eos % (Auto) 0.7 Baso % (Auto) 0.7 Lymph # (Auto) 0.3 L [place] # (Auto) 0.5 Eos # (Auto) 0.0 Baso # (Auto) 0.0 Abs Immat Gran (auto) 0.02 Absolute Neuts (auto) 2.0 Absolute Nucleated RBC 0.000 Nucleated RBC % (auto) 0.0 Sodium 139 Potassium 3.1 L Chloride 97 Carbon Dioxide 25 Anion Gap 20 BUN 15 Creatinine 0.86 Estim Creat Clear Calc 119.4 Estimated GFR > 60 Random Glucose 120 H Calcium 9.1 Total Bilirubin 1.6 H Direct Bilirubin 0.6 H AST 65 H ALT 37 Alkaline Phosphatase 68 Troponin I High Sens 3.3 Total Protein 7.6 Albumin 4.5 Lipase 31 Urine Color DK YELLOW Urine Appearance Clear Urine pH 6.5 Ur Specific [place] >= 1.030 H Urine Protein 30 (1+) H Urine Glucose (UA) 100 H Urine Ketones 15 Urine Blood Negative Urine Nitrite Positive H Ur Leukocyte Esterase Negative Urine RBC 0-2 Urine WBC 0-5 Ur Squamous Epith Cells 0-2 Urine Bacteria None Seen Hyaline Casts 0-2 Ethyl Alcohol < 10 Influenza Type A (PCR) NEGATIVE Influenza Type B (PCR) NEGATIVE RSV RNA Qual (PCR) NEGATIVE SARS-CoV-2 RNA (RT-PCR) NEGATIVE Discharge Plan Discharge Patient Disposition: Left Against Medical Advice Discharge Diagnosis: Acute alcohol withdrawal AMA Referrals: Jamey Borrego PA-C [Primary Care Provider] - 1 Week Discharge Medications: No Action omeprazole 20 mg capsule,delayed release(DR/EC) 20 mg PO DAILY@0630 multivitamin Tablet 1 tab PO DAILY Discharge Orders: Discharge Order (Routine); Ordered 06/08/24 Ordered By: Saul Mckeon Print Language: Somali Care Plan Goals: AMA Health Concerns: AMA Plan of Treatment: AMA Assessment: AMA
== END 2024-06-08 07:00 | disposition left against medical advice (07) | DRG 770 ==
LOC: HO.ED 10:31 → HO.EDOVER 11:03 → HO.S3 16:36
PROVIDERS: Admitting Provider Hospitalist; Emergency Provider Emergency Medicine; PCP Physician Assistant; Visit Provider Hospitalist
DX: F10.139 Alcohol abuse with withdrawal, unspecified (principal); K21.9 Gastro-esophageal reflux disease without esophagitis; Z20.822 Contact with and (suspected) exposure to COVID-19; Z88.0 Allergy status to penicillin; Z79.899 Other long term (current) drug therapy
CPT/HCPCS: 0241U; 36415; 74176; 80048; 80076; 80307; 81001; 83690; 84484; 85025; 87086; 92950; 93005; 99221; 99285; J1650; J2060; J2405; J2560; J3480; J7120

== ENCOUNTER → 2024-06-07 08:21 | Outpatient (BNV) | payer SELFPAY | PROVIDERS: Admitting Provider Hospitalist; Emergency Provider Emergency Medicine; PCP Physician Assistant; Visit Provider Internal Medicine Cardiovascular Disease | DX: R94.31 Abnormal electrocardiogram [ECG] [EKG] (principal) | CPT/HCPCS: 93010 ==

== ENCOUNTER → 2024-06-07 10:53 | Outpatient (BNV) | payer OTHER, SELFPAY | PROVIDERS: Admitting Provider Hospitalist; Emergency Provider Emergency Medicine; PCP Physician Assistant; Visit Provider Hospitalist | DX: F10.930 Alcohol use, unspecified with withdrawal, uncomplicated (principal); K21.9 Gastro-esophageal reflux disease without esophagitis | CPT/HCPCS: 99222; 99239 ==

== ENCOUNTER 2024-08-01 10:46 | Emergency (ER) | payer OTHER, SELFPAY ==
[2024-08-01] VITALS (7 sets, daily range): BP systolic 127–150; BP diastolic 88–96; PULSE 78–97; RESP 15–17; TEMP 35.8–37.2; O2SAT 93–98; BMI 27.5
[2024-08-01 11:15] LABS: Basophils Percent Auto 0.5 % (0-2); Eosinophils Percent Auto 0.5 % (0-4); Hematocrit 41.3 % (42.0-52.0); Hemoglobin 14.8 g/dl (14.0-18.0); Imm Gran Abs Auto 0.01 X10*3/uL (0.00-0.03); Imm Gran Pct Auto 0.3 % (0.0-0.4); Lymphocytes Absolute Auto 0.4 X10*3/uL (1.2-4.9); Lymphocytes Percent Auto 10.6 % (20-40); MANUAL DIFF FLAG NO; Mean Corpuscular HGB Conc 35.8 g/dl (31.0-36.0); Mean Corpuscular Hemoglobin 33.2 pg (27.0-33.0); Mean Corpuscular Volume 92.6 fL (80.0-98.0); Mean Platelet Volume 9.3 fL (9.4-12.4); Monocytes Absolute Auto 0.5 X10*3/uL (0.1-1.2); Monocytes Percent Auto 13.4 % (2-11); Neutrophils Percent Auto 74.7 % (45-73); Red Blood Count 4.46 X10*6/uL (4.60-5.80); Red Cell Distribution Width 13.1 % (11.0-16.0)
[2024-08-01 11:21] LABS: Platelet Count 67 X10*3/uL (160-400)
[2024-08-01 11:27] LABS: Appearance Urine Cloudy; Color Urine Dark Yellow; Glucose Urine UA Negative (Negative); Leukocyte Esterase Urine Trace (Negative); Nitrite Urine Negative (Negative); Specific Gravity - Urine >= 1.030 (1.005-1.025); UMIC TRIGGER UACC YES; Urine Blood Negative (Negative); Urine Ketones Trace mg/dL (Negative); Urine Protein 100 (2+) mg/dL (Neg-Trace)
[2024-08-01 11:29] LABS: Ethanol 198 mg/dL
[2024-08-01 11:31] LABS: Alanine Aminotransferase 46 U/L (0-40); Albumin Level 4.6 g/dL (3.5-5.0); Alkaline Phosphatase 94 U/L (39-117); Anion Gap 20 (12-20); Aspartate Amino Transferase 76 U/L (5-37); Bilirubin Direct 0.5 mg/dL (0.0-0.5); Blood Urea Nitrogen 15 mg/dL (9-16); Calcium 9.4 mg/dL (8.4-10.2); Carbon Dioxide 26 mmol/L (22-29); Chloride 101 mmol/L (96-108); Creatinine Clr Calc Pharmacy 103.1; Estimated Glomerular Filt Rate > 60; Glucose Random 126 mg/dL (60-115); Potassium 3.5 mmol/L (3.3-5.1); Sodium 143 mmol/L (135-145); Total Protein 7.9 g/dL (6.5-8.0)
[2024-08-01 11:39] LABS: Bacteria Urine None Seen (None Seen); Calcium Oxalate Crystals Urine Present; Squamous Epithelial Cell Urine 0-2 /HPF (0-2); WBC Urine 0-5 /HPF (0-5)
[2024-08-01 11:40] LABS: Amphetamine Screen Urine Not Detected (Not Detect); Barbiturates, Urine POSITIVE (Not Detect); Benzodiazepines Screen Urine Not Detected (Not Detect); Buprenorphine Scr Not Detected (Not Detect); Cannabinoid Screen Urine POSITIVE (Not Detect); Cocaine Screen Urine Not Detected (Not Detect); Fentanyl, urine Not Detected (Not Detect); Methadone Screen, Urine Not Detected (Not Detect); Opiate Screen Urine Not Detected (Not Detect); Oxycodone Screen Urine Not Detected (Not Detect); Phencyclidine Screen Urine Not Detected (Not Detect)
[2024-08-01 11:43] LABS: RBC Urine 0-2 /HPF (0-2)
--- NOTE | 2024-08-01 11:45 | PC.NURSE ---
patient arrives through external triage with cc of alcohol withdrawal, states he had been sober for a few months, but the last week or so he started to drink again, drinking roughly a pint over the last few days. patient states his last drink was one nip just prior to arrival. patient arrives tremulous, calm and cooperative, alert and orientedx4, endorsing some nausea and associated abdominal pain. patient is ambulatory with steady gait to bathroom, provided urine sample, appears tremulous, CIWA completed and provider made aware of score of 12. 20g PIV placed in RAC, patient to be medicated per JAN.
--- NOTE | 2024-08-01 11:49 | ED_ITS ---
HPI - General Adult General Chief complaint: Abdominal Pain Stated complaint: withdrawls Time Seen by Provider: 08/01/24 11:33 Source: patient Mode of arrival: ambulatory Limitations: no limitations History of Present Illness HPI narrative: Patient is a 48 year old male who presents emergency department with reports of acute alcohol withdrawal. He states that he recently had 6 weeks sober from alcohol, over the past week he began drinking again. He is typically drinking about a qt of vodka daily. Reports that he drank pretty heavily yesterday, did not recall much of the evening but is Demarco stated that he ?drank a lot?. He does admit to drinking ?1 nip? at 09:00 this morning. He has been feeling nauseous with a few episodes of vomiting, bilious emesis no hematemesis, and feeling very shaky. He admits to having a poor appetite, can not keep anything down. He denies any history of DT/withdrawal seizures/hallucinations in the past with alcohol withdrawal. When asked further he is interested in receiving assistance with going to rehab/detox, is uncertain at this time. He is self- employed, and is not certain whether financial he can afford to miss work. His current alcohol consumption is impacting his ability to work which she does express concern over. At this time he denies associated abdominal pain, chest pain, shortness of breath. He denies recreational drug usage. Related Data Home Medications ?Medication ?Instructions ?Recorded ?Confirmed multivitamin 1 tab PO DAILY 02/24/23 06/07/24 omeprazole 20 mg capsule,delayed 20 mg PO DAILY@0630 02/24/23 06/07/24 release Allergies Allergy/AdvReac Type Severity Reaction Status Date / Time Penicillins [PENICILLINS] Allergy Intermediate RASH Verified 08/01/24 10:51 Review of Systems 2 Review of Systems: Yes all other systems are reviewed and are negative PMFSH Past Medical History Attestation statement: The following information was validated with the patient. Source: old records reviewed Medical History GERD (gastroesophageal reflux disease) Thrombocytopenia Leukopenia Alcohol abuse with withdrawal Alcohol use disorder Alcoholic gastritis Elevated LFTs Peripheral neuropathy GERD (gastroesophageal reflux disease) Alcohol withdrawal GI bleed Anemia ETOH abuse HTN (hypertension) Family History Family History Mother Mental health disorder Father Liver cirrhosis Social History Social History Household Members: Spouse Household Members Other:: Jerica - - 2 children ages 8 and 15 Housing: House Do you presently have visiting nurse or other home services: No Alcohol intake: current Alcohol intake frequency: 0-2 drinks per day Alcohol type: hard liquor Comment: deemed high fall risk upon admission do to ETOH withdrawl. 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 Anxious Eyes: Pupils equal, round and reactive to light.? ENT: Pharynx without erythema, dry mucous membranes.?? Neck: Normal inspection.? Neck supple.?? CVS: Heart sounds normal. Normal heart rate and rhythm.? Pulses normal.?? Respiratory: No respiratory distress.? Lung sounds clear to auscultation bilaterally?? Abdomen: Soft and non-tender. Normoactive bowel sounds. No pulsatile mass.?? Skin: Skin warm and dry.? Normal skin color.? Extremities: No lower extremity edema.? No calf ttp? Neuro: Moves all extremities spontaneously. Sensation intact bilaterally. Tremors noted. No focal neuro deficits. Ambulates with normal steady gait. Course Reevaluation(s) Reevaluation #1: Patient at this time with a CIWA of 10, upon re-evaluation he states he would like assistance with detox, possible placement for rehab. He wants to get sober, feels as though the alcohol is greatly impacting his life. Terry some relief from lorazepam, will initiate phenobarbital protocol at this time. He is now tolerating oral intake. Has had no further episodes of vomiting. Will please care team order for assistance with placement for detox. Physician observation at this time Time: 15:52 Reevaluation #2: Recovery team met with the patient, they discussed different options, they discussed outpatient versus inpatient. The patient opted for outpatient resources Time: 16:56 Medications Administered Generic Name Dose Route Start Last Admin Trade Name Freq PRN Reason Stop Dose Admin Phenobarbital Sodium 232 mg 08/01/24 20:00 08/01/24 19:52 Phenobarbital Sodium 130 Mg/Ml Vial Im Q3hx2 IM 08/01/24 23:01 232 mg Q3H LYDIA Administration Discontinued Medications Generic Name Dose Route Start Last Admin Trade Name Freq PRN Reason Stop Dose Admin Sodium Chloride 1,000 mls @ 999 mls/hr 08/01/24 11:45 08/01/24 12:59 Ns IV 08/01/24 12:45 Infused .Q1H1M LYDIA Infusion Lorazepam 2 mg 08/01/24 11:45 08/01/24 11:53 Lorazepam 2 Mg/Ml Vial IVPUSH 08/01/24 11:46 2 mg ONCE ONE Administration Ondansetron HCl 4 mg 08/01/24 11:34 08/01/24 11:52 Ondansetron Hcl 4 Mg/2 Ml Vial IVPUSH 08/01/24 11:35 4 mg ONCE ONE Administration Pantoprazole Sodium 40 mg 08/01/24 11:50 08/01/24 11:56 Pantoprazole Sodium 40 Mg/10 Ml Vial IVPUSH 08/01/24 11:51 40 mg ONCE ONE Administration Phenobarbital Sodium 310 mg 08/01/24 16:00 08/01/24 16:08 Phenobarbital Sodium 130 Mg/Ml Im Once IM 08/01/24 16:01 310 mg ONCE ONE Administration Medical Decision Making Medical Decision Making MDM Narrative: Patient is a 48-year-old male with past medical history of alcohol use disorder, acute alcohol withdrawal syndrome but no seizures, GERD, thrombocytopenia, elevated LFTs, anemia, hypertension, GIB presenting to emergency department custody assistance with symptomatic management of acute alcohol withdrawal as per HPI. He is calm and cooperative, notably anxious with tremors. He is uncertain at this time whether he wants placement for acute rehab/detox. He is having nausea and vomiting but no abdominal pain, his abdominal examination is benign, would defer imaging of the abdomen at this time. Patient received 1 L normal saline IV fluid, IV lorazepam 2 mg, pantoprazole IV for alcoholic gastritis and Zofran for nausea/vomiting. Discussed with patient mother who is interested in detox/assistance with rehab for alcohol use disorder, he is not certain at this time, he states he knows he needs to stop drinking, will trial a dose of lorazepam, will reassess whether we will be initiating phenobarbital protocol. Differential Diagnosis Differential Diagnoses: The differential diagnosis associated with the presentation includes (Acute alcohol withdrawal syndrome derangement, JASON acute dehydration) Admission/Observation Consideration of admission/observation: Escalation of care including admission/observation considered (See narrative above) Lab Data MDM Lab Attestation statement: I reviewed the patient's lab results. Chronic pancytopenia, elevated LFTs, consistent with prior, bilirubin within normal range. Urinalysis without compelling evidence of urinary tract infection or microscopic hematuria. Toxicology positive for or vitreal marijuana. Level 198 08/01/24 11:09 08/01/24 11:09 Labs: Lab Results 08/01/24 08/01/24 Range/Units 11:09 11:17 WBC 4.0 L (4.8-10.8) X10*3/uL RBC 4.46 L (4.60-5.80) X10*6/uL Hgb 14.8 (14.0-18.0) g/dl Hct 41.3 L (42.0-52.0) % MCV 92.6 (80.0-98.0) fL MCH 33.2 H (27.0-33.0) pg MCHC 35.8 (31.0-36.0) g/dl RDW 13.1 (11.0-16.0) % Plt Count 67 L D (160-400) X10*3/uL MPV 9.3 L (9.4-12.4) fL Immature Gran % (Auto) 0.3 (0.0-0.4) % Neut % (Auto) 74.7 H (45-73) % Lymph % (Auto) 10.6 L (20-40) % [place] % (Auto) 13.4 H (2-11) % Eos % (Auto) 0.5 (0-4) % Baso % (Auto) 0.5 (0-2) % Lymph # (Auto) 0.4 L (1.2-4.9) X10*3/uL [place] # (Auto) 0.5 (0.1-1.2) X10*3/uL Eos # (Auto) 0.0 (0.0-0.4) X10*3/uL Baso # (Auto) 0.0 (0.0-0.2) X10*3/uL Abs Immat Gran (auto) 0.01 (0.00-0.03) X10*3/uL Absolute Neuts (auto) 3.0 (2.0-8.3) x10*3/uL Absolute Nucleated RBC 0.000 (0.0-0.012) X10*3/uL Nucleated RBC % (auto) 0.0 (0.0-0.2) /100WBC Sodium 143 (135-145) mmol/L Potassium 3.5 (3.3-5.1) mmol/L Chloride 101 (96-108) mmol/L Carbon Dioxide 26 (22-29) mmol/L Anion Gap 20 (12-20) BUN 15 (9-16) mg/dL Creatinine 0.94 (0.5-1.4) mg/dL Estim Creat Clear Calc 103.1 Estimated GFR > 60 Random Glucose 126 H (60-115) mg/dL Calcium 9.4 (8.4-10.2) mg/dL Magnesium 1.8 (1.6-2.6) mg/dL Total Bilirubin 1.0 (0.0-1.0) mg/dL Direct Bilirubin 0.5 (0.0-0.5) mg/dL AST 76 H (5-37) U/L ALT 46 H (0-40) U/L Alkaline Phosphatase 94 (39-117) U/L Total Protein 7.9 (6.5-8.0) g/dL Albumin 4.6 (3.5-5.0) g/dL Urine Color Dark Yellow Urine Appearance Cloudy Urine pH 6.0 (5.0-9.0) Ur Specific [place] >= 1.030 H (1.005-1.025) Urine Protein 100 (2+) H (Neg-Trace) mg/dL Urine Glucose (UA) Negative (Negative) mg/dL Urine Ketones Trace (Negative) mg/dL Urine Blood Negative (Negative) Urine Nitrite Negative (Negative) Ur Leukocyte Esterase Trace H (Negative) Urine RBC 0-2 (0-2) /HPF Urine WBC 0-5 (0-5) /HPF Ur Squamous Epith Cells 0-2 (0-2) /HPF Calcium Oxalate Crystal Present Urine Bacteria None Seen (None Seen) Hyaline Casts 11-20 (0-2) /LPF Urine Opiates Screen Not Detected (Not Detect) Ur Buprenorphine Scrn Not Detected (Not Detect) ng/mL Ur Oxycodone Screen Not Detected (Not Detect) ng/mL Urine Methadone Screen Not Detected (Not Detect) ng/mL Urine Fentanyl Screen Not Detected (Not Detect) Ur Barbiturates Screen POSITIVE H (Not Detect) Ur Phencyclidine Scrn Not Detected (Not Detect) Ur Amphetamines Screen Not Detected (Not Detect) U Benzodiazepines Scrn Not Detected (Not Detect) Urine Cocaine Screen Not Detected (Not Detect) U Marijuana (THC) Screen POSITIVE H (Not Detect) Ethyl Alcohol 198 mg/dL Independent Historian Clinical information obtained from an independent historian. History obtained from or confirmed by: Spouse External Record Review External record reviewed: Outpatient record Tests considered The following testing was considered but not selected: See narrative above, radiographic imaging of abdomen deferred Social Determinants Patient?s care significantly limited by Social Determinants of Health including: Alcoholism and drug addiction in family Critical Care Time Critical Care Time Critical Care Time: Yes Total Critical Care Time: 40 Attestation: I personally attest to this critical care time spent taking care of the patient exclusive of all other billable procedures was approximately 40 minutes including initial evaluation of patient, ordering tests, IV fluids, IV lorazepam, acute alcohol withdrawal management, documentation, re-evaluation. Discharge Plan Discharge Clinical Impression: Alcohol use disorder Patient Disposition: Home, Self-Care Instructions: Abuse of Alcohol (ED) Additional Instructions: You met with our control [facility] recovery [facility], they provided you with outpatient resources. Prescriptions: No Action omeprazole 20 mg capsule,delayed release(DR/EC) 20 mg PO DAILY@0630 multivitamin Tablet 1 tab PO DAILY Print Language: [place] Verdean
[2024-08-01] MEDS: ondansetron HCL 4 MG/2 ML VIAL IVPUSH (11:52)
[2024-08-01] MEDS: LORazepam 2 MG/ML VIAL IVPUSH (11:53)
[2024-08-01] MEDS: 0.9 % Sodium Chloride 1,000 ML 999 ML IV (11:55)
[2024-08-01] MEDS: Pantoprazole Sodium 40 MG/10 ML VIAL IVPUSH (11:56)
--- NOTE | 2024-08-01 13:00 | PC.NURSE ---
patient resting comfortably on stretcher, endorsing feeling better, denies wanting detox at this time IV fluids completed. all safety maintained
--- NOTE | 2024-08-01 15:40 | PC.NURSE ---
patient endorsing some increasing anxiety and feeling unwell again, CIWA score 10, provider made aware, patient states he is agreeable to stay in the hospital. provider to place orders.
[2024-08-01] MEDS: PHENobarbitaL sodium 130 MG/ML IM ONCE 310 MG IM (16:08)
--- NOTE | 2024-08-01 16:56 | MHC.RECOVRN ---
Met with pt in ED3. 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 Pt reported he has been drinking 15-20 nips of Vodka daily for the last 1-2 weeks. Before that pt reportedly had been sober for 6 weeks before slowly starting to drink again. Pt has a history of detox admissions at [facility] where he was there for 21days. He has also been sectioned 35 before at [place]. Pt reportedly benefited from these admissions however, pt is only interested in outpatient treatment at this time. Pt reported he has tried vivitrol and naltrexone before with little effect. Discussed different resources with pt and provided educational materials.
--- NOTE | 2024-08-01 18:30 | PC.NURSE ---
patient ambulatory with steady gait to bathroom, hooked back up to shelter monitor, provided with dinner tray at this time
[2024-08-01 18:43] LABS: Magnesium 1.8 mg/dL (1.6-2.6)
[2024-08-01] MEDS: PHENobarbitaL sodium 130 MG/ML VIAL IM Q3Hx2 232 MG IM ×2 (19:52→22:08)
[2024-08-01] MEDS: hydrOXYzine HCL 50 MG TABLET PO (22:08)
== END 2024-08-01 22:33 | disposition home or self-care (01) ==
PROVIDERS: Nurse Practitioner Family; Emergency Provider Emergency Medicine Emergency Medical Services; PCP Physician Assistant
DX: F10.90 Alcohol use, unspecified, uncomplicated (principal); I10 Essential (primary) hypertension; D64.9 Anemia, unspecified; Z79.899 Other long term (current) drug therapy
CPT/HCPCS: 36415; 80048; 80076; 80307; 81001; 83735; 85025; 96361; 96372; 96374; 96375; 99284; 99285; J2060; J2405; J2470; J2560

== ENCOUNTER 2024-09-23 12:44 | Inpatient (IN) | payer OTHER, SELFPAY ==
[2024-09-23 12:52] VITALS: BP 167/101; BP 170/80; PULSE 112; PULSE 120; RESP 14; TEMP 37; O2SAT 98; O2SAT 99; BMI 25.7
--- NOTE | 2024-09-23 12:55 | ECG_ITS ---
Test Reason : ETOH/TACHY Blood Pressure : / mmHG Vent. Rate : 101 BPM Atrial Rate : 101 BPM P-R Int : 148 ms QRS Dur : 078 ms QT Int : 354 ms P-R-T Axes : 056 -03 018 degrees QTc Int : 459 ms Sinus tachycardia Nonspecific ST abnormality When compared with ECG of 07-JUN-2024 08:25, T wave inversion less evident in Anterior leads Referred By: Generic ED Physician Electronically Signed By:DELFINA VILLASEÑOR MD
[2024-09-23] MEDS: 0.9 % Sodium Chloride 1,000 ML 999 ML IV (13:03)
--- NOTE | 2024-09-23 13:06 | ED.ALCOHOL ---
HPI - Alcohol General Chief Complaint: ETOH/Substance Use Stated Complaint: ETOH WITHDRAWAL, SEEKING TREATMENT PER EMS Time Seen by Provider: 09/23/24 13:04 Source: patient, EMS and old records reviewed Mode of arrival: EMS Limitations: no limitations History of Present Illness ED Provider: KATHIE CALHOUN narrative: 49 yo male with PMH Of ETOH and withdrawal but no prior seizures, GIB, anemia, pancytopenia here with c/o ETOH abuse and has been drinking 10-20 nips a day. He did drink 2 nips this AM. He was trying to work today and [employer] staff noted he seemed shaky and off. He denies any head trauma but he admits to n/v all night. He has not fallen. He has no GIB symptoms. He has been hospitalized for withdrawal - no prior seizures. MD complaint: alcohol withdrawal Last drink: Hours (ago) (9am) Chronic alcohol use: Yes Previous visits for alcohol intoxication: Yes Recent trauma: No Associated symptoms: nausea Treatments prior to arrival: none Related Data Home Medications ?Medication ?Instructions ?Recorded ?Confirmed multivitamin 1 tab PO DAILY 02/24/23 06/07/24 omeprazole 20 mg capsule,delayed 20 mg PO DAILY@0630 02/24/23 06/07/24 release Allergies Allergy/AdvReac Type Severity Reaction Status Date / Time Penicillins [PENICILLINS] Allergy Intermediate RASH Verified 09/23/24 12:54 Review of Systems Review of Systems: Constitutional : No Weight loss, No Fever, No Chills ENT/Mouth : No sore throat, No Rhinorrhea Eyes: No Swelling, No Redness Cardiovascular : No Chest Pain, No SOB, NoEdema Respiratory : No Cough, No Sputum, No Wheezing Gastrointestinal : Positive Nausea, Positive Vomiting, no Diarrhea, no abdominal Pain, No Hematochezia, No Melena Genitourinary : No Dysuria, No Urinary Frequency, No Hematuria, No Urgency Musculoskeletal : No joint pain, No Myalgias, No Joint Swelling Skin : No Skin Lesions, No rash Neuro : No Weakness, No Numbness, No Dizziness, No Headache Psych : pos Anxiety/Panic, No Depression All other systems reviewed and are negative. [facility] Past Medical History Attestation statement: The following information was validated with the patient. Source: old records reviewed Medical History GERD (gastroesophageal reflux disease) Thrombocytopenia Leukopenia Alcohol abuse with withdrawal Alcohol use disorder Alcoholic gastritis Elevated LFTs Peripheral neuropathy GERD (gastroesophageal reflux disease) Alcohol withdrawal GI bleed Anemia ETOH abuse HTN (hypertension) Family History Family History Mother Mental health disorder Father Liver cirrhosis Social History Social History Household Members: Spouse Household Members Other:: Jerica - - 2 children ages 8 and 15 Housing: House Do you presently have visiting nurse or other home services: No Alcohol intake: current Alcohol intake frequency: 3 or more drinks per day Alcohol type: hard liquor Comment: deemed high fall risk upon admission do to ETOH withdrawl. 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 Oriented X3. anxious mild acute distress. tremors and tongue fasciculations Eyes: Pupils equal, round and reactive to light. ENT: Pharynx dry MM Neck: Normal inspection. Neck supple. CVS: tachycardic heart rate and rhythm. Pulses normal. Respiratory: No respiratory distress. Breath sounds normal. Abdomen: Soft and non-tender. Skin: Skin warm and dry. Normal skin color. Normal skin turgor. Extremities: No lower extremity edema. Neuro: Oriented X 3. No motor deficit. No sensory deficit. Medical Decision Making Medical Decision Making MDM Narrative: 49 yo male with PMH Of ETOH and withdrawal but no prior seizures, GIB, anemia, pancytopenia here with c/o n/v since this AM unable to drink as much ETOH as usual now with tremors, tachycardia, HTNive - CIWA score > 15 on arrival at this time IV ativan 4mg ordered, IM phenobarb empiric thiamine and magnesium. Anticipate ETOH withdrawal admission Differential Diagnosis Differential Diagnoses: The differential diagnosis associated with the presentation includes ETOH withdrawal, n/v, lyte abnormality Admission/Observation Consideration of admission/observation: Escalation of care including admission/observation considered admit for ETOH withdrawal Consult Healthcare Provider Management of the patient was discussed with: Hospitalist (will admit) Lab Data MDM Lab Attestation statement: I reviewed the patient's lab results. 09/23/24 13:02 09/23/24 13:02 Labs: Lab Results 09/23/24 Range/Units 13:02 WBC 4.0 L (4.8-10.8) X10*3/uL RBC 4.03 L (4.60-5.80) X10*6/uL Hgb 13.5 L (14.0-18.0) g/dl Hct 37.3 L (42.0-52.0) % MCV 92.6 (80.0-98.0) fL MCH 33.5 H (27.0-33.0) pg MCHC 36.2 H (31.0-36.0) g/dl RDW 13.2 (11.0-16.0) % Plt Count 146 L D (160-400) X10*3/uL MPV 8.7 L (9.4-12.4) fL Immature Gran % (Auto) 0.2 (0.0-0.4) % Neut % (Auto) 83.2 H (45-73) % Lymph % (Auto) 6.7 L (20-40) % [place] % (Auto) 9.4 (2-11) % Eos % (Auto) 0.0 (0-4) % Baso % (Auto) 0.5 (0-2) % Lymph # (Auto) 0.3 L (1.2-4.9) X10*3/uL [place] # (Auto) 0.4 (0.1-1.2) X10*3/uL Eos # (Auto) 0.0 (0.0-0.4) X10*3/uL Baso # (Auto) 0.0 (0.0-0.2) X10*3/uL Abs Immat Gran (auto) 0.01 (0.00-0.03) X10*3/uL Absolute Neuts (auto) 3.4 (2.0-8.3) x10*3/uL Absolute Nucleated RBC 0.000 (0.0-0.012) X10*3/uL Nucleated RBC % (auto) 0.0 (0.0-0.2) /100WBC Sodium 140 (135-145) mmol/L Potassium 3.8 (3.3-5.1) mmol/L Chloride 97 (96-108) mmol/L Carbon Dioxide 30 H (22-29) mmol/L Anion Gap 17 (12-20) BUN 16 (9-16) mg/dL Creatinine 0.91 (0.5-1.4) mg/dL Estim Creat Clear Calc 111.6 Estimated GFR > 60 Random Glucose 160 H (60-115) mg/dL Calcium 9.6 (8.4-10.2) mg/dL Magnesium 1.6 (1.6-2.6) mg/dL Total Bilirubin 2.0 H (0.0-1.0) mg/dL Direct Bilirubin 0.6 H (0.0-0.5) mg/dL AST 83 H (5-37) U/L ALT 75 H (0-40) U/L Alkaline Phosphatase 73 (39-117) U/L Total Protein 8.3 H (6.5-8.0) g/dL Albumin 5.0 (3.5-5.0) g/dL Lipase 19 (8-78) U/L Ethyl Alcohol < 10 mg/dL Independent Interpretation I performed an independent interpretation of an: EKG Interpretation: Rate: 101 Rhythm: sinus tachycardia [place]: left Normal P waves. Normal KRISTI. Normal QRS complex. ST T wave : nonspecific ST T wave changes anterior leads, no FUENTES qTC: 459 prior studies: no acute ischemia The study has been interpreted contemporaneously by me. . Independent Historian Clinical information obtained from an independent historian. History obtained from or confirmed by: EMS External Record Review External record reviewed: Inpatient record and Outpatient record Medications Administered Generic Name Dose Route Start Last Admin Trade Name Freq PRN Reason Stop Dose Admin Magnesium Sulfate 2 gm in 50 mls @ 25 mls/hr 09/23/24 13:05 09/23/24 13:35 Magnesium Sulfate/H2o IV 09/23/24 15:04 Infused ONCE ONE Infusion Discontinued Medications Generic Name Dose Route Start Last Admin Trade Name Carmen PRN Reason Stop Dose Admin Sodium Chloride 1,000 mls @ 999 mls/hr 09/23/24 13:00 09/23/24 13:03 Ns IV 09/23/24 14:00 999 mls/hr .Q1H1M LYDIA Administration Thiamine HCl 200 mg/ Sodium 102 mls @ 204 mls/hr 09/23/24 13:05 09/23/24 14:10 Chloride IV 09/23/24 13:34 Infused ONCE ONE Infusion Lorazepam 2 mg 09/23/24 13:05 09/23/24 13:14 Lorazepam 2 Mg/Ml Vial IVPUSH 09/23/24 13:06 2 mg ONCE ONE Administration Lorazepam 2 mg 09/23/24 13:32 09/23/24 13:35 Lorazepam 2 Mg/Ml Vial IVPUSH 09/23/24 13:33 2 mg ONCE ONE Administration Pantoprazole Sodium 40 mg 09/23/24 13:05 09/23/24 13:14 Pantoprazole Sodium 40 Mg/10 Ml Vial IVPUSH 09/23/24 13:06 40 mg ONCE ONE Administration Phenobarbital Sodium 394 mg 09/23/24 14:00 09/23/24 13:59 Phenobarbital Sodium 130 Mg/Ml Im Once IM 09/23/24 14:01 394 mg ONCE ONE Administration Protocol Discharge Plan Discharge Clinical Impression: Alcohol withdrawal, Intractable vomiting Patient Disposition: Admitted As Inpatient Prescriptions: No Action omeprazole 20 mg capsule,delayed release(DR/EC) 20 mg PO DAILY@0630 multivitamin Tablet 1 tab PO DAILY Print Language: Ukrainian
[2024-09-23 13:07] LABS: MANUAL DIFF FLAG NO
[2024-09-23 13:09] LABS: Basophils Percent Auto 0.5 % (0-2); Hematocrit 37.3 % (42.0-52.0); Hemoglobin 13.5 g/dl (14.0-18.0); Imm Gran Abs Auto 0.01 X10*3/uL (0.00-0.03); Imm Gran Pct Auto 0.2 % (0.0-0.4); Lymphocytes Absolute Auto 0.3 X10*3/uL (1.2-4.9); Lymphocytes Percent Auto 6.7 % (20-40); Mean Corpuscular HGB Conc 36.2 g/dl (31.0-36.0); Mean Corpuscular Hemoglobin 33.5 pg (27.0-33.0); Mean Corpuscular Volume 92.6 fL (80.0-98.0); Mean Platelet Volume 8.7 fL (9.4-12.4); Monocytes Absolute Auto 0.4 X10*3/uL (0.1-1.2); Monocytes Percent Auto 9.4 % (2-11); Neutrophils Absolute Auto 3.4 x10*3/uL (2.0-8.3); Neutrophils Percent Auto 83.2 % (45-73); Platelet Count 146 X10*3/uL (160-400); Red Blood Count 4.03 X10*6/uL (4.60-5.80); Red Cell Distribution Width 13.2 % (11.0-16.0)
[2024-09-23] MEDS: LORazepam 2 MG/ML VIAL IVPUSH ×2 (13:14→13:35)
[2024-09-23] MEDS: Pantoprazole Sodium 40 MG/10 ML VIAL IVPUSH (13:14)
[2024-09-23] MEDS: Magnesium Sulfate/H2O 2 GM/50 ML PIGGYBACK IV (13:14)
[2024-09-23 13:22] LABS: Ethanol < 10 mg/dL
[2024-09-23 13:26] LABS: Alanine Aminotransferase 75 U/L (0-40); Alkaline Phosphatase 73 U/L (39-117); Anion Gap 17 (12-20); Aspartate Amino Transferase 83 U/L (5-37); Bilirubin Direct 0.6 mg/dL (0.0-0.5); Blood Urea Nitrogen 16 mg/dL (9-16); Calcium 9.6 mg/dL (8.4-10.2); Carbon Dioxide 30 mmol/L (22-29); Chloride 97 mmol/L (96-108); Creatinine Clr Calc Pharmacy 111.6; Estimated Glomerular Filt Rate > 60; Glucose Random 160 mg/dL (60-115); Lipase 19 U/L (8-78); Magnesium 1.6 mg/dL (1.6-2.6); Potassium 3.8 mmol/L (3.3-5.1); Sodium 140 mmol/L (135-145); Total Protein 8.3 g/dL (6.5-8.0)
[2024-09-23] MEDS: Thiamine HCL 200 MG in 0.9 % Sodium Chloride 100 ML 204 MG IV (13:40)
[2024-09-23 13:59] VITALS: BP 132/81; PULSE 99; RESP 19; O2SAT 98
[2024-09-23] MEDS: PHENobarbitaL sodium 130 MG/ML IM ONCE 394 MG IM (13:59)
--- NOTE | 2024-09-23 14:19 | PC.NURSE ---
pt medicated per MAT- pt resting on exam room table- reports some symptom improvement at this time. call lopez within reach
--- NOTE | 2024-09-23 15:01 | P.HPHOSP_ITS ---
History of Present Illness Date of Service: 09/23/24 Attending physician on admission: João Pedro Chief Complaint: etoh withdrawal Patient is a 49-year-old male with a past medical history significant for alcohol abuse, history of GI bleed, anemia, pancytopenia and GERD who presented to the ED today due to shakiness, epigastric pain and nausea. CIWA was 15, he was given 2 mg of IV lorazepam without response therefore was given an additional 2 mg. He was then started on phenobarb protocol and given IV thiamine and magnesium, and IV fluids. History was unable to be obtained as patient was obtunded secondary to the lorazepam. Per the ED note he had been drinking 10-20 nips a day, had to nips this morning and was noted to be shaky and off at work this morning. She admitted to nausea and vomiting all night. No falls or GI bleed symptoms. He has been hospitalized in the past for alcohol withdrawal without any prior seizures. Review of Systems 2 Review of Systems: Yes Unobtainable due to mental condition [facility] Medical History (Updated 09/23/24 @ 15:53 by Karli Ingram PA-C) GERD (gastroesophageal reflux disease) Thrombocytopenia Leukopenia Alcohol abuse with withdrawal Alcohol use disorder Alcoholic gastritis Elevated LFTs Peripheral neuropathy GERD (gastroesophageal reflux disease) Alcohol withdrawal GI bleed Anemia ETOH abuse HTN (hypertension) Functional capacity: independent ambulation Family History Mother Mental health disorder Father Liver cirrhosis Social History Household Members: Spouse Household Members Other:: Jerica - - 2 children ages 8 and 15 Housing: House Do you presently have visiting nurse or other home services: No Alcohol intake: current Alcohol intake frequency: 3 or more drinks per day Alcohol type: hard liquor Comment: deemed high fall risk upon admission do to ETOH withdrawl. 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 Sexual orientation: Straight/Heterosexual Meds Allergies Allergy/AdvReac Type Severity Reaction Status Date / Time Penicillins [PENICILLINS] Allergy Intermediate RASH Verified 09/23/24 12:54 Active Medications: Current Medications Acetaminophen (Acetaminophen 325 Mg Tablet) 650 mg PO Q6H PRN PRN Reason: Pain, Mild (Pain Scale 1-3), fever or headache Calcium Carbonate (Calcium Carbonate 750 Mg Tab.Chew) 750 mg PO Q4H PRN PRN Reason: Heartburn Enoxaparin Sodium (Enoxaparin Sodium 40 Mg/0.4 Ml Syringe) 40 mg SUBCUT Q24H LYDIA Magnesium Sulfate (Magnesium Sulfate/H2o) 2 gm in 50 mls @ 25 mls/hr IV ONCE ONE Stop: 09/23/24 15:04 Last Infusion: 09/23/24 13:35 Dose: Infused Lactated Ringer's (Lr) 1,000 mls @ 100 mls/hr IVCONT .Q10H LYDIA Magnesium Hydroxide (Milk Of Magnesia 30 Ml Oral.Susp) 30 ml PO DAILY PRN PRN Reason: Constipation Melatonin (Melatonin 3 Mg Tablet) 6 mg PO BEDTIME PRN PRN Reason: Insomnia Morphine Sulfate (Morphine Sulfate 4 Mg/Ml Cartridge) 2 mg IVPUSH Q6H PRN; Protocol PRN Reason: Pain, Severe (Pain Scale 7-10) Ondansetron HCl (Ondansetron Hcl 4 Mg/2 Ml Vial) 4 mg IVPUSH Q8H PRN PRN Reason: Nausea and Vomiting Oxycodone HCl (Oxycodone Hcl Immed Release 5 Mg Tablet) 5 mg PO Q6H PRN PRN Reason: Pain, Moderate(Pain Scale 4-6) Pharmacy Consult (Consult Rx Etoh Phenob Im/Po) 1 each MISCELLANE ONCE PRN; Protocol PRN Reason: Consult order Phenobarbital (Phenobarbital 30 Mg Tablet) 60 mg PO BID LYDIA; Protocol Stop: 09/25/24 21:01 Phenobarbital (Phenobarbital 30 Mg Tablet) 30 mg PO BID LYDIA; Protocol Stop: 09/27/24 21:01 Phenobarbital (Phenobarbital 30 Mg Tablet) 30 mg PO DAILY LYDIA; Protocol Stop: 09/29/24 09:01 Phenobarbital Sodium (Phenobarbital Sodium 130 Mg/Ml Vial Im Q3hx2) 296 mg IM Q3H LYDIA; Protocol Stop: 09/23/24 20:01 Sodium Chloride (0.9 % Sodium Chloride Flush 3 Ml Syringe) 3 ml IVFLUSH QSHIFT [facility] Home Medications ?Medication ?Instructions ?Recorded ?Confirmed ?Last Taken ?Type multivitamin 1 tab PO DAILY 02/24/23 06/07/24 02/23/23 History omeprazole 20 mg capsule,delayed 20 mg PO DAILY@0630 02/24/23 06/07/24 08/11/23 History release Physical Exam 2 Vital Signs and Narrative: Vital Signs: Last Vital Signs Temp 98.6 F 09/23/24 12:52 Pulse 99 09/23/24 13:59 Resp 19 09/23/24 13:59 BP 132/81 09/23/24 13:59 Pulse Ox 98 09/23/24 13:59 O2 Del Method Room Air 09/23/24 13:59 BMI result Body Mass Index 25.7 General: obtunded, vitals stable, pulse present and normal respiratory rate. Resp: CTA bilaterally CVS: S1, S2, RRR GI: +BS, NT, no distention Skin: Warm, dry Extremities: No edema Psych: Appropriate affect Results Labs 09/23/24 13:02 09/23/24 13:02 Labs: Laboratory Results - last 24 hr 09/23/24 13:02 MCV 92.6 MCH 33.5 H MCHC 36.2 H RDW 13.2 Plt Count 146 L D MPV 8.7 L Immature Gran % (Auto) 0.2 Neut % (Auto) 83.2 H Lymph % (Auto) 6.7 L [place] % (Auto) 9.4 Eos % (Auto) 0.0 Baso % (Auto) 0.5 Lymph # (Auto) 0.3 L [place] # (Auto) 0.4 Eos # (Auto) 0.0 Baso # (Auto) 0.0 Abs Immat Gran (auto) 0.01 Absolute Neuts (auto) 3.4 Absolute Nucleated RBC 0.000 Nucleated RBC % (auto) 0.0 Anion Gap 17 Estim Creat Clear Calc 111.6 Estimated GFR > 60 Random Glucose 160 H Calcium 9.6 Magnesium 1.6 Total Bilirubin 2.0 H Direct Bilirubin 0.6 H AST 83 H ALT 75 H Alkaline Phosphatase 73 Total Protein 8.3 H Albumin 5.0 Lipase 19 Ethyl Alcohol < 10 Assessment and Plan (1) Alcohol withdrawal: Qualifiers: Complication of substance-induced condition: uncomplicated Qualified Code(s): F10.930 - Alcohol use, unspecified with withdrawal, uncomplicated Status: Acute (2) Alcohol abuse: Status: Chronic (3) Elevated LFTs: Status: Chronic (4) Alcoholic gastritis: Status: Acute Plan Patient is a 49-year-old male with a past medical history significant for alcohol abuse, history of GI bleed, anemia, pancytopenia and GERD who presented to the ED today due to shakiness, epigastric pain and nausea. CIWA was 15, he was given 2 mg of IV lorazepam without response therefore was given an additional 2 mg. He was then started on phenobarb protocol and given IV thiamine and magnesium, and IV fluids. History was unable to be obtained as patient was obtunded secondary to the lorazepam. eoth withdrawal - given 4mg IV lorazepam in ED, started on phenobarb, will continue - no hx of seizures - given IV thiamine, mag and fluids, will continue LR 100ml/hr - start PO thiamine, folate and multivitamin tomorrow - monitor CIWAs - addiction med consult tomorrow when pt more responsive - IV pantoprazole QD due to epigastric pain and hx of UGI bleed - no evidence of GI bleed, will monitor CBC, CMP - admit to tele elevated LFTs - likely secondary to etoh abuse - monitor CMP while here full code assumed as pt is not responsive VTE prophy: lovenox Patient with alcohol withdrawal requiring admission for at least 2 midnights stay for monitoring and medication withdrawal. Quality Stroke Does the patient have a stroke diagnosis?: No VTE Prior VTE?: No VTE Risk Level:: Medical - moderate - high VTE Device Contraindication: Treatment Not Indicated VTE Drug Contraindication: N/A - Med Ordered
--- NOTE | 2024-09-23 15:26 | PC.NURSE ---
pt medicated per TERESSA- ciwa score 6 at this time
[2024-09-23] MEDS: Enoxaparin Sodium 40 MG/0.4 ML SYRINGE SUBCUT (15:27)
[2024-09-23] MEDS: Lactated Ringers 1,000 ML 100 ML IVCONT (15:30)
--- NOTE | 2024-09-23 16:27 | PHA.MEDREC ---
Addendum entered by Cole Cordova [facility] 09/23/24 16:39: med rec reviewed Original Note: Pharmacy Consult ? Medication Reconciliation Pharmacy has completed the medication reconciliation. Spoke with patient Jerica over the phone and she confirmed that the patient has been taking her Omeprazole 40mg prescription over the last week but if she runs out he will take Omeprazole 20mg OTC and only takes 1 tablet.
[2024-09-23] MEDS: PHENobarbitaL sodium 130 MG/ML VIAL IM Q3Hx2 296 MG IM ×2 (17:03→20:39)
--- NOTE | 2024-09-23 17:09 | PC.NURSE ---
Addendum entered by Mary Whiteside LPN 09/23/24 17:12: edit CIWA score 5 at of 1712 Original Note: pt medicated per JAN-SILVIA 6- pt offers no complaints at this time- [place] [facility] [place]
[2024-09-23 18:34] VITALS: BP 133/85; PULSE 96; RESP 20; O2SAT 93
--- NOTE | 2024-09-23 19:09 | PC.NURSE ---
report received from Mary ROMERO, assume care of pt at this time
[2024-09-23 19:24] VITALS: BP 135/80; PULSE 92; RESP 15; TEMP 36.4; O2SAT 95
[2024-09-23 20:43] VITALS: BP 147/95; PULSE 102; RESP 14; TEMP 36.6; O2SAT 96
[2024-09-23 22:44] VITALS: BP 132/93; PULSE 87; RESP 18; TEMP 36.4; O2SAT 95
[2024-09-23 22:50] LABS: Appearance Urine Clear; Color Urine Dark Yellow; Glucose Urine UA Negative (Negative); Leukocyte Esterase Urine Trace (Negative); Nitrite Urine Negative (Negative); PH >= 9.0 (5.0-9.0); Specific Gravity - Urine 1.025 (1.005-1.025); UMIC TRIGGER UACC YES; Urine Blood Negative (Negative); Urine Ketones 40 mg/dL (Negative); Urine Protein 100 (2+) mg/dL (Neg-Trace)
[2024-09-23 22:52] LABS: Bacteria Urine None Seen (None Seen); Hyaline Casts Urine 0-2 /LPF (0-2); RBC Urine 0-2 /HPF (0-2); Squamous Epithelial Cell Urine 0-2 /HPF (0-2); WBC Urine 0-5 /HPF (0-5)
[2024-09-23 23:00] LABS: Amphetamine Screen Urine Not Detected (Not Detect); Barbiturates, Urine POSITIVE (Not Detect); Benzodiazepines Screen Urine Not Detected (Not Detect); Buprenorphine Scr Not Detected (Not Detect); Cannabinoid Screen Urine POSITIVE (Not Detect); Cocaine Screen Urine Not Detected (Not Detect); Fentanyl, urine Not Detected (Not Detect); Methadone Screen, Urine Not Detected (Not Detect); Opiate Screen Urine Not Detected (Not Detect); Oxycodone Screen Urine Not Detected (Not Detect); Phencyclidine Screen Urine Not Detected (Not Detect)
[2024-09-23] MEDS: 0.9 % Sodium Chloride Flush 3 ML SYRINGE IVFLUSH (23:26)
[2024-09-24] VITALS (7 sets, daily range): BP systolic 129–154; BP diastolic 70–97; PULSE 60–83; RESP 16–18; TEMP 36.3–37.1; O2SAT 96–99
[2024-09-24] MEDS: Lactated Ringers 1,000 ML 100 ML IVCONT ×3 (01:54→21:27)
[2024-09-24] MEDS: Pantoprazole Sodium 40 MG/10 ML VIAL IVPUSH (05:57)
[2024-09-24 07:09] LABS: Basophils Percent Auto 1.3 % (0-2); Eosinophils Percent Auto 2.6 % (0-4); Hematocrit 33.4 % (42.0-52.0); Imm Gran Abs Auto 0.01 X10*3/uL (0.00-0.03); Imm Gran Pct Auto 0.7 % (0.0-0.4); Lymphocytes Absolute Auto 0.3 X10*3/uL (1.2-4.9); Lymphocytes Percent Auto 20.9 % (20-40); MANUAL DIFF FLAG SCAN; Mean Corpuscular HGB Conc 35.9 g/dl (31.0-36.0); Mean Corpuscular Hemoglobin 33.2 pg (27.0-33.0); Mean Corpuscular Volume 92.5 fL (80.0-98.0); Mean Platelet Volume 9.1 fL (9.4-12.4); Monocytes Absolute Auto 0.3 X10*3/uL (0.1-1.2); Monocytes Percent Auto 17.6 % (2-11); Neutrophils Absolute Auto 0.9 x10*3/uL (2.0-8.3); Neutrophils Percent Auto 56.9 % (45-73); Platelet Count 107 X10*3/uL (160-400); Red Blood Count 3.61 X10*6/uL (4.60-5.80); Red Cell Distribution Width 12.7 % (11.0-16.0); SCAN SMEAR FLAG 1
[2024-09-24 07:10] LABS: White Blood Count 1.5 X10*3/uL (4.8-10.8)
[2024-09-24 07:26] LABS: Alanine Aminotransferase 51 U/L (0-40); Alkaline Phosphatase 58 U/L (39-117); Anion Gap 11 (12-20); Aspartate Amino Transferase 73 U/L (5-37); Bilirubin Total 1.6 mg/dL (0.0-1.0); Blood Urea Nitrogen 13 mg/dL (9-16); Calcium 9.1 mg/dL (8.4-10.2); Carbon Dioxide 28 mmol/L (22-29); Chloride 102 mmol/L (96-108); Creatinine Clr Calc Pharmacy 141.1; Estimated Glomerular Filt Rate > 60; Glucose Random 102 mg/dL (60-115); Potassium 3.3 mmol/L (3.3-5.1); Sodium 138 mmol/L (135-145); Total Protein 6.6 g/dL (6.5-8.0)
[2024-09-24 07:40] LABS: SLIDE REVIEW VERIFIED
--- NOTE | 2024-09-24 09:24 | MHC.CM.PN ---
EMR REVIEWED, PT W/ETOH WITHDRAWAL, CM MET W/PT WHO REPORTS HE LIVES W/ AND 19YO CHILD, PT IS WORKS, DRIVES IS FULLY INDEP W/CARE, DENIES USE OF DME/SERVICES, PT'S GOAL FOR DC IS HOME WHEN MEDICALLY CLEARED. PT VERIFIES PCP IS JAMAR RODRIGUEZ, HCP ON FILE VERIFIED.
[2024-09-24] MEDS: Multivitamin TABLET 1 TAB PO (09:39)
[2024-09-24] MEDS: PHENobarbitaL 30 MG TABLET 60 MG PO ×2 (09:40→21:27)
[2024-09-24] MEDS: Thiamine HCL 100 MG TABLET PO (09:40)
[2024-09-24] MEDS: 0.9 % Sodium Chloride Flush 3 ML SYRINGE IVFLUSH (09:40)
[2024-09-24] MEDS: Folic Acid 1 MG TABLET PO (09:40)
--- NOTE | 2024-09-24 09:53 | HO.PM.IMPN ---
Subjective Subjective Date of Service: 09/24/24 Interval History: anxious Physical Exam Vital Signs: Vital Signs: Last Vital Signs Temp 98.4 F 09/24/24 07:18 Pulse 77 09/24/24 07:18 Resp 16 09/24/24 07:18 BP 154/89 H 09/24/24 07:18 Pulse Ox 96 09/24/24 07:18 O2 Del Method Room Air 09/24/24 07:18 BMI result Body Mass Index 25.7 General: AO X 3, no acute distress Resp: CTA bilateral, no accessory muscles used CVS: S1,S2,RRR GI: soft, non tender, non distended Neuro: motor grossly intact, alert Psych: appropriate affect, appropriate insight Objective Data Active Medications Acetaminophen (Acetaminophen 325 Mg Tablet) 650 mg PO Q6H PRN PRN Reason: Pain, Mild (Pain Scale 1-3), fever or headache Calcium Carbonate (Calcium Carbonate 750 Mg Tab.Chew) 750 mg PO Q4H PRN PRN Reason: Heartburn Enoxaparin Sodium (Enoxaparin Sodium 40 Mg/0.4 Ml Syringe) 40 mg SUBCUT Q24H [facility] Last Admin: 09/23/24 15:27 Dose: 40 mg Documented By: JAYLIN Folic Acid (Folic Acid 1 Mg Tablet) 1 mg PO DAILY [facility] Stop: 09/27/24 08:59 Last Admin: 09/24/24 09:40 Dose: 1 mg Documented By: BRANDON Lactated Ringer's (Lr) 1,000 mls @ 100 mls/hr IVCONT .Q10H [facility] Last Admin: 09/24/24 01:54 Dose: 100 mls/hr Documented By: SHAHRAM Magnesium Hydroxide (Milk Of Magnesia 30 Ml Oral.Susp) 30 ml PO DAILY PRN PRN Reason: Constipation Melatonin (Melatonin 3 Mg Tablet) 6 mg PO BEDTIME PRN PRN Reason: Insomnia Morphine Sulfate (Morphine Sulfate 4 Mg/Ml Cartridge) 2 mg IVPUSH Q6H PRN; Protocol PRN Reason: Pain, Severe (Pain Scale 7-10) Multivitamins/Vitamin C (Multivitamin Tablet) 1 tab PO DAILY [facility] Stop: 09/27/24 08:59 Last Admin: 09/24/24 09:39 Dose: 1 tab Documented By: BRANDON Ondansetron HCl (Ondansetron Hcl 4 Mg/2 Ml Vial) 4 mg IVPUSH Q8H PRN PRN Reason: Nausea and Vomiting Oxycodone HCl (Oxycodone Hcl Immed Release 5 Mg Tablet) 5 mg PO Q6H PRN PRN Reason: Pain, Moderate(Pain Scale 4-6) Pantoprazole Sodium (Pantoprazole Sodium 40 Mg/10 Ml Vial) 40 mg IVPUSH DAILY@0630 [facility] Last Admin: 09/24/24 05:57 Dose: 40 mg Documented By: ANTOIC Pharmacy Consult (Consult Rx Etoh Phenob Im/Po) 1 each MISCELLANE ONCE PRN; Protocol PRN Reason: Consult order Phenobarbital (Phenobarbital 30 Mg Tablet) 60 mg PO BID [facility]; Protocol Stop: 09/25/24 21:01 Last Admin: 09/24/24 09:40 Dose: 60 mg Documented By: BRANDON Phenobarbital (Phenobarbital 30 Mg Tablet) 30 mg PO BID [facility]; Protocol Stop: 09/27/24 21:01 Phenobarbital (Phenobarbital 30 Mg Tablet) 30 mg PO DAILY [facility]; Protocol Stop: 09/29/24 09:01 Sodium Chloride (0.9 % Sodium Chloride Flush 3 Ml Syringe) [facility] Last Admin: 09/24/24 09:40 Dose: 3 ml Documented By: BRANDON Thiamine HCl (Thiamine Hcl 100 Mg Tablet) 100 mg PO DAILY [facility] Stop: 09/27/24 08:59 Last Admin: 09/24/24 09:40 Dose: 100 mg Documented By: BRANDON Labs 09/24/24 06:39 09/24/24 06:39 Labs: Laboratory Results - last 24 hr 09/23/24 09/23/24 09/23/24 13:02 22:42 22:43 MCV 92.6 MCH 33.5 H MCHC 36.2 H RDW 13.2 Plt Count 146 L D MPV 8.7 L Immature Gran % (Auto) 0.2 Neut % (Auto) 83.2 H Lymph % (Auto) 6.7 L Kay % (Auto) 9.4 Eos % (Auto) 0.0 Baso % (Auto) 0.5 Lymph # (Auto) 0.3 L Kay # (Auto) 0.4 Eos # (Auto) 0.0 Baso # (Auto) 0.0 Abs Immat Gran (auto) 0.01 Absolute Neuts (auto) 3.4 Absolute Nucleated RBC 0.000 Nucleated RBC % (auto) 0.0 Smear Tech's Comments Anion Gap 17 Estim Creat Clear Calc 111.6 Estimated GFR > 60 Random Glucose 160 H Calcium 9.6 Magnesium 1.6 Total Bilirubin 2.0 H Direct Bilirubin 0.6 H AST 83 H ALT 75 H Alkaline Phosphatase 73 Total Protein 8.3 H Albumin 5.0 Lipase 19 Urine Color Dark Yellow Urine Appearance Clear Urine pH >= 9.0 Ur Specific [place] 1.025 Urine Protein 100 (2+) H Urine Glucose (UA) Negative Urine Ketones 40 Urine Blood Negative Urine Nitrite Negative Ur Leukocyte Esterase Trace H Urine RBC 0-2 Urine WBC 0-5 Ur Squamous Epith Cells 0-2 Urine Bacteria None Seen Hyaline Casts 0-2 Urine Opiates Screen Not Detected Ur Buprenorphine Scrn Not Detected Ur Oxycodone Screen Not Detected Urine Methadone Screen Not Detected Urine Fentanyl Screen Not Detected Ur Barbiturates Screen POSITIVE H Ur Phencyclidine Scrn Not Detected Ur Amphetamines Screen Not Detected U Benzodiazepines Scrn Not Detected Urine Cocaine Screen Not Detected U Marijuana (THC) Screen POSITIVE H Ethyl Alcohol < 10 09/24/24 06:39 MCV 92.5 MCH 33.2 H MCHC 35.9 RDW 12.7 Plt Count 107 L D MPV 9.1 L Immature Gran % (Auto) 0.7 H Neut % (Auto) 56.9 Lymph % (Auto) 20.9 Kay % (Auto) 17.6 H Eos % (Auto) 2.6 Baso % (Auto) 1.3 Lymph # (Auto) 0.3 L Kay # (Auto) 0.3 Eos # (Auto) 0.0 Baso # (Auto) 0.0 Abs Immat Gran (auto) 0.01 Absolute Neuts (auto) 0.9 L Absolute Nucleated RBC 0.000 Nucleated RBC % (auto) 0.0 Smear Tech's Comments VERIFIED Anion Gap 11 L Estim Creat Clear Calc 141.1 Estimated GFR > 60 Random Glucose 102 Calcium 9.1 Magnesium Total Bilirubin 1.6 H Direct Bilirubin AST 73 H ALT 51 H Alkaline Phosphatase 58 Total Protein 6.6 Albumin 4.0 Lipase Urine Color Urine Appearance Urine pH Ur Specific [place] Urine Protein Urine Glucose (UA) Urine Ketones Urine Blood Urine Nitrite Ur Leukocyte Esterase Urine RBC Urine WBC Ur Squamous Epith Cells Urine Bacteria Hyaline Casts Urine Opiates Screen Ur Buprenorphine Scrn Ur Oxycodone Screen Urine Methadone Screen Urine Fentanyl Screen Ur Barbiturates Screen Ur Phencyclidine Scrn Ur Amphetamines Screen U Benzodiazepines Scrn Urine Cocaine Screen U Marijuana (THC) Screen Ethyl Alcohol Assessment and Plan (1) Alcohol abuse: Status: Chronic Plan 49M PMH etoh dependence, gerd, AFLD with chronic pancytopenia, presented with etoh withdrawal etoh dependence with AFLD, chronic pancytopenia and withdrawal phenobarb, ciwa, folica acid, thiamine, mvi, ppi addiction eval dvt prophylaxis - lovenox full code reason for continued hospitalization:still with withdrawal Quality Stroke Does the patient have a stroke diagnosis?: No VTE Prior VTE?: No VTE Risk Level:: Medical - moderate - high VTE Device Contraindication: Treatment Not Indicated VTE Drug Contraindication: N/A - Med Ordered
[2024-09-24] MEDS: LORazepam 2 MG/ML VIAL IVPUSH (10:54)
--- NOTE | 2024-09-24 15:43 | MHC.RECOVRN ---
AUDIT-C Brief Intervention Pt had positive screen for unhealthy alcohol use on admission, subsequently met with t/w to discuss alcohol use and recovery supports/options. This display card writer met with patient to discuss current alcohol use and concerns related to increased risk of alcohol related problems.? Pt reports 1 pint vodka daily x a few weeks. Discussed how alcohol use has impacted health, including negative impact on overall physical wellbeing. Pt reports longest period of abstinence was 10 months 3-4 years ago after a DUI. Reports he did not have cravings during that time and abstinence was not challenging. Completed IOP during that time. Reports history of Vivitrol and didn't like it. Reports it made him feel off when he had alcohol. Withdrawal History: denied hx seizures Treatment History: [place] [facility] in September 2023, [facility] in Nov 2023, [facility] Supports:?aunt, mom, , kids Discussed risk reduction strategies including drinking below the recommended limit. Provided pt with written resources including information on inpatient and outpatient treatment, LARISSA, harm reduction, and recovery coaching. Pt plans to review resources, think about IOP, and meet with public defender tomorrow morning. Pt provided with t/w contact information if questions or concerns arise. Denies other questions or concerns at this time.?
[2024-09-24] MEDS: Enoxaparin Sodium 40 MG/0.4 ML SYRINGE SUBCUT (16:53)
[2024-09-25 04:00] VITALS: BP 170/92; PULSE 77; RESP 17; TEMP 36.6; O2SAT 98
[2024-09-25] MEDS: Pantoprazole Sodium 40 MG/10 ML VIAL IVPUSH (05:52)
[2024-09-25] MEDS: Lactated Ringers 1,000 ML 100 ML IVCONT (05:52)
[2024-09-25 06:59] VITALS: BP 155/98; PULSE 59; RESP 18; TEMP 37.3; O2SAT 98
[2024-09-25 07:25] LABS: MANUAL DIFF FLAG NO
[2024-09-25 07:38] LABS: Basophils Percent Auto 1.1 % (0-2); Eosinophils Absolute Auto 0.1 X10*3/uL (0.0-0.4); Eosinophils Percent Auto 3.3 % (0-4); Hematocrit 33.6 % (42.0-52.0); Hemoglobin 12.1 g/dl (14.0-18.0); Imm Gran Abs Auto 0.01 X10*3/uL (0.00-0.03); Imm Gran Pct Auto 0.6 % (0.0-0.4); Lymphocytes Absolute Auto 0.4 X10*3/uL (1.2-4.9); Lymphocytes Percent Auto 19.4 % (20-40); Mean Corpuscular Hemoglobin 32.7 pg (27.0-33.0); Mean Corpuscular Volume 90.8 fL (80.0-98.0); Mean Platelet Volume 9.6 fL (9.4-12.4); Monocytes Absolute Auto 0.2 X10*3/uL (0.1-1.2); Monocytes Percent Auto 12.8 % (2-11); Neutrophils Absolute Auto 1.1 x10*3/uL (2.0-8.3); Neutrophils Percent Auto 62.8 % (45-73); Platelet Count 98 X10*3/uL (160-400); Red Cell Distribution Width 12.5 % (11.0-16.0); SCAN SMEAR FLAG 1; White Blood Count 1.8 X10*3/uL (4.8-10.8)
[2024-09-25 08:06] LABS: Alanine Aminotransferase 69 U/L (0-40); Albumin Level 3.9 g/dL (3.5-5.0); Alkaline Phosphatase 59 U/L (39-117); Anion Gap 12 (12-20); Aspartate Amino Transferase 122 U/L (5-37); Bilirubin Total 1.3 mg/dL (0.0-1.0); Blood Urea Nitrogen 8 mg/dL (9-16); Carbon Dioxide 27 mmol/L (22-29); Chloride 102 mmol/L (96-108); Creatinine Clr Calc Pharmacy 145.1; Estimated Glomerular Filt Rate > 60; Glucose Fasting 96 mg/dL (60-99); Glucose Random 95 mg/dL (60-115); Magnesium 1.8 mg/dL (1.6-2.6); Potassium 3.5 mmol/L (3.3-5.1); Sodium 137 mmol/L (135-145); Total Protein 6.4 g/dL (6.5-8.0)
[2024-09-25] MEDS: Thiamine HCL 100 MG TABLET PO (09:47)
[2024-09-25] MEDS: Folic Acid 1 MG TABLET PO (09:47)
[2024-09-25] MEDS: Multivitamin TABLET 1 TAB PO (09:47)
[2024-09-25] MEDS: PHENobarbitaL 30 MG TABLET 60 MG PO (09:47)
[2024-09-25] MEDS: 0.9 % Sodium Chloride Flush 3 ML SYRINGE IVFLUSH (09:48)
--- NOTE | 2024-09-25 09:49 | P.DS_ITS ---
DS: Providers Provider Date of Service: 09/25/24 Date of admission: 09/23/24 14:56 Date of discharge: 09/25/24 Primary care physician: Danielle Nuñez MD Consults: 09/24/24 09:55 Addiction Medicine Routine Consulting Provider: Addiction Covering Reason for consultation: etoh DS: Diagnosis Discharge Diagnosis (1) Alcohol abuse: Status: Chronic DS: Summary Hospital Course Hospital Course: from initial hpi: 49-year-old male with a past medical history significant for alcohol abuse, history of GI bleed, anemia, pancytopenia and GERD who presented to the ED today due to shakiness, epigastric pain and nausea. CIWA was 15, he was given 2 mg of IV lorazepam without response therefore was given an additional 2 mg. He was then started on phenobarb protocol and given IV thiamine and magnesium, and IV fluids. History was unable to be obtained as patient was obtunded secondary to the lorazepam. Per the ED note he had been drinking 10-20 nips a day, had to nips this morning and was noted to be shaky and off at work this morning. She admitted to nausea and vomiting all night. No falls or GI bleed symptoms. He has been hospitalized in the past for alcohol withdrawal without any prior seizures. hospital course: Patient was admitted for alcohol dependence with alcoholic fatty liver disease, chronic pancytopenia and withdrawal. Was treated with phenobarbital protocol and withdrawal symptoms resolved. Was also given folic acid, thiamine, multivitamin, PPI. Was seen by Addiction team who provided education and resources to follow up with in the community. Patient is feeling better will be discharged home. Time Attestation Discharge Coordination Time (in mins): 37 Quality: Safe Use of Opioids Does Pt have an Active Cancer Diagnosis on the Problem List?: No Quality: Stroke Does the patient have a stroke diagnosis?: No Physical Exam Vital Signs: Vital Signs: Last Vital Signs Temp 99.1 F 09/25/24 06:59 Pulse 59 09/25/24 06:59 Resp 18 09/25/24 06:59 BP 155/98 H 09/25/24 06:59 Pulse Ox 98 09/25/24 06:59 O2 Del Method Room Air 09/25/24 06:59 BMI result Body Mass Index 25.7 General: AO X 3, no acute distress Resp: CTA bilateral, no accessory muscles used CVS: S1,S2,RRR GI: soft, non tender, non distended Neuro: motor grossly intact, alert Psych: appropriate affect, appropriate insight DS: Data Data Completed and Pending Completed studies during hospitalization [Text1]: Procedures Detoxification Services for Substance Abuse Treatment (06/07/24) Excision of Lower Esophagus, Via Natural or Artificial Opening Endoscopic, Diagnostic (10/07/20) Excision of Stomach, Pylorus, Via Natural or Artificial Opening Endoscopic, Diagnostic (10/07/20) Transfusion of Nonautologous Red Blood Cells into Peripheral Vein, Percutaneous Approach (10/07/20) Labs on day of discharge: Laboratory Results - last 24 hr 09/25/24 09/25/24 09/25/24 07:02 07:02 07:02 WBC 1.8 L Cancelled RBC 3.70 L Cancelled Hgb 12.1 L Hct MCV MCH MCHC RDW Plt Count MPV Immature Gran % (Auto) Neut % (Auto) Lymph % (Auto) [place] % (Auto) Eos % (Auto) Baso % (Auto) Lymph # (Auto) [place] # (Auto) Eos # (Auto) Baso # (Auto) Abs Immat Gran (auto) Absolute Neuts (auto) Absolute Nucleated RBC Nucleated RBC % (auto) Smear Path Review Sodium Potassium Chloride Carbon Dioxide Anion Gap BUN Creatinine Estim Creat Clear Calc Estimated GFR Random Glucose Fasting Glucose Calcium Magnesium Total Bilirubin AST ALT Alkaline Phosphatase Total Protein Albumin 09/25/24 09/25/24 09/25/24 07:02 07:02 07:02 WBC RBC Hgb Cancelled Hct 33.6 L Cancelled MCV 90.8 Cancelled MCH 32.7 MCHC RDW Plt Count MPV Immature Gran % (Auto) Neut % (Auto) Lymph % (Auto) [place] % (Auto) Eos % (Auto) Baso % (Auto) Lymph # (Auto) [place] # (Auto) Eos # (Auto) Baso # (Auto) Abs Immat Gran (auto) Absolute Neuts (auto) Absolute Nucleated RBC Nucleated RBC % (auto) Smear Path Review Sodium Potassium Chloride Carbon Dioxide Anion Gap BUN Creatinine Estim Creat Clear Calc Estimated GFR Random Glucose Fasting Glucose Calcium Magnesium Total Bilirubin AST ALT Alkaline Phosphatase Total Protein Albumin 09/25/24 09/25/24 09/25/24 07:02 07:02 07:02 WBC RBC Hgb Hct MCV MCH Cancelled MCHC 36.0 Cancelled RDW 12.5 Cancelled Plt Count 98 L MPV Immature Gran % (Auto) Neut % (Auto) Lymph % (Auto) [place] % (Auto) Eos % (Auto) Baso % (Auto) Lymph # (Auto) [place] # (Auto) Eos # (Auto) Baso # (Auto) Abs Immat Gran (auto) Absolute Neuts (auto) Absolute Nucleated RBC Nucleated RBC % (auto) Smear Path Review Sodium Potassium Chloride Carbon Dioxide Anion Gap BUN Creatinine Estim Creat Clear Calc Estimated GFR Random Glucose Fasting Glucose Calcium Magnesium Total Bilirubin AST ALT Alkaline Phosphatase Total Protein Albumin 09/25/24 09/25/24 09/25/24 07:02 07:02 07:02 WBC RBC Hgb Hct MCV MCH MCHC RDW Plt Count Cancelled MPV 9.6 Cancelled Immature Gran % (Auto) 0.6 H Neut % (Auto) 62.8 Lymph % (Auto) 19.4 L [place] % (Auto) 12.8 H Eos % (Auto) 3.3 Baso % (Auto) 1.1 Lymph # (Auto) 0.4 L [place] # (Auto) 0.2 Eos # (Auto) 0.1 Baso # (Auto) 0.0 Abs Immat Gran (auto) 0.01 Absolute Neuts (auto) 1.1 L Absolute Nucleated RBC 0.000 Cancelled Nucleated RBC % (auto) 0.0 Smear Path Review Sodium Potassium Chloride Carbon Dioxide Anion Gap BUN Creatinine Estim Creat Clear Calc Estimated GFR Random Glucose Fasting Glucose Calcium Magnesium Total Bilirubin AST ALT Alkaline Phosphatase Total Protein Albumin 09/25/24 07:02 WBC RBC Hgb Hct MCV MCH MCHC RDW Plt Count MPV Immature Gran % (Auto) Neut % (Auto) Lymph % (Auto) [place] % (Auto) Eos % (Auto) Baso % (Auto) Lymph # (Auto) [place] # (Auto) Eos # (Auto) Baso # (Auto) Abs Immat Gran (auto) Absolute Neuts (auto) Absolute Nucleated RBC Nucleated RBC % (auto) Cancelled Smear Path Review SEE NOTE Sodium 137 Potassium 3.5 Chloride 102 Carbon Dioxide 27 Anion Gap 12 BUN 8 L Creatinine 0.70 Estim Creat Clear Calc 145.1 Estimated GFR > 60 Random Glucose 95 Fasting Glucose 96 Calcium 9.0 Magnesium 1.8 Total Bilirubin 1.3 H AST 122 H ALT 69 H Alkaline Phosphatase 59 Total Protein 6.4 L Albumin 3.9 Discharge Plan Discharge Anticipated Discharge Date/Time: 09/25/24 09:48 Patient Disposition: Home, Self-Care Discharge Diagnosis: eoth dependence with withdrawal Referrals: Danielle Nuñez MD [Primary Care Provider] - 1 Week Discharge Medications: Continued omeprazole 20 mg capsule,delayed release(DR/EC) 40 mg PO DAILY@0630 Discharge Orders: Discharge Order (Routine); Ordered 09/25/24 Ordered By: João Pedro Diet: Advance to usual diet Activity on Discharge: no etoh Stand Alone Forms: Patient Portal Discharge page Print Language: Japanese Care Plan Goals: Manage alcohol dependence Health Concerns: Alcohol dependence Plan of Treatment: Avoid alcohol and follow up with resources in the community Assessment: See above
--- NOTE | 2024-09-25 10:30 | MHC.RECOVSUP ---
met with pt who claims he drinks alone most of the time at home, wants to avoid DUIs- but sometimes misses family/social events. goal of drinking is to make things more interesting , he can't seem to find jamie in life. we discussed that he has the boxes checked (family, house, job, etc), and perhaps is struggling with depression. Is open to meeting with a provider to explore anti-depressants or other medications to help with his situation.
--- NOTE | 2024-09-25 11:17 | MHC.CM.PN ---
pt medically cleared for DC home self care, recovery team updated, pt will arrange his own transport.
== END 2024-09-25 11:19 | disposition home or self-care (01) | DRG 775 ==
LOC: HO.ED 14:33 → HO.EDOVER 15:05 → HO.IMC 22:06
PROVIDERS: Admitting Provider Physician Assistant; Emergency Provider Emergency Medicine; PCP Internal Medicine; Visit Provider Internal Medicine
DX: F10.239 Alcohol dependence with withdrawal, unspecified (principal); D61.818 Other pancytopenia; K29.20 Alcoholic gastritis without bleeding; K70.0 Alcoholic fatty liver; Z79.899 Other long term (current) drug therapy
CPT/HCPCS: 36415; 80048; 80053; 80076; 80307; 81001; 83690; 83735; 85025; 93005; 99285; J1650; J2060; J2470; J2560; J3411; J3475; J7120

== ENCOUNTER → 2024-09-23 12:55 | Outpatient (BNV) | payer OTHER, SELFPAY | PROVIDERS: Admitting Provider Physician Assistant; Emergency Provider Emergency Medicine; PCP Internal Medicine; Visit Provider Internal Medicine Cardiovascular Disease | DX: R00.0 Tachycardia, unspecified (principal) | CPT/HCPCS: 93010 ==

== ENCOUNTER → 2024-09-23 14:56 | Outpatient (BNV) | payer OTHER, SELFPAY | PROVIDERS: Admitting Provider Physician Assistant; Emergency Provider Emergency Medicine; PCP Internal Medicine; Visit Provider Physician Assistant | DX: F10.130 Alcohol abuse with withdrawal, uncomplicated (principal) | CPT/HCPCS: 99232; 99239 ==

== ENCOUNTER 2024-10-12 09:58 | Emergency (ER) | payer OTHER, SELFPAY ==
[2024-10-12 10:03] VITALS: BP 140/100; PULSE 102; RESP 18; TEMP 37.1; O2SAT 96; BMI 27.5
[2024-10-12 10:19] LABS: Basophils Absolute Auto 0.1 X10*3/uL (0.0-0.2); Basophils Percent Auto 1.8 % (0-2); Eosinophils Percent Auto 0.9 % (0-4); Hematocrit 43.9 % (42.0-52.0); Hemoglobin 15.1 g/dl (14.0-18.0); Imm Gran Abs Auto 0.01 X10*3/uL (0.00-0.03); Imm Gran Pct Auto 0.2 % (0.0-0.4); Lymphocytes Absolute Auto 0.8 X10*3/uL (1.2-4.9); Lymphocytes Percent Auto 18.9 % (20-40); MANUAL DIFF FLAG NO; Mean Corpuscular HGB Conc 34.4 g/dl (31.0-36.0); Mean Corpuscular Hemoglobin 32.5 pg (27.0-33.0); Mean Corpuscular Volume 94.6 fL (80.0-98.0); Mean Platelet Volume 8.3 fL (9.4-12.4); Monocytes Absolute Auto 0.3 X10*3/uL (0.1-1.2); Monocytes Percent Auto 7.1 % (2-11); Neutrophils Absolute Auto 3.1 x10*3/uL (2.0-8.3); Neutrophils Percent Auto 71.1 % (45-73); Platelet Count 209 X10*3/uL (160-400); Red Blood Count 4.64 X10*6/uL (4.60-5.80); Red Cell Distribution Width 13.2 % (11.0-16.0); White Blood Count 4.4 X10*3/uL (4.8-10.8)
[2024-10-12 10:36] LABS: Alanine Aminotransferase 58 U/L (0-40); Albumin Level 4.8 g/dL (3.5-5.0); Alkaline Phosphatase 73 U/L (39-117); Anion Gap 20 (12-20); Aspartate Amino Transferase 84 U/L (5-37); Bilirubin Direct 0.3 mg/dL (0.0-0.5); Bilirubin Total 0.8 mg/dL (0.0-1.0); Blood Urea Nitrogen 14 mg/dL (9-16); Calcium 9.5 mg/dL (8.4-10.2); Carbon Dioxide 26 mmol/L (22-29); Chloride 100 mmol/L (96-108); Creatinine Clr Calc Pharmacy 126.6; Estimated Glomerular Filt Rate > 60; Ethanol 379 mg/dL; Glucose Random 134 mg/dL (60-115); Lipase 14 U/L (8-78); Potassium 3.6 mmol/L (3.3-5.1); Sodium 142 mmol/L (135-145); Total Protein 8.3 g/dL (6.5-8.0)
--- NOTE | 2024-10-12 10:49 | ED.ALCOHOL ---
HPI - Alcohol General Chief Complaint: ETOH/Substance Use Stated Complaint: Detox Time Seen by Provider: 10/12/24 10:42 Source: patient Mode of arrival: ambulatory Limitations: no limitations History of Present Illness HPI narrative: this is 49 years old male presented to the emergency department complaining of alcohol intoxication and feeling well nausea. Denies chest pain shortness of breath. complaint: alcohol intoxication Last drink: Hours (ago) (2) Chronic alcohol use: Yes Previous visits for alcohol intoxication: Yes Recent trauma: No Associated symptoms: denies other symptoms Related Data Home Medications ?Medication ?Instructions ?Recorded ?Confirmed omeprazole 20 mg capsule,delayed 40 mg PO DAILY@0630 02/24/23 09/23/24 release Allergies Allergy/AdvReac Type Severity Reaction Status Date / Time Penicillins [PENICILLINS] Allergy Intermediate RASH Verified 10/12/24 10:06 Review of Systems Eyes: Eyes: Reports no additional eye complaints ENT: Reports system reviewed and no additional complaints, except as documented Musculoskeletal: Musculoskeletal: Reports no additional musculoskeletal complaints [facility] Past Medical History [facility] Narrative: Alcohol abuse Medical History GERD (gastroesophageal reflux disease) Thrombocytopenia Leukopenia Alcohol abuse with withdrawal Alcohol use disorder Alcoholic gastritis Elevated LFTs Peripheral neuropathy GERD (gastroesophageal reflux disease) Alcohol withdrawal GI bleed Anemia ETOH abuse HTN (hypertension) Family History Family History Mother Mental health disorder Father Liver cirrhosis Social History Social History Household Members: Spouse and Family Household Members Other:: Jerica - - 2 children ages 8 and 15 Housing: House Do you presently have visiting nurse or other home services: No Alcohol intake: current Alcohol intake frequency: 3 or more drinks per day Alcohol type: hard liquor Comment: deemed high fall risk upon admission do to ETOH withdrawl. 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 Sexual orientation: Straight/Heterosexual Physical Exam ED Vital Signs: Vital Signs - 24 hr 10/12/24 10:03 10/12/24 10:59 10/12/24 13:10 Temperature 98.8 F 98.0 F 98.4 F Pulse Rate 102 H 94 84 Respiratory Rate 18 15 15 Blood Pressure 140/100 H 144/90 H 123/74 Pulse Oximetry 96 98 94 Oxygen Delivery Method Room Air Room Air Room Air 10/12/24 16:04 Temperature Pulse Rate 106 H Respiratory Rate 18 Blood Pressure 140/77 H Pulse Oximetry 98 Oxygen Delivery Method Room Air BMI result Body Mass Index 27.5 not acute distress Const General: cooperative and comfortable Nutritional Appearance: well nourished Orientation/consciousness: patient oriented x3 HENMT Head: Yes normal to inspection General nose exam: Normal external nose present Face and sinus: Yes normal facial exam Neck Neck: Yes normal visual inspection and Yes full ROM Chest Chest palpation & inspection: normal inspection of the chest Resp Effort & Inspection: normal respiratory effort Auscultation: clear to auscultation bilaterally Cardio Jugular venous distension: no JVD Rate: regular rate GI Inspection: Yes normal to inspection Palpation (GI): Soft to palpation, not firm and nontender Auscultation: normal bowel sounds Skin General skin exam: no rashes or lesions noted Lesions: no lesions Neuro General: patient oriented x3 Course Reevaluation(s) Reevaluation #1: signed out to Dr sU Time: 16:38 Medical Decision Making Medical Decision Making [facility] Narrative: patient presented with alcohol intoxication nausea will check labs a Differential Diagnosis Differential Diagnoses: The differential diagnosis associated with the presentation includes alcohol intoxication /alcohol withdrawal hypokalemia hypomagnesemia Lab Data 10/12/24 10:13 10/12/24 10:13 Labs: Lab Results 10/12/24 10/12/24 10/12/24 Range/Units 10:13 14:12 14:27 WBC 4.4 L (4.8-10.8) X10*3/uL RBC 4.64 D (4.60-5.80) X10*6/uL Hgb 15.1 D (14.0-18.0) g/dl Hct 43.9 D (42.0-52.0) % MCV 94.6 (80.0-98.0) fL MCH 32.5 (27.0-33.0) pg MCHC 34.4 (31.0-36.0) g/dl RDW 13.2 (11.0-16.0) % Plt Count 209 D (160-400) X10*3/uL MPV 8.3 L (9.4-12.4) fL Immature Gran % (Auto) 0.2 (0.0-0.4) % Neut % (Auto) 71.1 (45-73) % Lymph % (Auto) 18.9 L (20-40) % [place] % (Auto) 7.1 (2-11) % Eos % (Auto) 0.9 (0-4) % Baso % (Auto) 1.8 (0-2) % Lymph # (Auto) 0.8 L (1.2-4.9) X10*3/uL [place] # (Auto) 0.3 (0.1-1.2) X10*3/uL Eos # (Auto) 0.0 (0.0-0.4) X10*3/uL Baso # (Auto) 0.1 (0.0-0.2) X10*3/uL Abs Immat Gran (auto) 0.01 (0.00-0.03) X10*3/uL Absolute Neuts (auto) 3.1 (2.0-8.3) x10*3/uL Absolute Nucleated RBC 0.000 (0.0-0.012) X10*3/uL Nucleated RBC % (auto) 0.0 (0.0-0.2) /100WBC Sodium 142 (135-145) mmol/L Potassium 3.6 (3.3-5.1) mmol/L Chloride 100 (96-108) mmol/L Carbon Dioxide 26 (22-29) mmol/L Anion Gap 20 (12-20) BUN 14 (9-16) mg/dL Creatinine 0.78 (0.5-1.4) mg/dL Estim Creat Clear Calc 126.6 Estimated GFR > 60 Random Glucose 134 H (60-115) mg/dL Calcium 9.5 (8.4-10.2) mg/dL Magnesium 1.8 (1.6-2.6) mg/dL Total Bilirubin 0.8 (0.0-1.0) mg/dL Direct Bilirubin 0.3 (0.0-0.5) mg/dL AST 84 H (5-37) U/L ALT 58 H (0-40) U/L Alkaline Phosphatase 73 (39-117) U/L Total Protein 8.3 H (6.5-8.0) g/dL Albumin 4.8 (3.5-5.0) g/dL Lipase 14 (8-78) U/L Urine Color Dark Yellow Urine Appearance Clear Urine pH 5.5 (5.0-9.0) Ur Specific [place] 1.025 (1.005-1.025) Urine Protein 30 (1+) H (Neg-Trace) mg/dL Urine Glucose (UA) Negative (Negative) mg/dL Urine Ketones 15 (Negative) mg/dL Urine Blood Negative (Negative) Urine Nitrite Negative (Negative) Ur Leukocyte Esterase Negative (Negative) Urine RBC 0-2 (0-2) /HPF Urine WBC 0-5 (0-5) /HPF Ur Squamous Epith Cells 0-2 (0-2) /HPF Urine Bacteria None Seen (None Seen) Hyaline Casts 0-2 (0-2) /LPF Urine Opiates Screen Not Detected (Not Detect) Ur Buprenorphine Scrn Not Detected (Not Detect) ng/mL Ur Oxycodone Screen Not Detected (Not Detect) ng/mL Urine Methadone Screen Not Detected (Not Detect) ng/mL Urine Fentanyl Screen Not Detected (Not Detect) Ur Barbiturates Screen POSITIVE H (Not Detect) Ur Phencyclidine Scrn Not Detected (Not Detect) Ur Amphetamines Screen Not Detected (Not Detect) U Benzodiazepines Scrn Not Detected (Not Detect) Urine Cocaine Screen Not Detected (Not Detect) U Marijuana (THC) Screen POSITIVE H (Not Detect) Ethyl Alcohol 379 H* mg/dL Medications Administered Discontinued Medications Generic Name Dose Route Start Last Admin Trade Name Freq PRN Reason Stop Dose Admin Sodium Chloride 1,000 mls @ 999 mls/hr 10/12/24 11:00 10/12/24 12:01 Ns IVCONT 10/12/24 12:00 Infused .Q1H1M LYDIA Infusion Lorazepam 2 mg 10/12/24 15:20 10/12/24 16:03 Lorazepam 1 Mg Tablet PO 10/12/24 15:21 2 mg ONCE ONE Administration Ondansetron HCl 4 mg 10/12/24 10:48 10/12/24 10:57 Ondansetron Hcl 4 Mg/2 Ml Vial IVPUSH 10/12/24 10:49 4 mg ONCE ONE Administration Thiamine HCl 100 mg 10/12/24 10:48 10/12/24 10:57 Thiamine Hcl 100 Mg Tablet PO 10/12/24 10:49 100 mg ONCE ONE Administration Discharge Plan Discharge Clinical Impression: Alcoholism Patient Disposition: Still a Patient Prescriptions: No Action omeprazole 20 mg capsule,delayed release(DR/EC) 40 mg PO DAILY@0630 Print Language: Barbadian
[2024-10-12] MEDS: ondansetron HCL 4 MG/2 ML VIAL IVPUSH (10:57)
[2024-10-12] MEDS: Thiamine HCL 100 MG TABLET PO (10:57)
[2024-10-12] MEDS: 0.9 % Sodium Chloride 1,000 ML 999 ML IVCONT (10:58)
[2024-10-12 10:59] VITALS: BP 144/90; PULSE 94; RESP 15; TEMP 36.7; O2SAT 98
[2024-10-12 11:11] LABS: Magnesium 1.8 mg/dL (1.6-2.6)
[2024-10-12 13:10] VITALS: BP 123/74; PULSE 84; RESP 15; TEMP 36.9; O2SAT 94
[2024-10-12 14:29] LABS: Amphetamine Screen Urine Not Detected (Not Detect); Barbiturates, Urine POSITIVE (Not Detect); Benzodiazepines Screen Urine Not Detected (Not Detect); Buprenorphine Scr Not Detected (Not Detect); Cannabinoid Screen Urine POSITIVE (Not Detect); Cocaine Screen Urine Not Detected (Not Detect); Fentanyl, urine Not Detected (Not Detect); Methadone Screen, Urine Not Detected (Not Detect); Opiate Screen Urine Not Detected (Not Detect); Oxycodone Screen Urine Not Detected (Not Detect); Phencyclidine Screen Urine Not Detected (Not Detect)
[2024-10-12 14:34] LABS: Appearance Urine Clear; Color Urine Dark Yellow; Glucose Urine UA Negative (Negative); Leukocyte Esterase Urine Negative (Negative); Nitrite Urine Negative (Negative); PH 5.5 (5.0-9.0); Specific Gravity - Urine 1.025 (1.005-1.025); UMIC TRIGGER UACC YES; Urine Blood Negative (Negative); Urine Ketones 15 mg/dL (Negative); Urine Protein 30 (1+) mg/dL (Neg-Trace)
[2024-10-12 14:38] LABS: Bacteria Urine None Seen (None Seen); Hyaline Casts Urine 0-2 /LPF (0-2); RBC Urine 0-2 /HPF (0-2); Squamous Epithelial Cell Urine 0-2 /HPF (0-2); WBC Urine 0-5 /HPF (0-5)
[2024-10-12] MEDS: LORazepam 1 MG TABLET 2 MG PO ×2 (16:03→17:33)
[2024-10-12 16:04] VITALS: BP 140/77; PULSE 106; RESP 18; O2SAT 98
--- NOTE | 2024-10-12 17:19 | MHC.CARE ---
Patient voluntarily in [facility] POD awaiting detox placement, Recovery Team will resume work on placement to [facility] in the morning.
--- NOTE | 2024-10-12 17:35 | PC.NURSE ---
Pt medicated with 2mg Ativan PO for CIWA score of 10. Patient is calm and cooperative, sitting in common area, offering no complaints to this RN at this time.
--- NOTE | 2024-10-12 18:56 | PC.NURSE ---
patient appears to remain at rest at present respirations are even and unlabored patient appears in no distress
[2024-10-12 19:37] VITALS: BP 128/80; PULSE 80; RESP 16; TEMP 37; O2SAT 99
== END 2024-10-12 19:45 | disposition home or self-care (01) ==
PROVIDERS: Emergency Provider Emergency Medicine; PCP Internal Medicine
DX: F10.129 Alcohol abuse with intoxication, unspecified (principal); Y90.8 Blood alcohol level of 240 mg/100 ml or more; R11.0 Nausea; Z51.81 Encounter for therapeutic drug level monitoring; Z79.899 Other long term (current) drug therapy; Z71.41 Alcohol abuse counseling and surveillance of alcoholic
CPT/HCPCS: 36415; 80048; 80076; 80307; 81001; 83690; 83735; 85025; 96361; 96374; 99284; J2405

== ENCOUNTER 2025-03-31 20:47 | Emergency (ER) | payer OTHER, SELFPAY ==
[2025-03-31 21:00] VITALS: BP 126/88; BP 146/86; PULSE 112; PULSE 116; RESP 16; TEMP 37.1; O2SAT 93; O2SAT 96; BMI 62.3
[2025-03-31 21:22] VITALS: BP 126/88; PULSE 112; RESP 18; TEMP 37.1; O2SAT 93
--- NOTE | 2025-03-31 21:33 | ED.ALCOHOL ---
HPI - Alcohol General Chief Complaint: ETOH/Substance Use Stated Complaint: ETOH Time Seen by Provider: 03/31/25 21:06 Source: patient and EMS Mode of arrival: EMS Limitations: no limitations History of Present Illness ED Provider: Dr. Kenya Purdy HPI narrative: Patient comes to the emergency room by ambulance from home. Patient admits that earlier today he was drinking alcohol and watching golf. Patient states that he admits that he drinks alcohol on the heavier side.. However, while he was sitting down watching off, ambulance and PD showed up and told him that he needed to go to the hospital. Patient did not call EMS. Patient is unsure if it was his son or his who live with him. Patient denies any verbal or physical altercation. Patient denies passing out, states he was awake alert and oriented the whole time. Patient has no idea why they told him that he needed to come. Patient states that he did not want to have any confrontation with PD or EMS so he voluntarily came to the hospital. According to EMS, seems that patient was throwing objects around the house? Patient left rehab 2 weeks ago and returned to drinking 1 the after being discharged. Patient states that at this time he is not ready to go back to rehab. However, patient states that he is willing to get information and whenever he is ready, he will make his own phone calls and get himself to rehab. Patient is not suicidal or homicidal. Related Data Home Medications ?Medication ?Instructions ?Recorded ?Confirmed omeprazole 20 mg capsule,delayed 40 mg PO DAILY@0630 02/24/23 10/12/24 release Allergies Allergy/AdvReac Type Severity Reaction Status Date / Time Penicillins [PENICILLINS] Allergy Intermediate RASH Verified 03/31/25 21:19 Review of Systems Review of Systems: Constitutional : No Weight loss, No Fever, No Chills, No Night Sweats, No Fatigue, No Malaise ENT/Mouth : No Hearing loss, No Ear Pain, No Nasal Congestion, No Sinus Pain, No Hoarseness, No sore throat, No Rhinorrhea, No Swallowing Difficulty Eyes: No Eye Pain, No Swelling, No Redness, No Foreign Body, No Discharge, No Vision Changes Cardiovascular : No Chest Pain, No SOB, No Dyspnea on Exertion, No Orthopnea, No Edema, No Palpitations Respiratory : No Cough, No Sputum, No Wheezing, No Smoke Exposure, No Dyspnea Gastrointestinal : No Nausea, No Vomiting, No Diarrhea, No Constipation, No abdominal Pain, No Hematochezia, No Melena Genitourinary : no irregular bleeding, No Dysuria, No Urinary Frequency, No Hematuria, No Urinary Incontinence, No Urgency, No Flank Pain, No Urinary Flow Changes, No Hesitancy Musculoskeletal : No joint pain, No Myalgias, No Joint Swelling Skin : No Skin Lesions, No rash Neuro : No Weakness, No Numbness, No Paresthesias, No Loss of Consciousness, No Dizziness, No Headache Psych : No Anxiety/Panic, No Depression, No SI/HI/AH/VH, admits to alcohol abuse Heme/Lymph: No Bruising, No Bleeding,No Lymphadenopathy Endocrine : No Polyuria, No Polydipsia, No Temperature Intolerance PMFSH Past Medical History Medical History GERD (gastroesophageal reflux disease) Thrombocytopenia Leukopenia Alcohol abuse with withdrawal Alcohol use disorder Alcoholic gastritis Elevated LFTs Peripheral neuropathy GERD (gastroesophageal reflux disease) Alcohol withdrawal GI bleed Anemia ETOH abuse HTN (hypertension) Family History Family History Mother Mental health disorder Father Liver cirrhosis Social History Social History Household Members: Spouse and Family Household Members Other:: Jerica - - 2 children ages 8 and 15 Housing: House Do you presently have visiting nurse or other home services: No Alcohol intake: current Alcohol intake frequency: 0-2 drinks per day Alcohol type: hard liquor Comment: deemed high fall risk upon admission do to ETOH withdrawl. 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 Oriented X3. No acute distress. Eyes: Pupils equal, round and reactive to light. ENT: Pharynx normal. Neck: Normal inspection. Neck supple. No lymph nodes noted. No crepitus CVS: Normal heart rate and rhythm. Pulses normal. Normal S1 and S2 Respiratory: No respiratory distress. Breath sounds normal. No Wheezing. No rales Abdomen: Soft and nontender. No rigidity. No distention. Skin: Skin warm and dry. Normal skin color. Normal skin turgor. Extremities: No lower extremity edema. No Lacerations. No Rash Neuro: Oriented X 3. No motor deficit. No sensory deficit. Moving all extremities. No slurred speech. CN 2 through 12 grossly intact Psych: calm, cooperative, normal affect Course Course Course Narrative: Patient is alert, oriented x3, no acute distress, vitals stable, cooperative, coherent Patient states that he has no idea why he was brought to the emergency room. Patient states it was against his will but did not want any confrontation with PD or EMS. Patient admits that he drinks alcohol, but was not drank to the point that he was being aggressive Patient's nurse is currently trying to get in touch with the patient's family to get their side of the story. As of now, there is no indication to keep the patient on a Section 12. Patient declined lab work Medical Decision Making Medical Decision Making MDM Narrative: Patient is awake, alert and oriented x3, no acute distress , calm and cooperative vitals are normal Patient's nurse was able to get in touch with the patient's . According to the patient's , after he was drinking alcohol, he seemed a bit disoriented, bizarre affect. However, at this time patient is completely back to normal, steady gait unassisted, no SI no HI, patient's and son feel comfortable taking him back home. They will come and pick him up. Patient agrees with plan Patient declined Care team/detox for alcohol abuse Differential Diagnosis Differential Diagnoses: The differential diagnosis associated with the presentation includes (Polysubstance abuse, alcohol abuse, alcohol dependence) Discharge Plan Discharge Clinical Impression: Alcohol intoxication Patient Disposition: Home, Self-Care Instructions: Alcohol Intoxication (ED) Additional Instructions: Alcohol use disorder You were seen in the Emergency Department today for treatment of alcohol use disorder.? You may have been given medications to help with your withdrawal symptoms.? Please do not drink alcohol with them. This is very dangerous and can cause respiratory depression or other adverse reactions depending on the medication. If you would like to cut down or stop your alcohol use please consider calling our outpatient Addiction Treatment office:? [facility] (M-F [id number] [address] [place] [address] ? You have also been given a list of treatment providers in the area that can assist as well.? If you experience seizures, vomiting blood, black stools, falls, severe headache, chest pain, fevers, trouble breathing, hallucinations or any other concerns you need to call 911 or seek immediate care. Please stay hydrated. Prescriptions: No Action omeprazole 20 mg capsule,delayed release(DR/EC) 40 mg PO DAILY@0630 Print Language: Japanese
--- NOTE | 2025-03-31 21:41 | PC.NURSE ---
Call placed to Jerica luz on file, and Ruth pt's son at [phone]. Left voicemails for return call. No other sober rides available
--- NOTE | 2025-03-31 21:45 | PC.NURSE ---
TW spoke with Jerica, Jerica reports that PT drank a lot this evening and that they were concerned because he was acting erratically, not making sense, said he thought he was going to have a seizure, was staring off into space and becoming irate. She reports that PT was just in rehab and was prescribed antidepressants,she is unsure if he was been taking them or if he has been taking them while also drinking. She is not able to provide a sober right as she doesn't have a car right now.
[2025-03-31 22:19] VITALS: BP 0/0; PULSE 0; RESP 0; TEMP -17.7; TEMP 0; O2SAT 0
== END 2025-03-31 22:20 | disposition home or self-care (01) ==
PROVIDERS: Emergency Provider Emergency Medicine
DX: F10.120 Alcohol abuse with intoxication, uncomplicated (principal); Y90.9 Presence of alcohol in blood, level not specified; E66.9 Obesity, unspecified; Z68.44 Body mass index [BMI] 60.0-69.9, adult
CPT/HCPCS: 99284

== ENCOUNTER 2025-08-11 09:52 | Outpatient (AMB) | payer OTHER, SELFPAY ==
[2025-08-11 09:57] VITALS: BP 108/76; PULSE 83; O2SAT 98; BMI 31.5
--- NOTE | 2025-08-11 09:57 | A.OFFVIS_ITS ---
Vital Signs 08/11/25 09:57 Height 6 ft 2 in Weight 245 lb BMI 31.5 BP 108/76 Blood Pressure Location Rt brachial Position Sitting Pulse 83 Pulse Source Pulse Oximeter Pulse Oximetry (%) 98 Oxygen Delivery Method Room Air Intake Visit Reasons: MAT Intake Allergies Penicillins (PENICILLINS) Allergy (Intermediate, Verified 08/11/25 09:57) RASH HPI Comments Details: A 50-year-old male presents for a MAT intake for AUD. Reports during inpatient detox was administered Vivitrol and prescribed disulfiram. Denies use of al cohol, opiates, and other substances. Attending [facility] and due to insurance coverage is approved for one additional week. and children are suppportive and is accepting of a referral to a peer call or contact centre coach. COUNTS INCLUDE 234 BEDS AT THE [facility] Medical History GERD (gastroesophageal reflux disease) Thrombocytopenia Leukopenia Alcohol abuse with withdrawal Alcohol use disorder Alcoholic gastritis Elevated LFTs Peripheral neuropathy GERD (gastroesophageal reflux disease) Alcohol withdrawal GI bleed Anemia ETOH abuse HTN (hypertension) Family History Mother Mental health disorder Father Liver cirrhosis Social History Household Members: Spouse and Family Household Members Other:: Jerica - - 2 children ages 8 and 15 Housing: House Do you presently have visiting nurse or other home services: No Alcohol intake: current Alcohol intake frequency: 0-2 drinks per day Alcohol type: hard liquor Comment: deemed high fall risk upon admission do to ETOH withdrawl. 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 Start folic acid 1 mg and thiamine 100 mg daily. Education and risk reductions activities discussed. Referral to peer call or contact centre coach and additional support/education completed by contract administration specialist. Patient to follow-up in 4 weeks or sooner if needed. Medications: New folic acid Take 1 tablet daily 1 mg PO DAILY 30 tabs 3RF 30 days thiamine mononitrate (vit B1) Take 1 tablet daily 100 mg PO DAILY 30 tabs 3RF 30 days Patient Instructions: - Start folic acid and thiamine as prescribed. - Vivitrol ordered pending insurance approval. - Engage in risk reduction activities. - follow-up in 4 weeks or sooner if needed. - Call with questions, concerns, or to report side effects/new onset of symptoms to [facility]. - The patient verbalized understanding and agreed with plan of care. 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 Date of last visit: First visit Substance Abuse History Substance Abuse History (includes route, frequency and quantity): Alcohol (first use 15, the past 5-6 years heavily- 20 nips daily) and Marijuana (occasional gummy) Social History Domestic Violence concerns: none Children: 12 & 17 sons at home Do you have a support system?: yes Current mode of transportation?: self Where are you currently residing?: [place] LMP: N/A IV Drug Use Have you ever shared needles?: No Have you ever belonged to a needle exchange program?: No Do you buy needles at a pharmacy?: No Have you ever overdosed?: No Have you ever been hospitalized for an overdose?: No Was Naloxone administered?: Not applicable Recovery History Have you had any periods of recovery?: Yes What is your longest time in recovery?: 10 months When was the last time you were in recovery?: 202107/15/25 current sobriety date Have you ever had inpatient treatment for your substance abuse disorder?: Yes Have you been in an inpatient detoxification program?: Yes Have you been in an inpatient Rehab/[facility] house?: Yes Have you been in an outpatient Methadone Maintenance program?: No Have you been in an outpatient Suboxone Maintenance program?: No Have you been in an AA/NA support program?: Yes Have you had a Recovery Support Trimmer And Reinforcer?: No (will refer out ) Have you had Peer Support?: No Behavioral Health History Do you have a current provider? If so, who?: no diagnosis: none History of other addictive behavior: no History of inpatient psychiatric hospitalization? If so, how many? Most Recent? Where?: no History of self harming thoughts?: No History of homicidal or suicidal intentions?: No (Contracts for safety, denies depression) Medical Conditions Endocarditis?: No Skin Infection: Yes (Current foot ulcer - engaged at [facility] wound care) Seizure related to withdrawal or overdose: No Head or brain injury: No Hepatitis A (if yes, have you been treated?): No Hepatitis B (if yes, have you been treated?): No Hepatitis C (if yes, have you been treated?): No HIV (if yes, have you been treated?): No TB (if yes, have you been treated?): No Other: No Do you have any chronic pain conditions?: BLE Neuropathy Legal History History of incarceration: No Currently on parole or probation: No Court mandated programs: No Pending court cases: No DCF involvement: No
== END 2025-08-11 10:39 | disposition home or self-care (01) ==
PROVIDERS: Visit Provider Clinical Nurse Specialist Psychiatric/Mental Health
DX: F10.20 Alcohol dependence, uncomplicated (principal)
CPT/HCPCS: 99203

== ENCOUNTER 2025-10-20 09:05 | Outpatient (REF) | payer OTHER, SELFPAY ==
--- NOTE | ~2025-10-20 | MR_ITS ---
CLINICAL HISTORY: NON PRESSURE CHRONIC ULCER W FAT LAYER EXPOSED R O OSTEO MRI of the right foot with and without contrast. Comparison: Plain film of the right foot dated 11/12/2022. Findings: There are significant chronic degenerative changes at the 1st metatarsal phalangeal joint with bunion formation. Multiple subchondral cysts are seen. Bone marrow signal is normal. There is no evidence of osteomyelitis. There is edema at the base of the 5th digit and a fluid collection is present along the lateral aspect of the distal 5th metatarsal perhaps representing a ganglion cyst. A medial fluid collection fluid is also seen along the anteromedial aspect of the 5th metatarsophalangeal joint likely related to the metatarsophalangeal joint space. There is enhancement of the synovium suggesting synovitis. The muscles and tendons are grossly normal. Impression: 1. Likely ganglion cyst adjacent to the distal aspect of the 5th metatarsal. 2. Synovitis 5th metatarsophalangeal joint. 3. Severe degenerative changes at the 1st metatarsophalangeal joint. 4. Soft tissue edema/inflammation adjacent to the 5th digit consistent with cellulitis. No definite evidence of osteomyelitis. This document has been electronically signed by: Osmel Koch MD on 10/21/2025 09:56:49
== END 2025-10-20 09:06 | disposition home or self-care (01) ==
LOC: HO.MRI 09:05
PROVIDERS: Visit Provider Surgery Surgical Oncology
DX: L97.512 Non-pressure chronic ulcer of other part of right foot with fat layer exposed (principal)
CPT/HCPCS: 73720; A9585

== ENCOUNTER → 2025-10-20 09:08 | Outpatient (BNV) | payer OTHER, SELFPAY | PROVIDERS: Visit Provider Radiology Diagnostic Radiology | DX: L97.912 Non-pressure chronic ulcer of unspecified part of right lower leg with fat layer exposed (principal); M65.961 Unspecified synovitis and tenosynovitis, right lower leg; M19.071 Primary osteoarthritis, right ankle and foot | CPT/HCPCS: 73720 ==